=== PATIENT | female | born 1955 | race African-American/Black ===

== ENCOUNTER 2024-08-15 07:44 | Inpatient (IN) | payer OTHER, SELFPAY ==
[2024-08-15] VITALS (12 sets, daily range): BP systolic 125–209; BP diastolic 57–101; PULSE 80–118; RESP 14–21; TEMP 36–37.1; O2SAT 95–100
--- NOTE | ~2024-08-15 | CT_ITS ---
CT of the Abdomen and Pelvis: Indication: Dysphagia Technique: 2.5 mm axial scans were obtained through the abdomen and pelvis following intravenous adm inistration of 100 cc of Omnipaque 350. Dose reduction technique was used on this scan by utilizing a utomated exposure control and iterative reconstruction technique. The dose-length product (DLP) was 5 11.23 mGy-cm. Findings: Scans through the lung bases are unremarkable. Diffusely nodular liver is compatible cirrhosis. No definite hepatic mass or biliary dilatation evide nt. Multiple gallstones are present, with somewhat distended gallbladder. The spleen, gallbladder, ad renals and kidneys are within normal limits. There are atherosclerotic calcifications of the aorta. T here is a 4.7 x 2.8 x 2.4 cm lobulated soft tissue mass in the gastrohepatic region, which appears ne w focally contiguous with the lesser curvature of the stomach, possibly representing exophytic GIST t umor versus other neoplastic mass.. Suggestion of focal wall thickening GE junction region, which may be contiguous with the aforemention ed mass. No bowel obstruction evident. Images through the pelvis were performed. Multiple calcified uterine fibroids are present. No other a dnexal mass seen. Urinary bladder unremarkable. No ascites. Impression: 4.7 x 2.8 x 2.4 cm gastrohepatic region soft tissue mass, which appears focally contiguous with the l micheline curvature of the stomach. Suggestion of additional mild wall thickening at the GE junction jazlyn on, which may also be contiguous with the mass. Findings are consistent with neoplastic process, poss ibly GIST versus other neoplasm. Cirrhotic liver. Cholelithiasis. Calcified uterine fibroids. Reviewed, dictated and finalized at location M. Impression: 4.7 x 2.8 x 2.4 cm gastrohepatic region soft tissue mass, which appears focally contiguous with the lesser curvature of the stomach. Suggestion of additional mild wall thickening at the GE junction region, which may also be contiguous wi th the mass. Findings are consistent with neoplastic process, possibly GIST simin abimbola other neoplasm. Cirrhotic liver. Cholelithiasis. Calcified uterine fibroids.
--- NOTE | ~2024-08-15 | CT_ITS ---
EXAMINATION: CT diagnostic chest w con DATE: 08/17/2024 21:04 INDICATION: Esophageal cancer staging TECHNIQUE: Computed tomography (CT) of the chest was performed with 75 mL Omnipaque-350 intravenous c ontrast. Additional 3D reconstructions utilizing coronal maximum intensity projection (MIP) were perf ormed. Automated exposure control and iterative reconstruction technique were employed. The dose-esther th product was 472.57 mGy-cm. COMPARISON: None FINDINGS: Lungs are clear with no suspicious pulmonary nodules, pneumonia, pulmonary edema or pleural effusion. Heart size is normal. No pericardial effusion. Thoracic aorta is normal in caliber with no dissectio n. Subcutaneous mass with concentric wall thickening extending 5.6 mm craniocaudally and measuring 3. 6 x 2.4 similar in the proximal thoracic esophagus at the caudal margin which is located near the lev el of the anupam. This likely results in a secondary stricture of the esophagus lumen which is decomp ressed at level of the mass but which is distended with dependently layering fluid proximal to the ma ss. No pathologically enlarged thoracic lymphadenopathy. Shrunken nodular cirrhotic liver. Again seen is a 4.7 x 3.2 cm gastrohepatic mass consistent with metastatic disease. Mild thoracic spondylosis w ith bridging osteophytes at multiple levels consistent with diffuse idiopathic skeletal hyperostosis (DISH). Moderate left and severe right glenohumeral osteoarthritis. IMPRESSION: 1. Mid esophageal mass consistent with reported history of primary esophageal cancer with no evident intrathoracic metastatic disease. There is however a 4.7 x 3.2 cm gastrohepatic mass consistent with metastatic lymphadenopathy. 2. Cirrhosis. Reviewed, dictated and finalized at location A. IMPRESSION: 1. Mid esophageal mass consistent with reported history of primary esophageal c ancer with no evident intrathoracic metastatic disease. There is however a 4.7 x 3.2 cm gastrohepatic mass consistent with metastatic lymphadenopathy. 2. Cirrhosis.
--- NOTE | 2024-08-15 07:58 | ED_ITS ---
HPI - General Adult General Chief complaint: Unspecified Stated complaint: unable to swallow Time Seen by Provider: 08/15/24 07:49 History of Present Illness HPI narrative: 69-year-old female present to the emergency department for evaluation for difficulty swallowing over last few weeks. Patient has been checked at [place] and everything has been fine. Family states the patient is having difficulty swallowing her saliva and swallowing food. Patient appears to be in no distress upon arrival to the emergency department. Patient family do not report any acute worsening of her difficulty swallowing but states it has continued to escalate. Patient was unable to tolerate a p.o. challenge to the emergency department. Related Data Home Medications Medication Instructions Recorded Confirmed amlodipine 10 mg tablet 10 mg PO DAILY 08/15/24 08/15/24 clonidine HCl 0.3 mg tablet 0.3 mg PO DAILY 08/15/24 08/15/24 lisinopril 40 mg tablet 40 mg PO DAILY 08/15/24 08/15/24 Allergies Allergy/AdvReac Type Severity Reaction Status Date / Time No Known Allergies Allergy Verified 08/15/24 10:33 Review of Systems Review of Systems: All systems reviewed & are unremarkable except as noted in HPI and below PMFSH Past Medical History Medical History (Updated 08/15/24 @ 12:10 by Irving Chery MD) Abnormal CT scan, stomach Weight loss Social History Social History Smoking status: Never smoker Alcohol intake: never Substance use: never Substance use type: does not use Do You Feel Safe in your Home?: Yes Lack of Transportation: No Lack of Food: Never True Current Housing: I Have Housing Concerned About Future Housing: No Difficulty Paying Gas/Electric Bills: No Difficulty Paying for Meds: No Currently Unemployed: No Education: Don't Know Difficulty w/ Childcare or Family Care: No Spiritual care concerns: No Exam Narrative: APPEARANCE: Well appearing, no pain, no distress, well-nourished. HEAD: normocephalic, atraumatic. EYES: PERRLA/EOMI, conjunctivae clear. NOSE: Normal no drainage EARS:TMS clear with good light reflex. THROAT: Pharynx clear, no exudate. NECK: Supple. No adenopathy, no masses. RESPIRATORY: Airway patent, respirations nonlabored. Clear to auscultation bilaterally, no rales, rhonchi, wheezing. CARDIOVASCULAR: Regular rate and rhythm without murmurs rubs or gallops. ABDOMINAL: Soft, nontender, nondistended, normal bowel sounds MUSCULOSKELETAL: Moves all extremities. Strength/ROM intact, No edema, No calf tenderness. NEURO: Alert. Cranial nerves II through XII intact. Grossly intact SKIN: Warm, dry. Normal Color Course Course Emergency Course: GI was consulted and patient was admitted to the hospitalist. Vital Signs Vital signs: Vital Signs Temperature 98 F 08/15/24 07:48 Pulse Rate 88 08/15/24 07:48 Respiratory Rate 16 08/15/24 07:48 Blood Pressure 209/101 H 08/15/24 07:48 Pulse Oximetry 99 08/15/24 07:48 Oxygen Delivery Room Air 08/15/24 07:48 Temperature 96.8 F L 08/15/24 13:57 Pulse Rate 80 08/15/24 13:57 Respiratory Rate 16 08/15/24 13:57 Blood Pressure 150/57 H 08/15/24 13:57 Pulse Oximetry 100 08/15/24 13:57 Oxygen Delivery Room Air 08/15/24 07:48 Medical Decision Making MDM Narrative Medical decision making narrative: 69-year-old female presented emergency department for evaluation for worsening difficulty swallowing. Case was discussed with GI patient was admitted for suspected esophageal stricture. Patient reports she had a negative CT scan recently at [place]. CT scan was repeated here at the wishes of the hospitalist prior to admission. CT showed a 4 x 7 x 2.8 x 2.4 cm gastrohepatic region of soft tissue mass. This may be affecting the patient's difficulty with swallowing. CT was resulted after the patient was admitted Differential Diagnosis Differential Diagnosis: Esophageal stricture, esophagitis, gastritis, food bolus, mass Vital Signs Vital Signs: Vital Signs Temperature 98 F 08/15/24 07:48 Pulse Rate 88 08/15/24 07:48 Respiratory Rate 16 08/15/24 07:48 Blood Pressure 209/101 H 08/15/24 07:48 Pulse Oximetry 99 08/15/24 07:48 Oxygen Delivery Room Air 08/15/24 07:48 Temperature 96.8 F L 08/15/24 13:57 Pulse Rate 80 08/15/24 13:57 Respiratory Rate 16 08/15/24 13:57 Blood Pressure 150/57 H 08/15/24 13:57 Pulse Oximetry 100 08/15/24 13:57 Oxygen Delivery Room Air 08/15/24 07:48 Lab Data Lab results reviewed: Yes I reviewed the patient's lab results. 08/15/24 08:20 08/15/24 08:20 Labs: Lab Results 08/15/24 Range/Units 08:20 WBC 5.7 (4.5-10.0) K/mm3 RBC 4.71 (4.2-5.4) M/mm3 Hgb 13.6 (12.0-15.0) g/dL Hct 42.0 (37.0-47.0) % MCV 89.2 (80-100) fl MCH 28.9 (26-34) pg MCHC 32.4 (32-36) g/dl RDW 13.4 (11.5-14.5) % Plt Count 235 (150-375) k/mm3 MPV 11.0 H (7.4-10.4) fl Immature Gran % (Auto) 0.4 (0-0.5) % Neut % (Auto) 63.3 (45.5-73.1) % Lymph % (Auto) 18.7 (18.3-44.2) % [place] % (Auto) 13.4 H (2.6-8.5) % Eos % (Auto) 3.7 (0-4.4) % Baso % (Auto) 0.5 (0.2-1.2) % Lymph # (Auto) 1.06 (0.9-3.2) K/mm3 [place] # (Auto) 0.8 H (0.1-0.6) K/mm3 Eos # (Auto) 0.2 (0-0.3) K/mm3 Baso # (Auto) 0.0 (0.0-0.1) K/mm3 Abs Immat Gran (auto) 0.02 (0.00-0.031) K/mm3 Absolute Neuts (auto) 3.6 (1.3-6.7) K/mm3 Absolute Nucleated RBC 0.000 (0.0-0.012) K/mm3 Nucleated RBC % 0.0 (0.0-0.2) % Sodium 139 (137-145) mmol/L Potassium 2.5 L* (3.4-5.0) mmol/L Chloride 102 (98-107) mmol/L Carbon Dioxide 27 (22-30) mmol/L Anion Gap 10 (4-12) mmol/L BUN 5 L (7-17) mg/dL Creatinine 0.90 (0.7-1.0) mg/dL Estim Creat Clear Calc 56 ml/min Estimated GFR > 60 (59 - ) Glucose 128 H (65-110) mg/dL Calcium 9.1 (8.4-10.2) mg/dL Total Bilirubin 0.5 (0.2-1.3) mg/dL AST 22 (14-36) U/L ALT 11 (6-35) U/L Alkaline Phosphatase 100 (38-126) U/L Total Protein 8.0 (6.3-8.2) g/dL Albumin 4.0 (3.5-5.1) g/dL Discharge Plan Discharge Clinical Impression: Dysphagia, Acute hypokalemia Patient Disposition: Still a Patient Condition: Stable
[2024-08-15] MEDS: hydrALAZINE HCL 20 MG/ML VIAL 10 MG IV PUSH ×2 (08:12→20:59)
[2024-08-15 08:32] LABS: Basophils Percent Auto 0.5 % (0.2-1.2); Eosinophils Absolute Auto 0.2 K/mm3 (0-0.3); Eosinophils Percent Auto 3.7 % (0-4.4); Hemoglobin 13.6 g/dL (12.0-15.0); Immature Granulocyte Absolute 0.02 K/mm3 (0.00-0.031); Immature Granulocyte Percent A 0.4 % (0-0.5); Lymphocytes Absolute Auto 1.06 K/mm3 (0.9-3.2); Lymphocytes Percent Auto 18.7 % (18.3-44.2); Mean Corpuscular HGB Conc 32.4 g/dl (32-36); Mean Corpuscular Hemoglobin 28.9 pg (26-34); Mean Corpuscular Volume 89.2 fl (80-100); Monocytes Absolute Auto 0.8 K/mm3 (0.1-0.6); Monocytes Percent Auto 13.4 % (2.6-8.5); Neutrophils Absolute Auto 3.6 K/mm3 (1.3-6.7); Neutrophils Percent Auto 63.3 % (45.5-73.1); Platelet Count Result 235 k/mm3 (150-375); Red Blood Count 4.71 M/mm3 (4.2-5.4); Red Cell Distribution Width 13.4 % (11.5-14.5); White Blood Count 5.7 K/mm3 (4.5-10.0)
[2024-08-15 08:46] LABS: Alanine Aminotransferase 11 U/L (6-35); Alkaline Phosphatase 100 U/L (38-126); Anion Gap 10 mmol/L (4-12); Aspartate Amino Transferase 22 U/L (14-36); Bilirubin,Total 0.5 mg/dL (0.2-1.3); Blood Urea Nitrogen 5 mg/dL (7-17); Calcium 9.1 mg/dL (8.4-10.2); Carbon Dioxide 27 mmol/L (22-30); Chloride 102 mmol/L (98-107); Estimated CRCL calculation 56 ml/min; Estimated Glomerular Filt Rate > 60; Glucose 128 mg/dL (65-110); Potassium 2.5 mmol/L (3.4-5.0); Sodium 139 mmol/L (137-145)
--- NOTE | 2024-08-15 09:03 | PC.NURSE ---
pt refused straight cath. pt unable to void in bathroom x2. bedside commode in room and call light given.
[2024-08-15] MEDS: KCL 20 MEQ/SW 100 ML 100 ML 50 MEQ IVPB (09:13)
[2024-08-15] MEDS: SODIUM CHLORIDE 0.9% IV 500 ML 999 ML IV CONT (09:34)
--- NOTE | 2024-08-15 10:25 | ADMGEN ---
This patient, Nancy Best, was admitted to 3 [facility] Surg Room 315-01. Patient/family oriented to hospital policies and general routines including ID bracelet, bed and alarms, visiting hours, pain management, procedures, bathroom and other care routines, personal items, smoking policy, room service/diet, and visiting hours. Information on how to activate the Rapid Response Team has been discussed. Patient/Family are encouraged to report perceived risks to care and to ask questions if they do not understand what they are told or what they should do.
--- NOTE | 2024-08-15 10:30 | PM.IMHP ---
H&P: HPI History of Present Illness Date/Time: 08/15/24 10:30 Chief Complaint: Difficulty swallowing Narrative: 69 years old lady with history of hypertension, present ED with a chief complaint of difficulty swallowing. Patient has been having progressive difficulty swallowing in past few more weeks, and has worsening swelling in possible days. Patient cannot tolerate liquid diet. Patient feels the food stuck behind the chest. Patient has intermittent no vomiting after eating drinking. Patient denies abdomen pain, diarrhea, weight loss. Patient denies chest pain headache, shortness breath, fever, chills, dysuria, focal weakness. Patient came to ED for evaluation treatment. Upon arrival in the ED, patient found have uncontrolled hypertension, tachypnea, tachycardia, pulse ox 100% on room air, Labs showed hyponatremia potassium 2.5. CT abdomen pelvis showed 4.7 x 2.8 x 2.4 cm gastrohepatic region soft tissue mass, which appears focally contiguous with the lesser curvature of the stomach. Suggestion of additional mild wall thickening at the GE junction region, which may also be contiguous with the mass. 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 Patient received potassium chloride IV in the ED ER physician consulted GI, plans EGD Review of Systems Review of Systems: ROS negative except above PMFSH Past Medical History Medical History (Updated 08/15/24 @ 12:10 by Irving Chery MD) Abnormal CT scan, stomach Weight loss Social History Social History Smoking status: Never smoker Alcohol intake: never Substance use: never Substance use type: does not use Do You Feel Safe in your Home?: Yes Lack of Transportation: No Lack of Food: Never True Current Housing: I Have Housing Concerned About Future Housing: No Difficulty Paying Gas/Electric Bills: No Difficulty Paying for Meds: No Currently Unemployed: No Education: Don't Know Difficulty w/ Childcare or Family Care: No Spiritual care concerns: No Meds Home Medications and Allergies Home Medications Medication Instructions Recorded Confirmed Type amlodipine 10 mg tablet 10 mg PO DAILY 08/15/24 08/15/24 History clonidine HCl 0.3 mg tablet 0.3 mg PO DAILY 08/15/24 08/15/24 History lisinopril 40 mg tablet 40 mg PO DAILY 08/15/24 08/15/24 History Allergies Allergy/AdvReac Type Severity Reaction Status Date / Time No Known Allergies Allergy Verified 08/15/24 10:33 Vital Signs Vital Signs - 24 hr 08/15/24 07:48 08/15/24 08:23 08/15/24 08:48 Temperature 98 F Pulse Rate 88 84 118 H Respiratory Rate 16 16 Blood Pressure 209/101 H 161/95 H Pulse Oximetry 99 100 Oxygen Delivery Room Air 08/15/24 09:18 08/15/24 09:20 08/15/24 10:05 Temperature Pulse Rate 106 H 92 Respiratory Rate 17 21 H Blood Pressure 179/83 H 125/65 159/65 H Pulse Oximetry 100 95 Oxygen Delivery Exam Narrative: GENERAL: Pleasant, in no acute distress. Well-nourished. - EYES: EOMI. Anicteric. - HENT: Moist mucous membranes. - LUNGS: Clear to auscultation bilaterally, no wheezing, rhonchi, or rales. - CARDIOVASCULAR: Regular rate and rhythm. No murmur. No JVD. - ABDOMEN: Soft, non-tender and non-distended. No palpable masses. - EXTREMITIES: No edema. Peripheral pulses 2+. Non-tender. - NEUROLOGIC: No focal neurological deficits. CN II-XII grossly intact. - PSYCHIATRIC: Awake, Alert and oriented x 3. Appropriate mood and affect. - SKIN: No rashes or lesions. Warm. - LYMPH: No cervical lymphadenopathy. H&P: Results Labs Labs: Short CBC 08/15/24 Range/Units 08:20 WBC 5.7 (4.5-10.0) K/mm3 Hgb 13.6 (12.0-15.0) g/dL Hct 42.0 (37.0-47.0) % Plt Count 235 (150-375) k/mm3 [facility] 08/15/24 08:20 Sodium 139 Potassium 2.5 L* Chloride 102 Carbon Dioxide 27 BUN 5 L Creatinine 0.90 Glucose 128 H Calcium 9.1 Liver Function 08/15/24 Range/Units 08:20 Total Bilirubin 0.5 (0.2-1.3) mg/dL AST 22 (14-36) U/L ALT 11 (6-35) U/L Alkaline Phosphatase 100 (38-126) U/L Albumin 4.0 (3.5-5.1) g/dL Assessment and Plan Assessment and plan (1) Dysphagia: Code(s): R13.10 - Dysphagia, unspecified Status: Acute (2) Acute hypokalemia: Code(s): E87.6 - Hypokalemia Status: Acute (3) 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 Suggestion of additional mild wall thickening at the GE junction region, which may also be contiguous with the mass. 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 Appreciate GI consultation, plans EGD Start lactated Ringer IV 75ml/h Hypokalemia Circuit [employer] to poor intake, nausea vomiting Replete potassium chloride IV Follow-up BMP, magnesium, phosphate Uncontrolled hypertension Hold oral medication because of dysphagia Start hydralazine IV 10 mg Q 6 p.r.n. with parameters Hospitalist [facility] Advance Care Plan I have confirmed that the patient's Advanced Care Plan is present, code status is documented, or surrogate decision maker is listed in patient medical record.: Yes The patient's Advanced Care plan is not present because:: Patient doesn't want to name surrogate or provider advance care plan Medication Reconciliation I have utilized all available resources to obtain, update and review the patients current medications (includes all prescriptions, OTC, herbals, cannabis, and nutritional supplements).: Yes
--- NOTE | 2024-08-15 11:54 | WPDGICN ---
Assessment and Plan Assessment and plan (1) Dysphagia: Code(s): R13.10 - Dysphagia, unspecified Status: Acute Assessment and Plan: difficulty tolerating even liquids egd tomorrow, CT scan noted mass, ? malignancy more recommendations after egd npo for now, also we need to correct hypokalemia before can get anesthesia (2) Abnormal CT scan, stomach: Code(s): R93.3 - Abnormal findings on diagnostic imaging of other parts of digestive tract Status: Acute Assessment and Plan: ? malignancy egd in am (3) Acute hypokalemia: Code(s): E87.6 - Hypokalemia Status: Acute Assessment and Plan: repleting repeat K and Mg level (4) Weight loss: Code(s): R63.4 - Abnormal weight loss Status: Acute GI Consult Note Consult date/time: 08/15/24 11:54 Reason for consult: dysphagia, abnormal stomach by ct scan HPI: Nancy Best is a 69 year old female admitted for almost 1 week of difficulty swallowing. She says that was evaluated recently at [facility] and no major findings. She has been hard time even to keep fluids and has to bring it up after eating anything. Also noted hypokalemia on admission, she says that lost some weight. CT abdomen pelvis showed 4.7 x 2.8 x 2.4 cm gastrohepatic region soft tissue mass, which appears focally contiguous with the lesser curvature of the stomach. Suggestion of additional mild wall thickening at the GE junction region, which may also be contiguous with the mass. 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 She thinks that had a procedure more than a year ago when had tube down her esophagus but can not tell me details. Denies abdominal pain. Review of Systems Constitutional: Constitutional: Denies headache(s) and Reports weight loss Eyes: Eyes: Denies blurry vision ENT: Reports Normal hearing present, Denies headache(s) and Denies neck pain Cardiovascular: Cardiovascular: Denies chest pain and Denies dyspnea Respiratory: Respiratory: Denies dyspnea Gastrointestinal: Gastrointestinal: Reports no additional gastrointestinal complaints Genitourinary: Genitourinary: Denies urinary urgency Musculoskeletal: Musculoskeletal: Denies neck pain Integumentary/Breasts: Skin/Breast: Denies dry skin Neurologic: Reports Normal hearing present and Denies headache(s) Psychiatric: Psychiatric: Denies anxiety Endocrine: Endocrine: Denies change in body appearance Hematologic/Lymphatic: Hematologic/Lymphatic: Denies easy bleeding Allergic/Immunologic: Allergic/Immunologic: Denies urticaria PMFSH Past Medical History Medical History (Updated 08/15/24 @ 12:10 by Irving Chery MD) Abnormal CT scan, stomach Weight loss Social History Social History Smoking status: Never smoker Alcohol intake: never Substance use: never Substance use type: does not use Do You Feel Safe in your Home?: Yes Lack of Transportation: No Lack of Food: Never True Current Housing: I Have Housing Concerned About Future Housing: No Difficulty Paying Gas/Electric Bills: No Difficulty Paying for Meds: No Currently Unemployed: No Education: Don't Know Difficulty w/ Childcare or Family Care: No Spiritual care concerns: No Meds Home Medications and Allergies Home Medications Medication Instructions Recorded Confirmed Type amlodipine 10 mg tablet 10 mg PO DAILY 08/15/24 08/15/24 History clonidine HCl 0.3 mg tablet 0.3 mg PO DAILY 08/15/24 08/15/24 History lisinopril 40 mg tablet 40 mg PO DAILY 08/15/24 08/15/24 History Allergies Allergy/AdvReac Type Severity Reaction Status Date / Time No Known Allergies Allergy Verified 08/15/24 10:33 Vital Signs Vital Signs - 24 hr 08/15/24 07:48 08/15/24 08:23 08/15/24 08:48 Temperature 98 F Pulse Rate 88 84 118 H Respiratory Rate 16 16 Blood Pressure 209/101 H 161/95 H Pulse Oximetry 99 100 Oxygen Delivery Room Air 08/15/24 09:18 08/15/24 09:20 08/15/24 10:05 Temperature Pulse Rate 106 H 92 Respiratory Rate 17 21 H Blood Pressure 179/83 H 125/65 159/65 H Pulse Oximetry 100 95 Oxygen Delivery 08/15/24 10:54 Temperature 97.5 F L Pulse Rate 82 Respiratory Rate 14 Blood Pressure 186/90 H Pulse Oximetry 100 Oxygen Delivery Exam Const: General: comfortable and no acute distress HENMT: Face/Nose/Sinus: Normal nares present Eyes: General: appearance normal, both eyes and all related structures Neck: Neck: supple Resp: Auscultation: clear to auscultation bilaterally Cardio: Rate: regular rate Rhythm: regular rhythm GI: Inspection: non-distended GI Palp: Yes Soft to palpation and No Tenderness to palpation present (GI) Auscultation: normal bowel sounds Skin: General skin exam: normal color Neuro: General: gait normal Speech: normal speech Extrem: General: normal to inspection Psych: Mental Status: mental status grossly normal Results Labs 08/15/24 08:20 08/15/24 08:20 Labs: Short CBC 08/15/24 Range/Units 08:20 WBC 5.7 (4.5-10.0) K/mm3 Hgb 13.6 (12.0-15.0) g/dL Hct 42.0 (37.0-47.0) % Plt Count 235 (150-375) k/mm3 BMP 08/15/24 08:20 Sodium 139 Potassium 2.5 L* Chloride 102 Carbon Dioxide 27 BUN 5 L Creatinine 0.90 Glucose 128 H Calcium 9.1 Liver Function 08/15/24 Range/Units 08:20 Total Bilirubin 0.5 (0.2-1.3) mg/dL AST 22 (14-36) U/L ALT 11 (6-35) U/L Alkaline Phosphatase 100 (38-126) U/L Albumin 4.0 (3.5-5.1) g/dL
[2024-08-15] MEDS: LACTATED RINGERS 500 ML 75 ML IV CONT (13:49)
[2024-08-15] MEDS: hydrALAZINE HCL 20 MG/ML VIAL IV PUSH (13:49)
[2024-08-15 20:44] LABS: Magnesium 2.1 mg/dL (1.6-2.3); Potassium 3.1 mmol/L (3.4-5.0)
[2024-08-15] MEDS: FAMOTIDINE 20 MG/2 ML VIAL IV PUSH (20:59)
[2024-08-15] MEDS: LACTATED RINGERS 1,000 ML 75 ML IV CONT (21:26)
[2024-08-16] VITALS (15 sets, daily range): BP systolic 144–194; BP diastolic 45–127; PULSE 63–90; RESP 18–20; TEMP 36.4–36.9; O2SAT 99–100
[2024-08-16 02:40] LABS: Add Urine Microscopic? YES; Appearance Urine Clear (Clear); Bacteria Urine Rare /hpf; Bilirubin Urine Negative (Negative); Blood Urine Negative (Negative); Color Urine Yellow (Yellow); Glucose Urine UA Negative (Negative); Ketones Urine 1+ mg/dL (Negative); Leukocyte Esterase Ur Negative LEU/UL (Negative); Need Manual Microscopic Reviewed; Nitrate Urine Negative (Negative); Protein Urine 1+ mg/dL (Negative); RBC Urine 0-2 /hpf (0-2); Specific Grav Ur > 1.045 (1.001-1.035); Squamous Epithelial Cell Urine Few /hpf (Few); WBC Urine 0-5 /hpf (0-3); pH Urine 6.5 (5.0-9.0)
[2024-08-16] MEDS: PANTOPRAZOLE SODIUM IV 40 MG VIAL IV PUSH (08:30)
[2024-08-16] MEDS: LACTATED RINGERS 1,000 ML 75 ML IV CONT (08:30)
[2024-08-16] MEDS: LACTATED RINGERS 1,000 ML 30 ML IV CONT (12:49)
--- NOTE | 2024-08-16 12:50 | WPDANESEPPF ---
Anes - Initial Pre Proc Eval Procedure: Operation Date: 08/16/24 16:30 Proposed Procedures p Esophagogastroduodenoscopy - Irving Chery MD Date/Time: 08/16/24 12:50 Surgeon: Tino Mendoza MD Pre Op Diagnosis: Dysphagia,hypokalemia Patient Data Age: 69 Gender: F Height: 1.68 m Weight: 84 kg Last Vital Signs Temp 36.4 C 08/16/24 05:09 Pulse 68 08/16/24 12:47 Resp 18 08/16/24 12:47 BP 179/79 H 08/16/24 12:47 Pulse Ox 99 08/16/24 12:47 O2 Del Method Room Air 08/16/24 12:47 Allergies Allergy/AdvReac Type Severity Reaction Status Date / Time No Known Allergies Allergy Verified 08/16/24 12:46 Home Medications Medication Instructions Recorded Confirmed Type amlodipine 10 mg tablet 10 mg PO DAILY 08/15/24 08/15/24 History clonidine HCl 0.3 mg tablet 0.3 mg PO DAILY 08/15/24 08/15/24 History lisinopril 40 mg tablet 40 mg PO DAILY 08/15/24 08/15/24 History Laboratory Tests 08/15/24 08/16/24 08/16/24 20:00 02:18 12:16 Sodium Pending Potassium 3.1 L mmol/L Pending (3.4-5.0) Chloride Pending Carbon Dioxide Pending Anion Gap Pending BUN Pending Creatinine Pending Estim Creat Clear Calc Pending Estimated GFR Pending Glucose Pending Calcium Pending Magnesium 2.1 mg/dL (1.6-2.3) Urine Color Yellow (Yellow) Urine Appearance Clear (Clear) Urine pH 6.5 (5.0-9.0) Ur Specific [place] > 1.045 H (1.001-1.035) Urine Protein 1+ H mg/dL (Negative) Urine Glucose (UA) Negative mg/dL (Negative) Urine Ketones 1+ H mg/dL (Negative) Ur Blood (Man) Negative (Negative) Urine Nitrate Negative (Negative) Urine Bilirubin Negative (Negative) Urine Urobilinogen 1.0 mg/dL (<2.0) Add Ur Microanalysis Reviewed Leukocyte Esterase Rfl Negative ELLA/UL (Negative) Urine RBC 0-2 /hpf (0-2) Urine WBC 0-5 /hpf (0-3) Ur Squamous Epith Cells Few /hpf (Few) Urine Bacteria Rare /hpf Urine Casts 3-5 Patient hx anesthesia problems: none Family hx anesthesia problems: none Results Review: All pre-operative results and documents have been reviewed as part of the pre-operative evaluation. [facility] Past Medical History Medical History (Updated 08/16/24 @ 12:51 by Rajinder Alcantara MD) Abnormal CT scan, stomach Dysphagia HTN (hypertension) Weight loss Social History Social History Smoking status: Never smoker Alcohol intake: never Substance use: never Substance use type: does not use Do You Feel Safe in your Home?: Yes Lack of Transportation: No Lack of Food: Never True Current Housing: I Have Housing Concerned About Future Housing: No Difficulty Paying Gas/Electric Bills: No Difficulty Paying for Meds: No Currently Unemployed: No Education: Don't Know Difficulty w/ Childcare or Family Care: No Spiritual care concerns: No Anes - Eval Final PreProcedure Day of Procedure 08/16/24 12:50 Patient weight: overweight Heart: regular rate and rhythm Lungs: clear to auscultation Airway: Mallampati scale class II and special considerations poor dentition Neurological: alert and oriented Last oral intake: >/= 8 hours ASA classification: III Emergent: no Anesthetic plan: proceed Anesthesia type and monitoring: general GIVS and standard monitoring Results Review: All pre-operative results and documents have been reviewed as part of the pre-operative evaluation. Informed Consent: The patient's anesthetic plan and its attendant risks and benefits were discussed with the patient/family/POA. Questions were solicited and answers provided to the satisfaction of the patient/family/POA.
--- NOTE | 2024-08-16 15:17 | PM.IMPN ---
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 GI recommends transfer to the tertiary center probably will need esophageal stent with or without surgery. TPN started Patient has been having progressive difficulty with swallowing or past few weeks CT abdomen pelvis showed 4.7 x 2.8 x 2.4 cm gastrohepatic region soft tissue mass, which appears focally contiguous with the lesser curvature of the stomach. Suggestion of additional mild wall thickening at the GE junction region, which may also be contiguous with the mass. 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 Appreciate GI consultation, plans EGD Start lactated Ringer IV 75ml/h Hypokalemia [place] to poor intake, nausea vomiting Replete potassium chloride IV Follow-up BMP, magnesium, phosphate Uncontrolled hypertension Hold oral medication because of dysphagia Start hydralazine IV 10 mg Q 6 p.r.n. 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 The GI recommends transfer to the tertiary center probably will need esophageal stent with or without surgery. TPN has been started. Called [facility] transfer center and awaiting update. Review of Systems Review of Systems: ROS negative except above All systems reviewed & are unremarkable except as noted in HPI and below Constitutional: Constitutional: Denies headache(s) and Reports weight loss Eyes: Eyes: Denies blurry vision ENT: Reports Normal hearing present, Denies headache(s) and Denies neck pain Cardiovascular: Cardiovascular: Denies chest pain and Denies dyspnea Respiratory: Respiratory: Denies dyspnea Gastrointestinal: Gastrointestinal: Reports no additional gastrointestinal complaints Genitourinary: Genitourinary: Denies urinary urgency Musculoskeletal: Musculoskeletal: Denies neck pain Integumentary/Breasts: Skin/Breast: Denies dry skin Neurologic: Reports Normal hearing present and Denies headache(s) Psychiatric: Psychiatric: Denies anxiety Endocrine: Endocrine: Denies change in body appearance Hematologic/Lymphatic: Hematologic/Lymphatic: Denies easy bleeding Allergic/Immunologic: Allergic/Immunologic: Denies urticaria Exam Narrative: GENERAL: Pleasant, in no acute distress. Well-nourished. - EYES: EOMI. Anicteric. - HENT: Moist mucous membranes. - LUNGS: Clear to auscultation bilaterally, no wheezing, rhonchi, or rales. - CARDIOVASCULAR: Regular rate and rhythm. No murmur. No JVD. - ABDOMEN: Soft, non-tender and non-distended. No palpable masses. - EXTREMITIES: No edema. Peripheral pulses 2+. Non-tender. - NEUROLOGIC: No focal neurological deficits. CN II-XII grossly intact. - PSYCHIATRIC: Awake, Alert and oriented x 3. Appropriate mood and affect. - SKIN: No rashes or lesions. Warm. - LYMPH: No cervical lymphadenopathy. Const: General: comfortable and no acute distress HENMT: Face/Nose/Sinus: Normal nares present Eyes: General: appearance normal, both eyes and all related structures Neck: Neck: supple Resp: Auscultation: clear to auscultation bilaterally Cardio: Rate: regular rate Rhythm: regular rhythm GI: Inspection: non-distended Auscultation: normal bowel sounds Skin: General skin exam: normal color Neuro: General: gait normal Cranial nerves: Yes Normal hearing present Speech: normal speech Extrem: General: normal to inspection Psych: Mental Status: mental status grossly normal Objective Data Vital Signs Vital Signs: Vital Signs - 24 hr 08/15/24 16:00 08/15/24 20:31 08/15/24 20:00 Temperature 98.7 F Pulse Rate 84 96 82 Respiratory Rate 18 Blood Pressure 171/81 H Pulse Oximetry 99 Oxygen Delivery 08/16/24 00:00 08/16/24 04:00 08/16/24 05:09 Temperature 97.6 F Pulse Rate 71 68 81 Respiratory Rate 18 Blood Pressure 159/65 H Pulse Oximetry 100 Oxygen Delivery 08/16/24 08:14 08/16/24 08:30 08/16/24 08:00 Temperature Pulse Rate 77 Respiratory Rate Blood Pressure Pulse Oximetry 99 Oxygen Delivery Room Air Room Air 08/16/24 12:47 08/16/24 13:10 08/16/24 13:20 Temperature Pulse Rate 68 88 90 Respiratory Rate 18 20 18 Blood Pressure 179/79 H 144/50 H 145/127 H Pulse Oximetry 99 100 100 Oxygen Delivery Room Air Room Air Room Air 08/16/24 13:30 08/16/24 14:00 Temperature 98.4 F Pulse Rate 72 63 Respiratory Rate 19 18 Blood Pressure 146/66 H 168/51 H Pulse Oximetry 100 100 Oxygen Delivery Room Air Intake/Output Intake/Output: Intake & Output 08/13/24 08/14/24 08/15/24 08/16/24 23:59 23:59 23:59 23:59 Intake Total 1580 Output Total 425 200 Balance -425 1380 Meds/Results Medications: Active Medications Generic Name Dose Route Start Last Admin Trade Name Freq PRN Reason Stop Dose Admin Hydralazine HCl 10 mg 08/15/24 12:31 08/15/24 20:59 Hydralazine Hcl 20 Mg/Ml Vial IV PUSH 10 mg Q6H PRN Administration Blood Pressure - High Lactated Ringer's 1,000 mls @ 75 mls/hr 08/15/24 21:10 08/16/24 08:30 Lr - Lactated Ringers Iv IV CONT 75 mls/hr .[id number] RICHARD Administration Pantoprazole Sodium 40 mg 08/16/24 09:00 08/16/24 08:30 Pantoprazole Sodium Iv 40 Mg Vial IV PUSH 40 mg QAM RICHARD Administration Radiology Results: ITS Impressions Abdomen/Pelvis CT 08/15/24 10:06 Impression: 4.7 x 2.8 x 2.4 cm gastrohepatic region soft tissue mass, which appears focally contiguous with the lesser curvature of the stomach. Suggestion of additional mild wall thickening at the GE junction region, which may also be contiguous with the mass. 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 Cirrhotic liver. Cholelithiasis. Calcified uterine fibroids. Labs Labs: Laboratory Results - last 24 hr 08/15/24 08/16/24 20:00 02:18 Potassium 3.1 L Magnesium 2.1 Urine Color Yellow Urine Appearance Clear Urine pH 6.5 Ur Specific [place] > 1.045 H Urine Protein 1+ H Urine Glucose (UA) Negative Urine Ketones 1+ H Ur Blood (Man) Negative Urine Nitrate Negative Urine Bilirubin Negative Urine Urobilinogen 1.0 Add Ur Microanalysis Reviewed Leukocyte Esterase Rfl Negative Urine RBC 0-2 Urine WBC 0-5 Ur Squamous Epith Cells Few Urine Bacteria Rare Urine Casts 3-5 Hospitalist MIPS Advance Care Plan I have confirmed that the patient's Advanced Care Plan is present, code status is documented, or surrogate decision maker is listed in patient medical record.: Yes Medication Reconciliation I have utilized all available resources to obtain, update and review the patients current medications (includes all prescriptions, OTC, herbals, cannabis, and nutritional supplements).: Yes
[2024-08-16 15:18] LABS: Anion Gap 11 mmol/L (4-12); Blood Urea Nitrogen 6 mg/dL (7-17); Carbon Dioxide 25 mmol/L (22-30); Chloride 103 mmol/L (98-107); Estimated CRCL calculation 70 ml/min; Estimated Glomerular Filt Rate > 60; Glucose 89 mg/dL (65-110); Potassium 3.1 mmol/L (3.4-5.0); Sodium 139 mmol/L (137-145)
[2024-08-16] MEDS: LIDOCAINE HCL 1% PF INJ 5 ML VIAL INFILTRATE (15:45)
[2024-08-16] MEDS: AMINO ACIDS 5%/D15W/E-LYTES/CA 2,000 ML with MULTIVITAMINS-12 INJ VIAL 1 2.5 ML, MULTIV... 40 ML IV CONT (17:51)
[2024-08-16] MEDS: FAT EMULSIONS IV 20% 250 ML 20.83 ML IVPB (17:52)
[2024-08-16 18:21] LABS: Glucose Point of Care 88 mg/dl (65-105)
[2024-08-16 19:51] LABS: Basophils Percent Auto 0.5 % (0.2-1.2); Eosinophils Absolute Auto 0.2 K/mm3 (0-0.3); Eosinophils Percent Auto 3.4 % (0-4.4); Hematocrit 37.6 % (37.0-47.0); Immature Granulocyte Absolute 0.02 K/mm3 (0.00-0.031); Immature Granulocyte Percent A 0.3 % (0-0.5); Lymphocytes Absolute Auto 1.35 K/mm3 (0.9-3.2); Lymphocytes Percent Auto 21.9 % (18.3-44.2); Mean Corpuscular HGB Conc 31.9 g/dl (32-36); Mean Corpuscular Hemoglobin 28.8 pg (26-34); Mean Corpuscular Volume 90.2 fl (80-100); Mean Platelet Volume 10.9 fl (7.4-10.4); Monocytes Absolute Auto 0.7 K/mm3 (0.1-0.6); Neutrophils Absolute Auto 3.8 K/mm3 (1.3-6.7); Neutrophils Percent Auto 61.9 % (45.5-73.1); Platelet Count Result 192 k/mm3 (150-375); Red Blood Count 4.17 M/mm3 (4.2-5.4); Red Cell Distribution Width 14.1 % (11.5-14.5); White Blood Count 6.2 K/mm3 (4.5-10.0)
[2024-08-16 20:09] LABS: Alanine Aminotransferase 9 U/L (6-35); Albumin Level 3.4 g/dL (3.5-5.1); Alkaline Phosphatase 76 U/L (38-126); Anion Gap 7 mmol/L (4-12); Aspartate Amino Transferase 18 U/L (14-36); Bilirubin,Total 0.4 mg/dL (0.2-1.3); Blood Urea Nitrogen 5 mg/dL (7-17); Calcium 8.7 mg/dL (8.4-10.2); Carbon Dioxide 28 mmol/L (22-30); Chloride 104 mmol/L (98-107); Estimated CRCL calculation 70 ml/min; Estimated Glomerular Filt Rate > 60; Glucose 111 mg/dL (65-110); Magnesium 2.1 mg/dL (1.6-2.3); Partial Thromboplastin Time 30.4 Seconds (22.3-36.8); Potassium 3.3 mmol/L (3.4-5.0); Sodium 139 mmol/L (137-145)
[2024-08-16 20:16] LABS: Transferrin 155 mg/dL (206-381)
[2024-08-16] MEDS: hydrALAZINE HCL 20 MG/ML VIAL 10 MG IV PUSH (20:16)
[2024-08-17] VITALS (11 sets, daily range): BP systolic 153–207; BP diastolic 60–72; PULSE 60–90; RESP 18–20; TEMP 36.1–36.4; O2SAT 100; BMI 29.2
[2024-08-17] LABS: Glucose Point of Care 117 mg/dl (65-105)
[2024-08-17] MEDS: LACTATED RINGERS 1,000 ML 75 ML IV CONT ×2 (00:59→17:26)
--- NOTE | 2024-08-17 04:07 | PC.NURSE ---
read, reviewed and agree with tulio Ford rn charting and documentation
[2024-08-17] MEDS: hydrALAZINE HCL 20 MG/ML VIAL 10 MG IV PUSH ×2 (05:19→19:41)
[2024-08-17 05:21] LABS: Glucose Point of Care 157 mg/dl (65-105)
[2024-08-17 05:51] LABS: Anion Gap 6 mmol/L (4-12); Blood Urea Nitrogen 6 mg/dL (7-17); Calcium 8.4 mg/dL (8.4-10.2); Carbon Dioxide 29 mmol/L (22-30); Chloride 104 mmol/L (98-107); Estimated CRCL calculation 80 ml/min; Estimated Glomerular Filt Rate > 60; Glucose 144 mg/dL (65-110); Phosphorus 2.9 mg/dL (2.5-4.5); Potassium 2.5 mmol/L (3.4-5.0); Sodium 139 mmol/L (137-145)
[2024-08-17] MEDS: POTASSIUM CHLORIDE INJ 40 MEQ in SODIUM CHLORIDE 0.9% IV 500 ML 130 MEQ IVPB (06:23)
[2024-08-17] MEDS: PANTOPRAZOLE SODIUM IV 40 MG VIAL IV PUSH (09:21)
--- NOTE | 2024-08-17 10:52 | PM.IMPN ---
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 GI recommends transfer to the tertiary center probably will need esophageal stent with or without surgery. TPN started Patient has been having progressive difficulty with swallowing or past few weeks CT abdomen pelvis showed 4.7 x 2.8 x 2.4 cm gastrohepatic region soft tissue mass, which appears focally contiguous with the lesser curvature of the stomach. Suggestion of additional mild wall thickening at the GE junction region, which may also be contiguous with the mass. 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 Appreciate GI consultation, plans EGD Start lactated Ringer IV 75ml/h Hypokalemia [place] to poor intake, nausea vomiting Replete potassium chloride IV Follow-up BMP, magnesium, phosphate Uncontrolled hypertension Hold oral medication because of dysphagia Start hydralazine IV 10 mg Q 6 p.r.n. with parameters Subjective Date/time seen: 08/17/24 10:52 Interval history: Patient wants drink sips of water. Explained that this was his benefits including aspiration. Patient agrees and wants to drink sips of water. Yesterday discussed with patient daughter Ms Curry who agrees to transfer the patient.Yesterday spoke with (GI) at [place] and accepted the transfer. Awaiting bed. Review of Systems Review of Systems: ROS negative except above All systems reviewed & are unremarkable except as noted in HPI and below Constitutional: Constitutional: Denies headache(s) and Reports weight loss Eyes: Eyes: Denies blurry vision ENT: Reports Normal hearing present, Denies headache(s) and Denies neck pain Cardiovascular: Cardiovascular: Denies chest pain and Denies dyspnea Respiratory: Respiratory: Denies dyspnea Gastrointestinal: Gastrointestinal: Reports no additional gastrointestinal complaints Genitourinary: Genitourinary: Denies urinary urgency Musculoskeletal: Musculoskeletal: Denies neck pain Integumentary/Breasts: Skin/Breast: Denies dry skin Neurologic: Reports Normal hearing present and Denies headache(s) Psychiatric: Psychiatric: Denies anxiety Endocrine: Endocrine: Denies change in body appearance Hematologic/Lymphatic: Hematologic/Lymphatic: Denies easy bleeding Allergic/Immunologic: Allergic/Immunologic: Denies urticaria Exam Narrative: GENERAL: Pleasant, in no acute distress. Well-nourished. - EYES: EOMI. Anicteric. - HENT: Moist mucous membranes. - LUNGS: Clear to auscultation bilaterally, no wheezing, rhonchi, or rales. - CARDIOVASCULAR: Regular rate and rhythm. No murmur. No JVD. - ABDOMEN: Soft, non-tender and non-distended. No palpable masses. - EXTREMITIES: No edema. Peripheral pulses 2+. Non-tender. - NEUROLOGIC: No focal neurological deficits. CN II-XII grossly intact. - PSYCHIATRIC: Awake, Alert and oriented x 3. Appropriate mood and affect. - SKIN: No rashes or lesions. Warm. - LYMPH: No cervical lymphadenopathy. Const: General: comfortable and no acute distress HENMT: Face/Nose/Sinus: Normal nares present Eyes: General: appearance normal, both eyes and all related structures Neck: Neck: supple Resp: Auscultation: clear to auscultation bilaterally Cardio: Rate: regular rate Rhythm: regular rhythm GI: Inspection: non-distended Auscultation: normal bowel sounds Skin: General skin exam: normal color Neuro: General: gait normal Cranial nerves: Yes Normal hearing present Speech: normal speech Extrem: General: normal to inspection Psych: Mental Status: mental status grossly normal Objective Data Vital Signs Vital Signs: Vital Signs - 24 hr 08/16/24 12:47 08/16/24 13:10 08/16/24 13:20 Temperature Pulse Rate 68 88 90 Respiratory Rate 18 20 18 Blood Pressure 179/79 H 144/50 H 145/127 H Pulse Oximetry 99 100 100 Oxygen Delivery Room Air Room Air Room Air 08/16/24 13:30 08/16/24 14:00 08/16/24 12:00 Temperature 98.4 F Pulse Rate 72 63 63 Respiratory Rate 19 18 Blood Pressure 146/66 H 168/51 H Pulse Oximetry 100 100 Oxygen Delivery Room Air 08/16/24 16:00 08/16/24 20:24 08/16/24 21:05 Temperature 97.7 F Pulse Rate 67 67 Respiratory Rate 18 Blood Pressure 194/49 H 169/45 H Pulse Oximetry 100 Oxygen Delivery 08/16/24 20:00 08/17/24 00:00 08/17/24 04:00 Temperature Pulse Rate 64 60 64 Respiratory Rate Blood Pressure Pulse Oximetry Oxygen Delivery 08/17/24 05:19 08/17/24 06:47 08/17/24 09:21 Temperature 97.5 F L Pulse Rate 68 79 Respiratory Rate 18 Blood Pressure 190/72 H 175/60 H Pulse Oximetry 100 Oxygen Delivery Room Air 08/17/24 08:00 Temperature Pulse Rate 74 Respiratory Rate Blood Pressure Pulse Oximetry Oxygen Delivery Intake/Output Intake/Output: Intake & Output 08/14/24 08/15/24 08/16/24 08/17/24 23:59 23:59 23:59 23:59 Intake Total 2580 0 Output Total 425 200 200 Balance -425 2380 -200 Meds/Results Medications: Active Medications Generic Name Dose Route Start Last Admin Trade Name Freq PRN Reason Stop Dose Admin Hydralazine HCl 10 mg 08/15/24 12:31 08/17/24 05:19 Hydralazine Hcl 20 Mg/Ml Vial IV PUSH 10 mg Q6H PRN Administration Blood Pressure - High Lactated Ringer's 1,000 mls @ 75 mls/hr 08/15/24 21:10 08/17/24 00:59 Lr - Lactated Ringers Iv IV CONT 75 mls/hr .[id number] RICHARD Administration Dextrose 1,000 mls @ 50 mls/hr 08/16/24 15:28 Dextrose 10% IV CONT .Q20H PRN if PN is interrupted Multivitamins 2.5 ml/ 2,005 mls @ 40 mls/hr 08/16/24 16:30 08/16/24 17:51 Multivitamins 2.5 ml/ Amino IV CONT 40 mls/hr Acids/Electrolytes/Dextrose .Q24H RICHARD Administration Protocol Fat Emulsion Intravenous 250 mls @ 20.833 mls/hr 08/16/24 17:00 08/16/24 17:52 Lipids 20% IVPB 20.83 mls/hr Q24H RICHARD Administration Pantoprazole Sodium 40 mg 08/16/24 09:00 08/17/24 09:21 Pantoprazole Sodium Iv 40 Mg Vial IV PUSH 40 mg QAM RICHARD Administration Sodium Chloride 20 ml 08/16/24 16:48 Central Line Flush IV PUSH PRN PRN after blood draws Sodium Chloride 10 ml 08/16/24 16:48 Central Line Flush IV PUSH PRN PRN with TPN bag changes Sodium Chloride 10 ml 08/16/24 22:00 08/17/24 04:35 Central Line Flush IV PUSH Not Given Q8HR [facility] Radiology Results: ITS Impressions Abdomen/Pelvis CT 08/15/24 10:06 Impression: 4.7 x 2.8 x 2.4 cm gastrohepatic region soft tissue mass, which appears focally contiguous with the lesser curvature of the stomach. Suggestion of additional mild wall thickening at the GE junction region, which may also be contiguous with the mass. 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 Cirrhotic liver. Cholelithiasis. Calcified uterine fibroids. Labs Labs: Laboratory Results - last 24 hr 08/16/24 08/16/24 08/16/24 12:06 18:17 19:38 WBC 6.2 RBC 4.17 L Hgb 12.0 Hct 37.6 MCV 90.2 MCH 28.8 MCHC 31.9 L RDW 14.1 Plt Count 192 MPV 10.9 H Immature Gran % (Auto) 0.3 Neut % (Auto) 61.9 Lymph % (Auto) 21.9 [place] % (Auto) 12.0 H Eos % (Auto) 3.4 Baso % (Auto) 0.5 Lymph # (Auto) 1.35 [place] # (Auto) 0.7 H Eos # (Auto) 0.2 Baso # (Auto) 0.0 Abs Immat Gran (auto) 0.02 Absolute Neuts (auto) 3.8 Absolute Nucleated RBC 0.000 Nucleated RBC % 0.0 APTT 30.4 Sodium 139 139 Potassium 3.1 L 3.3 L Chloride 103 104 Carbon Dioxide 25 28 Anion Gap 11 7 BUN 6 L 5 L Creatinine 0.70 0.70 Estim Creat Clear Calc 70 70 Estimated GFR > 60 > 60 Glucose 89 111 H POC Capillary Glucose 88 Calcium 9.0 8.7 Phosphorus Magnesium 2.1 Transferrin 155 L Total Bilirubin 0.4 AST 18 ALT 9 Alkaline Phosphatase 76 Total Protein 7.0 Albumin 3.4 L 08/16/24 08/17/24 08/17/24 23:56 05:18 05:24 WBC RBC Hgb Hct MCV MCH MCHC RDW Plt Count MPV Immature Gran % (Auto) Neut % (Auto) Lymph % (Auto) [place] % (Auto) Eos % (Auto) Baso % (Auto) Lymph # (Auto) [place] # (Auto) Eos # (Auto) Baso # (Auto) Abs Immat Gran (auto) Absolute Neuts (auto) Absolute Nucleated RBC Nucleated RBC % APTT Sodium 139 Potassium 2.5 L* Chloride 104 Carbon Dioxide 29 Anion Gap 6 BUN 6 L Creatinine 0.60 L Estim Creat Clear Calc 80 Estimated GFR > 60 Glucose 144 H POC Capillary Glucose 117 H 157 H Calcium 8.4 Phosphorus 2.9 Magnesium Transferrin Total Bilirubin AST ALT Alkaline Phosphatase Total Protein Albumin Hospitalist MIPS Advance Care Plan I have confirmed that the patient's Advanced Care Plan is present, code status is documented, or surrogate decision maker is listed in patient medical record.: Yes Medication Reconciliation I have utilized all available resources to obtain, update and review the patients current medications (includes all prescriptions, OTC, herbals, cannabis, and nutritional supplements).: Yes
[2024-08-17 11:34] LABS: Glucose Point of Care 166 mg/dl (65-105)
--- NOTE | 2024-08-17 14:12 | P.PNAN_ITS ---
Anes - Prog Note Post-Op Date/Time: 08/17/24 14:12 Cardiovascular status: normal Respiratory status: normal Airway patency: baseline Mental status: baseline Post-Op hydration status: normal Vital Signs: Last Vital Signs Temp 36.1 C L 08/17/24 14:00 Pulse 82 08/17/24 14:00 Resp 20 08/17/24 14:00 BP 153/70 H 08/17/24 14:00 Pulse Ox 100 08/17/24 14:00 O2 Del Method Room Air 08/17/24 09:21 Pain Score (VAS): Patient asleep, no nonverbals of pain present at this time. I/O: Intake & Output 08/16/24 08/17/24 08/17/24 23:59 07:59 15:59 Intake Total 1000 0 Output Total 200 Balance 1000 -200 Laboratory Tests 08/16/24 19:38 08/17/24 05:24 08/16/24 08/16/24 08/16/24 12:06 18:17 19:38 WBC 6.2 RBC 4.17 L Hgb 12.0 Hct 37.6 MCV 90.2 MCH 28.8 MCHC 31.9 L RDW 14.1 Plt Count 192 MPV 10.9 H Immature Gran % (Auto) 0.3 Neut % (Auto) 61.9 Lymph % (Auto) 21.9 [place] % (Auto) 12.0 H Eos % (Auto) 3.4 Baso % (Auto) 0.5 Lymph # (Auto) 1.35 [place] # (Auto) 0.7 H Eos # (Auto) 0.2 Baso # (Auto) 0.0 Abs Immat Gran (auto) 0.02 Absolute Neuts (auto) 3.8 Absolute Nucleated RBC 0.000 Nucleated RBC % 0.0 APTT 30.4 Sodium 139 139 Potassium 3.1 L 3.3 L Chloride 103 104 Carbon Dioxide 25 28 Anion Gap 11 7 BUN 6 L 5 L Creatinine 0.70 0.70 Estim Creat Clear Calc 70 70 Estimated GFR > 60 > 60 Glucose 89 111 H POC Capillary Glucose 88 Calcium 9.0 8.7 Phosphorus Magnesium 2.1 Transferrin 155 L Total Bilirubin 0.4 AST 18 ALT 9 Alkaline Phosphatase 76 Total Protein 7.0 Albumin 3.4 L 08/16/24 08/17/24 08/17/24 23:56 05:18 05:24 WBC RBC Hgb Hct MCV MCH MCHC RDW Plt Count MPV Immature Gran % (Auto) Neut % (Auto) Lymph % (Auto) [place] % (Auto) Eos % (Auto) Baso % (Auto) Lymph # (Auto) [place] # (Auto) Eos # (Auto) Baso # (Auto) Abs Immat Gran (auto) Absolute Neuts (auto) Absolute Nucleated RBC Nucleated RBC % APTT Sodium 139 Potassium 2.5 L* Chloride 104 Carbon Dioxide 29 Anion Gap 6 BUN 6 L Creatinine 0.60 L Estim Creat Clear Calc 80 Estimated GFR > 60 Glucose 144 H POC Capillary Glucose 117 H 157 H Calcium 8.4 Phosphorus 2.9 Magnesium Transferrin Total Bilirubin AST ALT Alkaline Phosphatase Total Protein Albumin 08/17/24 11:32 WBC RBC Hgb Hct MCV MCH MCHC RDW Plt Count MPV Immature Gran % (Auto) Neut % (Auto) Lymph % (Auto) [place] % (Auto) Eos % (Auto) Baso % (Auto) Lymph # (Auto) [place] # (Auto) Eos # (Auto) Baso # (Auto) Abs Immat Gran (auto) Absolute Neuts (auto) Absolute Nucleated RBC Nucleated RBC % APTT Sodium Potassium Chloride Carbon Dioxide Anion Gap BUN Creatinine Estim Creat Clear Calc Estimated GFR Glucose POC Capillary Glucose 166 H Calcium Phosphorus Magnesium Transferrin Total Bilirubin AST ALT Alkaline Phosphatase Total Protein Albumin Post-procedural complaints: none Patient Feedback: Patient satisfied with anesthetic care.
--- NOTE | 2024-08-17 14:47 | P.PNGI_ITS ---
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 PEG placement by radiology, ? stent, surgery oncology to see patient continue with TPN for now will follow as needed (2) Weight loss: Code(s): R63.4 - Abnormal weight loss Status: Acute (3) Esophageal obstruction: Code(s): K22.2 - Esophageal obstruction Status: Acute Assessment and Plan: she is npo tpn for now unable to treat endoscopically here, will need transfer iv protonix (4) Abnormal CT scan, stomach: Code(s): R93.3 - Abnormal findings on diagnostic imaging of other parts of digestive tract Status: Acute Subjective Date/time seen: 08/17/24 14:47 Interval history: still spiting her own saliva egd yesterday with tight stricture upper esophagus at 25 cm from incisors, unable to traverse. Bx c/w cancer. Review of Systems Review of Systems: All systems reviewed & are unremarkable except as noted in HPI and below Exam Const: General: comfortable and no acute distress Other: spitting her saliva HENMT: Face/Nose/Sinus: Normal nares present Eyes: General: appearance normal, both eyes and all related structures Neck: Neck: supple Resp: Auscultation: clear to auscultation bilaterally Cardio: Rate: regular rate Rhythm: regular rhythm GI: Inspection: non-distended GI Palp: Yes Soft to palpation and No Tenderness to palpation present (GI) Auscultation: normal bowel sounds Skin: General skin exam: normal color Neuro: General: gait normal Speech: normal speech Extrem: General: normal to inspection Psych: Mental Status: mental status grossly normal Objective Data Vital Signs Vital Signs: Vital Signs - 24 hr 08/16/24 16:00 08/16/24 20:24 08/16/24 21:05 Temperature 97.7 F Pulse Rate 67 67 Respiratory Rate 18 Blood Pressure 194/49 H 169/45 H Pulse Oximetry 100 Oxygen Delivery 08/16/24 20:00 08/17/24 00:00 08/17/24 04:00 Temperature Pulse Rate 64 60 64 Respiratory Rate Blood Pressure Pulse Oximetry Oxygen Delivery 08/17/24 05:19 08/17/24 06:47 08/17/24 09:21 Temperature 97.5 F L Pulse Rate 68 79 Respiratory Rate 18 Blood Pressure 190/72 H 175/60 H Pulse Oximetry 100 Oxygen Delivery Room Air 08/17/24 08:00 08/17/24 14:00 Temperature 97.0 F L Pulse Rate 74 82 Respiratory Rate 20 Blood Pressure 153/70 H Pulse Oximetry 100 Oxygen Delivery Intake/Output Intake/Output: Intake & Output 08/14/24 08/15/24 08/16/24 08/17/24 23:59 23:59 23:59 23:59 Intake Total 2580 0 Output Total 425 200 200 Balance -425 2380 -200 Meds/Results Medications: Active Medications Generic Name Dose Route Start Last Admin Trade Name Freq PRN Reason Stop Dose Admin Hydralazine HCl 10 mg 08/15/24 12:31 08/17/24 05:19 Hydralazine Hcl 20 Mg/Ml Vial IV PUSH 10 mg Q6H PRN Administration Blood Pressure - High Lactated Ringer's 1,000 mls @ 75 mls/hr 08/15/24 21:10 08/17/24 00:59 Lr - Lactated Ringers Iv IV CONT 75 mls/hr .[id number] RICHARD Administration Dextrose 1,000 mls @ 50 mls/hr 08/16/24 15:28 Dextrose 10% IV CONT .Q20H PRN if PN is interrupted Multivitamins 2.5 ml/ 2,005 mls @ 40 mls/hr 08/16/24 16:30 08/16/24 17:51 Multivitamins 2.5 ml/ Amino IV CONT 40 mls/hr Acids/Electrolytes/Dextrose .Q24H RICHARD Administration Protocol Fat Emulsion Intravenous 250 mls @ 20.833 mls/hr 08/16/24 17:00 08/16/24 17:52 Lipids 20% IVPB 20.83 mls/hr Q24H RICHARD Administration Pantoprazole Sodium 40 mg 08/16/24 09:00 08/17/24 09:21 Pantoprazole Sodium Iv 40 Mg Vial IV PUSH 40 mg QAM RICHARD Administration Sodium Chloride 20 ml 08/16/24 16:48 Central Line Flush IV PUSH PRN PRN after blood draws Sodium Chloride 10 ml 10/22/24 16:48 Central Line Flush IV PUSH PRN PRN with TPN bag changes Sodium Chloride 10 ml 08/16/24 22:00 08/17/24 13:35 Central Line Flush IV PUSH Not Given Q8HR RICHARD Radiology Results: ITS Impressions Abdomen/Pelvis CT 08/15/24 10:06 Impression: 4.7 x 2.8 x 2.4 cm gastrohepatic region soft tissue mass, which appears focally contiguous with the lesser curvature of the stomach. Suggestion of additional mild wall thickening at the GE junction region, which may also be contiguous with the mass. 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 Cirrhotic liver. Cholelithiasis. Calcified uterine fibroids. Labs Labs: Laboratory Results - last 24 hr 08/16/24 08/16/24 08/16/24 12:06 18:17 19:38 WBC 6.2 RBC 4.17 L Hgb 12.0 Hct 37.6 MCV 90.2 MCH 28.8 MCHC 31.9 L RDW 14.1 Plt Count 192 MPV 10.9 H Immature Gran % (Auto) 0.3 Neut % (Auto) 61.9 Lymph % (Auto) 21.9 [place] % (Auto) 12.0 H Eos % (Auto) 3.4 Baso % (Auto) 0.5 Lymph # (Auto) 1.35 [place] # (Auto) 0.7 H Eos # (Auto) 0.2 Baso # (Auto) 0.0 Abs Immat Gran (auto) 0.02 Absolute Neuts (auto) 3.8 Absolute Nucleated RBC 0.000 Nucleated RBC % 0.0 APTT 30.4 Sodium 139 139 Potassium 3.1 L 3.3 L Chloride 103 104 Carbon Dioxide 25 28 Anion Gap 11 7 BUN 6 L 5 L Creatinine 0.70 0.70 Estim Creat Clear Calc 70 70 Estimated GFR > 60 > 60 Glucose 89 111 H POC Capillary Glucose 88 Calcium 9.0 8.7 Phosphorus Magnesium 2.1 Transferrin 155 L Total Bilirubin 0.4 AST 18 ALT 9 Alkaline Phosphatase 76 Total Protein 7.0 Albumin 3.4 L 08/16/24 08/17/24 08/17/24 23:56 05:18 05:24 WBC RBC Hgb Hct MCV MCH MCHC RDW Plt Count MPV Immature Gran % (Auto) Neut % (Auto) Lymph % (Auto) [place] % (Auto) Eos % (Auto) Baso % (Auto) Lymph # (Auto) [place] # (Auto) Eos # (Auto) Baso # (Auto) Abs Immat Gran (auto) Absolute Neuts (auto) Absolute Nucleated RBC Nucleated RBC % APTT Sodium 139 Potassium 2.5 L* Chloride 104 Carbon Dioxide 29 Anion Gap 6 BUN 6 L Creatinine 0.60 L Estim Creat Clear Calc 80 Estimated GFR > 60 Glucose 144 H POC Capillary Glucose 117 H 157 H Calcium 8.4 Phosphorus 2.9 Magnesium Transferrin Total Bilirubin AST ALT Alkaline Phosphatase Total Protein Albumin 08/17/24 11:32 WBC RBC Hgb Hct MCV MCH MCHC RDW Plt Count MPV Immature Gran % (Auto) Neut % (Auto) Lymph % (Auto) [place] % (Auto) Eos % (Auto) Baso % (Auto) Lymph # (Auto) [place] # (Auto) Eos # (Auto) Baso # (Auto) Abs Immat Gran (auto) Absolute Neuts (auto) Absolute Nucleated RBC Nucleated RBC % APTT Sodium Potassium Chloride Carbon Dioxide Anion Gap BUN Creatinine Estim Creat Clear Calc Estimated GFR Glucose POC Capillary Glucose 166 H Calcium Phosphorus Magnesium Transferrin Total Bilirubin AST ALT Alkaline Phosphatase Total Protein Albumin
--- NOTE | 2024-08-17 16:06 | P.CDI_ITS ---
Moderate CDI Query Clarification Request BMI 29.2 Nutritional Diagnostic Statement: Severe protein calorie malnutrition related to dysphagia as evidenced by 10% weight loss/1 month; intakes <75% needs > 1 month. Please refer to the comprehensive nutrition assessment for further information. If you agree with diagnosis of protein calorie malnturition, Please specify severity if known: * Mild * Moderate * Severe * Other/Unknown
[2024-08-17] MEDS: AMINO ACIDS 5%/D15W/E-LYTES/CA 2,000 ML with MULTIVITAMINS-12 INJ VIAL 1 2.5 ML, MULTIV... 40 ML IV CONT (17:26)
[2024-08-17] MEDS: FAT EMULSIONS IV 20% 250 ML 20.83 ML IVPB (17:27)
[2024-08-17 18:00] LABS: Glucose Point of Care 145 mg/dl (65-105)
--- NOTE | 2024-08-17 18:39 | PDONCCN ---
HPI - Date of Consult Date/Time: 08/17/24 18:39 Requesting Physician: Tino Mendoza MD Primary Care Provider: UNKNOWN,DOCTOR - Consult Narrative Reason for consult: Squamous cell carcinoma of esophagus Narrative: Nancy Best is a 69 year old female with history of hypertension came into the hospital with dysphagia for 1 week duration. He has been losing weight. She was having some discomfort upper chest and throat area. CT 4.7 x 2.8 x 2.4 cm gastrohepatic region soft tissue mass with knee of the GE junction. Patient was seen by Dr. Gao an EGD was performed and showed malignant appearing upper esophageal mass. Biopsy showed squamous cell carcinoma. Patient has no previous history of malignancy. She has been complaining of tiredness and fatigue. Review of Systems - Review of Systems All systems reviewed & are unremarkable except as noted in HPI and bel - Neurologic Reports hearing normal, Denies headache(s) [facility] Medical History: Medical History (Last Updated 08/17/24 @ 14:50 by Irving Chery MD) Abnormal CT scan, stomach Dysphagia Esophageal obstruction HTN (hypertension) Squamous cell esophageal cancer Weight loss - Social History Social History: Social History (Last Reviewed 08/16/24 @ 12:51 by Rajinder Alcantara MD) Alcohol Use: Alcohol intake: never Substance Use: Substance use: never Substance use type: does not use Others: Spiritual care concerns: No Smoking Status: Smoking status: Never smoker Social Determinants of Health: Do You Feel Safe in your Home?: Yes Has the Lack of Transportation Kept You From Medical Appointments or From Getting Medications?: No Within the Past 12 Months, Were You Worried Whether Your Food Would Run Out Before You Got Money to Buy More?: Never True What is Your Housing Situation Today?: I Have Housing Are You Worried That in the Next 2 Months, You May Not Have Your Own Housing to Live In?: No Do You Have Trouble Paying Your Heating Or Electricity Bill?: No Do You Have Trouble Paying For Medicines?: No Are You Currently Unemployed and Looking for Work?: No Highest Level of Education Completed: Don't Know Do You Have Trouble With Childcare or the Care of a Family Member?: No Exam - Vital Signs Vital Signs - 24 hr 08/16/24 20:24 08/16/24 21:05 08/16/24 20:00 Temperature 36.5 C Pulse Rate 67 64 Respiratory Rate 18 Blood Pressure 194/49 H 169/45 H Pulse Oximetry 100 Oxygen Delivery 08/17/24 00:00 08/17/24 04:00 08/17/24 05:19 Temperature 36.4 C L Pulse Rate 60 64 68 Respiratory Rate 18 Blood Pressure 190/72 H Pulse Oximetry 100 Oxygen Delivery 08/17/24 06:47 08/17/24 09:21 08/17/24 08:00 Temperature Pulse Rate 79 74 Respiratory Rate Blood Pressure 175/60 H Pulse Oximetry Oxygen Delivery Room Air 08/17/24 14:00 08/17/24 12:00 08/17/24 16:00 Temperature 36.1 C L Pulse Rate 82 85 90 Respiratory Rate 20 Blood Pressure 153/70 H Pulse Oximetry 100 Oxygen Delivery - Exam HEENT: EOMI, PERRLA, mucous membranes moist and pink Neck: supple Lungs: clear to auscultation, normal air movement Heart: no murmurs, gallops, or rubs, regular rhythm, regular rate Abdomen: abdomen soft, non-distended, normal bowel sounds Extremities: normal pulses Integumentary: no abnormalities Neurological: normal speech Psychological: mental status NL, mood NL - Lab Results Laboratory Last Values WBC 6.2 K/mm3 (4.5-10.0) 08/16/24 19:38 RBC 4.17 M/mm3 (4.2-5.4) L 08/16/24 19:38 Hgb 12.0 g/dL (12.0-15.0) 08/16/24 19:38 Hct 37.6 % (37.0-47.0) 08/16/24 19:38 MCV 90.2 fl (80-100) 08/16/24 19:38 MCH 28.8 pg (26-34) 08/16/24 19:38 MCHC 31.9 g/dl (32-36) L 08/16/24 19:38 RDW 14.1 % (11.5-14.5) 08/16/24 19:38 Plt Count 192 k/mm3 (150-375) 08/16/24 19:38 MPV 10.9 fl (7.4-10.4) H 08/16/24 19:38 Immature Gran % (Auto) 0.3 % (0-0.5) 08/16/24 19:38 Neut % (Auto) 61.9 % (45.5-73.1) 08/16/24 19:38 Lymph % (Auto) 21.9 % (18.3-44.2) 08/16/24 19:38 [place] % (Auto) 12.0 % (2.6-8.5) H 08/16/24 19:38 Eos % (Auto) 3.4 % (0-4.4) 08/16/24 19:38 Baso % (Auto) 0.5 % (0.2-1.2) 08/16/24 19:38 Lymph # (Auto) 1.35 K/mm3 (0.9-3.2) 08/16/24 19:38 [place] # (Auto) 0.7 K/mm3 (0.1-0.6) H 08/16/24 19:38 Eos # (Auto) 0.2 K/mm3 (0-0.3) 08/16/24 19:38 Baso # (Auto) 0.0 K/mm3 (0.0-0.1) 08/16/24 19:38 Abs Immat Gran (auto) 0.02 K/mm3 (0.00-0.031) 08/16/24 19:38 Absolute Neuts (auto) 3.8 K/mm3 (1.3-6.7) 08/16/24 19:38 Absolute Nucleated RBC 0.000 K/mm3 (0.0-0.012) 08/16/24 19:38 Nucleated RBC % 0.0 % (0.0-0.2) 08/16/24 19:38 APTT 30.4 Seconds (22.3-36.8) 08/16/24 19:38 Sodium 139 mmol/L (137-145) 08/17/24 05:24 Potassium 2.5 mmol/L (3.4-5.0) L* 08/17/24 05:24 Chloride 104 mmol/L (98-107) 08/17/24 05:24 Carbon Dioxide 29 mmol/L (22-30) 08/17/24 05:24 Anion Gap 6 mmol/L (4-12) 08/17/24 05:24 BUN 6 mg/dL (7-17) L 08/17/24 05:24 Creatinine 0.60 mg/dL (0.7-1.0) L 08/17/24 05:24 Estim Creat Clear Calc 80 ml/min 08/17/24 05:24 Estimated GFR > 60 (59-) 08/17/24 05:24 Glucose 144 mg/dL (65-110) H 08/17/24 05:24 POC Capillary Glucose 145 mg/dl (65-105) H 08/17/24 17:57 Calcium 8.4 mg/dL (8.4-10.2) 08/17/24 05:24 Phosphorus 2.9 mg/dL (2.5-4.5) 08/17/24 05:24 Magnesium 2.1 mg/dL (1.6-2.3) 08/16/24 19:38 Transferrin 155 mg/dL (206-381) L 08/16/24 19:38 Total Bilirubin 0.4 mg/dL (0.2-1.3) 08/16/24 19:38 AST 18 U/L (14-36) 08/16/24 19:38 ALT 9 U/L (6-35) 08/16/24 19:38 Alkaline Phosphatase 76 U/L (38-126) 08/16/24 19:38 Total Protein 7.0 g/dL (6.3-8.2) 08/16/24 19:38 Albumin 3.4 g/dL (3.5-5.1) L 08/16/24 19:38 Urine Color Yellow (Yellow) 08/16/24 02:18 Urine Appearance Clear (Clear) 08/16/24 02:18 Urine pH 6.5 (5.0-9.0) 08/16/24 02:18 Ur Specific [place] > 1.045 (1.001-1.035) H 08/16/24 02:18 Urine Protein 1+ mg/dL (Negative) H 08/16/24 02:18 Urine Glucose (UA) Negative mg/dL (Negative) 08/16/24 02:18 Urine Ketones 1+ mg/dL (Negative) H 08/16/24 02:18 Ur Blood (Man) Negative (Negative) 08/16/24 02:18 Urine Nitrate Negative (Negative) 08/16/24 02:18 Urine Bilirubin Negative (Negative) 08/16/24 02:18 Urine Urobilinogen 1.0 mg/dL (<2.0) 08/16/24 02:18 Add Ur Microanalysis Reviewed 08/16/24 02:18 Leukocyte Esterase Rfl Negative ELLA/UL (Negative) 08/16/24 02:18 Urine RBC 0-2 /hpf (0-2) 08/16/24 02:18 Urine WBC 0-5 /hpf (0-3) 08/16/24 02:18 Ur Squamous Epith Cells Few /hpf (Few) 08/16/24 02:18 Urine Bacteria Rare /hpf 08/16/24 02:18 Urine Casts 3-5 08/16/24 02:18 Meds Home Medications Medication Instructions Recorded Confirmed Type amlodipine 10 mg tablet 10 mg PO DAILY 08/15/24 08/15/24 History clonidine HCl 0.3 mg tablet 0.3 mg PO DAILY 08/15/24 08/15/24 History lisinopril 40 mg tablet 40 mg PO DAILY 08/15/24 08/15/24 History Allergies Allergy/AdvReac Type Severity Reaction Status Date / Time No Known Allergies Allergy Verified 08/16/24 12:46 Results - Labs CBC & Chem 7: 08/16/24 19:38 08/17/24 05:24 Labs: Short CBC 08/16/24 Range/Units 19:38 WBC 6.2 (4.5-10.0) K/mm3 Hgb 12.0 (12.0-15.0) g/dL Hct 37.6 (37.0-47.0) % Plt Count 192 (150-375) k/mm3 BMP 08/16/24 08/17/24 19:38 05:24 Sodium 139 139 Potassium 3.3 L 2.5 L* Chloride 104 104 Carbon Dioxide 28 29 BUN 5 L 6 L Creatinine 0.70 0.60 L Glucose 111 H 144 H Calcium 8.7 8.4 Liver Function 08/16/24 Range/Units 19:38 Total Bilirubin 0.4 (0.2-1.3) mg/dL AST 18 (14-36) U/L ALT 9 (6-35) U/L Alkaline Phosphatase 76 (38-126) U/L Albumin 3.4 L (3.5-5.1) g/dL Assessment and Plan - Additional Plan Squamous cell carcinoma of esophagus status post EGD and biopsy EGD showed malignant appearing upper esophageal mass. CT scan of abdomen and pelvis from February 23 showed 4.7 x 2.8 x 2.4 cm soft tissue mass in the gastrohepatic region continue just with lesser curvature of the stomach thickening of the GE junction. There was also evidence of cirrhotic liver. I will order CT chest for staging purpose. I would recommend transferring patient [facility] for endoscopic ultrasound and biopsy of surrounding lymph node for staging as well as PEG tube placement for nutrition. I have provided her my office information. She would also need PET scan as an outpatient. Based on complete staging will decide about neoadjuvant chemotherapy versus definitive chemoradiation therapy. I have provided her my office information for follow-up.
[2024-08-17] MEDS: CENTRAL LINE FLUSH 10 ML IV PUSH (20:20)
[2024-08-17 22:24] LABS: Triglycerides 116 mg/dL (<150)
[2024-08-17 23:48] LABS: Glucose Point of Care 147 mg/dl (65-105)
[2024-08-18] VITALS: PULSE 63
[2024-08-18 04:00] VITALS: PULSE 64
[2024-08-18 05:12] VITALS: BP 161/72; PULSE 95; RESP 18; TEMP 36.5; O2SAT 100
[2024-08-18 05:26] LABS: Glucose Point of Care 130 mg/dl (65-105)
[2024-08-18] MEDS: CENTRAL LINE FLUSH 10 ML IV PUSH (05:56)
[2024-08-18 06:03] LABS: Basophils Percent Auto 0.2 % (0.2-1.2); Eosinophils Absolute Auto 0.2 K/mm3 (0-0.3); Eosinophils Percent Auto 3.7 % (0-4.4); Hematocrit 35.6 % (37.0-47.0); Hemoglobin 11.7 g/dL (12.0-15.0); Immature Granulocyte Absolute 0.01 K/mm3 (0.00-0.031); Immature Granulocyte Percent A 0.2 % (0-0.5); Lymphocytes Absolute Auto 0.93 K/mm3 (0.9-3.2); Lymphocytes Percent Auto 18.1 % (18.3-44.2); Mean Corpuscular HGB Conc 32.9 g/dl (32-36); Mean Corpuscular Hemoglobin 29.7 pg (26-34); Mean Corpuscular Volume 90.4 fl (80-100); Monocytes Absolute Auto 0.6 K/mm3 (0.1-0.6); Monocytes Percent Auto 11.7 % (2.6-8.5); Neutrophils Absolute Auto 3.4 K/mm3 (1.3-6.7); Neutrophils Percent Auto 66.1 % (45.5-73.1); Platelet Count Result 169 k/mm3 (150-375); Red Blood Count 3.94 M/mm3 (4.2-5.4); Red Cell Distribution Width 14.4 % (11.5-14.5); White Blood Count 5.2 K/mm3 (4.5-10.0)
[2024-08-18] MEDS: LACTATED RINGERS 1,000 ML 75 ML IV CONT (06:04)
[2024-08-18 06:21] LABS: Alanine Aminotransferase 11 U/L (6-35); Alkaline Phosphatase 71 U/L (38-126); Anion Gap 6 mmol/L (4-12); Aspartate Amino Transferase 22 U/L (14-36); Bilirubin,Total 0.3 mg/dL (0.2-1.3); Blood Urea Nitrogen 7 mg/dL (7-17); Calcium 8.4 mg/dL (8.4-10.2); Carbon Dioxide 28 mmol/L (22-30); Chloride 107 mmol/L (98-107); Estimated CRCL calculation 94 ml/min; Estimated Glomerular Filt Rate > 60; Glucose 124 mg/dL (65-110); Magnesium 1.8 mg/dL (1.6-2.3); Phosphorus 3.4 mg/dL (2.5-4.5); Potassium 2.8 mmol/L (3.4-5.0); Sodium 141 mmol/L (137-145)
[2024-08-18] MEDS: KCL 40 MEQ/WATER 100 ML 100 ML 25 ML IVPB (06:56)
[2024-08-18 08:00] VITALS: PULSE 76
[2024-08-18] MEDS: PANTOPRAZOLE SODIUM IV 40 MG VIAL IV PUSH (08:52)
--- NOTE | 2024-08-18 11:34 | PM.IMPN ---
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 GI recommends transfer to the tertiary center probably will need esophageal stent with or without surgery. TPN started Patient has been having progressive difficulty with swallowing or past few weeks CT abdomen pelvis showed 4.7 x 2.8 x 2.4 cm gastrohepatic region soft tissue mass, which appears focally contiguous with the lesser curvature of the stomach. Suggestion of additional mild wall thickening at the GE junction region, which may also be contiguous with the mass. 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 Appreciate GI consultation, plans EGD Start lactated Ringer IV 75ml/h Hypokalemia [place] to poor intake, nausea vomiting Replete potassium chloride IV Follow-up BMP, magnesium, phosphate Uncontrolled hypertension Hold oral medication because of dysphagia Start hydralazine IV 10 mg Q 6 p.r.n. with parameters Subjective Date/time seen: 08/18/24 11:34 Interval history: Spoke with [facility] and and patient is accepted by . Review of Systems Review of Systems: ROS negative except above All systems reviewed & are unremarkable except as noted in HPI and below Constitutional: Constitutional: Denies headache(s) and Reports weight loss Eyes: Eyes: Denies blurry vision ENT: Reports Normal hearing present, Denies headache(s) and Denies neck pain Cardiovascular: Cardiovascular: Denies chest pain and Denies dyspnea Respiratory: Respiratory: Denies dyspnea Gastrointestinal: Gastrointestinal: Reports no additional gastrointestinal complaints Genitourinary: Genitourinary: Denies urinary urgency Musculoskeletal: Musculoskeletal: Denies neck pain Integumentary/Breasts: Skin/Breast: Denies dry skin Neurologic: Reports Normal hearing present and Denies headache(s) Psychiatric: Psychiatric: Denies anxiety Endocrine: Endocrine: Denies change in body appearance Hematologic/Lymphatic: Hematologic/Lymphatic: Denies easy bleeding Allergic/Immunologic: Allergic/Immunologic: Denies urticaria Exam Narrative: GENERAL: Pleasant, in no acute distress. Well-nourished. - EYES: EOMI. Anicteric. - HENT: Moist mucous membranes. - LUNGS: Clear to auscultation bilaterally, no wheezing, rhonchi, or rales. - CARDIOVASCULAR: Regular rate and rhythm. No murmur. No JVD. - ABDOMEN: Soft, non-tender and non-distended. No palpable masses. - EXTREMITIES: No edema. Peripheral pulses 2+. Non-tender. - NEUROLOGIC: No focal neurological deficits. CN II-XII grossly intact. - PSYCHIATRIC: Awake, Alert and oriented x 3. Appropriate mood and affect. - SKIN: No rashes or lesions. Warm. - LYMPH: No cervical lymphadenopathy. Const: General: comfortable and no acute distress HENMT: Face/Nose/Sinus: Normal nares present Eyes: General: appearance normal, both eyes and all related structures Neck: Neck: supple Resp: Auscultation: clear to auscultation bilaterally Cardio: Rate: regular rate Rhythm: regular rhythm GI: Inspection: non-distended Auscultation: normal bowel sounds Skin: General skin exam: normal color Neuro: General: gait normal Cranial nerves: Yes Normal hearing present Speech: normal speech Extrem: General: normal to inspection Psych: Mental Status: mental status grossly normal Objective Data Vital Signs Vital Signs: Vital Signs - 24 hr 08/17/24 14:00 08/17/24 12:00 08/17/24 16:00 Temperature 97.0 F L Pulse Rate 82 85 90 Respiratory Rate 20 Blood Pressure 153/70 H Pulse Oximetry 100 Oxygen Delivery 08/17/24 19:30 08/17/24 20:48 08/17/24 20:00 Temperature 97.5 F L Pulse Rate 81 89 Respiratory Rate 20 Blood Pressure 207/70 H 188/64 H Pulse Oximetry Oxygen Delivery 08/18/24 00:00 08/18/24 04:00 08/18/24 05:12 Temperature 97.7 F Pulse Rate 63 64 95 Respiratory Rate 18 Blood Pressure 161/72 H Pulse Oximetry 100 Oxygen Delivery 08/18/24 08:50 08/18/24 08:00 Temperature Pulse Rate 76 Respiratory Rate Blood Pressure Pulse Oximetry Oxygen Delivery Room Air Intake/Output Intake/Output: Intake & Output 08/15/24 08/16/24 08/17/24 08/18/24 23:59 23:59 23:59 23:59 Intake Total 2580 2713.3 1297.5 Output Total 425 200 200 Balance -425 2380 2513.3 1297.5 Meds/Results Medications: Active Medications Generic Name Dose Route Start Last Admin Trade Name Freq PRN Reason Stop Dose Admin Alteplase, Recombinant 2 mg 08/18/24 02:56 Alteplase 2 Mg Vial (Cathflo) IV PUSH ONCE PRN Line Occlusion Hydralazine HCl 10 mg 08/15/24 12:31 08/17/24 19:41 Hydralazine Hcl 20 Mg/Ml Vial IV PUSH 10 mg Q6H PRN Administration Blood Pressure - High Lactated Ringer's 1,000 mls @ 75 mls/hr 08/15/24 21:10 08/18/24 06:04 Lr - Lactated Ringers Iv IV CONT 75 mls/hr .[id number] RICHARD Administration Dextrose 1,000 mls @ 50 mls/hr 08/16/24 15:28 Dextrose 10% IV CONT .Q20H PRN if PN is interrupted Multivitamins 2.5 ml/ 2,005 mls @ 40 mls/hr 08/16/24 16:30 08/17/24 17:26 Multivitamins 2.5 ml/ Amino IV CONT 40 mls/hr Acids/Electrolytes/Dextrose .Q24H RICHARD Administration Protocol Fat Emulsion Intravenous 250 mls @ 20.833 mls/hr 08/16/24 17:00 08/18/24 07:32 Lipids 20% IVPB Infused Q24H RICHARD Infusion Potassium Chloride 60 meq/ 1,030 mls @ 100 mls/hr 08/18/24 11:35 Dextrose/Sodium Chloride IV CONT .[id number] RICHARD Pantoprazole Sodium 40 mg 08/16/24 09:00 08/18/24 08:52 Pantoprazole Sodium Iv 40 Mg Vial IV PUSH 40 mg QAM RICHARD Administration Sodium Chloride 20 ml 08/16/24 16:48 Central Line Flush IV PUSH PRN PRN after blood draws Sodium Chloride 10 ml 08/16/24 16:48 Central Line Flush IV PUSH PRN PRN with TPN bag changes Sodium Chloride 10 ml 08/16/24 22:00 08/18/24 05:56 Central Line Flush IV PUSH 10 ml Q8HR RICHARD Administration Radiology Results: ITS Impressions Abdomen/Pelvis CT 08/15/24 10:06 Impression: 4.7 x 2.8 x 2.4 cm gastrohepatic region soft tissue mass, which appears focally contiguous with the lesser curvature of the stomach. Suggestion of additional mild wall thickening at the GE junction region, which may also be contiguous with the mass. 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 Cirrhotic liver. Cholelithiasis. Calcified uterine fibroids. Chest CT 08/17/24 21:10 IMPRESSION: 1. Mid esophageal mass consistent with reported history of primary esophageal cancer with no evident intrathoracic metastatic disease. There is however a 4.7 x 3.2 cm gastrohepatic mass consistent with metastatic lymphadenopathy. 2. Cirrhosis. Labs Labs: Laboratory Results - last 24 hr 08/17/24 08/17/24 08/17/24 05:22 11:32 17:57 WBC RBC Hgb Hct MCV MCH MCHC RDW Plt Count MPV Immature Gran % (Auto) Neut % (Auto) Lymph % (Auto) [place] % (Auto) Eos % (Auto) Baso % (Auto) Lymph # (Auto) [place] # (Auto) Eos # (Auto) Baso # (Auto) Abs Immat Gran (auto) Absolute Neuts (auto) Absolute Nucleated RBC Nucleated RBC % Sodium Potassium Chloride Carbon Dioxide Anion Gap BUN Creatinine Estim Creat Clear Calc Estimated GFR Glucose POC Capillary Glucose 166 H 145 H Calcium Phosphorus Magnesium Total Bilirubin AST ALT Alkaline Phosphatase Total Protein Albumin Triglycerides 116 08/17/24 08/18/24 08/18/24 23:45 05:23 05:49 WBC 5.2 RBC 3.94 L Hgb 11.7 L Hct 35.6 L MCV 90.4 MCH 29.7 MCHC 32.9 RDW 14.4 Plt Count 169 MPV 11.0 H Immature Gran % (Auto) 0.2 Neut % (Auto) 66.1 Lymph % (Auto) 18.1 L [place] % (Auto) 11.7 H Eos % (Auto) 3.7 Baso % (Auto) 0.2 Lymph # (Auto) 0.93 [place] # (Auto) 0.6 Eos # (Auto) 0.2 Baso # (Auto) 0.0 Abs Immat Gran (auto) 0.01 Absolute Neuts (auto) 3.4 Absolute Nucleated RBC 0.000 Nucleated RBC % 0.0 Sodium 141 Potassium 2.8 L* Chloride 107 Carbon Dioxide 28 Anion Gap 6 BUN 7 Creatinine 0.50 L Estim Creat Clear Calc 94 Estimated GFR > 60 Glucose 124 H POC Capillary Glucose 147 H 130 H Calcium 8.4 Phosphorus 3.4 Magnesium 1.8 Total Bilirubin 0.3 AST 22 ALT 11 Alkaline Phosphatase 71 Total Protein 7.0 Albumin 3.0 L Triglycerides Hospitalist MIPS Advance Care Plan I have confirmed that the patient's Advanced Care Plan is present, code status is documented, or surrogate decision maker is listed in patient medical record.: Yes Medication Reconciliation I have utilized all available resources to obtain, update and review the patients current medications (includes all prescriptions, OTC, herbals, cannabis, and nutritional supplements).: Yes
[2024-08-18 12:00] VITALS: PULSE 69
[2024-08-18] MEDS: DEXTROSE IV CONT (12:04)
[2024-08-18] MEDS: POTASSIUM CHLORIDE IV CONT (12:04)
[2024-08-18] MEDS: SOD CHL IV CONT (12:04)
[2024-08-18 13:08] LABS: Glucose Point of Care 168 mg/dl (65-105)
--- NOTE | 2024-08-18 13:27 | PM.TDS ---
Transfer Discharge Sum: Prov Provider Date of admission: 08/16/24 16:15 Primary care physician: UNKNOWN,DOCTOR Admitting clinician: Tino Mendoza MD Consults: 08/15/24 09:38 Consult to Physician Routine Comment: Consulting Provider: Irving Chery Reason for consultation: Dysphagia Has provider been notified: Yes 08/16/24 13:36 Consult to Physician Routine Comment: LM at office 08.16.24 @ 1415--/ Consulting Provider: Jono Terry outbound call center representative/MD group to consult: oncology Reason for consultation: esophageal mass Has provider been notified: Yes 08/16/24 15:28 Consult to Dietitian Routine Reason for Consult:: TPN DS: Admitting Diagnosis Discharge Date 08/18/2024 Admitting Diagnosis Dysphagia DS: Discharge Diagnosis Discharge Diagnosis (1) Dysphagia: Code(s): R13.10 - Dysphagia, unspecified Status: Inactive (2) Acute hypokalemia: Code(s): E87.6 - Hypokalemia Status: Acute (3) 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 GI recommends transfer to the tertiary center probably will need esophageal stent with or without surgery. TPN started Patient has been having progressive difficulty with swallowing or past few weeks CT abdomen pelvis showed 4.7 x 2.8 x 2.4 cm gastrohepatic region soft tissue mass, which appears focally contiguous with the lesser curvature of the stomach. Suggestion of additional mild wall thickening at the GE junction region, which may also be contiguous with the mass. 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 with parameters Transfer Discharge Sum: Med Medications Active and Home Medications: Home Medications amlodipine 10 mg tablet 10 mg PO DAILY 08/15/24 [History Confirmed 08/15/24] clonidine HCl 0.3 mg tablet 0.3 mg PO DAILY 08/15/24 [History Confirmed 08/15/24] lisinopril 40 mg tablet 40 mg PO DAILY 08/15/24 [History Confirmed 08/15/24] Active Medications Alteplase, Recombinant (Alteplase 2 Mg Vial (Cathflo)) 2 mg IV PUSH ONCE PRN PRN Reason: Line Occlusion Hydralazine HCl (Hydralazine Hcl 20 Mg/Ml Vial) 10 mg IV PUSH Q6H PRN PRN Reason: Blood Pressure - High Last Admin: 08/17/24 19:41 Dose: 10 mg Lactated Ringer's (Lr - Lactated Ringers Iv) 1,000 mls @ 75 mls/hr IV CONT .[id number] [facility] Last Admin: 08/18/24 06:04 Dose: 75 mls/hr Dextrose (Dextrose 10%) 1,000 mls @ 50 mls/hr IV CONT .Q20H PRN PRN Reason: if PN is interrupted Multivitamins 2.5 ml/Multivitamins 2.5 ml/ Amino Acids/Electrolytes/Dextrose 2,005 mls @ 40 mls/hr IV CONT .Q24H [facility]; Protocol Last Admin: 08/17/24 17:26 Dose: 40 mls/hr Fat Emulsion Intravenous (Lipids 20%) 250 mls @ 20.833 mls/hr IVPB Q24H [facility] Last Infusion: 08/18/24 07:32 Dose: Infused Potassium Chloride 60 meq/ (Dextrose/Sodium Chloride) 1,030 mls @ 100 mls/hr IV CONT .[id number] [facility] Last Admin: 08/18/24 12:04 Dose: 100 mls/hr Pantoprazole Sodium (Pantoprazole Sodium Iv 40 Mg Vial) 40 mg IV PUSH QAM [facility] Last Admin: 08/18/24 08:52 Dose: 40 mg Sodium Chloride (Central Line Flush) 20 ml IV PUSH PRN PRN PRN Reason: after blood draws Sodium Chloride (Central Line Flush) 10 ml IV PUSH PRN PRN PRN Reason: with TPN bag changes Sodium Chloride (Central Line Flush) 10 ml IV PUSH Q8HR [facility] Last Admin: 08/18/24 12:10 Dose: Not Given Transfer Discharge Sum: Hosp Hospital Course Hospital course: Nancy Best is a 69 year old female with history of hypertension, present ED with a chief complaint of difficulty swallowing. Patient has been having progressive difficulty swallowing in past few more weeks, and has worsening swelling in possible days. Patient cannot tolerate liquid diet. Patient feels the food stuck behind the chest. Patient has intermittent no vomiting after eating drinking. Patient denies abdomen pain, diarrhea, weight loss. Patient denies chest pain headache, shortness breath, fever, chills, dysuria, focal weakness. Patient came to ED for evaluation treatment. Upon arrival in the ED, patient found have uncontrolled hypertension, tachypnea, tachycardia, pulse ox 100% on room air, Labs showed hyponatremia potassium 2.5. CT abdomen pelvis showed 4.7 x 2.8 x 2.4 cm gastrohepatic region soft tissue mass, which appears focally contiguous with the lesser curvature of the stomach. Suggestion of additional mild wall thickening at the GE junction region, which may also be contiguous with the mass. 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 Patient underwent EGD and as per the EGD report they were unable to pass have a stricture in the esophagus, malignant-appearing upper esophageal mass. The GI recommends transfer to the tertiary center probably will need esophageal stent with or without surgery.Spoke with [facility] and and patient is accepted by . Called her daughter Antoinette and given update. She agrees with the plan. Time Spent with Patient Time attestation: Total time spent providing and/or coordinating transfer services: Exam Narrative: GENERAL: Pleasant, in no acute distress. Well-nourished. - EYES: EOMI. Anicteric. - HENT: Moist mucous membranes. - LUNGS: Clear to auscultation bilaterally, no wheezing, rhonchi, or rales. - CARDIOVASCULAR: Regular rate and rhythm. No murmur. No JVD. - ABDOMEN: Soft, non-tender and non-distended. No palpable masses. - EXTREMITIES: No edema. Peripheral pulses 2+. Non-tender. - NEUROLOGIC: No focal neurological deficits. CN II-XII grossly intact. - PSYCHIATRIC: Awake, Alert and oriented x 3. Appropriate mood and affect. - SKIN: No rashes or lesions. Warm. - LYMPH: No cervical lymphadenopathy. Const: General: comfortable and no acute distress HENMT: Face/Nose/Sinus: Normal nares present Eyes: General: appearance normal, both eyes and all related structures Neck: Neck: supple Resp: Auscultation: clear to auscultation bilaterally Cardio: Rate: regular rate Rhythm: regular rhythm GI: Inspection: non-distended Auscultation: normal bowel sounds Skin: General skin exam: normal color Neuro: General: gait normal Cranial nerves: Yes Normal hearing present Speech: normal speech Extrem: General: normal to inspection Psych: Mental Status: mental status grossly normal DS: Data Data Completed and Pending Completed studies during hospitalization: Pending at discharge 08/16/24 13:07 Surgical [PTH] Routine Labs on day of discharge: Labs from last 24 hours 08/18/24 08/18/24 08/18/24 13:05 11:37 05:49 WBC 5.2 RBC 3.94 L Hgb 11.7 L Hct 35.6 L MCV 90.4 MCH 29.7 MCHC 32.9 RDW 14.4 Plt Count 169 MPV 11.0 H Immature Gran % (Auto) 0.2 Neut % (Auto) 66.1 Lymph % (Auto) 18.1 L [place] % (Auto) 11.7 H Eos % (Auto) 3.7 Baso % (Auto) 0.2 Lymph # (Auto) 0.93 [place] # (Auto) 0.6 Eos # (Auto) 0.2 Baso # (Auto) 0.0 Abs Immat Gran (auto) 0.01 Absolute Neuts (auto) 3.4 Absolute Nucleated RBC 0.000 Nucleated RBC % 0.0 Sodium 141 Potassium 3.0 L 2.8 L* Chloride 107 Carbon Dioxide 28 Anion Gap 6 BUN 7 Creatinine 0.50 L Estim Creat Clear Calc 94 Estimated GFR > 60 Glucose 124 H POC Capillary Glucose 168 H Calcium 8.4 Phosphorus 3.4 Magnesium 1.8 Total Bilirubin 0.3 AST 22 ALT 11 Alkaline Phosphatase 71 Total Protein 7.0 Albumin 3.0 L Triglycerides 08/18/24 08/17/24 08/17/24 05:23 23:45 17:57 WBC RBC Hgb Hct MCV MCH MCHC RDW Plt Count MPV Immature Gran % (Auto) Neut % (Auto) Lymph % (Auto) [place] % (Auto) Eos % (Auto) Baso % (Auto) Lymph # (Auto) [place] # (Auto) Eos # (Auto) Baso # (Auto) Abs Immat Gran (auto) Absolute Neuts (auto) Absolute Nucleated RBC Nucleated RBC % Sodium Potassium Chloride Carbon Dioxide Anion Gap BUN Creatinine Estim Creat Clear Calc Estimated GFR Glucose POC Capillary Glucose 130 H 147 H 145 H Calcium Phosphorus Magnesium Total Bilirubin AST ALT Alkaline Phosphatase Total Protein Albumin Triglycerides 08/17/24 05:22 WBC RBC Hgb Hct MCV MCH MCHC RDW Plt Count MPV Immature Gran % (Auto) Neut % (Auto) Lymph % (Auto) [place] % (Auto) Eos % (Auto) Baso % (Auto) Lymph # (Auto) [place] # (Auto) Eos # (Auto) Baso # (Auto) Abs Immat Gran (auto) Absolute Neuts (auto) Absolute Nucleated RBC Nucleated RBC % Sodium Potassium Chloride Carbon Dioxide Anion Gap BUN Creatinine Estim Creat Clear Calc Estimated GFR Glucose POC Capillary Glucose Calcium Phosphorus Magnesium Total Bilirubin AST ALT Alkaline Phosphatase Total Protein Albumin Triglycerides 116 Imaging Radiologist's impression: ITS Impressions Abdomen/Pelvis CT 08/15/24 10:06 Impression: 4.7 x 2.8 x 2.4 cm gastrohepatic region soft tissue mass, which appears focally contiguous with the lesser curvature of the stomach. Suggestion of additional mild wall thickening at the GE junction region, which may also be contiguous with the mass. 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 Cirrhotic liver. Cholelithiasis. Calcified uterine fibroids. Chest CT 08/17/24 21:10 IMPRESSION: 1. Mid esophageal mass consistent with reported history of primary esophageal cancer with no evident intrathoracic metastatic disease. There is however a 4.7 x 3.2 cm gastrohepatic mass consistent with metastatic lymphadenopathy. 2. Cirrhosis.
== END 2024-08-18 15:10 | disposition short-term general hospital (02) | DRG 240 ==
LOC: ANHED 09:40 → ANH3MEDSUR 10:21
PROVIDERS: Internal Medicine Gastroenterology; Admitting Provider Hospitalist; Emergency Provider Emergency Medicine; Visit Provider General Practice
PROC: 0DJ08ZZ Inspection of Upper Intestinal Tract, Via Natural or Artificial Opening Endoscopic (ICD-10-PCS; CPT 43235; principal; 2024-08-16 16:30)
DX: C15.3 Malignant neoplasm of upper third of esophagus (principal); K22.2 Esophageal obstruction; I10 Essential (primary) hypertension; E44.0 Moderate protein-calorie malnutrition; E87.6 Hypokalemia; R13.10 Dysphagia, unspecified; Z68.29 Body mass index [BMI] 29.0-29.9, adult
CPT/HCPCS: 36415; 36569; 71260; 74177; 80048; 80053; 81001; 82948; 83735; 84100; 84132; 84466; 84478; 85025; 85730; 88305; 96374; 96375; 96376; 99285; G0378; G0379; J0360; J2003; J2470; J2704; J3480; J7040; J7120; Q9967

== ENCOUNTER 2024-08-27 11:01 | Emergency (ER) | payer OTHER, SELFPAY ==
[2024-08-27 11:06] VITALS: BP 180/63; PULSE 73; RESP 17; TEMP 36.6; O2SAT 100
--- NOTE | 2024-08-27 11:12 | ED.GENADULT ---
HPI - General Adult General Chief complaint: Unspecified Stated complaint: feeding tube problems Time Seen by Provider: 08/27/24 11:12 Source: patient and family Mode of arrival: ambulatory Limitations: no limitations History of Present Illness HPI narrative: 69 years old female came to the ED with her family who is telling me that feeding tube is leaking. History of throat tumor, status post feeding tube placement and [facility] 1 week ago, got discharged home 5 days ago. Patient denies any fever, chills, nausea, vomiting. Related Data Home Medications Medication Instructions Recorded Confirmed amlodipine 10 mg tablet 10 mg PO DAILY 08/15/24 08/15/24 clonidine HCl 0.3 mg tablet 0.3 mg PO DAILY 08/15/24 08/15/24 lisinopril 40 mg tablet 40 mg PO DAILY 08/15/24 08/15/24 Allergies Allergy/AdvReac Type Severity Reaction Status Date / Time No Known Allergies Allergy Verified 08/27/24 11:08 Review of Systems Review of Systems: All systems reviewed & are unremarkable except as noted in HPI and below PMFSH Past Medical History Medical History Abnormal CT scan, stomach Dysphagia Esophageal obstruction HTN (hypertension) Squamous cell esophageal cancer Weight loss Social History Social History Smoking status: Never smoker Alcohol intake: never Substance use: never Substance use type: does not use Do You Feel Safe in your Home?: Yes Lack of Transportation: No Lack of Food: Never True Current Housing: I Have Housing Concerned About Future Housing: No Difficulty Paying Gas/Electric Bills: No Difficulty Paying for Meds: No Currently Unemployed: No Education: Don't Know Difficulty w/ Childcare or Family Care: No Spiritual care concerns: No Exam Narrative: General appearance: Well-developed, well-nourished Skin: Normal color Head: Normocephalic, nontraumatic Eyes: Clear conjunctiva ENT: Oropharynx normal, ears normal, nose normal Neck: Supple, nontender Chest and respiratory: Airway patent, no respiratory distress, no accessory muscle use Heart: Regular rate/rhythm Abdomen: Soft, nontender, no organomegaly, quiet bowel sounds, feeding tube in place Vascular: Normal peripheral pulses, normal capillary refill. Musculoskeletal: Normal range of motion, nontender back Neurologic: Alert and oriented ?3, Course Vital Signs Vital signs: Vital Signs Temperature 36.6 C 08/27/24 11:06 Pulse Rate 73 08/27/24 11:06 Respiratory Rate 17 08/27/24 11:06 Blood Pressure 180/63 H 08/27/24 11:06 Pulse Oximetry 100 08/27/24 11:06 Oxygen Delivery Room Air 08/27/24 11:06 Temperature 36.6 C 08/27/24 11:06 Pulse Rate 73 08/27/24 11:06 Respiratory Rate 19 08/27/24 11:46 Blood Pressure 180/63 H 08/27/24 11:06 Pulse Oximetry 100 08/27/24 11:06 Oxygen Delivery Room Air 08/27/24 11:06 Medical Decision Making MDM Narrative Medical decision making narrative: patient came to the ED with leaking if feeding tube which was placed 7 days ago. After examination there was a connection problem, was fixed and infusion went through okay. Patient was discharged with instruction of feeding tube care. Differential Diagnosis Differential Diagnosis: As above Vital Signs Vital Signs: Vital Signs Temperature 36.6 C 08/27/24 11:06 Pulse Rate 73 08/27/24 11:06 Respiratory Rate 17 08/27/24 11:06 Blood Pressure 180/63 H 08/27/24 11:06 Pulse Oximetry 100 08/27/24 11:06 Oxygen Delivery Room Air 08/27/24 11:06 Temperature 36.6 C 08/27/24 11:06 Pulse Rate 73 08/27/24 11:06 Respiratory Rate 19 08/27/24 11:46 Blood Pressure 180/63 H 08/27/24 11:06 Pulse Oximetry 100 08/27/24 11:06 Oxygen Delivery Room Air 08/27/24 11:06 Critical Care Time Critical Care Time Critical Care Time: No Discharge Plan Discharge Clinical Impression: Complication of feeding tube Patient Disposition: Home, Self-Care Condition: Improved Instructions: How to Use and Care for Your PEG Tube (DC) Additional Instructions: Return if symptoms are worsening , call your family physician for appointment, take Tylenol as as needed for aches and pain, continue home medications. Prescriptions: No Action clonidine HCl 0.3 mg tablet 0.3 mg PO DAILY amlodipine 10 mg tablet 10 mg PO DAILY lisinopril 40 mg tablet 40 mg PO DAILY Follow-up/Referrals: UNKNOWN,DOCTOR [Non-Staff] -
[2024-08-27 11:46] VITALS: RESP 19
== END 2024-08-27 13:12 | disposition home or self-care (01) ==
PROVIDERS: Emergency Provider Emergency Medicine
DX: K94.23 Gastrostomy malfunction (principal); I10 Essential (primary) hypertension; C15.9 Malignant neoplasm of esophagus, unspecified; Y83.3 Surgical operation with formation of external stoma as the cause of abnormal reaction of the patient, or of later complication, without mention of misadventure at the time of the procedure
CPT/HCPCS: 99282

== ENCOUNTER 2024-10-13 15:53 | Emergency (ER) | payer OTHER, SELFPAY ==
[2024-10-13 15:50] VITALS: BP 139/65; PULSE 91; RESP 18; TEMP 37; O2SAT 100
--- NOTE | 2024-10-13 18:05 | ED.GENADULT ---
HPI - General Adult General Chief complaint: Unspecified Stated complaint: g-tube displaced Time Seen by Provider: 10/13/24 17:16 Source: patient Mode of arrival: ambulatory Limitations: no limitations History of Present Illness HPI narrative: This is a 69 year old female that presents to the ER for g tube displacement. It is out a couple inches. Presents for further evaluation. No other complaints. Related Data Home Medications ?Medication ?Instructions ?Recorded ?Confirmed ?Last Taken ?Type amlodipine 10 mg tablet 10 mg PO DAILY 08/15/24 08/15/24 Unknown History clonidine HCl 0.3 mg tablet 0.3 mg PO DAILY 08/15/24 08/15/24 Unknown History lisinopril 40 mg tablet 40 mg PO DAILY 08/15/24 08/15/24 Unknown History Allergies Allergy/AdvReac Type Severity Reaction Status Date / Time No Known Allergies Allergy Verified 08/27/24 11:08 Review of Systems Review of Systems: CONSTITUTIONAL: Denies fever GASTROINTESTINAL: Denies abdominal pain, nausea, vomiting All systems reviewed & are unremarkable except as noted in HPI and below PMFSH Past Medical History Medical History Abnormal CT scan, stomach Dysphagia Esophageal obstruction HTN (hypertension) Squamous cell esophageal cancer Weight loss Social History Social History Smoking status: Never smoker Alcohol intake: never Substance use: never Substance use type: does not use Do You Feel Safe in your Home?: Yes Lack of Transportation: No Lack of Food: Never True Current Housing: I Have Housing Concerned About Future Housing: No Difficulty Paying Gas/Electric Bills: No Difficulty Paying for Meds: No Currently Unemployed: No Education: Don't Know Difficulty w/ Childcare or Family Care: No Spiritual care concerns: No Exam Narrative: GENERAL: Well-appearing, well-nourished, and in no acute distress. HEAD: Normocephalic, atraumatic. EYES: EOMI. ENT: Nares clear, no rhinorrhea or epistaxis. Mucous membranes moist. CHEST: No respiratory distress. HEART: Regular rate ABDOMEN: Soft, nontender, nondistended. G tube present, out about 2 inches, easily pushed back in EXTREMITIES: Normal range of motion. No edema. SKIN: Warm, dry, no rash. NEURO: No focal deficits. Alert and oriented x3. PSYCH: Normal mood and affect Course Vital Signs Vital signs: Vital Signs Temperature 98.6 F 10/13/24 15:50 Pulse Rate 91 10/13/24 15:50 Respiratory Rate 18 10/13/24 15:50 Blood Pressure 139/65 10/13/24 15:50 Pulse Oximetry 100 10/13/24 15:50 Oxygen Delivery Room Air 10/13/24 15:50 Temperature 98.6 F 10/13/24 15:50 Pulse Rate 91 10/13/24 15:50 Respiratory Rate 18 10/13/24 15:50 Blood Pressure 139/65 10/13/24 15:50 Pulse Oximetry 100 10/13/24 15:50 Oxygen Delivery Room Air 10/13/24 15:50 Medical Decision Making MDM Narrative Medical decision making narrative: G tube was only out about 2 inches. This was easily pushed back in. The site was cleansed and new bandage placed. G tube flushed without problems Vital Signs Vital Signs: Vital Signs Temperature 98.6 F 10/13/24 15:50 Pulse Rate 91 10/13/24 15:50 Respiratory Rate 18 10/13/24 15:50 Blood Pressure 139/65 10/13/24 15:50 Pulse Oximetry 100 10/13/24 15:50 Oxygen Delivery Room Air 10/13/24 15:50 Temperature 98.6 F 10/13/24 15:50 Pulse Rate 91 10/13/24 15:50 Respiratory Rate 18 10/13/24 15:50 Blood Pressure 139/65 10/13/24 15:50 Pulse Oximetry 100 10/13/24 15:50 Oxygen Delivery Room Air 10/13/24 15:50 Critical Care Time Critical Care Time Critical Care Time: No Discharge Plan Discharge Clinical Impression: Gastrostomy tube in place Patient Disposition: Home, Self-Care Condition: Stable Instructions: How to Use and Care for Your PEG Tube (DC) Additional Instructions: Return to the ER if you experience fever, abdominal pain, further issues with your feeding tube, or any other symptoms that are concerning to you Follow up with your engineering technology instructor Patient Language: Tu[place] Prescriptions: No Action clonidine HCl 0.3 mg tablet 0.3 mg PO DAILY amlodipine 10 mg tablet 10 mg PO DAILY lisinopril 40 mg tablet 40 mg PO DAILY Follow-up/Referrals: PHYSICIAN,S[employer] CLEANER [Primary Care Provider] -
== END 2024-10-13 18:20 | disposition home or self-care (01) ==
PROVIDERS: Emergency Provider Physician Assistant
DX: T85.528A Displacement of other gastrointestinal prosthetic devices, implants and grafts, initial encounter (principal); I10 Essential (primary) hypertension; Z85.828 Personal history of other malignant neoplasm of skin
CPT/HCPCS: 99281

== ENCOUNTER 2025-09-01 19:09 | Inpatient (IN) | payer OTHER, SELFPAY ==
[2025-09-01] VITALS (18 sets, daily range): BP systolic 114–148; BP diastolic 64–79; PULSE 120–132; RESP 18–29; TEMP 36.5; O2SAT 97–100
--- NOTE | ~2025-09-01 | CT_ITS ---
EXAMINATION: CTA chest PE abdomen pel DATE: 09/01/2025 21:47 EGG PROCESSING SUPERVISOR INDICATION: Metastatic throat cancer. Abdominal distention. Shortness of breath. TECHNIQUE: Computed tomographic angiography (CTA) of the chest, abdomen, and pelvis was performed with 100 mL Omnipaque-350 intravenous contrast. The dose- length product was 599.31 mGy-cm. Maximum intensity projection 3D- reconstructions of the aorta and other arteries were constructed by the technologist on a separate workstation. COMPARISON: CT dated 11/17/2023. FINDINGS: CHEST CTA: Moderate right and small left pleural effusions. There is mediastinal and right hilar lymphadenopathy. There is subcarinal lymphadenopathy. There are enlarged lymph nodes in the prevascular space. No axillary lymphadenopathy. Dependent atelectasis right lower lobe. Study is technically adequate without evidence for pulmonary embolism. There is patchy airspace disease of the right lung, suspicious for pneumonia. ABDOMEN AND PELVIS CTA: Cirrhosis of the liver. Moderate ascites. There is abnormal soft tissue in the proximal esophagus, suspicious for malignancy. The spleen, pancreas, adrenal glands and kidneys are unremarkable. Gallbladder is irregular and contains gallstones with possible mild gallbladder wall thickening. There is a gastric tube present. There are multiple enlarged lymph nodes in the lesser curvature of the stomach, brittany hepatis, periaortic, para-SMA. There is atherosclerosis of the aorta without evidence for aneurysm. There are multiple coarse calcifications of the uterus consistent with uterine fibroids. No evidence for aortic aneurysm or dissection. Nonobstructive bowel gas pattern. The celiac axis and SMA are widely patent. There is stenosis at the origin of the renal arteries bilaterally. The BETTINA is patent. There is sclerosis of the T2 vertebra, consistent with metastatic disease. Mild superior endplate compression fracture of T2, possibly pathologic. These findings are new compared with 08/17/2024. IMPRESSION: 1. Abnormal soft tissue proximal esophagus, suspicious for esophageal carcinoma. 2: Mediastinal, right hilar, subcarinal and upper abdominal lymphadenopathy, compatible with metastatic disease. 3: Sclerosis of T2 with superior endplate compression fracture, consistent with metastatic disease. 4: Cirrhosis of the liver. 5: Moderate ascites. Reviewed, dictated and finalized at location O. PROCESSING SUPERVISOR IMPRESSION: 1. Abnormal soft tissue proximal esophagus, suspicious for esophageal carcinoma . 2: Mediastinal, right hilar, subcarinal and upper abdominal lymphadenopathy, co mpatible with metastatic disease. 3: Sclerosis of T2 with superior endplate compression fracture, consistent with metastatic disease. 4: Cirrhosis of the liver. 5: Moderate ascites.
--- OUTSIDE RECORDS SUMMARY | 2025-09-01 19:12 | XMS_ITS | Encounter Summary ---
Author Organization [facility] Address [address] [place] [address] Phone Care Team Providers Care Practice Office Associate Name Role Phone Leisa Hicks MD Primary Care Provider Leisa Hicks MD Primary Care Provider Tino Mendoza MD Unavailable [phone] Irving Barnes MD Unavailable + Katharine Almonte MD PhD Unavailable [phone] Encounter Details Date Type Department Care Team (Latest Contact Info) Description 08/16/2024 Orders Only [facility] Scanning, Provider Social History Tobacco Use Types Packs/Day Years Used Date Smoking Tobacco: Never Assessed [facility] Utilities Answer Date Recorded In the past 12 months has [employer] electric, gas, oil, or water company threatened to shut off services in your home? No 08/19/2024 Social Connection and Isolation Panel Answer Date Recorded In a typical week, how many times do you talk on the phone with family, friends, or neighbors? More than three times a week 08/19/2024 How often do you get togethe r with friends or relatives? More than three times a week 08/19/2024 How often do you attend chur ch or restoration services? Never 08/19/2024 Do you belong to any clubs o r organizations such as spiritism groups, unions, fraternal or athletic groups, or school groups? No 08/19/2024 How often do you attend meet ings of the clubs or organizations you belong to? Never 08/19/2024 Marital Status Not on file 08/19/2024 AUDIT-C Answer Date Recorded Q1: How often do you have a drink containing alcohol? Never 08/18/2024 Q2: How many drinks containi ng alcohol do you have on a typical day when you are drinking? Patient does not drink Q3: How often do you have si x or more drinks on one occasion? Never 08/18/2024 Overall Financial Resource Strain (CARDIA) Answe r Date Recorded How hard is it for you to pa y for the very basics like food, housing, medical care, and heating? Not hard at all 08/19/2024 Hunger Vital Sign Answer Date Recorded Within the past 12 months, y ou worried that your food would run out before you got the money to buy more. Never true 08/19/20 Within the past 12 months, t he food you bought just didn't last and you didn't have money to get more. Never true 08/19/2024 PRAPARE - Transportation Answer Date Re corded In the past 12 months, has l ack of transportation kept you from medical appointments or from getting medications? No 07/27 In the past 12 months, has l ack of transportation kept you from meetings, work, or from getting things needed for daily living? No 08/19/2024 Housing Stability Vital Sign Answer Dante e Recorded In the last 12 months, was t here a time when you were not able to pay the mortgage or rent on time? No 08/19/2024 Number of Times Moved in the Last Year Not on fi le 08/19/2024 At any time in the past 12 m [facility], were you homeless or living in a residential (including now)? No 08/19/2024 Personal Safety Answer Date Recorded Have you ever been in or are you currently in a harmful physical or emotional relationship or is someone making you feel afraid or unsafe? Denies 08/18/2024 Comments Unknown Sex and Gender Information Value Date Recorded Sex Assigned at Not on file Legal Sex Female 6:07 PM CDT Gender Identity Not on file Sexual Orientation Not on file documented as of this encounter Functional Status * Question Answer Date of Assessment Author MAP (mmHg) 67 08/19/2024 11:10 AM CDT Clementine Valverde RN * Difference in Last Two Joe Scores Answer Date of Assessment Author 0 08/19/2024 8:10 PM CDT Annabelle Hodge RN * Simeon Fall Risk Question Answer Date of Assessment Author History of Falling 0 08/19/2024 8:10 PM CDT Annabelle Hodge RN Secondary Diagnosis 15 08/19/2024 8:10 PM CD Annabelle Recinos RN Ambulatory Aids 15 08/19/2024 8:10 PM CDT Annabelle Li RN Intravenous Therapy/Heparin/Saline Lock 20 08/19/2024 8:10 PM CDT Annabelle Hodge RN Gait/Transferring 0 08/19/2024 8:10 PM CDT Annabelle Hodge RN Mental Status 0 08/19/2024 8:10 PM CDT Annabelle Barkley RN Simeon Fall Risk Score (Score >= 45 places fall precaution order) 50 08/19/2024 8:10 PM CDT Annabelle Hodge RN Prior Fall Event (Autopopulated from EMR) None found 08/19/2024 8:10 PM CDT Conner Hodge RN * Joe Scale Question Answer Date of Assessment Author Sensory Perceptions 4 08/19/2024 8:10 PM CD Annabelle Recinos RN Moisture 4 08/19/2024 8:[address], RN Activity 3 08/19/2024 8:[address], RN Mobility 4 08/19/2024 8:[address]le [address], RN Nutrition 2 08/19/2024 8:[address]le Beth rd, RN Friction and Shear 3 08/19/2024 8:10 PM CDT Annabelle Hodge RN Joe Scale Score 20 08/19/2024 8:10 PM CDT Annabelle Hodge RN * Question Answer Date of Assessment Author BP Location Right arm 08/19/2024 7:00 AM CDT Roberta Zacarias BP Method Automatic 08/19/2024 7:00 AM CDT Roberta Zacarias * Fall Risk Interventions Question Answer Date of Assessment Author All Low Fall Interventions Applied Yes 08/19/2024 8:10 PM CDT Annabelle Hodge RN All Moderate Fall Interventions Applied No 08/19/2024 8:10 PM CDT Annabelle Hodge RN All Moderate Fall Risk Interventions EXCEPT: OT eval requested or obtained;PT eval requested or obtained 08/19/2024 8:10 PM CDT Annabelle Hodge RN All High Fall Risk Interventions Applied No 08/19/2024 8:10 PM CDT Annabelle Hodge RN All High Risk Interventions EXCEPT: Bed alarm 08/19/2024 8:10 PM Annabelle Kuhn RN Additional Interventions Applied Bed/chair alarm;Over-bed table on non-exit side;Exit bed on strong/preferred side 08/18/2024 5:00 PM Eli Aggarwal, MORALES Reason For Exception(s) Not ordered 08/19/20 8:10 PM Annabelle Kuhn RN Reason For Exception(s) Pt uses call lig ht appropriately 08/19/2024 8:10 PM KENYAT Annabelle Hodge RN * B.M.A.T. - Bedside Mobility Assessment Tool for Nurses Question Answer Date of Assessment Author Is patient able to participate in the BMAT? Yes 08/19/2024 8:10 PM CDConner Recinos RN BMAT Level Level 3 - Yellow 08/19/2024 8:10 PM CDT Annabelle Noble RN Level 3 Equipment Use assistive device such as cane/walker 08/19/2024 8:10 PM KENYAT Annabelle Hodge RN * Question Answer Date of Assessment Author 1. Has the patient self-reported, presented with clinical signs of, or have a documented history of any of the following within the past 30 days? No 08/18/2024 4:53 PM KENYAT Eli García, MORALES * Question Answer Date of Assessment Author Is the patient being treated today because it is known or suspected that they prepared, started, or tried to end their life? No 08/18/2024 4:53 PM Eli Aggarwal RN * Question Answer Date of Assessment Author 1. In the past month, have y ou wished you were or that you could go to sleep and not wake up? No 08/18/2024 4:53 PM Eli Aggarwal RN 2. In the past month, have y ou actually had any thoughts of killing yourself? No 08/18/2024 4:53 PM CDT Eli García RN 6. Have you ever done anything, started to do anything, or prepared to do anything to end your life? No 08/18/2024 4:53 PM Celia Aggarwal RN * Suicide Risk Level Answer Date of Assessment Author No risk level 08/18/2024 4:53 PM Oliverio Aggarwal RN * Self-Injurious Risk Level Answer Date of Assessment Author No risk level 08/18/2024 4:53 PM Oliverio Aggarwal RN * Pressure Injury Prevention Question Answer Date of Assessment Author Pressure Ulcer Prevention Interventions Keep skin clean and dry (Sensory Perception/Moisture) 08/19/2024 8:10 PM Annabelle Kuhn RN 2 Nurse Skin Assessment Eliane NIELSEN 08/18/20 5:00 PM Eli Aggarwal RN Special Mattress Bariatric alternatin g pressure relief 08/18/2024 5:00 PM Eli Aggarwal RN * Transdermal Patch Admission Assessment Question Answer Date of Assessment Author Transdermal Patch Assessment on Admission Not Present 08/18/2024 5:00 PM Eli Aggarwal RN * AUDIT-C Score Answer Date of Assessment Author 0 08/18/2024 6:30 PM Jose Cole MD * Alcohol Use Question Answer Date of Assessment Author Q1: How often do you have a drink containing alcohol? Never 08/18/2024 6:30 PM Jose Cole MD Q2: How many drinks containing alcohol do you have on a typical day when you are drinking? Patient does not drink 08/18/2024 6:30 PM Jose Cole MD Q3: How often do you have six or more drinks on one occasion? Never 08/18/2024 6:30 PM CDT Jose Cobb MD * Integumentary Question Answer Date of Assessment Author Skin Color Appropriate for ethnicity 08/19/2024 8:10 PM KENYAT Annabelle Hodge RN Skin Condition/Temp Warm;Dry 08/19/2024 8:10 PM CD Annabelle Recinos RN Skin Integrity Surgical incision 08/19/2024 8:10 PM CD Annabelle Recinos RN Integumentary (WDL) X 08/19/2024 8:10 PM Annabelle Vallecillo RN Skin Location Abdomen 08/19/2024 8:10 PM CDT Annabelle Barkley RN * Question Answer Date of Assessment Author BP Location Right arm 08/19/2024 7:00 AM CDT Roberta Zacarias BP Method Automatic 08/19/2024 7:00 AM CDT Roberta Zacarias * Fall Risk Interventions Question Answer Date of Assessment Author All Low Fall Interventions Applied Yes 08/19/2024 8:10 PM Annabelle Kuhn RN All Moderate Fall Interventions Applied No 08/19/2024 8:10 PM KENYAT Annabelle Hodge RN All Moderate Fall Risk Interventions EXCEPT: OT eval requested or obtained;PT eval requested or obtained 08/19/2024 8:10 PM KENYAT Annabelle Hodge RN All High Fall Risk Interventions Applied No 08/19/2024 8:10 PM KENYAT Annabelle Hodge RN All High Risk Interventions EXCEPT: Bed alarm 08/19/2024 8:10 PM KENYAT Annabelle Hodge RN Additional Interventions Applied Bed/chair alarm;Over-bed table on non-exit side;Exit bed on strong/preferred side 08/18/2024 5:00 PM CDT Eli García RN Reason For Exception(s) Not ordered 08/19/20 8:10 PM CDT Annabelle Hodge RN Reason For Exception(s) Pt uses call lig ht appropriately 08/19/2024 8:10 PM CDT Annabelle Hodge RN * ADL Screening Question Answer Date of Assessment Author Patient's Vision Adequate to Safely Complete Daily Activities Yes 08/18/2024 4:53 PM Eli Aggarwal RN Patient's Judgement Adequate to Safely Complete Daily Activities Yes 08/18/2024 4:53 PM Eli Aggarwal RN Patient's Memory Adequate to Safely Complete Daily Activities Yes 08/18/2024 4:53 PM Eli Aggarwal RN Patient Able to Express Needs/Desires Yes 08/18/2024 4:53 PM Eli Aggarwal RN Dressing Independent 08/18/2024 4:53 PM Eli Aggarwal RN Grooming Independent 08/18/2024 4:53 PM Eli Aggarwal RN Feeding Needs assistance 08/18/2024 4:53 PM Eli Vázquez RN Bathing Independent 08/18/2024 4:53 PM Eli Aggarwal RN Toileting Independent 08/18/2024 4:53 PM Eli Aggarwal RN In/Out Bed Independent 08/18/2024 4:53 PM Eli Aggarwal RN Walks in Home Independent 08/18/2024 4:53 PM Eli Johnson RN Weakness of Legs None 08/18/2024 4:53 PM Eli Vázquez RN Weakness of Arms/Hands None 08/18/2024 4:53 PM Eli Aggarwal RN Hearing - Right Ear Functional 08/18/2024 4:53 PM KENYA T Eli García RN Hearing - Left Ear Functional 08/18/2024 4:53 PM Eli Aggarwal RN Dominant hand? Right 08/18/2024 4:53 PM Eli Johnson RN Decline in ADLs in last 2 weeks? No 08/18/2024 4:53 PM Eli Aggarwal RN * Therapy Consults Question Answer Date of Assessment Author PT Evaluation Needed 1 08/18/2024 4:53 PM Eli Metzger, MORALES OT Evaluation Needed 1 08/18/2024 4:53 PM Eli Metzger RN ONLINE SERVICES MANAGER Evaluation Needed 2 08/18/2024 4:53 PM Eli Aggarwal RN * Assistive Devices Question Answer Date of Assessment Author Assistive Devices/DME Eyeglasses;Walker 08/18/2024 4:5 3 PM Eli Aggarwal RN * Speech/Swallow Screening Question Answer Date of Assessment Author Currently, does patient have difficulty swallowing; coughing/choking while swallowing, or feels like food is sticking No 08/18/2024 4:53 PM Eli Aggarwal RN In the past two weeks has the patient had changes in speaking or ability to comprehend conversation No 08/18/2024 4:53 PM Eli Aggarwal RN Currently, does patient require thickened liquids or dysphagia diet No 08/18/2024 4:53 PM Eli Aggarwal RN Patient is in need of ONLINE SERVICES MANAGER Order: No ONLINE SERVICES MANAGER order needed from this assessment 08/18/2024 4:53 PM Eli Aggarwal RN * Hygiene Question Answer Date of Assessment Author Hygiene Level of Assistance Minimal assist 08/19/2024 8:10 PM Annabelle Kuhn RN Toileting: Level of assistance Stand by 08/19/2024 8:10 PM Annabelle Kuhn RN Reason not bathed/showered Bath not due on this shift 08/19/2024 8:10 PM Annabelle Kuhn RN Bath Not bathed/showered 08/19/2024 8:10 PM Annabelle Vallecillo RN documented as of this encounter Mental Status * Question Answer Entry Date Author Neuro (WDL) X 08/18/2024 5:00 PM Eli Aggarwal RN * Question Answer Entry Date Author Level of Consciousness Alert;Awake 8:19 PM KENYAT Henry Greene RN Orientation Oriented X4 (person, place, time, situation) 08/19/2024 8:40 AM Ilya Wasserman, MORALES Neuro (WDL) WDL 08/19/2024 8:10 PM Annabelle Kuhn RN Other Neuro Symptoms Forgetful 08/19/2024 8:40 AM CDT Mersinger, Ilya Christopher, RN documented in this encounter Plan of Treatment Not on file documented as of this encounter Procedures Procedure Name Priority Date/Time Associated Diagnosis Comments SCAN - PATHOLOGY 08/16/2024 documented in this encounter Results * SCAN - PATHOLOGY (08/16/2024) Provider Scanning Final Result documented in this encounter Visit Diagnoses Not on filedocumented in this encounter Additional Health Concerns Infection Onset Date Last Indicated Resolved Time COVID: Suspected 07/08/2025 07/08/2025 07/08/2025 5:41 PM CDT documented as of this encounter Care Teams Practice Office Associate Relationship Specialty [place] [address] [place] [address] PCP - General Internal Medicine 08/19/24 08/21/24 [place] [address] [place] [address] PCP - General Internal Medicine 08/22/24 Tino Mendoza MD [address] [place] [address] Internal Medicine 08/24/24 Irving Barnes MD [address] [place] [address] Referring Physician Gastroenterology 08/24/24 Katharine Almonte MD PhD [address] [place] [address] Medical Oncologist Medical Oncology 12/07/24 documented as of this encounter
--- OUTSIDE RECORDS SUMMARY | 2025-09-01 19:12 | XMS_ITS | Encounter Summary ---
Author Organization [facility] Address [address] [place] [address] Phone Care Team Providers Care Special Education Aide Name Role Phone Leisa Hicks MD Primary Care Provider Tino Mendoza MD Unavailable [phone] Irving Barnes MD Unavailable + Katharine Almonte MD PhD Unavailable [phone] Encounter Details Date Type Department Care Team (Late st Contact Info) Description 09/01/2025 Telephone [facility] Medicine Oncology [address] [facility] [address] [place] [address] Radha Baca, RN Social History Tobacco Use Types Packs/Day Years Used Date Smoking Tobacco: Never Smokeless Tobacco: Current Chew Last attempted to quit: 07/2024 Comments:Pt reports chewing tobacco 2 hours before procedure Alcohol Use Standard Drinks/Week Comments Not Currently 0 (1 standard drink = 0.6 oz pur e alcohol) OASIS D0700: Social Isolation Answer Da te Recorded Frequency of experiencing loneliness or isolatio n Always 07/26/2025 OASIS A1250: Transportation Answer Date Recorded Lack of Transportation (Medical) No 07/26/2025 Lack of Transportation (Non-Medical) No 07/26/2025 Patient Unable or Declines to Respond No 07/26/2025 OASIS B1300: Health Literacy Answer Dante e Recorded Frequency of needing help to read materials from doctor or pharmacy Always 07/26/2025 AUDIT-C Answer Date Recorded Q1: How often do you have a drink containing alcohol? Never 05/04/2025 Q2: How many drinks containi ng alcohol do you have on a typical day when you are drinking? Patient does not drink Q3: How often do you have si x or more drinks on one occasion? Never 05/04/2025 Overall Financial Resource Strain (CARDIA) Answe r Date Recorded How hard is it for you to pa y for the very basics like food, housing, medical care, and heating? Not very hard 05/22/2025 PHQ-2 Answer Date Recorded PHQ-2 Total Score 0 07/10/2025 PRAPARE - Transportation Answer Date Re corded In the past 12 months, has l ack of transportation kept you from medical appointments or from getting medications? No 04/26 In the past 12 months, has l ack of transportation kept you from meetings, work, or from getting things needed for daily living? No 05/22/2025 PHQ-9 Answer Date Recorded PHQ-9 Total Score 5 05/22/2025 Housing Stability Vital Sign Answer Dante e Recorded In the last 12 months, was t here a time when you were not able to pay the mortgage or rent on time? No 05/22/2025 In the past 12 months, how m any times have you moved where you were living? 1 05/22/2025 At any time in the past 12 m [facility], were you homeless or living in a assisted (including now)? No 05/22/2025 Social Connection and Isolation Panel Answer Date Recorded In a typical week, how many times do you talk on the phone with family, friends, or neighbors? More than three times a week 07/10/2025 How often do you get togethe r with friends or relatives? More than three times a week 07/10/2025 How often do you attend chur ch or confucianist services? Never 07/10/2025 Do you belong to any clubs o r organizations such as taoism groups, unions, fraternal or athletic groups, or school groups? No 07/10/2025 How often do you attend meet ings of the clubs or organizations you belong to? Never 07/10/2025 Are you , , di vorced, , never , or living with a partner? 07/10/2025 Overall Financial Resource Strain (CARDIA) Answe r Date Recorded How hard is it for you to pa y for the very basics like food, housing, medical care, and heating? Not very hard 07/10/2025 Hunger Vital Sign Answer Date Recorded Within the past 12 months, y ou worried that your food would run out before you got the money to buy more. Never true 07/10/20 25 Within the past 12 months, t he food you bought just didn't last and you didn't have money to get more. Never true 07/10/2025 PRAPARE - Transportation Answer Date Re corded In the past 12 months, has l ack of transportation kept you from medical appointments or from getting medications? No 06/26 In the past 12 months, has l ack of transportation kept you from meetings, work, or from getting things needed for daily living? No 07/10/2025 Housing Stability Vital Sign Answer Dante e Recorded In the last 12 months, was t here a time when you were not able to pay the mortgage or rent on time? No 07/10/2025 In the past 12 months, how m any times have you moved where you were living? 1 07/10/2025 At any time in the past 12 m [facility], were you homeless or living in a assisted (including now)? No 07/10/2025 [facility] Utilities Answer Date Recorded In the past 12 months has th e electric, gas, oil, or water company threatened to shut off services in your home? No 07/10/2025 Personal Safety Answer Date Recorded Have you ever been in or are you currently in a harmful physical or emotional relationship or is someone making you feel afraid or unsafe? Denies 07/08/2025 Comments No Sex and Gender Information Value Date Recorded Sex Assigned at Not on file Legal Sex Female 6:07 PM CDT Gender Identity Not on file Sexual Orientation Not on file documented as of this encounter Miscellaneous Notes * Telephone Encounter - Radha Baca RN - 09/01/2025 2:25 PM CST I contacted [facility] in follow up to notification that they are unable to staff Home Care services with inquiry into alternate facilities. I expect a return call. Update: [facility] returned the call and stated that the staffing fluctuates rapidly, and it is recommended to resend the [facility] referral. I have completed that. We also discussed alternative facilities to include: [facility] (FAX: [phone]); [facility] (FAX: [phone]); and [facility] (FAX: [phone]). Our office will continue to follow. documented in this encounter Plan of Treatment Not on file documented as of this encounter Visit Diagnoses Not on filedocumented in this encounter Care Teams Special Education Aide Relationship Specialty Start Date End Date Leisa Hicks MD [address] [facility] [address] [place] [address] PCP - General Internal Medicine 08/22/24 Tino Mendoza MD [address] [place] [address] Internal Medicine 08/24/24 Irving Barnes MD [address] [facility] [address] [place] [address] Referring Physician Gastroenterology 08/24/24 Katharine Almonte MD PhD [address] [place] [address] Medical Oncologist Medical Oncology 12/07/24 documented as of this encounter
--- OUTSIDE RECORDS SUMMARY | 2025-09-01 19:12 | XMS_ITS | Encounter Summary ---
Author Organization [facility] Address [address] [place] [address] Phone Care Team Providers Care Senior Account Manager Name Role Phone Leisa Hicks MD Primary Care Provider Tino Mendoza MD Unavailable [phone] Irving Barnes MD Unavailable + Katharine Almonte MD PhD Unavailable [phone] Reason for Referral * Home Health (Routine) - Pending Review Specialty Diagnoses / Procedures [facility] To Contact [facility] Services / Home Health and Hospice Diagnoses Metastasis to bone On tube feeding diet Malaise and fatigue Gastroesophageal cancer Katharine Almonte MD PhD [address] [facility] [address] [place] [address] Phone: tel: fax: [facility] [address] [place] [address] [address] [place] [address] Phone: tel: fax: Referral ID Status Reason Start Date Expiration Date Visits Requested Visits Authorized [id number] Pending Review Specialty Services Required 09/01/2025 10/01/2026 1 1 Question Answer [facility] Home Health Primary disciplines requested: Long-Term, Physical Therapy Home Health Services Disease and Medication Management, Other Comment: G tube Requested Start of Care Date: 24-48 hours Physician to follow patient's care (the person listed here will be responsible for signing ongoing orders): Referring Provider I attest that I or another qualified licensed provider saw the patient 90 days prior to or 30 days post admission and this face to face encounter meets the necessary Home Health requirements. The face to face encounter occurred on (date): 08/30/2025 The encounter with the patient was in whole, or in part, for the following medical condition, which is the primary reason for home health care. (List medical condition): esophageal cancer diagnosis with g tube I certify that, based on my findings, the following services are medically necessary skilled home health services: Therapy to Eval/Tx, Other Comment G tube Clinical findings that support the need for home care: Medical condition requiring skilled assessment/education, Lack of knowledge regarding medications, requires education and assessment I certify that my clinical findings support patient's homebound status. Homebound criteria met because: Poor endurance, Shortness of breath with minimal exertion, Requires assistance of another to leave home safely, Pain with minimal activity or rest, Abnormal gait/unsteady balance resulting in fall risk, Bedbound/chairbound/requires wheelchair/requires assistive device, Requires maximum assistance to stand/ambulate, Requires a taxing effort to leave the home safely [employer] Encounter Details Date Type Department Care Team (Late st Contact Info) Description 09/01/2025 Orders Only [facility] Medicine Oncology [address] [facility] [address] [place] [id number] Katharine Almonte MD PhD [address] [place] [address] Metastasis to bone (Primary Dx); On tube feeding diet; Malaise and fatigue; Gastroesophageal cancer Social History Tobacco Use Types Packs/Day Years [...] any time in the past 12 m [facility], were you homeless or living in a mcc (including now)? No 05/22/2025 Social Connection and Isolation Panel Answer Date Recorded In a typical week, how many times do you talk on the phone with family, friends, or neighbors? More than three times a week 07/10/2025 How often do you get togethe r with friends or relatives? More than three times a week 07/10/2025 How often do you attend chur ch or pentecostalism services? Never 07/10/2025 Do you belong to any clubs o r organizations such as amish groups, unions, fraternal or athletic groups, or [...] any time in the past 12 m [facility], were you homeless or living in a m[facility] (including now)? No 07/10/2025 [facility] Utilities Answer Date Recorded In the [...] on file documented as of this encounter Plan of Treatment Scheduled Referrals Name Type Priority Associated Diagnoses Order Schedule Ambulatory referral to Home Health Outpatient Referral Routine Metastasis to bone On tube feeding diet Malaise and fatigue Gastroesophageal cancer Expected: 09/01/2025, Expires: 03/01/2026 documented as of this encounter Visit Diagnoses Diagnosis Metastasis to bone- Primary Secondary malignant neoplasm of bone and bone marrow On tube feeding diet Malaise and fatigue Gastroesophageal cancer Malignant neoplasm of cardia documented in this encounter Care Teams Senior Account Manager Relationship Specialty Start Date End Date Leisa Hicks MD [address] [facility] [address] [place] [address] PCP - General Internal Medicine 08/22/24 Tino Mendoza MD [address] [place] [address] Internal Medicine 08/24/24 Irving Barnes MD [address] [facility] [address] [place] [address] Referring Physician Gastroenterology 08/24/24 Katharine Almonte MD PhD [address] [place] [address] Medical Oncologist Medical Oncology 12/07/24 documented as of this encounter
--- OUTSIDE RECORDS SUMMARY | 2025-09-01 19:12 | XMS_ITS | Clinical Summary ---
Author Organization [facility] Address [address] [place] [address] Care Team Providers Care Smart Grid Engineer Name Role Phone Leisa Hicks MD Primary Care Provider Tino Mendoza MD Unavailable [phone] Irving Barnes MD Unavailable + Katharine Almonte MD PhD Unavailable [phone] Allergies No known active allergies Medications lancets (OneTouch Delica Plus Lancet) 33 gauge [facility] [place] blood sugar diagnostic (ONETOUCH ULTRA BLUE TEST STRIP [facility] [place] Active OneTouch Ultra Test strip USE TO TEST ONCE QD Active blood-glucose meter (OneTouch Ultra2 Meter) [facility] [place] Active docusate sodium (COLACE) 100 mg capsuleIndicati ons: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 Flush the g tube with 20ml purified water after administration. 30 tablet 11 025 2025 Active amLODIPine (NORVASC) 10 mg tabletIndicatio ns:hypertension Take 1 tablet (10 mg total) by mouth daily 30 tablet Active hydrALAZINE (APRESOLINE) 25 mg tabletIndicatio ns:hypertension Take 1 tablet (25 mg total) by mouth 3 (three) times a day 90 tablet 2 025 2024 Active nadoloL (CORGARD) 20 mg tabletIndicatio ns:Prevention of Bleeding Esophageal Varices Take 2 tablets (40 mg total) by mouth daily 60 tablet 1 Active lidocaine-prilo brianne (EMLA) creamIndication s:Squamous cell esophageal cancer Apply topically as needed for pain Apply to port site one hour prior to use 30 g 11 Active ondansetron (ZOFRAN) 8 mg tabletIndicatio ns:Squamous cell esophageal cancer Take 1 tablet (8 mg total) by mouth every 8 (eight) hours as needed for nausea or vomiting Use if prochlorperazine does not stop nausea 24 tablet 3 025 2024 Discontinued prochlorperazin e (Compazine) 10 mg tabletIndicatio ns:Cancer Chemotherapy-In duced Nausea and Vomiting Administer per tube 1 tablet (10 mg total) every 6 (six) hours as needed for nausea or vomiting Use first for nausea 60 tablet 3 025 2024 Discontinued Active Problems Problem Noted Date Diagnosed Date Skin infection at gastrostomy tube site 07/09/20 Assessment & Plan (07/10/2025 12:56 PM CDT): Has G tube due to esophageal Ca, exchanged 11/21/24. Monitor if unable to control symptoms (e.g. itch around site). - home tube feeding - As per ID no need for antibiotic at this time Assessment & Plan (07/10/2025 5:33 PM CDT): Imaging: CXR 07/[address], no consolidation or effusion. Micro: Superficial swab of G-tube site 07/09 growing moderate Gram-positive bacilli and few yeast. Blood cultures 07/08 NGTD. Antibiotics: None. Recommendations: -G-tube site does not appear infected, there is no purulence or surrounding cellulitis -Growth on superficial swab is not of any value -Would avoid starting antibiotics at this time -ID will sign off. Please call us back with any questions. Assessment & Plan (07/09/2025 8:40 AM CDT): Has G tube due to esophageal Ca, exchanged 11/21/24. Monitor if unable to control symptoms (e.g. itch around site). - home tube feeding - follow up wound cx - will hold off abx On tube feeding diet 07/08/2025 Assessment & Plan (07/10/2025 12:56 PM CDT): Has G tube due to esophageal Ca, exchanged 11/21/24. Monitor if unable to control symptoms (e.g. itch around site). - home tube feeding - As per ID no need for antibiotic at this time Assessment & Plan (07/10/2025 5:33 PM CDT): Imaging: CXR 07/[address], no consolidation or effusion. Micro: Superficial swab of G-tube site 07/09 growing moderate Gram-positive bacilli and few yeast. Blood cultures 07/08 NGTD. Antibiotics: None. Recommendations: -G-tube site does not appear infected, there is no purulence or surrounding cellulitis -Growth on superficial swab is not of any value -Would avoid starting antibiotics at this time -ID will sign off. Please call us back with any questions. Assessment & Plan (07/09/2025 8:40 AM CDT): Has G tube due to esophageal Ca, exchanged 11/21/24. Monitor if unable to control symptoms (e.g. itch around site). - home tube feeding - follow up wound cx - will hold off abx Assessment & Plan (07/08/2025 9:45 PM CDT): Has G tube due to esophageal Ca, exchanged 11/21/24. Monitor if unable to control symptoms (e.g. itch around site). - home tube feeding (ordered [employer] Peptide 1.5 kcal 365ml qid with water 250ml qid flushes) Confusion 05/24/2025 Assessment & Plan (05/25/2025 10:14 AM CDT): Woke up confused this morning. Alert and oriented to self only. Hemodynamically stable. Denied any signs symptoms of infection. Labs from overnight stable. Exam unremarkable. Per patient's granddaughter [facility] patient often wakes up in the AM confused and has periods of short term memory loss throughout the day and she thinks patient has dementia. - Referred to outpatient neurology for dementia eval Assessment & Plan (05/24/2025 3:35 PM CDT): Woke up confused this morning. Alert and oriented to self only. Hemodynamically stable. Denied any signs symptoms of infection. Labs from overnight stable. Exam unremarkable. Per patient's granddaughter [facility] patient often wakes up in the AM confused and has periods of short term memory loss throughout the day and she thinks patient has dementia. - Monitor - Referred to outpatient neurology for dementia eval Failure to thrive in adult 05/21/2025 Assessment & Plan (05/25/2025 10:14 AM CDT): Likely due to recent viral illness c/b known metastatic gastroesophageal SCC. She reports doing ok with tube feeds. She takes water and jello by mouth at home but there is concern for aspiration based on patient's descriptions. CT chest abdomen and pelvis done which shows interval decrease in gastroc buttock lymphadenopathy, stable appearance of esophageal mass with upstream esophageal dilation and fluid, unchanged right iliac osseous mets and resolving organizing pna. TSH 1.81, elevated ferritin 196, low iron and TIBC - RD consulted for tube feeds - PT/OT-recs home - Maintain NPO all the times due to esophageal mass causing obstruction Assessment & Plan (05/24/2025 3:35 PM CDT): Likely due to recent viral illness c/b known metastatic gastroesophageal SCC. She reports doing ok with tube feeds. She takes water and jello by mouth at home but there is concern for aspiration based on patient's descriptions. CT chest abdomen and pelvis done which shows interval decrease in gastroc buttock lymphadenopathy, stable appearance of esophageal mass with upstream esophageal dilation and fluid, unchanged right iliac osseous mets and resolving organizing pna. TSH 1.81, elevated ferritin 196, low iron and TIBC - RD consulted for tube feeds - PT/OT-recs home - Maintain NPO all the times due to esophageal mass causing obstruction Assessment & Plan (05/23/2025 2:39 PM CDT): Likely due to recent viral illness c/b known metastatic gastroesophageal SCC. She reports doing ok with tube feeds. She takes water and jello by mouth at home but there is concern for aspiration based on patient's descriptions. CT chest abdomen and pelvis done which shows interval decrease in gastroc buttock lymphadenopathy, stable appearance of esophageal mass with upstream esophageal dilation and fluid, unchanged right iliac osseous mets and resolving organizing pna. TSH 1.81, elevated ferritin 196, low iron and TIBC - RD consulted for tube feeds - PT/OT-recs home - Maintain NPO all the times due to esophageal mass causing obstruction Assessment & Plan (05/22/2025 12:03 PM CDT): Likely due to recent viral illness c/b known metastatic gastroesophageal SCC. She reports doing ok with tube feeds. She takes water and jello by mouth at home but there is concern for aspiration based on patient's descriptions. Ordered repeat CT CAP per oncology recs to assess for treatment response, read pending. Will check TSH, iron labs to assess for other possible deficiencies. - Oncology consulted - RD consulted for tube feeds - CT CAP completed 05/22, read pending - TSH, Ferritin, Iron profile - PT/OT - Maintain NPO for now Assessment & Plan (05/21/2025 6:35 PM CDT): Likely due to known metastatic gastroesophageal SCC. She reports doing ok w/ the tube feeds. She still takes water & jello by mouth. -For now, I will restart her TF. RD c/s for adjustments -Overall, lower c/f refeeding since as per history she has been taking her meds. Would pay close attention to electrolytes though -Medonc c/s -Will keep her NPO (just feeding w/ TF) for now until re-evaluated Hypertension, essential 05/21/2025 Assessment & Plan (07/10/2025 12:56 PM CDT): Unclear current home meds, only has recent dispense for hydralazine 25 tid (which may contribute to fluctuation of systolics, though patient does not seem to want to switch currently). - hydral 25 tid -amlodipine 10, nadolol 40 Assessment & Plan (07/09/2025 8:40 AM CDT): Unclear current home meds, only has recent dispense for hydralazine 25 tid (which may contribute to fluctuation of systolics, though patient does not seem to want to switch currently). - hydral 25 tid -amlodipine 10, nadolol 40 Assessment & Plan (07/08/2025 9:43 PM CDT): Unclear current home meds, only has recent dispense for hydralazine 25 tid (which may contribute to fluctuation of systolics, though patient does not seem to want to switch currently). - hydral 25 tid - hold amlodipine 10, nadolol 40 (listed as prior meds) Assessment & Plan (05/25/2025 10:14 AM CDT): She is unsure what meds she takes, and because of the weight loss, she may not need as much HTN meds as before. Per chart, patient on amlodipine 10 mg daily, lisinopril 40 mg daily, not oral 40 mg daily and clonidine 0.3 mg BID, but no recent refills per dispense report. In the hospital patient was not given any antihypertensives initially and yesterday had elevated blood pressure reading in 180s to 190s so started on amlodipine and hydralazine. BP improved to 150s most of time but still few readings in 160s-170s so will resume home nadolol. - Continue amlodipine 10 mg daily - Continue home nadolol 40 mg daily - Started hydralazine 25 mg t.i.d. Assessment & Plan (05/24/2025 3:35 PM CDT): She is unsure what meds she takes, and because of the weight loss, she may not need as much HTN meds as before. Per chart, patient on amlodipine 10 mg daily, lisinopril 40 mg daily, clonidine 0.3 mg BID, but no recent refills per dispense report. In the hospital patient was not given any antihypertensives initially and yesterday had elevated blood pressure reading in 180s to 190s so started on amlodipine and hydralazine - Continue amlodipine 10 mg daily - Continue hydralazine 25 mg t.i.d. Assessment & Plan (05/23/2025 7:25 AM CDT): She is unsure what meds she takes, and because of the weight loss, she may not need as much HTN meds as before. Per chart, patient on amlodipine 10 mg daily, lisinopril 40 mg daily, clonidine 0.3 mg BID, but no recent refills per dispense report. BP stable currently. Will d/c anti-hypertensives - CTM Assessment & Plan (05/22/2025 12:02 PM CDT): She is unsure what meds she takes, and because of the weight loss, she may not need as much HTN meds as before. Per chart, patient on amlodipine 10 mg daily, lisinopril 40 mg daily, clonidine 0.3 mg BID, but no recent refills per dispense report. BP stable currently. Will d/c anti-hypertensives - CTM Assessment & Plan (05/21/2025 6:35 PM CDT): She is unsure what meds she takes, and because of the weight loss, she may not need as much HTN meds as before. -Based on borderline low BP on admission, I will hold her charted home meds in favor of observation Gastroesophageal cancer 05/21/2025 Assessment & Plan (05/25/2025 10:14 AM CDT): Likely due to recent viral illness c/b known metastatic gastroesophageal SCC. She reports doing ok with tube feeds. She takes water and jello by mouth at home but there is concern for aspiration based on patient's descriptions. CT chest abdomen and pelvis done which shows interval decrease in gastroc buttock lymphadenopathy, stable appearance of esophageal mass with upstream esophageal dilation and fluid, unchanged right iliac osseous mets and resolving organizing pna. TSH 1.81, elevated ferritin 196, low iron and TIBC - RD consulted for tube feeds - PT/OT-recs home - Maintain NPO all the times due to esophageal mass causing obstruction Assessment & Plan (05/24/2025 3:35 PM CDT): Likely due to recent viral illness c/b known metastatic gastroesophageal SCC. She reports doing ok with tube feeds. She takes water and jello by mouth at home but there is concern for aspiration based on patient's descriptions. CT chest abdomen and pelvis done which shows interval decrease in gastroc buttock lymphadenopathy, stable appearance of esophageal mass with upstream esophageal dilation and fluid, unchanged right iliac osseous mets and resolving organizing pna. TSH 1.81, elevated ferritin 196, low iron and TIBC - RD consulted for tube feeds - PT/OT-recs home - Maintain NPO all the times due to esophageal mass causing obstruction Assessment & Plan (05/23/2025 2:39 PM CDT): Likely due to recent viral illness c/b known metastatic gastroesophageal SCC. She reports doing ok with tube feeds. She takes water and jello by mouth at home but there is concern for aspiration based on patient's descriptions. CT chest abdomen and pelvis done which shows interval decrease in gastroc buttock lymphadenopathy, stable appearance of esophageal mass with upstream esophageal dilation and fluid, unchanged right iliac osseous mets and resolving organizing pna. TSH 1.81, elevated ferritin 196, low iron and TIBC - RD consulted for tube feeds - PT/OT-recs home - Maintain NPO all the times due to esophageal mass causing obstruction Assessment & Plan (05/22/2025 12:03 PM CDT): Likely due to recent viral illness c/b known metastatic gastroesophageal SCC. She reports doing ok with tube feeds. She takes water and jello by mouth at home but there is concern for aspiration based on patient's descriptions. Ordered repeat CT CAP per oncology recs to assess for treatment response, read pending. Will check TSH, iron labs to assess for other possible deficiencies. - Oncology consulted - RD consulted for tube feeds - CT CAP completed 05/22, read pending - TSH, Ferritin, Iron profile - PT/OT - Maintain NPO for now Assessment & Plan (05/21/2025 6:35 PM CDT): Likely due to known metastatic gastroesophageal SCC. She reports doing ok w/ the tube feeds. She still takes water & jello by mouth. -For now, I will restart her TF. RD c/s for adjustments -Overall, lower c/f refeeding since as per history she has been taking her meds. Would pay close attention to electrolytes though -Medonc c/s -Will keep her NPO (just feeding w/ TF) for now until re-evaluated History of esophageal cancer 04/26/2025 Metastasis to bone 12/21/2024 Hypernatremia 11/24/2024 Assessment & Plan (11/26/2024 2:09 PM TAR HEATER OPERATOR): Secondary to dehydration and in setting of DONNELL. - FWD 2.5-3.5 L - 11/25 Increased D5 to 75 cc/hr and Continue with FWF to 300ml Q 4 hours - Hypernatremia, resolved today. - D5 was held and repeat BMp in afternoon with stable Na. - Patient was instructed to adequately hydrate at home. DONNELL (acute kidney injury) 11/21/2024 Assessment & Plan (11/22/2024 5:47 PM TAR HEATER OPERATOR): Cr 4.65 on admission, baseline 0.6 - likely pre-renal - s/p 2L bolus - continue maintenance IVF - avoid nephrotoxic medications - strict I+Os - bladder scan/straight cath PRN - monitor UO - Improving Elevated troponin 11/21/2024 Assessment & Plan (11/23/2024 2:45 PM TAR HEATER OPERATOR): Resolved. Trop 24 >17. Denies chest pain. EKG without ischemic changes. - monitor Hypotension 11/21/2024 Assessment & Plan (11/24/2024 10:52 AM TAR HEATER OPERATOR): RESOLVED Noted to be hypotensive during the g-tube exchange in IR today (60/40s). ACT called in recovery room and she rec'd 1L bolus with improvement to 80-90s/30-40s. She was sent to ER for further management. Received 2 more liter boluses. Unclear if pt took her blood pressure medications this morning. - monitor b/p Chronic anemia 11/16/2024 Assessment & Plan (11/21/2024 3:55 PM TAR HEATER OPERATOR): Hgb 10.1 on admission, baseline ~11 - monitor CBC - transfuse to maintain Hgb >7 Esophageal varices 11/16/2024 Hepatic encephalopathy 11/16/2024 Memory impairment 11/16/2024 Primary squamous cell carcin luis eduardo of middle third of esophagus 08/18/2024 Cancer Staging:Clinical:Stage IVB(cTX, cN2, cM1) - Unsigned Assessment & Plan (07/10/2025 12:56 PM CDT): Follows with Dr. Almonte. Hx esophageal SCC (MSI-S, pMMR, high TMB, PDL1+), with mets to T2, R iliac bone, and LN (including gastrohepatic, mediastinal, para-aortic) on mFOLFOX + nivo (C12D1 07/05/25). Also s/p palliative RT to R iliac met and G-tube dependent. Appears to be tolerating most recent treatment. - EGD (05/04): large fungating mass in upper third of esophagus - CT-CAP (04/2025): interval decrease in gastrohepatic LN and L periaortic LN, stable esophageal mass, L supraclavicular LN, R upper paratracheal LN, R iliac osseous met. Indeterminate enlargement of L periaortic LN, resolving pulm nodules, unchanged soft tissue thickening along G-tube track Assessment & Plan (07/09/2025 8:40 AM CDT): Follows with Dr. Almonte. Hx esophageal SCC (MSI-S, pMMR, high TMB, PDL1+), with mets to T2, R iliac bone, and LN (including gastrohepatic, mediastinal, para-aortic) on mFOLFOX + nivo (C12D1 07/05/25). Also s/p palliative RT to R iliac met and G-tube dependent. Appears to be tolerating most recent treatment. - EGD (05/04): large fungating mass in upper third of esophagus - CT-CAP (04/2025): interval decrease in gastrohepatic LN and L periaortic LN, stable esophageal mass, L supraclavicular LN, R upper paratracheal LN, R iliac osseous met. Indeterminate enlargement of L periaortic LN, resolving pulm nodules, unchanged soft tissue thickening along G-tube track Assessment & Plan (07/08/2025 9:43 PM CDT): Follows with Dr. Almonte. Hx esophageal SCC (MSI-S, pMMR, high TMB, PDL1+), with mets to T2, R iliac bone, and LN (including gastrohepatic, mediastinal, para-aortic) on mFOLFOX + nivo (C12D1 07/05/25). Also s/p palliative RT to R iliac met and G-tube dependent. Appears to be tolerating most recent treatment. - EGD (05/04): large fungating mass in upper third of esophagus - CT-CAP (04/2025): interval decrease in gastrohepatic LN and L periaortic LN, stable esophageal mass, L supraclavicular LN, R upper paratracheal LN, R iliac osseous met. Indeterminate enlargement of L periaortic LN, resolving pulm nodules, unchanged soft tissue thickening along G-tube track Assessment & Plan (07/08/2025 9:36 PM CDT): Follows with Dr. Almonte. Hx esophageal SCC PDL1+, with mets to T2, R iliac bone, and LN (including gastrohepatic, mediastinal, para-aortic) on mFOLFOX + nivo (C12D1 07/05/25). Also s/p palliative RT to R iliac met and G-tube dependent. Appears to be tolerating most recent treatment. Assessment & Plan (08/23/2024 9:58 AM CDT): CT chest at OSH noted esophageal mass, dimensions were not given. CT a/p noted additional 4x3x3 mass of stomach c/f metastasis. EGD biopsy showed SCC. -OSH images uploaded for consult -ambulatory referral to medical and radiation oncology placed on discharge to establish care, staging imaging to be done outpatient Dysphagia 08/18/2024 Assessment & Plan (11/24/2024 10:46 AM TAR HEATER OPERATOR): Swallow function study (MBS) on 10/18/24 with recommendations for NPO and limited thin liquids for pleasure as tolerated. Nutrition per g-tube. - Nutrition consult for tube feeding recommendations - NPO except small amounts of thin liquids for pleasure for now - may need to evaluate what the patient has been doing over the past couple of weeks - Aspiration precautions - Monitor for refeeding syndrome given that she may not have been receiving very much nutrition over the last couple of weeks - RD consulted, started on TFs. - Replete electrolytes as needed Assessment & Plan (08/23/2024 8:14 AM CDT): Due to esophageal mass which was nearly completely obstructing according to OSH EGD. Transferred here for possible esophageal stenting. -Consulted GI here. They report that, due to dx of esophageal SCC, not a candidate for esophageal stent (due to likely need for radiation therapy) -IR consulted and able to place g-tube on 08/19, TF as below -Able to tolerate very thin liquids (I.e. water), discussed with patient importance to stay NPO expect for small sips of water Severe protein-calorie malnutrition 08/18/2024 Assessment & Plan (05/25/2025 10:14 AM CDT): As per RD Assessment & Plan (05/24/2025 3:35 PM CDT): As per RD Assessment & Plan (11/21/2024 4:47 PM TAR HEATER OPERATOR): - Exercise Science Internship consult, appreciate recommendations Assessment & Plan (08/23/2024 9:59 AM CDT): Due to esophageal mass and dysphagia, significant weight loss, patient estimates ~40 pounds -coating machine helper consult for tube feeding recommendations, started on TF and now at goal without worsening sx. -at risk for re-feeding syndrome, monitor BMP, Mg, Phos daily. Lab work currently stable. -pt and daughter to receive TF education by [facility] then to discharge home Suspected condition 04/03/2021 Overview (11/16/2024): CAREL - Cardiovascular - extra low Added by RAMP Suspected Conditions Diagnosis unknown 02/21/2021 Hypertensive disorder 10/17/2019 Overview (11/16/2024): Last Assessment & Plan: Condition: stable Discussed target blood pressure. Continue medication as prescribed from PCP/specialist. Take medications at the same time every day. Lifestyle modification advised: DASH diet, reduce stress/anxiety, discussed health weight management, activity as tolerated or advised from PCP, try to avoid alcohol and nicotine. Follow up in: three months with PCP Assessment & Plan (11/26/2024 2:10 PM TAR HEATER OPERATOR): RESOLVED. Antihypertensives held on admission in setting of hypotension. Elevated BP after IVF repletion. - Resumed home amlodipine (11/23 ), lisinopril 40 mg daily (11/24), - Decrease home nadolol to 20 mg daily (11/24) due to bradycardia on presentation. - Continue to hold clonidine , resume as needed. Assessment & Plan (08/22/2024 11:08 AM CDT): Pt does not know her home meds well and wasn't taking them anyway. Per review of dispense record, she was on: amlodipine 10mg daily, clonidine 0.3mg daily, and lisinopril 40mg daily. -Due to inability to tolerate PO, started on clonidine patch 0.2mg/day -PRN hydralazine IV for SBP>180 -BP elevated this morning which improved with hydralazine. Increase clonidine to 0.3 mg/day -hesitant to use BP med per tube given pt's low health literacy and c/f non-compliance -discharge with clonidine patch with further monitoring and management with PCP Cirrhosis 10/17/2019 Overview (11/16/2024): Last Assessment & Plan: Condition: stable Follow up in: three months with PCP Assessment & Plan (07/10/2025 12:56 PM CDT): Presumed EtOH, with chart review listing esophageal varices + HE, and prior CT showing cirrhotic morphology of liver without definitive mass, mildly prominent spleen. Not on any current home meds. Cw with nadolol for EV PPX. Assessment & Plan (07/09/2025 8:40 AM CDT): Presumed EtOH, with chart review listing esophageal varices + HE, and prior CT showing cirrhotic morphology of liver without definitive mass, mildly prominent spleen. Not on any current home meds. Cw with nadolol for EV PPX. Assessment & Plan (07/08/2025 9:43 PM CDT): Presumed EtOH, with chart review listing esophageal varices + HE, and prior CT showing cirrhotic morphology of liver without definitive mass, mildly prominent spleen. Not on any current home meds Obesity 10/17/2019 Overview (11/16/2024): Last Assessment & Plan: Condition: improving Discussed with Nancy the need to lose weight to reduce their risk of a stroke, myocardial infarction or . Explained to her their risks for those life changing events increases with their existing comorbidity of hypertension/hyperlipidemia/ diabetes mellitus. Nancy urged to begin behavior modification which includes changing eating habits, increasing current levels of exercise and if needed seek the expertise of a air twister winder. Educated her on normal BMI range of 18.5 kg/m2 - 24.9 kg/m2po Follow up in: three months with PCP Comorbidity : Hypertension Nicotine dependence 10/17/2019 Overview (11/16/2024): Removal Reason: Stopped drinking Last Assessment & Plan: Condition: stable Discussed smoking cessation, immunizations and increasing exercise activity; risk of Lung Cancer, COPD, PAD, Stroke, Heart Attack and . Discussed pharmaceutical and non-pharmaceutical options to quit. Member advised to keep all scheduled appointments. Follow up in: three months with PCP Vitamin D deficiency 10/17/2019 Overview (11/16/2024): Last Assessment & Plan: Condition: stable Follow up in: three months with PCP Portal hypertension 10/17/2019 Overview (11/16/2024): Last Assessment & Plan: Condition: stable Follow up in: three months with PCP Dorsocervical fat pad 10/06/2019 Osteoarthritis of knee 10/06/2019 Impaired fasting glucose 02/02/2019 Malaise and fatigue 02/25/2018 Noncompliance with treatment 02/25/2018 Resolved Problems Problem Noted Date Diagnosed Date Resolved Date Abnormal vital signs 07/08/2025 025 Assessment & Plan (07/08/2025 9:43 PM CDT): Patient with recent chemotherapy, reportedly had abnormal vitals at home health visit (hypertension and fever). In ER, afebrile, systolic 150-170. Suspect variability could be related to healthcare-associated hypertension and hydralazine use. Suspect stable enough for outpatient discussion Hypokalemia 08/18/2024 11/22/2024 Assessment & Plan (11/22/2024 5:50 PM TAR HEATER OPERATOR): K 3.7 at admission, now 2.6. Receiving potassium 40mEq IV. - replete to maintain K>4 - monitor BMP Assessment & Plan (08/21/2024 9:12 AM CDT): Hypokalemia noted at OSH s/p replacement. Required additional aggressive IV repletion here, now normalized Encounters Date Type Department Care Team Description 09/01/[address] [facility] Medicine Oncology [address] [place] [address] 5 [place] [address] Katharine Almonte MD PhD Metastasis to bone (Primary Dx); On tube feeding diet; Malaise and fatigue; Gastroesophageal cancer 09/01/[address] [facility] Medicine Oncology [address] [place] [address] 5 [place] [address] Radha Baca RN 08/30/2025 9:30 AM TAR HEATER OPERATOR Office Visit 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); Metastasis to bone 08/30/2025 Orders Only [facility] Oncology [facility] Floor 5 [place] [phone] Katharine Almonte MD PhD Metastasis to bone (Primary Dx); 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) 08/30/2025 Documentation [facility] Oncology [address] [place] [address] [address] [place] [phone] Slime Rendon LCSW 08/30/2025 Telephone [facility] Oncology [address] [place] [address] [address] [place] [phone] Jenniffer Walker CMA Spoke With Home Health Provider 08/30/2025 Telephone [facility] Home Care Services [address] [facility] [address] [place] [address] Alexa Maurer 08/25/2025 Telephone [facility] Oncology [facility] Floor 5 [place] [address] Radha Baca, RN 08/22/2025 Telephone [facility] Oncology [address] [facility] Floor 5 [place] [address] Radha Baca, RN 08/21/2025 4:53 PM CDT - 08/21/2025 11:59 PM CDT Hospital Encounter [facility] [address] [place] [address] 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 Medicine Oncology [address] [place] [address] [address] [place] [phone] Sergio Jimenez 08/18/[address] [facility] Medicine Oncology [facility] Floor 1, [address] [place] [phone] Lala Ramires, EXHIBIT CARPENTER 08/17/[address] [facility] Medicine Oncology [address] [place] [address] [address] [place] [phone] Slime Rendon, EXHIBIT CARPENTER 08/17/[address] 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); Hypernatremia 08/04/2025 Documentation [facility] [address] [place] [phone] Radha Baca, RN 08/04/2025 Orders Only [facility] [address] [place] [address] 5 [place] [address] Katharine Almonte MD PhD 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); Hypernatremia; Dehydration 08/03/2025 Telephone [facility] On[facility] [address] [place] [address] 5 [place] [address] Radha Baca, RN 08/03/2025 Orders Only [facility] [address] [place] [address] 5 [place] [address] Katharine Almonte MD PhD 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 Medicine Oncology [address] [place] [address] 5 [place] [address] Danisha Mejias NP 08/02/[address] [facility] Medicine Oncology [address] [place] [address] 5 [place] [address] Katharine Almonte MD PhD 08/02/2025 Documentation [facility] [place] at [address] [place] [address] Molly Garcias, MICHELLE 07/26/2025 1:30 PM CDT Home Care Visit [address] [place] [address] Vika Hernandez, RN SN OASIS DISCHARGE 07/21/2025 2:00 PM CDT Home Care Visit [address] [place] [address] Vika Hernandez, RN SN HOME VISIT 07/21/2025 1:00 PM CDT Clinical Support [facility] at [address] [place] [address] 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) 07/12/2025 2:00 PM CDT Home Care Visit [place] [address] [address] [place] [address] Vika Hernandez, RN SN OASIS RESUMPTION OF CARE 07/12/2025 Plan of Care Documentation [address] [place] [address] 07/09/2025 Home Care Visit [address] [place] [address] Vika Hernandez, RN SN OASIS TRANSFER W/OUT DC 07/08/2025 3:09 PM CDT - 07/10/2025 3:00 PM CDT Hospital Encounter [address] [address] John Jorge MD Aranha, Olivia, MD PhD Allen Soto MD At risk for inadequate pain control (Primary Dx); Hypertensive urgency; Chest pain, unspecified type; Fever of unknown origin; Squamous cell esophageal cancer; Abnormal vital signs; Noncompliance with treatment Discharge Disposition: Discharge to home, home health skilled care 07/08/2025 12:00 PM CDT Home Care Visit [address] [place] [address] Vika Hernandez, MORALES SN HOME VISIT 07/07/2025 12:00 PM CDT Clinical Support [address] [place] [address] 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); Metastasis to bone 06/23/2025 Telephone [facility] Oncology [address] [place] [address] 100 [place], [place] [address] Katharine Almonte MD PhD 06/23/2025 Orders Only [facility] Oncology [address] [place] [address] 100 [place], [place] [address] Katharine Almonte MD PhD 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); Metastasis to bone 06/21/2025 12:30 PM CDT Infusion [facility] at [address] [place], [place] [address] Metastasis to bone; 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) 06/21/2025 11:00 AM CDT Infusion [facility] [place] at [address] [place], [place] [address] Metastasis to bone (Primary Dx); 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) 06/21/2025 10:30 AM CDT Office Visit [facility] Oncology [address] [place] [address] [address] [place], [place] [address] Katharine Almonte MD PhD Gastroesophageal cancer (Primary Dx); Metastasis to bone; 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) 06/21/2025 9:30 AM CDT Clinical Support [facility] at [address] [place], [place] [address] 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); Metastasis to bone 06/21/2025 Documentation [facility] [place] at [address] [place], [place] [address] Molly Garcias, MICHELLE 06/16/2025 11:00 AM CDT Home Care Visit [address] [place] [address] Vika Hernandez, MORALES SN HOME VISIT 06/16/2025 Telephone [facility] [address] [place] [address] Floor 5 [place] [phone] Radha Baca, MORALES 06/13/2025 Telephone [facility] [address] [place] [address] 5 [place] [phone] Radha Baca, MORALES 06/13/2025 Orders Only [facility] [address] [place] [address] Floor 5 [place] [phone] Katharine Almonte MD PhD Metastasis to bone (Primary Dx); 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) 06/09/2025 1:00 PM CDT Clinical Support [facility] at [address] [place] [address] 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); Metastasis to bone 06/08/2025 12:30 PM CDT Home Care Visit [address] [place] [address] Vika Hernandez, MORALES SN HOME VISIT 06/08/2025 Documentation [facility] [address] [place] [address] 100 [place] [address] Slime Rendon, EXHIBIT CARPENTER 06/08/2025 Documentation [facility] [address] [place] [address] 100 [place] [phone] Slime Rendon, EXHIBIT CARPENTER 06/08/2025 Telephone [facility] [address] [place] [address] 5 [place] [phone] Radha Baca, MORALES 06/07/2025 11:00 AM CDT Infusion [address] [place] [phone] Metastasis to bone (Primary Dx); 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); Metastasis to bone 06/06/2025 Orders Only [facility] Oncology [address] [place] [phone] Katharine Almonte MD PhD Metastasis to bone (Primary Dx); 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) 06/06/2025 Telephone [facility] Oncology [address] [place] [address] 5 [place] [address] Radha Baca RN from Last 3 Months Immunizations Immunization Administration Dates Next Due Influenza, Quadrivalent, Spl it, Intramuscular 10/07/2019,11/11/2016 Influenza, Quadrivalent, Spl it, Preservative Free, Intramuscular 02/03/2019 Influenza, Trivalent, High D ose, Split, Preservative Free, Intramuscular 11/26/2024(Deferred: Patient Refused),11/24/2024(Deferred: Patient Refused - pt stating she already recieved immunization at her PCP),08/23/2024(Deferred: Other - Pt already had flu shot prior to administration) Influenza, Trivalent, IM (MDV) 09/24/2015 Pneumococcal Conjugate PCV 13 02/03/2019 Pneumococcal Polysaccharide PPV23 10/26/2011 Tdap 07/11/2012 Surgical History Surgery Date Site/Laterality Comments IR G TUBE PLACEMENT PERCUTANEOUS 08/19/2024 N/A CHANGE G TUBE 11/21/2024 N/A PORT PLACEMENT CHEST >5 YEARS 12/27/2024 N/A Medical History Medical History Date Comments Hypertension Esophageal cancer (HCC) Hypokalemia 08/18/2024 Obesity Family History Medical History Relation Name Comments No Known Problems Brother No Known Problems Daughter No Known Problems Father Cancer Mother No Known Problems Sister Relation Name Status Comments Brother Daughter Father Mother Sister Social History Tobacco Use Types Packs/Day Years Used Date Smoking Tobacco: Never Smokeless Tobacco: Current Chew Last attempted to quit: 07/2024 Tobacco Cessation:Ready to Q uit: Not Asked; Counseling Given: Not Answered Comments:Pt reports chewing tobacco 2 hours before [...] any time in the past 12 m [facility], were you homeless or living in a fpc (including now)? No 05/22/2025 Social Connection and Isolation Panel Answer Date Recorded In a typical week, how many times do you talk on the phone with family, friends, or neighbors? More than three times a week 07/10/2025 How often do you get togethe r with friends or relatives? More than three times a week 07/10/2025 How often do you attend chur ch or amish services? Never 07/10/2025 Do you belong to any clubs o r organizations such as uatsdin groups, unions, fraternal or athletic groups, or [...] any time in the past 12 m [facility], were you homeless or living in a fpc (including now)? No 07/10/2025 [facility] Utilities Answer Date Recorded In the past 12 months has th e [employer], gas, oil, or water company threatened to [...] on file Sexual Orientation Not on file Last Filed Vital Signs Vital Sign Reading Time Taken Comments Blood Pressure 133/102 08/30/2025 11:04 AM TAR HEATER OPERATOR Pulse 62 08/30/2025 11:04 AM TAR HEATER OPERATOR Temperature 36.1 C (97 F) 08/30/2025 11:04 AM TAR HEATER OPERATOR Respiratory Rate 16 08/30/2025 11:04 AM TAR HEATER OPERATOR Oxygen Saturation 100% 08/30/2025 11:04 AM TAR HEATER OPERATOR Inhaled Oxygen Concentration - - Weight 62.4 kg (137 lb 9.1 oz) 08/30/2025 11:04 AM TAR HEATER OPERATOR Height 165.1 cm (5' 5) 07/08/2025 10:45 PM CDT Body Mass Index 22.89 07/08/2025 10:45 PM CDT Plan of Treatment Health Maintenance Due Date Last Done Comments Breast Cancer Screening-Mammogram 1954 Colon Cancer Screening-Colonoscopy 1955 Hepatitis C Screening 1955 Osteoporosis Screening-Bone Density Scan 1954 Hepatitis B Screening 01/15/1972 Zoster Vaccine (1 of 2) 1973 Well Visit 65+ 2019 Pneumococcal vaccine 65+ (3 of 3 - PCV20 or PCV21) 03/31/2019 02/03/2019, 10/26/2011 DTaP/Tdap/Td Vaccine (2 - Td or Tdap) 07/11/2022 07/11/2012 Influenza Vaccine (#1) 2025 9, 02/03/2019, 11/11/2016, Additional history exists Depression Screening 07/08/2026 07/08/2025, 05/19/2025, 05/19/2025 Fall Risk Assessment 07/10/2026 07/10/2025, 04/05/20 Medical Devices Implanted Type Area Hydrology Teacher Device Identifier Shelf Expiration Date Model / Serial / Lot [employer] Excela Low Porfile Power Port 8fr 1.6mm 1 Lumen [id number] - [id number] Implanted:Qty: 1 on 12/27/2024 at [facility] [employer] 08/07/2029 [id number] / / [id number] Procedures Procedure Name Priority Date/Time Associated Diagnosis Comments EGFR Routine 08/30/2025 9:01 AM TAR HEATER OPERATOR 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) Metastasis to bone DIFFERENTIAL AUTO Routine 08/30/2025 9:0 1 AM TAR HEATER OPERATOR 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) Metastasis to bone CBC WITH AUTO DIFFERENTIAL Routine 08/30/2025 9:01 AM TAR HEATER OPERATOR 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) Metastasis to bone COMPREHENSIVE METABOLIC PANEL Routine 08/30/2025 9:01 AM TAR HEATER OPERATOR 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) Metastasis to bone MRI ABDOMEN LIVER W WO CONTRAST Schedule Routine, Read Routine (OP Routine) 08/21/2025 6:55 PM CDT 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) Metastasis to bone EGFR STAT 08/16/2025 1:01 PM CDT 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) Metastasis to bone DIFFERENTIAL AUTO Routine 08/16/2025 1:0 1 PM CDT 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) Metastasis to bone CBC WITH AUTO DIFFERENTIAL Routine 08/16/2025 1:01 PM CDT 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) Metastasis to bone COMPREHENSIVE METABOLIC PANEL STAT 08/16/2025 1:01 PM CDT 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) Metastasis to bone CT CHEST ABDOMEN PELVIS W CONTRAST Schedule AMY, Read AMY (Appt Today, Awaiting Results) 08/14/2025 3:07 PM CDT Gastroesophageal cancer Metastasis to bone EGFR STAT 08/04/2025 3:40 PM CDT 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) Hypernatremia BASIC METABOLIC PANEL STAT 08/04/2025 3:40 PM CDT 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) Hypernatremia EGFR Routine 08/02/2025 3:46 PM CDT 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) Metastasis to bone BASIC METABOLIC PANEL Routine 08/02/2025 3:46 PM CDT 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) Metastasis to bone EGFR STAT 08/02/2025 10:21 AM CDT 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) Metastasis to bone DIFFERENTIAL AUTO Routine 08/02/2025 10: 21 AM CDT 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) Metastasis to bone CBC WITH AUTO DIFFERENTIAL Routine 08/02/2025 10:21 AM CDT 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) Metastasis to bone COMPREHENSIVE METABOLIC PANEL STAT 08/02/2025 10:21 AM CDT 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) Metastasis to bone EGFR STAT 07/19/2025 9:15 AM CDT 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) Metastasis to bone DIFFERENTIAL AUTO Routine 07/19/2025 9:1 5 AM CDT 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) Metastasis to bone CBC WITH AUTO DIFFERENTIAL Routine 07/19/2025 9:15 AM CDT 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) Metastasis to bone COMPREHENSIVE METABOLIC PANEL STAT 07/19/2025 9:15 AM CDT 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) Metastasis to bone EGFR Routine 07/10/2025 12:22 AM CDT DIFFERENTIAL AUTO Routine 07/10/2025 12: 22 AM CDT COMPREHENSIVE METABOLIC PANEL Routine 07/10/2025 12:22 AM CDT CBC WITH AUTO DIFFERENTIAL Routine 07/10/2025 12:22 AM CDT AEROBIC AND ANAEROBIC CULTURE AND GRAM STAIN Routine 07/09/2025 10:37 AM CDT DIFFERENTIAL AUTO STAT 07/08/2025 4:5 8 PM CDT CBC WITH AUTO DIFFERENTIAL STAT 07/08/2025 4:58 PM CDT XR CHEST PA LATERAL 2 VIEWS ED 07/08/2025 4:49 PM CDT RESPIRATORY PATHOGEN PANEL STAT 07/08/2025 4:36 PM CDT EGFR STAT 07/08/2025 4:01 PM CDT TROPONIN I HIGH-SENSITIVITY SERIES (BASELINE, 2HR, 4HR, 6HR) STAT 07/08/2025 4:01 PM CDT SEPSIS LACTATE WITH REFLEX STAT 07/08/2025 4:01 PM CDT COMPREHENSIVE METABOLIC PANEL STAT 07/08/2025 4:01 PM CDT BLOOD CULTURE STAT 07/08/2025 4:01 PM CDT BLOOD CULTURE STAT 07/08/2025 4:01 PM CDT ED CRITICAL CARE Routine 07/08/2025 3:00 PM CDT ECG 12-LEAD Routine 07/08/2025 2:41 PM CDT EGFR STAT 07/05/2025 10:00 AM CDT 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) Metastasis to bone DIFFERENTIAL AUTO Routine 07/05/2025 10: 00 AM CDT 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) Metastasis to bone CBC WITH AUTO DIFFERENTIAL Routine 07/05/2025 10:00 AM CDT 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) Metastasis to bone COMPREHENSIVE METABOLIC PANEL STAT 07/05/2025 10:00 AM CDT 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) Metastasis to bone EGFR STAT 06/21/2025 9:41 AM CDT Metastasis to bone 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) DIFFERENTIAL AUTO Routine 06/21/2025 9:4 1 AM CDT Metastasis to bone 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) CBC WITH AUTO DIFFERENTIAL Routine 06/21/2025 9:41 AM CDT Metastasis to bone 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) COMPREHENSIVE METABOLIC PANEL STAT 06/21/2025 9:41 AM CDT Metastasis to bone 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) EGFR STAT 06/07/2025 11:12 AM CDT Metastasis to bone 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 73 m2 Comment: Interpretive Data Reference Interval Normal >/= 90 mL/min/1.73m2 Mildly decreased* 60 - 89 mL/min/1.73m2 Mildly to moderately decreased 45 - 59 mL/min/1.73m2 Moderately to severely decreased 30 - 44 mL/min/1.73m2 Severely decreased 15 - 29 mL/min/1.73m2 Kidney Failure < 15 mL/min/1.73m2 *Relative to young adult level Estimated glomerular filtration rate is determined by the 2020 CKD-EPI equation recommended by the National Kidney [employer] (A Unifying Approach to GFR Estimation: Recommendations of the NKF-ASK Task Force on Reassessing the Inclusion of Race in Diagnosing Kidney Disease, JASN 2020). The CKD-EPI equation should not be used for patients with unstable renal function and has not been validated in children and those over 70. Current interpretive data was last reviewed 2021. Testing performed by: [facility], [address], [place] [address] Blood 08/30/2025 9:01 AM TAR HEATER OPERATOR 08/30/2025 9:17 AM TAR HEATER OPERATOR us Danisha Mejias NP LAB BLOOD ORDERABLES Deana guallpa Result DIAMANTE [facility] [id number] Department [place] [address] * (ABNORMAL) Differential, auto (08/30/2025 9:01 AM TAR HEATER OPERATOR) Neutrophil abs 9.74(H) 1.50 - 6.50 K/cumm Comment:Testing performed by : [facility], [facility], [address] [place] [address] Imm gran abs 0.08 0.00 - 0.10 K/cumm CERNER BJWCH Comment:Testing performed by : [facility], [facility], [address] [place] [address] Lymphocyte abs 1.17 0.80 - 3.30 K/cumm CERNER BJWCH Comment:Testing performed by : [facility], [address] [place] [address] Monocyte abs 1.46(H) 0.20 - 0.80 K/cumm CERNER BJWCH Comment:Testing performed by : [facility], [address] [place] [address] Eosinophil abs 0.05 0.00 - 0.50 K/cumm CERNER BJWCH Comment:Testing performed by : [facility], [facility], [address] [place] [address] Basophil abs 0.03 0.00 - 0.10 K/cumm CERNER BJWCH Comment:Testing performed by : [facility], [address] [place] [address] Neutrophil pct 77.8 % CERNER BJWCH Comment: Interpretive Data Percent cell count reference ranges are not reported, since discordance with absolute values may lead to misinterpretation of CBC data. Current Interpretive Data was last revised on 2018. Testing performed by: [facility], [address] [place] [address] Imm gran pct 0.6 % CERNER BJWCH Comment: Interpretive Data Percent cell count reference ranges are not reported, since discordance with absolute values may lead to misinterpretation of CBC data. Current Interpretive Data was last revised on 2018. Testing performed by: [facility], [address] [place] [address] Lymphocyte pct 9.3 % DIAMANTE SILVESTRE Comment: Interpretive Data Percent cell count reference ranges are not reported, since discordance with absolute values may lead to misinterpretation of CBC data. Current Interpretive Data was last revised on 2018. Testing performed by: [facility], [facility], [address] [place] [address] Monocyte pct 11.7 % CEREDITH SILVESTRE Comment: Interpretive Data Percent cell count reference ranges are not reported, since discordance with absolute values may lead to misinterpretation of CBC data. Current Interpretive Data was last revised on 2018. Testing performed by: [facility], [facility], [address] [place] [address] Eosinophil pct 0.4 % DIAMANTE SILVESTRE Comment: Interpretive Data Percent cell count reference ranges are not reported, since discordance with absolute values may lead to misinterpretation of CBC data. Current Interpretive Data was last revised on 2018. Testing performed by: [facility], [facility], [address] [place] [address] Basophil pct 0.2 % DIAMANTE KHOURYJOSESITO Comment: Interpretive Data Percent cell count reference ranges are not reported, since discordance with absolute values may lead to misinterpretation of CBC data. Current Interpretive Data was last revised on 2018. Testing performed by: [facility], [facility], [address] [place] [address] Blood 08/30/2025 9:01 AM TAR HEATER OPERATOR 08/30/2025 9:02 AM TAR HEATER OPERATOR us Danisha Mejias TOWN PLANNER LAB BLOOD ORDERABLES Deana l Result [facility]TE [facility] [id number] [facility]. Department [place] [address] * (ABNORMAL) CBC with auto differential (08/30/2025 9:01 AM TAR HEATER OPERATOR) WBC 12.53(H) 3.80 - 9.90 K/cumm Comment:Testing performed by : [facility], [facility], [address] [place] [address] Hgb 10.4(L) 11.9 - 15.5 g/dL CERNER BJWCH Comment:Testing performed by : [facility], [address] [place] [address] Hct 32.6(L) 35.6 - 45.5 % CERNER BJWCH Comment:Testing performed by : [place] [address], [address], [place] [address] Plt 357 150 - 400 K/cumm CERNER BJWCH Comment:Testing performed by : [place] [address], [address], [place] [address] MPV 9.8 9.1 - 12.3 fL CERNER BJWCH Comment:Testing performed by : [place] [address], [address], [place] [address] RBC 3.45(L) 3.90 - 5.20 M/cumm CERNER BJWCH Comment:Testing performed by : [place] [address], [address], [place] [address] MCV 94.5 81.3 - 96.4 fL CERNER BJWCH Comment:Testing performed by : [place] [address], [address], [place] [address] MCH 30.1 27.1 - 33.3 pg CERNER BJWCH Comment:Testing performed by : [place] [address], [address] [place] [address] MCHC 31.9(L) 32.3 - 35.7 g/dL CERNER BJWCH Comment:Testing performed by : [facility], [address], [place] [address] RDW CV 13.9 11.1 - 14.9 % CERNER BJWCH Comment:Testing performed by : [place] [address], [address] [place] [address] RDW SD 47.8 35.7 - 48.1 fL DIAMANTE SILVESTRE Comment:Testing performed by : [facility], [facility], [address] [place] [address] ANC Prelim 9.74(H) 1.50 - 6.50 K/cumm DIAMANTE SILVESTRE Comment: Interpretive Data The rapid ANC is a preliminary automated count and may vary from the final ANC (Neut Abs) reported in the WBC differential that follows. Current interpretive data was last revised 2025. Testing performed by: [facility], [facility], [address] [place] [address] Blood 08/30/2025 9:01 AM TAR HEATER OPERATOR 08/30/2025 9:02 AM TAR HEATER OPERATOR us Danisha Mejias TOWN PLANNER LAB BLOOD ORDERABLES Deana guallpa Result DIAMANTE [facility] [id number]. Department [place] [address] * (ABNORMAL) Comprehensive metabolic panel (08/30/2025 9:01 AM TAR HEATER OPERATOR) Sodium 139 135 - 145 mmol/L Comment:Testing performed by : [facility], [address], [place] [address] Potassium, pl 4.6 3.3 - 4.9 mmol/L DIAMANTE SILVESTRE Comment:Testing performed by : [facility], [address], [place] [address] Chloride 107 97 - 110 mmol/L DIAMANTE SILVESTRE Comment:Testing performed by : [facility], [address], [place] [address] CO2 22 22 - 32 mmol/L DIAMANTE SILVESTRE Comment:Testing performed by : [facility], [address], [place] [address] Anion gap 10 2 - 15 mmol/L DIAMANTE SILVESTRE Comment:Testing performed by : [facility], [address], [place] [address] BUN 41(H) 6 - 25 mg/dL CERNER BJWCH Comment:Testing performed by : [facility], [address], [place] [address] Creatinine 0.93 0.60 - 1.10 mg/dL CERNER BJWCH Comment:Testing performed by : [facility], [address], [place] [address] Glucose 128 70 - 199 mg/dL CERNER BJWCH Comment: Interpretive Data Fasting glucose >/= 126 mg/dl is diagnostic for diabetes. Fasting is defined as no caloric intake for at least 8 hours. Fasting glucose between 100 mg/dl to 125 mg/dl is diagnostic of prediabetes. In a patient with classic symptoms of hyperglycemia or hyperglycemic crisis, a random glucose >/= 200 mg/dl is diagnostic for diabetes. In the absence of unequivocal hyperglycemia, results should be confirmed by repeat testing. The classification and Diagnosis of Diabetes Diabetes Care 202; 46: S19-S40. Testing performed by: [facility], [address], [place] [address] Calcium 8.2(L) 8.5 - 10.3 mg/dL CERNER BJWCH Comment:Testing performed by : [facility], [address], [place] [address] Bilirubin, total 0.3 0.1 - 1.2 mg/dL CERNER BJWCH Comment:Testing performed by : [facility], [address], [place] [address] Protein, pl 6.7 6.5 - 8.5 g/dL CERNER BJWCH Comment:Testing performed by : [facility], [address], [place] [address] Albumin 2.7(L) 3.5 - 5.0 g/dL CERNER BJWCH Comment:Testing performed by : [facility], [address], [place] [address] Alk phos 129 40 - 130 Units/L CERNER BJWCH Comment:Testing performed by : [facility], [address], [place] [address] ALT 40 7 - 45 Units/L DIAMANTE SILVESTRE Comment:Testing performed by : [facility], [address] [place] [address] AST 77(H) 10 - 45 Units/L DIAMANTE SILVESTRE Comment:Testing performed by : [facility], [address] [place] [address] Blood 08/30/2025 9:01 AM TAR HEATER OPERATOR 08/30/2025 9:17 AM TAR HEATER OPERATOR us Danisha Mejias TOWN PLANNER LAB BLOOD ORDERABLES Deana l Result DIAMANTE [facility] [id number]. Department [place] [address] * MRI Abdomen Liver W WO Contrast (08/21/2025 6:55 PM CDT) Anatomical Region Laterality Modality Body N/A Magnetic Resonan ce 08/22/2025 10:3 6 AM CDT Impressions 08/23/2025 5:13 AM CDT 1. Multiple (at least 10) hepatic lesions spanning both hemilivers. Given that these are new since 05/22/2025, these are consistent with multifocal hepatic metastases. 2. Extensive gastrohepatic, periportal, retrocrural, and retroperitoneal lymphadenopathy, stable from 08/14/2025. 3. Unchanged osseous metastases in the pelvis and thoracolumbar spine. 4. Volume overload with moderate right and small left pleural effusion and small volume ascites. Dictated by: Esther Solis MD, PhD The radiology attending physician has personally reviewed this study, and had reviewed and/or edited this written report and agrees with it. Electronically signed by: Lily Donnelly M.D. Narrative 08/23/2025 5:13 AM CDT EXAMINATION: MAGNETIC RESONANCE IMAGING OF THE ABDOMEN WITH AND WITHOUT CONTRAST HISTORY: 70-year-old with esophageal squamous cell carcinoma, with new hepatic lesion seen on CT dated 08/14/2025 TECHNIQUE: Magnetic resonance imaging of the abdomen was performed prior to and following the administration of intravenous Gadolinium contrast. Protocol: Liver Dual Contrast Contrast: Elucirem 6 mL; Eovist 6 mL COMPARISON: CT dated 08/14/2025 FINDINGS: Examination is mildly limited by respiratory motion artifact. Liver: Cirrhotic morphology without significant iron deposition. Small volume perihepatic ascites. - Bile ducts: No extrahepatic or intrahepatic biliary ductal dilatation. - Focal liver lesions: Multiple (at least 10) T2 intermediate intrahepatic lesions demonstrating peripherally enhancement and diffusion restriction within both the left and right hemiliver. For reference, a hepatic segment 2 lesion measures 1.0 cm (33, image 24), segment 3 lesion measures 1.1 cm (series 33, image 39), hepatic segment 4/8 and measures 1.6 cm (series 33, image 51), hepatic segment 7/8 lesion measures 1.9 cm (series 33, image 45). - Vasculature: Portal and hepatic veins are patent. Gallbladder: Cholelithiasis without cholecystitis. Pancreas: Normal. Spleen: Normal. Adrenals: Normal. Kidneys: Normal without hydronephrosis. Other Findings: Moderate right and small left pleural effusion. Percutaneous gastrostomy tube in place. Visualized bowel is normal in caliber. Unchanged extensive gastrohepatic, periportal, retrocrural, retroperitoneal lymphadenopathy. Redemonstrated mass effect of the retroperitoneal lymphadenopathy on bilateral renal veins which are severely narrowed. Scattered diffusion restricting osseous lesions within the pelvis and spine, compatible with osseous metastases. Procedure Note Lily Donnelly MD - 08/23/2025 EXAMINATION: MAGNETIC RESONANCE IMAGING OF THE ABDOMEN WITH AND WITHOUT CONTRAST HISTORY: 70-year-old with esophageal squamous cell carcinoma, with new hepatic lesion seen on CT dated 08/14/2025 TECHNIQUE: Magnetic resonance imaging of the abdomen was performed prior to and following the administration of intravenous Gadolinium contrast. Protocol: Liver Dual Contrast Contrast: Elucirem 6 mL; Eovist 6 mL COMPARISON: CT dated 08/14/2025 FINDINGS: Examination is mildly limited by respiratory motion artifact. Liver: Cirrhotic morphology without significant iron deposition. Small volume perihepatic ascites. - Bile ducts: No extrahepatic or intrahepatic biliary ductal dilatation. - Focal liver lesions: Multiple (at least 10) T2 intermediate intrahepatic lesions demonstrating peripherally enhancement and diffusion restriction within both the left and right hemiliver. For reference, a hepatic segment 2 lesion measures 1.0 cm (33, image 24), segment 3 lesion measures 1.1 cm (series 33, image 39), hepatic segment 4/8 and measures 1.6 cm (series 33, image 51), hepatic segment 7/8 lesion measures 1.9 cm (series 33, image 45). - Vasculature: Portal and hepatic veins are patent. Gallbladder: Cholelithiasis without cholecystitis. Pancreas: Normal. Spleen: Normal. Adrenals: Normal. Kidneys: Normal without hydronephrosis. Other Findings: Moderate right and small left pleural effusion. Percutaneous gastrostomy tube in place. Visualized bowel is normal in caliber. Unchanged extensive gastrohepatic, periportal, retrocrural, retroperitoneal lymphadenopathy. Redemonstrated mass effect of the retroperitoneal lymphadenopathy on bilateral renal veins which are severely narrowed. Scattered diffusion restricting osseous lesions within the pelvis and spine, compatible with osseous metastases. IMPRESSION: 1. Multiple (at least 10) hepatic lesions spanning both hemilivers. Given that these are new since 05/22/2025, these are consistent with multifocal hepatic metastases. 2. Extensive gastrohepatic, periportal, retrocrural, and retroperitoneal lymphadenopathy, stable from 08/14/2025. 3. Unchanged osseous metastases in the pelvis and thoracolumbar spine. 4. Volume overload with moderate right and small left pleural effusion and small volume ascites. Dictated by: Esther Solis MD, PhD The radiology attending physician has personally reviewed this study, and had reviewed and/or edited this written report and agrees with it. Electronically signed by: Lily Donnelly M.D. Danisha Mejias NP [facility] [place] MRI PROCEDURES Final Result * eGFR (08/16/2025 1:01 PM CDT) eGFR >90 >=60 mL/min/1. 73 m2 Comment: Interpretive Data Reference Interval Normal >/= 90 mL/min/1.73m2 Mildly decreased* 60 - 89 mL/min/1.73m2 Mildly to moderately decreased 45 - 59 mL/min/1.73m2 Moderately to severely decreased 30 - 44 mL/min/1.73m2 Severely decreased 15 - 29 mL/min/1.73m2 Kidney Failure < 15 mL/min/1.73m2 *Relative to young adult level Estimated glomerular filtration rate is determined by the 2020 CKD-EPI equation recommended by the National Kidney Foundation (A Unifying Approach to GFR Estimation: Recommendations of the NKF-ASK Task Force on Reassessing the Inclusion of Race in Diagnosing Kidney Disease, JASN 2020). The CKD-EPI equation should not be used for patients with unstable renal function and has not been validated in children and those over 70. Current interpretive data was last reviewed 2021. Testing performed by: [facility], [address] [place] [address] Blood 08/16/2025 1:0 1 PM CDT 08/16/2025 1:30 PM CDT us Katharine Almonte MD PhD LAB BLOOD ORDERABLES Final Result [facility] [address]. Department [place] [address] * (ABNORMAL) Differential, auto (08/16/2025 1:01 PM CDT) Neutrophil abs 4.70 1.50 - 6.50 K/cumm Comment:Testing performed by : [facility], [facility], [address] [place] [address] Imm gran abs 0.02 0.00 - 0.10 K/cumm DIAMANTE SILVESTRE Comment:Testing performed by : [facility], [address] [place] [address] Lymphocyte abs 0.98 0.80 - 3.30 K/cumm DIAMANTE SILVESTRE Comment:Testing performed by : [facility], [address] [place] [address] Monocyte abs 0.88(H) 0.20 - 0.80 K/cumm DIAMANTE SILVESTRE Comment:Testing performed by : [facility] 2, [address] [place] [address] Eosinophil abs 0.21 0.00 - 0.50 K/cumm DIAMANTE SILVETSRE Comment:Testing performed by : [facility], [address] [place] [address] Basophil abs 0.03 0.00 - 0.10 K/cumm CERNER BJWCH Comment:Testing performed by : [facility], [facility], [address], [place] [address] Neutrophil pct 68.9 % CERNER BJWCH Comment: Interpretive Data Percent cell count reference ranges are not reported, since discordance with absolute values may lead to misinterpretation of CBC data. Current Interpretive Data was last revised on 2018. Testing performed by: [facility], [facility], [address] [place] [address] Imm gran pct 0.3 % CERNER BJWCH Comment: Interpretive Data Percent cell count reference ranges are not reported, since discordance with absolute values may lead to misinterpretation of CBC data. Current Interpretive Data was last revised on 2018. Testing performed by: [facility], [facility], [address] [place] [address] Lymphocyte pct 14.4 % CERNER BJWCH Comment: Interpretive Data Percent cell count reference ranges are not reported, since discordance with absolute values may lead to misinterpretation of CBC data. Current Interpretive Data was last revised on 2018. Testing performed by: [facility], [facility], [address] [place] [address] Monocyte pct 12.9 % CERNER BJWCH Comment: Interpretive Data Percent cell count reference ranges are not reported, since discordance with absolute values may lead to misinterpretation of CBC data. Current Interpretive Data was last revised on 2018. Testing performed by: [facility], [facility], [address] [place] [address] Eosinophil pct 3.1 % CERNER BJWCH Comment: Interpretive Data Percent cell count reference ranges are not reported, since discordance with absolute values may lead to misinterpretation of CBC data. Current Interpretive Data was last revised on 2018. Testing performed by: [facility], [facility], [address] [place] [address] Basophil pct 0.4 % DIAMANTE SILVESTRE Comment: Interpretive Data Percent cell count reference ranges are not reported, since discordance with absolute values may lead to misinterpretation of CBC data. Current Interpretive Data was last revised on 2018. Testing performed by: [facility], [address] [place] [address] Blood 08/16/2025 1:01 PM CDT 08/16/2025 1:07 PM CDT us Katharine Almonte MD PhD LAB BLOOD ORDERABLES Final Result [facility] [address] [facility]. Department [place] [address] * (ABNORMAL) CBC with auto differential (08/16/2025 1:01 PM CDT) WBC 6.82 3.80 - 9.90 K/cumm Comment:Testing performed by : [facility], [address] [place] [address] Hgb 9.6(L) 11.9 - 15.5 g/dL DIAMANTE SILVESTRE Comment:Testing performed by : [facility], [address] [place] [address] Hct 30.6(L) 35.6 - 45.5 % DIAMANTE SILVESTRE Comment:Testing performed by : [facility], [address] [place] [address] Plt 258 150 - 400 K/cumm DIAMANTE SILVESTRE Comment:Testing performed by : [place] [address], [address] [place] [address] MPV 9.7 9.1 - 12.3 fL DIAMANTE SILVESTRE Comment:Testing performed by : [facility], [address] [place] [address] RBC 3.11(L) 3.90 - 5.20 M/cumm DIAMANTE SILVESTRE Comment:Testing performed by : [facility], [facility], [address] [place] [address] MCV 98.4(H) 81.3 - 96.4 fL DIAMANTE SILVESTRE Comment:Testing performed by : [facility], [address] [place] [address] MCH 30.9 27.1 - 33.3 pg DIAMANTE SILVESTRE Comment:Testing performed by : [place] [address], [address] [place] [address] MCHC 31.4(L) 32.3 - 35.7 g/dL DIAMANTE SILVESTRE Comment:Testing performed by : [facility], [address] [place] [address] RDW CV 14.3 11.1 - 14.9 % DIAMANTE SILVESTRE Comment:Testing performed by : [place] [address], [address] [place] [address] RDW SD 51.5(H) 35.7 - 48.1 fL DIAMANTE SILVESTRE Comment:Testing performed by : [place] [id number], [address] [place] [address] ANC Prelim 4.70 1.50 - 6.50 K/cumm DIAMANTE SILVESTRE Comment: Interpretive Data The rapid ANC is a preliminary automated count and may vary from the final ANC (Neut Abs) reported in the WBC differential that follows. Current interpretive data was last revised 2025. Testing performed by: [facility], [address] [place] [address] Blood 08/16/2025 1:01 PM CDT 08/16/2025 1:07 PM CDT us Katharine Almonte MD PhD LAB BLOOD ORDERABLES Final Result DIAMANTE KHOURYCH [address] [facility]. Department [place] [address] * (ABNORMAL) Comprehensive metabolic panel (08/16/2025 1:01 PM CDT) Sodium 144 135 - 145 mmol/L Comment:Testing performed by : [facility], [address], [place] [address] Potassium, pl 4.1 3.3 - 4.9 mmol/L CERNER BJWCH Comment:Testing performed by : [facility], [address], [place] [address] Chloride 111(H) 97 - 110 mmol/L CERNER BJWCH Comment:Testing performed by : [facility], [address], [place] [address] CO2 24 22 - 32 mmol/L CERNER BJWCH Comment:Testing performed by : [facility], [address], [place] [address] Anion gap 9 2 - 15 mmol/L CERNER BJWCH Comment:Testing performed by : [facility], [address], [place] [address] BUN 14 6 - 25 mg/dL CERNER BJWCH Comment:Testing performed by : [facility], [address], [place] [address] Creatinine 0.54(L) 0.60 - 1.10 mg/dL CERNER BJWCH Comment:Testing performed by : [facility], [address], [place] [address] Glucose 83 70 - 199 mg/dL CERNER BJWCH Comment: Interpretive Data Fasting glucose >/= 126 mg/dl is diagnostic for diabetes. Fasting is defined as no caloric intake for at least 8 hours. Fasting glucose between 100 mg/dl to 125 mg/dl is diagnostic of prediabetes. In a patient with classic symptoms of hyperglycemia or hyperglycemic crisis, a random glucose >/= 200 mg/dl is diagnostic for diabetes. In the absence of unequivocal hyperglycemia, results should be confirmed by repeat testing. The classification and Diagnosis of Diabetes Diabetes Care 2021; 46: S19-S40. Current interpretive data was last revised 2022. Testing performed by: [facility], [address], [place] [address] Calcium 8.5 8.5 - 10.3 mg/dL CERNER BJWCH Comment:Testing performed by : [facility], [address], [place] [address] Bilirubin, total 0.3 0.1 - 1.2 mg/dL CERNER BJWCH Comment:Testing performed by : [facility], [address], [place] [address] Protein, pl 6.9 6.5 - 8.5 g/dL CERNER BJWCH Comment:Testing performed by : [facility], [address], [place] [address] Albumin 2.9(L) 3.5 - 5.0 g/dL CERNER BJWCH Comment:Testing performed by : [facility], [address], [place] [address] Alk phos 91 40 - 130 Units/L CERNER BJWCH Comment:Testing performed by : [facility], [address], [place] [address] ALT 18 7 - 45 Units/L CERNER BJWCH Comment:Testing performed by : [facility], [address], [place] [address] AST 32 10 - 45 Units/L CERNER BJWCH Comment:Testing performed by : [facility], [address], [place] [address] Blood 08/16/2025 1:01 PM CDT 08/16/2025 1:30 PM CDT us Katharine Almonte MD PhD LAB BLOOD ORDERABLES Final Result DIAMANTE [facility] [address] Department [place] [address] * CT Chest Abdomen Pelvis W Contrast (08/14/2025 3:07 PM CDT) Anatomical Region Laterality Modality Body N/A Computed Tomogra phy 08/14/2025 4:26 PM CDT Impressions 08/14/2025 7:15 PM CDT 1. Progression of disease with development of extensive lymphadenopathy above and below the diaphragm. 2. Obstructing esophageal mass is somewhat difficult to measure on today's examination, however, it appears mostly unchanged. Slight decrease in size in a gastrohepatic patricio deposit. 3. Interval development of multiple hypoattenuating lesions throughout the liver, indeterminate. Recommend liver MRI for further evaluation. 4. Interval development of small to moderate volume ascites and small bilateral pleural effusions, right greater than left. 5. The NonCritical results were discussed with JEFF Mejias by Dr. Colleen Dyer M.D. on 08/14/2025 4:25 PM. Dictated by: Colleen Dyer M.D. The radiology attending physician has personally reviewed this study, and had reviewed and/or edited this written report and agrees with it. Electronically signed by: Raffi Castillo M.D. Narrative 08/14/2025 7:15 PM CDT EXAMINATION: Computed tomography of the chest, abdomen and pelvis with intravenous contrast HISTORY: Esophageal squamous cell carcinoma TECHNIQUE: Transaxial computed tomographic images of the chest, abdomen and pelvis were obtained with intravenous contrast according to the standard protocol after the uneventful administration of 100 mL Opti-Ray 350 intravenous contrast. COMPARISON: Multiple prior CTs, most recently 05/14/2025 FINDINGS: Chest: Imaged thyroid is unremarkable. Partially imaged cervical lymphadenopathy. Interval increase in size in left supraclavicular lymphadenopathy. For example, a left supraclavicular lymph node best seen on series 2 image 30 measures 1.4 cm in short axis. This node was previously subcentimeter in short axis. There has been interval development/enlargement of mediastinal lymphadenopathy. For example, a hypoattenuating paratracheal lymph node measures 2.6 x 2.5 cm. A subcarinal lymph node measures 1.4 cm in short axis. The heart is normal in size without pericardial effusion. A right internal jugular port catheter is in place with tip terminating in the superior vena cava. Atherosclerotic calcifications of the thoracic aorta and coronary arteries. Unchanged dilatation of the proximal esophagus secondary to an obstructing mass, which is difficult to measure on today's examination, however, appears relatively unchanged. Interval development of small bilateral pleural effusions, right greater than left. Unchanged 5 mm left lower lobe pulmonary nodule. No pneumothorax. Abdomen/Pelvis: Cirrhotic morphology of the liver. Interval development and enlargement of multiple hypoattenuating, peripherally enhancing lesions throughout the liver. For example, a hypoattenuating lesion seen on series 2 image 163 measures 2.0 x 1.6 cm. A lesion in the left hemiliver seen on series 2 image 151 measures 9.7 x 7.3 mm. No biliary ductal dilatation. The portal vasculature is patent. Cholelithiasis without cholecystitis. There is mild gallbladder wall edema. The pancreas, spleen, and adrenal glands are normal. The kidneys enhance symmetrically without hydronephrosis. The urinary bladder is normal. Fibroid uterus. No suspicious adnexal lesion. The small and large bowel are normal in course and caliber without focal wall thickening or dilatation. Colonic diverticulosis without diverticulitis. The appendix is normal. Gastrostomy tube in place with the balloon inflated within the lumen of the stomach. Small hiatal hernia. 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 However, there has been interval development of multiple areas of abdominal and pelvic lymphadenopathy at multiple stations, including gastrohepatic, periportal, aortocaval, precaval, para-aortic, peripancreatic, retroperitoneal, common iliac, and external iliac. For reference, and aortocaval conglomerate best seen on series 2 image 172 measures 1.5 x 3.0 cm. An additional lymph node best seen on series 2 image 196 measures 1.5 x 1.8 cm. Interval development of small to moderate volume ascites. No pneumoperitoneum. Atherosclerosis of the abdominal aorta. Diffuse idiopathic skeletal hyperostosis. Destructive lesion in the right iliac bone appears slightly more prominent. Unchanged sclerosis in the T10 and T12 vertebral bodies. No new osseous metastatic lesion is identified. Procedure Note Raffi Castillo MD - 08/14/2025 EXAMINATION: Computed tomography of the chest, abdomen and pelvis with intravenous contrast HISTORY: Esophageal squamous cell carcinoma TECHNIQUE: Transaxial computed tomographic images of the chest, abdomen and pelvis were obtained with intravenous contrast according to the standard protocol after the uneventful administration of 100 mL Opti-Ray 350 intravenous contrast. COMPARISON: Multiple prior CTs, most recently 05/14/2025 FINDINGS: Chest: Imaged thyroid is unremarkable. Partially imaged cervical lymphadenopathy. Interval increase in size in left supraclavicular lymphadenopathy. For example, a left supraclavicular lymph node best seen on series 2 image 30 measures 1.4 cm in short axis. This node was previously subcentimeter in short axis. There has been interval development/enlargement of mediastinal lymphadenopathy. For example, a hypoattenuating paratracheal lymph node measures 2.6 x 2.5 cm. A subcarinal lymph node measures 1.4 cm in short axis. The heart is normal in size without pericardial effusion. A right internal jugular port catheter is in place with tip terminating in the superior vena cava. Atherosclerotic calcifications of the thoracic aorta and coronary arteries. Unchanged dilatation of the proximal esophagus secondary to an obstructing mass, which is difficult to measure on today's examination, however, appears relatively unchanged. Interval development of small bilateral pleural effusions, right greater than left. Unchanged 5 mm left lower lobe pulmonary nodule. No pneumothorax. Abdomen/Pelvis: Cirrhotic morphology of the liver. Interval development and enlargement of multiple hypoattenuating, peripherally enhancing lesions throughout the liver. For example, a hypoattenuating lesion seen on series 2 image 163 measures 2.0 x 1.6 cm. A lesion in the left hemiliver seen on series 2 image 151 measures 9.7 x 7.3 mm. No biliary ductal dilatation. The portal vasculature is patent. Cholelithiasis without cholecystitis. There is mild gallbladder wall edema. The pancreas, spleen, and adrenal glands are normal. The kidneys enhance symmetrically without hydronephrosis. The urinary bladder is normal. Fibroid uterus. No suspicious adnexal lesion. The small and large bowel are normal in course and caliber without focal wall thickening or dilatation. Colonic diverticulosis without diverticulitis. The appendix is normal. Gastrostomy tube in place with the balloon inflated within the lumen of the stomach. Small hiatal hernia. 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 However, there has been interval development of multiple areas of abdominal and pelvic lymphadenopathy at multiple stations, including gastrohepatic, periportal, aortocaval, precaval, para-aortic, peripancreatic, retroperitoneal, common iliac, and external iliac. For reference, and aortocaval conglomerate best seen on series 2 image 172 measures 1.5 x 3.0 cm. An additional lymph node best seen on series 2 image 196 measures 1.5 x 1.8 cm. Interval development of small to moderate volume ascites. No pneumoperitoneum. Atherosclerosis of the abdominal aorta. Diffuse idiopathic skeletal hyperostosis. Destructive lesion in the right iliac bone appears slightly more prominent. Unchanged sclerosis in the T10 and T12 vertebral bodies. No new osseous metastatic lesion is identified. IMPRESSION: 1. Progression of disease with development of extensive lymphadenopathy above and below the diaphragm. 2. Obstructing esophageal mass is somewhat difficult to measure on today's examination, however, it appears mostly unchanged. Slight decrease in size in a gastrohepatic patricio deposit. 3. Interval development of multiple hypoattenuating lesions throughout the liver, indeterminate. Recommend liver MRI for further evaluation. 4. Interval development of small to moderate volume ascites and small bilateral pleural effusions, right greater than left. 5. The NonCritical results were discussed with JEFF Mejias by Dr. Colleen Dyer M.D. on 08/14/2025 4:25 PM. Dictated by: Colleen Dyer M.D. The radiology attending physician has personally reviewed this study, and had reviewed and/or edited this written report and agrees with it. Electronically signed by: Raffi Castillo M.D. Katharine Almonte MD PhD IMG CT PROCEDURES Final Res ult * eGFR (08/04/2025 3:40 PM CDT) eGFR >90 >=60 mL/min/1. 73 m2 Comment: Interpretive Data Reference Interval Normal >/= 90 mL/min/1.73m2 Mildly decreased* 60 - 89 mL/min/1.73m2 Mildly to moderately decreased 45 - 59 mL/min/1.73m2 Moderately to severely decreased 30 - 44 mL/min/1.73m2 Severely decreased 15 - 29 mL/min/1.73m2 Kidney Failure < 15 mL/min/1.73m2 *Relative to young adult level Estimated glomerular filtration rate is determined by the 2020 CKD-EPI equation recommended by the National Kid[employer] (A Unifying Approach to GFR Estimation: Recommendations of the NKF-ASK Task Force on Reassessing the Inclusion of Race in Diagnosing Kidney Disease, JASN 2020). The CKD-EPI equation should not be used for patients with unstable renal function and has not been validated in children and those over 70. Current interpretive data was last reviewed 2021. Testing performed by: [facility], [address] [place] [address] Blood 08/04/2025 3:40 PM CDT 08/04/2025 4:06 PM CDT Katharine Almonte MD PhD LAB BLOOD ORDERABLES Final Result [facility] [address] Department [place] [address] * (ABNORMAL) Basic metabolic panel (08/04/2025 3:40 PM CDT) Sodium 143 135 - 145 mmol/L Comment:Testing performed by : [facility], [address], [place] [address] Potassium, pl 4.5 3.3 - 4.9 mmol/L DIAMANTE SILVESTRE Comment:Testing performed by : [facility], [address] [place] [address] Chloride 110 97 - 110 mmol/L DIAMANTE SILVESTRE Comment:Testing performed by : [facility], [address] [place] [address] CO2 26 22 - 32 mmol/L DIAMANTE SILVESTRE Comment:Testing performed by : [facility], [address] [place] [address] Anion gap 8 2 - 15 mmol/L DIAMANTE SILVESTRE Comment:Testing performed by : [facility], [address] [place] [address] BUN 21 6 - 25 mg/dL DIAMANTE KHOURYWJOSESITO Comment:Testing performed by : [facility], [address], [place] [address] Creatinine 0.53(L) 0.60 - 1.10 mg/dL DIAMANTE SILVESTRE Comment:Testing performed by : [facility], [address] [place] [address] Glucose 121 70 - 199 mg/dL DIAMANTE SILVESTRE Comment: Interpretive Data Fasting glucose >/= 126 mg/dl is diagnostic for diabetes. Fasting is defined as no caloric intake for at least 8 hours. Fasting glucose between 100 mg/dl to 125 mg/dl is diagnostic of prediabetes. In a patient with classic symptoms of hyperglycemia or hyperglycemic crisis, a random glucose >/= 200 mg/dl is diagnostic for diabetes. In the absence of unequivocal hyperglycemia, results should be confirmed by repeat testing. The classification and Diagnosis of Diabetes Diabetes Care 2021; 46: S19-S40. Current interpretive data was last revised 2022. Testing performed by: [facility], [address], [place] [address] Calcium 8.3(L) 8.5 - 10.3 mg/dL DIAMANTE SILVESTRE Comment:Testing performed by : [facility], [address] [place] [address] Blood 08/04/2025 3:40 PM CDT 08/04/2025 4:06 PM CDT Katharine Almonte MD PhD LAB BLOOD ORDERABLES Final Result [facility] [address] Department [place] [address] * eGFR (08/02/2025 3:46 PM CDT) eGFR >90 >=60 mL/min/1. 73 m2 Comment: Interpretive Data Reference Interval Normal >/= 90 mL/min/1.73m2 Mildly decreased* 60 - 89 mL/min/1.73m2 Mildly to moderately decreased 45 - 59 mL/min/1.73m2 Moderately to severely decreased 30 - 44 mL/min/1.73m2 Severely decreased 15 - 29 mL/min/1.73m2 Kidney Failure < 15 mL/min/1.73m2 *Relative to young adult level Estimated glomerular filtration rate is determined by the 2020 CKD-EPI equation recommended by the National Kidney Foundation (A Unifying Approach to GFR Estimation: Recommendations of the NKF-ASK Task Force on Reassessing the Inclusion of Race in Diagnosing Kidney Disease, JASN 202). The CKD-EPI equation should not be used for patients with unstable renal function and has not been validated in children and those over 70. Current interpretive data was last reviewed 2021. Testing performed by: [facility], [address] [place] [address] Blood 08/02/2025 3:46 PM CDT 08/02/2025 4:27 PM CDT us Danisha Mejias NP LAB BLOOD ORDERABLES Deana guallpa Result [facility] [address]. Department [place] [address] * (ABNORMAL) Basic metabolic panel (08/02/2025 3:46 PM CDT) Sodium 151(H) 135 - 145 mmol/L Comment:Testing performed by : [facility], [address] [place] [address] Potassium, pl 3.8 3.3 - 4.9 mmol/L DIAMANTE SILVESTRE Comment:Testing performed by : [facility], [address] [place] [address] Chloride 118(H) 97 - 110 mmol/L DIAMANTE SILVESTRE Comment:Testing performed by : [facility], [address] [place] [address] CO2 23 22 - 32 mmol/L DIAMANTE SILVESTRE Comment:Testing performed by : [facility], [address] [place] [address] Anion gap 10 2 - 15 mmol/L DIAMANTE SILVESTRE Comment:Testing performed by : [facility], [address] [place], [place] [address] BUN 23 6 - 25 mg/dL DIAMANTE SILVESTRE Comment:Testing performed by : [facility], [address] [place], [place] [address] Creatinine 0.52(L) 0.60 - 1.10 mg/dL DIAMANTE SILVESTRE Comment:Testing performed by : [facility], [address] [address] Glucose 91 70 - 199 mg/dL DIAMANTE SILVESTRE Comment: Interpretive Data Fasting glucose >/= 126 mg/dl is diagnostic for diabetes. Fasting is defined as no caloric intake for at least 8 hours. Fasting glucose between 100 mg/dl to 125 mg/dl is diagnostic of prediabetes. In a patient with classic symptoms of hyperglycemia or hyperglycemic crisis, a random glucose >/= 200 mg/dl is diagnostic for diabetes. In the absence of unequivocal hyperglycemia, results should be confirmed by repeat testing. The classification and Diagnosis of Diabetes Diabetes Care 2021; 46: S19-S40. Current interpretive data was last revised 2022. Testing performed by: [facility], [address] [place], [place] [address] Calcium 8.1(L) 8.5 - 10.3 mg/dL DIAMANTE SILVESTRE Comment:Testing performed by : [facility], [address] [place], [place] [address] Blood 08/02/2025 3:46 PM CDT 08/02/2025 4:27 PM CDT us Danisha Mejias NP LAB BLOOD ORDERABLES Deana l Result [facility] [address]. Department [place] [address] * eGFR (08/02/2025 10:21 AM CDT) eGFR >90 >=60 mL/min/1. 73 m2 Comment: Interpretive Data Reference Interval Normal >/= 90 mL/min/1.73m2 Mildly decreased* 60 - 89 mL/min/1.73m2 Mildly to moderately decreased 45 - 59 mL/min/1.73m2 Moderately to severely decreased 30 - 44 mL/min/1.73m2 Severely decreased 15 - 29 mL/min/1.73m2 Kidney Failure < 15 mL/min/1.73m2 *Relative to young adult level Estimated glomerular filtration rate is determined by the 2020 CKD-EPI equation recommended by the National Kidney Foundation (A Unifying Approach to GFR Estimation: Recommendations of the NKF-ASK Task Force on Reassessing the Inclusion of Race in Diagnosing Kidney Disease, JASN 2020). The CKD-EPI equation should not be used for patients with unstable renal function and has not been validated in children and those over 70. Current interpretive data was last reviewed 2021. Testing performed by: [facility], [address] [place] [address] Blood 08/02/2025 10:2 1 AM CDT 08/02/2025 10:47 AM CDT us Katharine Almonte MD PhD LAB BLOOD ORDERABLES Final Result DIAMANTE [facility] [address]. Department of Laboratories [place], [place] [id number] * (ABNORMAL) Differential, auto (08/02/2025 10:21 AM CDT) Neutrophil abs 4.20 1.50 - 6.50 K/cumm Comment:Testing performed by : [facility], [facility], [address] [place] [address] Imm gran abs 0.03 0.00 - 0.10 K/cumm DIAMANTE SILVESTRE Comment:Testing performed by : [facility], [facility], [address] [place] [address] Lymphocyte abs 1.07 0.80 - 3.30 K/cumm DIAMANTE SILVESTRE Comment:Testing performed by : [facility], [facility], [address], [place] [address] Monocyte abs 0.94(H) 0.20 - 0.80 K/cumm CERNER BJWCH Comment:Testing performed by : [facility], [facility], [address] [place] [address] Eosinophil abs 0.37 0.00 - 0.50 K/cumm CERNER BJWCH Comment:Testing performed by : [facility], [facility], [address] [place] [address] Basophil abs 0.02 0.00 - 0.10 K/cumm CERNER BJWCH Comment:Testing performed by : [facility], [facility], [address] [place] [address] Neutrophil pct 63.3 % CERNER BJWCH Comment: Interpretive Data Percent cell count reference ranges are not reported, since discordance with absolute values may lead to misinterpretation of CBC data. Current Interpretive Data was last revised on 2018. Testing performed by: [facility], [facility], [address] [place] [address] Imm gran pct 0.5 % CERNER BJWCH Comment: Interpretive Data Percent cell count reference ranges are not reported, since discordance with absolute values may lead to misinterpretation of CBC data. Current Interpretive Data was last revised on 2018. Testing performed by: [facility], [facility], [address] [place] [address] Lymphocyte pct 16.1 % CERNER BJWCH Comment: Interpretive Data Percent cell count reference ranges are not reported, since discordance with absolute values may lead to misinterpretation of CBC data. Current Interpretive Data was last revised on 2018. Testing performed by: [facility], [facility], [address] [place] [address] Monocyte pct 14.2 % CERNER BJWCH Comment: Interpretive Data Percent cell count reference ranges are not reported, since discordance with absolute values may lead to misinterpretation of CBC data. Current Interpretive Data was last revised on 2018. Testing performed by: [facility], [facility], [address] [place] [address] Eosinophil pct 5.6 % DIAMANTE SILVESTRE Comment: Interpretive Data Percent cell count reference ranges are not reported, since discordance with absolute values may lead to misinterpretation of CBC data. Current Interpretive Data was last revised on 2018. Testing performed by: [facility], [address] [place] [address] Basophil pct 0.3 % DIAMANTE SILVESTRE Comment: Interpretive Data Percent cell count reference ranges are not reported, since discordance with absolute values may lead to misinterpretation of CBC data. Current Interpretive Data was last revised on 2018. Testing performed by: [facility], [address] [place] [address] Blood 08/02/2025 10:2 1 AM CDT 08/02/2025 10:27 AM CDT Katharine Almonte MD PhD LAB BLOOD ORDERABLES Final Result [facility] [address] [facility] Department [place] [address] * (ABNORMAL) CBC with auto differential (08/02/2025 10:21 AM CDT) WBC 6.63 3.80 - 9.90 K/cumm Comment:Testing performed by : [facility], [facility], [address] [place] [address] Hgb 10.5(L) 11.9 - 15.5 g/dL DIAMANTE SILVESTRE Comment:Testing performed by : [facility], [address] [place] [address] Hct 34.5(L) 35.6 - 45.5 % DIAMANTE SILVESTRE Comment:Testing performed by : [facility], [address] [place] [address] Plt 194 150 - 400 K/cumm DIAMANTE SILVESTRE Comment:Testing performed by : [facility], [address] [place] [address] MPV 9.9 9.1 - 12.3 fL CERNER BJWCH Comment:Testing performed by : [facility] [address] [place] [address] RBC 3.37(L) 3.90 - 5.20 M/cumm CERNER BJWCH Comment:Testing performed by : [facility] [address] [place] [address] MCV 102.4(H) 81.3 - 96.4 fL CERNER BJWCH Comment:Testing performed by : [facility] [address] [place] [address] MCH 31.2 27.1 - 33.3 pg CERNER BJWCH Comment:Testing performed by : [facility] [address] [place] [address] MCHC 30.4(L) 32.3 - 35.7 g/dL CERNER BJWCH Comment:Testing performed by : [facility] [address] [place] [address] RDW CV 14.6 11.1 - 14.9 % CERNER BJWCH Comment:Testing performed by : [facility] [address] [place] [address] RDW SD 54.4(H) 35.7 - 48.1 fL CERNER BJWCH Comment:Testing performed by : [facility] [address] [place] [address] ANC Prelim 4.20 1.50 - 6.50 K/cumm CERNER BJWCH Comment: Interpretive Data The rapid ANC is a preliminary automated count and may vary from the final ANC (Neut Abs) reported in the WBC differential that follows. Current interpretive data was last revised 2025. Testing performed by: [facility] [address] [place] [address] Blood 08/02/2025 10:2 1 AM CDT 08/02/2025 10:27 AM CDT us Katharine Almonte MD PhD LAB BLOOD ORDERABLES Final Result [facility] [address] Department [place] [address] * (ABNORMAL) Comprehensive metabolic panel (08/02/2025 10:21 AM CDT) Sodium 151(H) 135 - 145 mmol/L Comment:Testing performed by : [facility], [address], [place] [address] Potassium, pl 4.8 3.3 - 4.9 mmol/L DIAMANTE SILVESTRE Comment:Testing performed by : [facility], [address], [place] [address] Chloride 116(H) 97 - 110 mmol/L DIAMANTE SILVESTRE Comment:Testing performed by : [facility], [address], [place] [address] CO2 27 22 - 32 mmol/L CEREDITH KHOURYWCH Comment:Testing performed by : [facility], [address], [place] [address] Anion gap 8 2 - 15 mmol/L DIAMANTE GLASS Comment:Testing performed by : [facility], [address], [place] [address] BUN 27(H) 6 - 25 mg/dL CEREDITH BJWCH Comment:Testing performed by : [facility], [address], [place] [address] Creatinine 0.68 0.60 - 1.10 mg/dL DIAMANTE BJWCH Comment:Testing performed by : [facility], [address], [place] [address] Glucose 102 70 - 199 mg/dL CEREDITH KHOURYWCH Comment: Interpretive Data Fasting glucose >/= 126 mg/dl is diagnostic for diabetes. Fasting is defined as no caloric intake for at least 8 hours. Fasting glucose between 100 mg/dl to 125 mg/dl is diagnostic of prediabetes. In a patient with classic symptoms of hyperglycemia or hyperglycemic crisis, a random glucose >/= 200 mg/dl is diagnostic for diabetes. In the absence of unequivocal hyperglycemia, results should be confirmed by repeat testing. The classification and Diagnosis of Diabetes Diabetes Care 202; 46: S19-S40. Current interpretive data was last revised 2022. Testing performed by: [facility], [address], [place] [address] Calcium 9.1 8.5 - 10.3 mg/dL CERNER BJWCH Comment:Testing performed by : [facility], [address], [place] [address] Bilirubin, total 0.3 0.1 - 1.2 mg/dL CERNER BJWCH Comment:Testing performed by : [facility], [address], [place] [address] Protein, pl 7.2 6.5 - 8.5 g/dL CERNER BJWCH Comment:Testing performed by : [facility], [address], [place] [address] Albumin 3.1(L) 3.5 - 5.0 g/dL CERNER BJWCH Comment:Testing performed by : [facility], [address], [place] [address] Alk phos 87 40 - 130 Units/L CERNER BJWCH Comment:Testing performed by : [facility], [address], [place] [address] ALT 24 7 - 45 Units/L CERNER BJWCH Comment:Testing performed by : [facility], [address], [place] [address] AST 29 10 - 45 Units/L CERNER BJWCH Comment:Testing performed by : [facility], [address], [place] [address] Blood 08/02/2025 10:2 1 AM CDT 08/02/2025 10:47 AM CDT us Katharine Almonte MD PhD LAB BLOOD ORDERABLES Final Result [facility] [address] Department [place] [address] * eGFR (07/19/2025 9:15 AM CDT) eGFR >90 >=60 mL/min/1. 73 m2 Comment: Interpretive Data Reference Interval Normal >/= 90 mL/min/1.73m2 Mildly decreased* 60 - 89 mL/min/1.73m2 Mildly to moderately decreased 45 - 59 mL/min/1.73m2 Moderately to severely decreased 30 - 44 mL/min/1.73m2 Severely decreased 15 - 29 mL/min/1.73m2 Kidney Failure < 15 mL/min/1.73m2 *Relative to young adult level Estimated glomerular filtration rate is determined by the 2020 CKD-EPI equation recommended by the National Kidney Foundation (A Unifying Approach to GFR Estimation: Recommendations of the NKF-ASK Task Force on Reassessing the Inclusion of Race in Diagnosing Kidney Disease, JASN 2020). The CKD-EPI equation should not be used for patients with unstable renal function and has not been validated in children and those over 70. Current interpretive data was last reviewed 2021. Testing performed by: [facility], [facility] [place] [address] Blood 07/19/2025 9:15 AM CDT 07/19/2025 9:41 AM CDT Katharine Almonte MD PhD LAB BLOOD ORDERABLES Final Result Performing Organization Address City/[facility] Co de Phone Number DIAMANTE KHOURYCH [id number] [employer]. Department [place] [address] * (ABNORMAL) Differential, auto (07/19/2025 9:15 AM CDT) Neutrophil abs 2.92 1.50 - 6.50 K/cumm Comment:Testing performed by : [facility], [facility], [address] [place] [address] Imm gran abs 0.02 0.00 - 0.10 K/cumm CERNER BJWCH Comment:Testing performed by : [facility], [facility], [address] [place] [address] Lymphocyte abs 0.92 0.80 - 3.30 K/cumm CERNER BJWCH Comment:Testing performed by : [facility], [facility], [address], [place] [address] Monocyte abs 0.84(H) 0.20 - 0.80 K/cumm CERNER BJWCH Comment:Testing performed by : [facility], [facility], [address] [place] [address] Eosinophil abs 0.34 0.00 - 0.50 K/cumm CERNER BJWCH Comment:Testing performed by : [facility], [facility], [address] [place] [address] Basophil abs 0.02 0.00 - 0.10 K/cumm CERNER BJWCH Comment:Testing performed by : [facility], [facility], [address] [place] [address] Neutrophil pct 57.7 % CERNER BJWCH Comment: Interpretive Data Percent cell count reference ranges are not reported, since discordance with absolute values may lead to misinterpretation of CBC data. Current Interpretive Data was last revised on 2018. Testing performed by: [facility], [facility], [address] [place] [address] Imm gran pct 0.4 % CERNER BJWCH Comment: Interpretive Data Percent cell count reference ranges are not reported, since discordance with absolute values may lead to misinterpretation of CBC data. Current Interpretive Data was last revised on 2018. Testing performed by: [facility], [facility], [address] [place] [address] Lymphocyte pct 18.2 % CERNER BJWCH Comment: Interpretive Data Percent cell count reference ranges are not reported, since discordance with absolute values may lead to misinterpretation of CBC data. Current Interpretive Data was last revised on 2018. Testing performed by: [facility], [facility], [address] [place] [address] Monocyte pct 16.6 % DIAMANTE SILVESTRE Comment: Interpretive Data Percent cell count reference ranges are not reported, since discordance with absolute values may lead to misinterpretation of CBC data. Current Interpretive Data was last revised on 2018. Testing performed by: [facility], [facility], [address] [place] [address] Eosinophil pct 6.7 % DIAMANTE SILVESTRE Comment: Interpretive Data Percent cell count reference ranges are not reported, since discordance with absolute values may lead to misinterpretation of CBC data. Current Interpretive Data was last revised on 2018. Testing performed by: [facility] [address], [address] [place] [address] Basophil pct 0.4 % DIAMANTE SILVESTRE Comment: Interpretive Data Percent cell count reference ranges are not reported, since discordance with absolute values may lead to misinterpretation of CBC data. Current Interpretive Data was last revised on 2018. Testing performed by: [facility] [address], [address] [place] [address] Blood 07/19/2025 9:15 AM CDT 07/19/2025 9:19 AM CDT us Katharine Almonte MD PhD LAB BLOOD ORDERABLES Final Result [facility] [address] [facility] Department [place] [address] * (ABNORMAL) CBC with auto differential (07/19/2025 9:15 AM CDT) WBC 5.06 3.80 - 9.90 K/cumm Comment:Testing performed by : [facility] 2, [address] [place] [address] Hgb 9.3(L) 11.9 - 15.5 g/dL DIAMANTE SILVESTRE Comment:Testing performed by : [facility] 2, [address] [place] [address] Hct 28.8(L) 35.6 - 45.5 % CERNER BJWCH Comment:Testing performed by : [facility], [facility], [address], [place] [address] Plt 276 150 - 400 K/cumm CERNER BJWCH Comment:Testing performed by : [facility] 2, [address] [place] [address] MPV 9.4 9.1 - 12.3 fL CERNER BJWCH Comment:Testing performed by : [place] [address], [address] [place] [address] RBC 2.93(L) 3.90 - 5.20 M/cumm CERNER BJWCH Comment:Testing performed by : [facility] 2, [address], [place] [address] MCV 98.3(H) 81.3 - 96.4 fL CERNER BJWCH Comment:Testing performed by : [place] [address], [address], [place] [address] MCH 31.7 27.1 - 33.3 pg CERNER BJWCH Comment:Testing performed by : [facility] 2, [address], [place] [address] MCHC 32.3 32.3 - 35.7 g/dL CERNER BJWCH Comment:Testing performed by : [facility] 2, [address] [place] [address] RDW CV 14.1 11.1 - 14.9 % CERNER BJWCH Comment:Testing performed by : [facility] 2, [address], [place] [address] RDW SD 50.6(H) 35.7 - 48.1 fL CERNER BJWCH Comment:Testing performed by : [facility] 2, [address], [place] [address] ANC Prelim 2.92 1.50 - 6.50 K/cumm CERNER BJWCH Comment: Interpretive Data The rapid ANC is a preliminary automated count and may vary from the final ANC (Neut Abs) reported in the WBC differential that follows. Current interpretive data was last revised 2025. Testing performed by: [facility], [facility], [address] [place] [address] Blood 07/19/2025 9:15 AM CDT 07/19/2025 9:19 AM CDT us Katharine Almonte MD PhD LAB BLOOD ORDERABLES Final Result [facility] [address]. Department of Laboratories [place], [place] [id number] * (ABNORMAL) Comprehensive metabolic panel (07/19/2025 9:15 AM CDT) Sodium 137 135 - 145 mmol/L Comment:Testing performed by : [facility], [address] [place] [address] Potassium, pl 4.9 3.3 - 4.9 mmol/L DIAMANTE SILVESTRE Comment:Testing performed by : [facility], [address] [place] [address] Chloride 106 97 - 110 mmol/L DIAMANTE SILVESTRE Comment:Testing performed by : [facility], [address] [place] [address] CO2 22 22 - 32 mmol/L DIAMANTE SILVESTRE Comment:Testing performed by : [facility], [address] [place] [address] Anion gap 9 2 - 15 mmol/L DIAMANTE SILVESTRE Comment:Testing performed by : [facility], [address] [place] [address] BUN 24 6 - 25 mg/dL DIAMANTE SILVESTRE Comment:Testing performed by : [facility], [address] [place] [address] Creatinine 0.56(L) 0.60 - 1.10 mg/dL DIAMANTE SILVESTRE Comment:Testing performed by : [facility], [address], [place] [address] Glucose 86 70 - 199 mg/dL CERNER BJWCH Comment: Interpretive Data Fasting glucose >/= 126 mg/dl is diagnostic for diabetes. Fasting is defined as no caloric intake for at least 8 hours. Fasting glucose between 100 mg/dl to 125 mg/dl is diagnostic of prediabetes. In a patient with classic symptoms of hyperglycemia or hyperglycemic crisis, a random glucose >/= 200 mg/dl is diagnostic for diabetes. In the absence of unequivocal hyperglycemia, results should be confirmed by repeat testing. The classification and Diagnosis of Diabetes Diabetes Care 2021; 46: S19-S40. Current interpretive data was last revised 2022. Testing performed by: [facility], [address], [place] [address] Calcium 8.6 8.5 - 10.3 mg/dL CERNER BJWCH Comment:Testing performed by : [facility], [address], [place] [address] Bilirubin, total 0.2 0.1 - 1.2 mg/dL CERNER BJWCH Comment:Testing performed by : [facility], [address], [place] [address] Protein, pl 6.4(L) 6.5 - 8.5 g/dL CERNER BJWCH Comment:Testing performed by : [facility], [address], [place] [address] Albumin 2.8(L) 3.5 - 5.0 g/dL CERNER BJWCH Comment:Testing performed by : [facility], [address], [place] [address] Alk phos 82 40 - 130 Units/L CERNER BJWCH Comment:Testing performed by : [facility], [address], [place] [address] ALT 19 7 - 45 Units/L CERNER BJWCH Comment:Testing performed by : [facility], [address], [place] [address] AST 21 10 - 45 Units/L CERNER BJWCH Comment:Testing performed by : [facility], [address], [place] [address] Blood 07/19/2025 9:15 AM CDT 07/19/2025 9:41 AM CDT us Katharine Almonte MD PhD LAB BLOOD ORDERABLES Final Result [facility]AMANTE [facility] [address] [facility]. Department [place] [address] * eGFR (07/10/2025 12:22 AM CDT) eGFR >90 >=60 mL/min/1. 73 m2 Comment: Interpretive Data Reference Interval Normal >/= 90 mL/min/1.73m2 Mildly decreased* 60 - 89 mL/min/1.73m2 Mildly to moderately decreased 45 - 59 mL/min/1.73m2 Moderately to severely decreased 30 - 44 mL/min/1.73m2 Severely decreased 15 - 29 mL/min/1.73m2 Kidney Failure < 15 mL/min/1.73m2 *Relative to young adult level Estimated glomerular filtration rate is determined by the 2020 CKD-EPI equation recommended by the National Kidney Foundation (A Unifying Approach to GFR Estimation: Recommendations of the NKF-ASK Task Force on Reassessing the Inclusion of Race in Diagnosing Kidney Disease, JASN 2020). The CKD-EPI equation should not be used for patients with unstable renal function and has not been validated in children and those over 70. Current interpretive data was last reviewed 2021. Blood 07/10/2025 12:2 2 AM CDT 07/10/2025 12:42 AM CDT us Allen Soto MD LAB BLOOD ORDERABLES Fi nal Result DIAMANTE [facility]HOURY [facility] Department [place] [address] * Differential, auto (07/10/2025 12:22 AM CDT) Neutrophil abs 2.22 1.50 - 6.50 K/cumm Imm gran abs 0.01 0.00 - 0.10 K/cumm [facility] Lymphocyte abs 1.17 0.80 - 3.30 K/cumm [facility] Monocyte abs 0.36 0.20 - 0.80 K/cumm [facility] Eosinophil abs 0.17 0.00 - 0.50 K/cumm [facility] Basophil abs 0.03 0.00 - 0.10 K/cumm [facility] Neutrophil pct 56.0 % [facility] Comment: Interpretive Data Percent cell count reference ranges are not reported, since discordance with absolute values may lead to misinterpretation of CBC data. Current Interpretive Data was last revised on 2018. Imm gran pct 0.3 % [facility] Comment: Interpretive Data Percent cell count reference ranges are not reported, since discordance with absolute values may lead to misinterpretation of CBC data. Current Interpretive Data was last revised on 2018. Lymphocyte pct 29.5 % [facility] Comment: Interpretive Data Percent cell count reference ranges are not reported, since discordance with absolute values may lead to misinterpretation of CBC data. Current Interpretive Data was last revised on 2018. Monocyte pct 9.1 % [facility] Comment: Interpretive Data Percent cell count reference ranges are not reported, since discordance with absolute values may lead to misinterpretation of CBC data. Current Interpretive Data was last revised on 2018. Eosinophil pct 4.3 % [facility] Comment: Interpretive Data Percent cell count reference ranges are not reported, since discordance with absolute values may lead to misinterpretation of CBC data. Current Interpretive Data was last revised on 2018. Basophil pct 0.8 % [facility] Comment: Interpretive Data Percent cell count reference ranges are not reported, since discordance with absolute values may lead to misinterpretation of CBC data. Current Interpretive Data was last revised on 2018. Blood 07/10/2025 12:2 2 AM CDT 07/10/2025 12:42 AM CDT Allen Kirill Soto MD LAB BLOOD ORDERABLES Fi nal Result [facility] Department [place] [address] * (ABNORMAL) CBC with auto differential (07/10/2025 12:22 AM CDT) Pathologist [facility] [place] WBC 3.96 3.80 - 9.90 K/cumm Hgb 8.9(L) 11.9 - 15.5 g/dL [facility] Hct 28.3(L) 35.6 - 45.5 % [facility] Plt 256 150 - 400 K/cumm [facility] MPV 10.3 9.1 - 12.3 fL [facility] RBC 2.80(L) 3.90 - 5.20 M/cumm [facility] MCV 101.1(H) 81.3 - 96.4 fL [facility] MCH 31.8 27.1 - 33.3 pg [facility] MCHC 31.4(L) 32.3 - 35.7 g/dL [facility] RDW CV 14.3 11.1 - 14.9 % [facility] RDW SD 52.6(H) 35.7 - 48.1 fL [facility] NRBC abs 0.00 0.00 - 0.01 K/cumm [facility] Blood 07/10/2025 12:2 2 AM CDT 07/10/2025 12:42 AM CDT Allen Soto MD LAB BLOOD ORDERABLES Fi nal Result Performing Organization Address [facility]/ZIP Co de Phone Number [facility] Department [place] [address] * (ABNORMAL) Comprehensive metabolic panel (07/10/2025 12:22 AM CDT) [facility] Sodium 144 135 - 145 mmol/L Potassium, pl 3.6 3.3 - 4.9 mmol/L [facility] Chloride 112(H) 97 - 110 mmol/L [facility] CO2 28 22 - 32 mmol/L [facility] Anion gap 4 2 - 15 mmol/L [facility] BUN 18 6 - 25 mg/dL [facility] Creatinine 0.48(L) 0.60 - 1.10 mg/dL [facility] Glucose 80 70 - 199 mg/dL [facility] Comment: Interpretive Data Fasting glucose >/= 126 mg/dl is diagnostic for diabetes. Fasting is defined as no caloric intake for at least 8 hours. Fasting glucose between 100 mg/dl to 125 mg/dl is diagnostic of prediabetes. In a patient with classic symptoms of hyperglycemia or hyperglycemic crisis, a random glucose >/= 200 mg/dl is diagnostic for diabetes. In the absence of unequivocal hyperglycemia, results should be confirmed by repeat testing. The classification and Diagnosis of Diabetes Diabetes Care 202; 46: S19-S40. Current interpretive data was last revised 2022. Calcium 7.9(L) 8.5 - 10.3 mg/dL [facility] Bilirubin, total 0.2 0.1 - 1.2 mg/dL [facility] Protein, pl 6.3(L) 6.5 - 8.5 g/dL [facility] Albumin 2.4(L) 3.5 - 5.0 g/dL [facility] Alk phos 59 40 - 130 Units/L [facility] ALT 18 7 - 45 Units/L [facility] AST 21 10 - 45 Units/L [facility] Blood 07/10/2025 12:2 2 AM CDT 07/10/2025 12:42 AM CDT Allen Soto MD LAB BLOOD ORDERABLES nal Result [facility] One [facility] Department [place] [address] * (ABNORMAL) Aerobic and anaerobic culture and gram stain Wound Abdominal (07/09/2025 10:37 AM CDT) Direct Specimen Exam Stain: Abundant polymorphonuclear leukocytes seen. Moderate Gram Positive Bacilli Few Yeast Rare Gram Negative Bacilli Slide reviewed and direct smear was updated. Report Final Report: Moderate Mixed microorganisms. Includes the following: Moderate Escherichia coli Moderate Dionne lusitaniae Moderate Dionne parapsilosis (.) [facility] Organism ESCHERICHIA COLI [facility] Organism DIONNE LUSITANIAE [facility] Organism DIONNE PARAPSILOSIS [facility] Organism MIXED MICROORGANISMS. [facility] Wound (Abdominal) 07/09/2025 10:37 AM CDT 07/09/2025 11:13 AM CDT Narrative DIAMANTE [facility] - 07/18/2025 11:31 AM CDT G tube Testing performed by [facility] ([phone]) Specimens submitted from normally sterile body sites will have all bacterial morphotypes identified. Specimens that contain grossly mixed renetta and/or are from body sites that are not normally sterile will be examined for Staphylococcus aureus, Pseudomonas aeruginosa, beta-hemolytic strep, vancomycin-resistant Enterococcus, Bacteroides, Parabacteroides, Clostridium perfringens and fungus. If any of these are isolated, the organism will be reported. Current interpretive data was last revised on 2019. Organism Antibiotic Method Susceptibility Escherichia coli Ampicillin INTERPRETATION Resistant Escherichia coli Cefazolin INTERPRETATION Susceptible Escherichia coli Gentamicin INTERPRETATION Susceptible Escherichia coli Ampicillin with Sulbactam INTERPRETAT ION Resistant Escherichia coli Trimethoprim with Sulfamethoxazole IN TERPRETATION Susceptible Escherichia coli Meropenem INTERPRETATION Susceptible Escherichia coli Cefepime INTERPRETATION Susceptible Escherichia coli Ciprofloxacin INTERPRETATION Resistant Escherichia coli Ceftazidime INTERPRETATION Susceptible Escherichia coli Ceftriaxone INTERPRETATION Susceptible Escherichia coli Piperacillin/Tazobactam INTERPRETATIO N Susceptible Allen Soto MD LAB MICROBIOLOGY - [facility] ORDERABLES Final Result [facility] One [facility] Department [place] [address] * (ABNORMAL) Differential, auto (07/08/2025 4:58 PM CDT) Neutrophil abs 4.05 1.50 - 6.50 K/cumm Imm gran abs 0.05 0.00 - 0.10 K/cumm [facility] Lymphocyte abs 0.78(L) 0.80 - 3.30 K/cumm [facility] Monocyte abs 0.27 0.20 - 0.80 K/cumm [facility] Eosinophil abs 0.07 0.00 - 0.50 K/cumm [facility] Basophil abs 0.02 0.00 - 0.10 K/cumm [facility] Neutrophil pct 77.2 % [facility] Comment: Interpretive Data Percent cell count reference ranges are not reported, since discordance with absolute values may lead to misinterpretation of CBC data. Current Interpretive Data was last revised on 2018. Imm gran pct 1.0 % [facility] Comment: Interpretive Data Percent cell count reference ranges are not reported, since discordance with absolute values may lead to misinterpretation of CBC data. Current Interpretive Data was last revised on 2018. Lymphocyte pct 14.9 % [facility] Comment: Interpretive Data Percent cell count reference ranges are not reported, since discordance with absolute values may lead to misinterpretation of CBC data. Current Interpretive Data was last revised on 2018. Monocyte pct 5.2 % [facility] Comment: Interpretive Data Percent cell count reference ranges are not reported, since discordance with absolute values may lead to misinterpretation of CBC data. Current Interpretive Data was last revised on 2018. Eosinophil pct 1.3 % [facility] [facility] Comment: Interpretive Data Percent cell count reference ranges are not reported, since discordance with absolute values may lead to misinterpretation of CBC data. Current Interpretive Data was last revised on 2018. Basophil pct 0.4 % [facility] Comment: Interpretive Data Percent cell count reference ranges are not reported, since discordance with absolute values may lead to misinterpretation of CBC data. Current Interpretive Data was last revised on 2018. Blood 07/08/2025 4:58 PM CDT 07/08/2025 5:13 PM CDT us John Jorge MD LAB BLOOD ORDERABLES Fi nal Result DIAMANTE [facility] One [facility] Department [place] [address] * (ABNORMAL) CBC with auto differential (07/08/2025 4:58 PM CDT) WBC 5.24 3.80 - 9.90 K/cumm Hgb 9.9(L) 11.9 - 15.5 g/dL [facility] Hct 31.5(L) 35.6 - 45.5 % [facility] Plt 241 150 - 400 K/cumm [facility] MPV 9.7 9.1 - 12.3 fL [facility] RBC 3.17(L) 3.90 - 5.20 M/cumm [facility] MCV 99.4(H) 81.3 - 96.4 fL [facility] MCH 31.2 27.1 - 33.3 pg [facility] MCHC 31.4(L) 32.3 - 35.7 g/dL [facility] RDW CV 14.6 11.1 - 14.9 % [facility] RDW SD 53.3(H) 35.7 - 48.1 fL [facility] NRBC abs 0.00 0.00 - 0.01 K/cumm [facility] Blood 07/08/2025 4:58 PM CDT 07/08/2025 5:13 PM CDT us John Jorge MD LAB BLOOD ORDERABLES nal Result [facility] One [facility] Department [place] [address] * XR Chest Pa Lateral 2 Vw (07/08/2025 4:49 PM CDT) Anatomical Region Laterality Modality Body, Chest N/A Computed Radiogr aphy 07/08/2025 4:53 PM CDT Impressions 07/08/2025 4:56 PM CDT The current study is compared with the prior radiograph dated 11/21/[address] dated 05/22/2025. Right internal jugular central venous catheter port catheter tip projects over the superior vena cava. No pulmonary consolidation, pleural effusion, or pneumothorax. Cardiomediastinal silhouette is unchanged. Dictated by: Rikki Hlal M.D. The radiology attending physician has personally reviewed this study, and had reviewed and/or edited this written report and agrees with it. Electronically signed by: Anastasia Alejandro MD Narrative 07/08/2025 4:56 PM CDT EXAMINATION: 2 view chest radiograph Procedure Note Anastasia Alejandro MD - 07/08/2025 EXAMINATION: 2 view chest radiograph IMPRESSION: The current study is compared with the prior radiograph dated 11/21/[address] dated 05/22/2025. Right internal jugular central venous catheter port catheter tip projects over the superior vena cava. No pulmonary consolidation, pleural effusion, or pneumothorax. Cardiomediastinal silhouette is unchanged. Dictated by: Rikki Hall M.D. The radiology attending physician has personally reviewed this study, and had reviewed and/or edited this written report and agrees with it. Electronically signed by: Anastasia Alejandro MD Lidia Garcia MD IMG XR PROCEDURES Final Re sult * Respiratory pathogen panel Nasopharyngeal (07/08/2025 4:36 PM CDT) Pathologist [facility] [place] Influenza A RNA Not Detected Not Detected Influenza B RNA Not Detected Not Detected [facility] RSV RNA Not Detected Not Detected [facility] COVID-19 RNA Not Detected Not Detected [facility] Coronavirus 229E RNA Not Detected Not Detected [facility] Coronavirus HKU1 RNA Not Detected Not Detected [facility] Coronavirus NL63 RNA Not Detected Not Detected [facility] Coronavirus OC43 RNA Not Detected Not Detected [facility] Adenovirus DNA Not Detected Not Detected [facility] Metapneumovirus RNA Not Detected Not Detected [facility] Rhinovirus/Enterov irus RNA Not Detected Not Detected [facility] Parainfluenza 1 RNA Not Detected Not Detected [facility] Parainfluenza 2 RNA Not Detected Not Detected [facility] Parainfluenza 3 RNA Not Detected Not Detected [facility] Parainfluenza 4 RNA Not Detected Not Detected [facility] B. pertussis DNA Not Detected Not Detected [facility] B. parapertussis DNA Not Detected Not Detected [facility] C. pneumoniae DNA Not Detected Not Detected [facility] M. pneumoniae DNA Not Detected Not Detected [facility] Nasopharyngeal 07/08/2025 4: 36 PM CDT 07/08/2025 4:43 PM CDT [facility]ative [facility] - 07/08/2025 5:40 PM CDT Is the Patient experiencing symptoms consistent with COVID?->Unknown Surveillance testing for transplant patient?->No Interpretive Data The [employer] FilmArray Respiratory Panel (RP2.1) assay is a multiplexed real-time PCR based nucleic acid test capable of simultaneous qualitative detection and identification of multiple respiratory viral and bacterial nucleic acids, including SARS Coronavirus 2 (the causative agent of COVID-19). The following bacteria, viruses and virus subtypes can be identified using the FilmArray RP2.1 assay: Bordetella pertussis, Bordetella parapertussis, Chlamydia pneumoniae, Mycoplasma pneumoniae, Adenovirus, SARS Coronavirus 2, seasonal coronaviruses (Coronavirus HKU1, Coronavirus NL63, Coronavirus 229E, and Coronavirus OC43), Influenza A, Influenza A subtype H1, Influenza A subtype H3, Influenza A subtype 2009 H1, Influenza B, Metapneumovirus, Parainfluenza 1, Parainfluenza 2, Parainfluenza 3, Parainfluenza 4, RSV, Rhinovirus/Enterovirus. Due to the genetic similarity between human Rhinovirus and Enterovirus, the FilmArray RP2.1 assay cannot reliably differentiate them. Coronavirus OC43 may cross-react with some isolates of Coronavirus HKU1. A dual positive result may be due to cross-reactivity or may indicate a co- infection. The detection and identification of specific viral and bacterial nucleic acids from individuals exhibiting signs and symptoms of a respiratory infection aids in the diagnosis of respiratory infection if used in conjunction with other clinical and epidemiological information. The results of this test should not be used as the sole basis for diagnosis, treatment, or other management decisions. Negative results in the setting of a respiratory illness may be due to infection with pathogens that are not detected by this test. Positive results do not rule out infection/co-infection with other organisms. The agent(s) detected by the FilmArray RP2.1 may not be the definite cause of disease. Additional testing (lab, imaging, etc.) may be necessary when evaluating a patient with possible respiratory tract infection. The FilmArray RP2.1 assay has FDA clearance for testing of [employer] swabs. The performance of additional specimen types has been assessed by the performing laboratory. The performance characteristics of this assay have been determined by [facility]. Current interpretive data was last revised on 22. John Jorge MD LAB MICROBIOLOGY - GENE RAL ORDERABLES Final Result Performing Organization Address [facility] Co de Phone Number DIAMANTE [facility] [place] [address] * Troponin I high-sensitivity series (baseline, 2hr, 4hr, 6hr) (07/08/2025 4:01 PM CDT) Pathologist [facility] [place] Trop I hs 8 <=17 ng/L Comment: Interpretive Data For further hscTnI resources including the diagnostic algorithm and an aid in interpretation, copy and paste this link: [email or web address]/[email or web address] Current Interpretive Data last revised 2020. Blood 07/08/2025 4:01 PM CDT 07/08/2025 4:17 PM CDT Lidia Garcia MD LAB BLOOD ORDERABLES Final Result Performing Organization Address [facility] Co de Phone Number [facility] [place] [address] * Sepsis Lactate w/ Reflex (07/08/2025 4:01 PM CDT) [facility] Sepsis Lactate 1.6 0.7 - 2.0 mmol/L Blood 07/08/2025 4:01 PM CDT 07/08/2025 4:06 PM CDT Lidia Garcia MD LAB BLOOD ORDERABLES Final Result Performing Organization Address [facility] Co de Phone Number [facility] [place] [address] * eGFR (07/08/2025 4:01 PM CDT) eGFR >90 >=60 mL/min/1. 73 m2 Comment: Interpretive Data Reference Interval Normal >/= 90 mL/min/1.73m2 Mildly decreased* 60 - 89 mL/min/1.73m2 Mildly to moderately decreased 45 - 59 mL/min/1.73m2 Moderately to severely decreased 30 - 44 mL/min/1.73m2 Severely decreased 15 - 29 mL/min/1.73m2 Kidney Failure < 15 mL/min/1.73m2 *Relative to young adult level Estimated glomerular filtration rate is determined by the 2020 CKD-EPI equation recommended by the National Kidney Foundation (A Unifying Approach to GFR Estimation: Recommendations of the NKF-ASK Task Force on Reassessing the Inclusion of Race in Diagnosing Kidney Disease, JASN 2020). The CKD-EPI equation should not be used for patients with unstable renal function and has not been validated in children and those over 70. Current interpretive data was last reviewed 2021. Blood 07/08/2025 4:01 PM CDT 07/08/2025 4:17 PM CDT iLdia Garcia MD LAB BLOOD ORDERABLES Final Result DIAMANTE [facility] One [facility] Department [place] [address] * Blood culture Blood Peripheral (07/08/2025 4:01 PM CDT) Report Final Report: No growth Blood (Peripheral) 07/08/2025 4:01 PM CDT 07/08/2025 4:14 PM CDT Narrative DIAMANTE [facility] - 07/13/2025 7:00 AM CDT From a different site than #1. Draw Blood cultures before administration of Antibiotics Collection->Peripheral 1. Blood cultures are incubated for 4 days on a continuously monitored blood culture system. The first report of a negative culture is issued within 24 hours of receipt of the specimen in the laboratory. 2. Positive culture results are reported as soon as they are detected. 3. The most important factor for detection of microbes in the setting of bloodstream infection is the volume of blood submitted for culture. Failure to collect an optimal blood volume can result in false negative blood cultures. 4. For pediatric patients, the recommended blood volume to collect follows a weight based strategy. See the electronic test catalog for collection instructions. 5. For positive blood cultures, a rapid molecular test may be performed for organism identification using the bello ePlex blood culture identification panel for gram positive (BCID-GP) and gram negative (BCID-GN) organisms. This nucleic acid amplification test detects microbial DNA in positive blood culture broth. This assay has been cleared by the [place] Food and Drug Administration and its performance characteristics have been verified by the [facility]biology Laboratory. For questions about this culture, contact the Microbiology Laboratory at [phone]. Interpretive data was last revised on 24. Lidia Garcia MD LAB MICROBIOLOGY - GENERAL ORDERABLES Final Result [facility] One [facility] Department [place] [address] * Blood culture Blood Peripheral (07/08/2025 4:01 PM CDT) Report Final Report: No growth Blood (Peripheral) 07/08/2025 4:01 PM CDT 07/08/2025 4:14 PM CDT [facility] DIAMANTE [facility] - 07/13/2025 7:00 AM CDT Draw Blood cultures before administration of Antibiotics Collection->Peripheral 1. Blood cultures are incubated for 4 days on a continuously monitored blood culture system. The first report of a negative culture is issued within 24 hours of receipt of the specimen in the laboratory. 2. Positive culture results are reported as soon as they are detected. 3. The most important factor for detection of microbes in the setting of bloodstream infection is the volume of blood submitted for culture. Failure to collect an optimal blood volume can result in false negative blood cultures. 4. For pediatric patients, the recommended blood volume to collect follows a weight based strategy. See the electronic test catalog for collection instructions. 5. For positive blood cultures, a rapid molecular test may be performed for organism identification using the bello ePlex blood culture identification panel for gram positive (BCID-GP) and gram negative (BCID-GN) organisms. This nucleic acid amplification test detects microbial DNA in positive blood culture broth. This assay has been cleared by the [place] Food and Drug Administration and its performance characteristics have been verified by the [facility]biology [facility]. For questions about this culture, contact the Microbiology Laboratory at [phone]. Interpretive data was last revised on 24. us Lidia Garcia MD LAB MICROBIOLOGY - GENERAL ORDERABLES Final Result [facility] One [facility] Department [place] [address] * (ABNORMAL) Comprehensive metabolic panel (07/08/2025 4:01 PM CDT) Sodium 142 135 - 145 mmol/L Potassium, pl 4.6 3.3 - 4.9 mmol/L [facility] Comment:Hemolyzed; Potassium value may be falsely elevated by as much as 0.3-0.5 mmol/L. Suggest redraw and reanalysis. Chloride 111(H) 97 - 110 mmol/L [facility] CO2 25 22 - 32 mmol/L [facility] Anion gap 6 2 - 15 mmol/L [facility] BUN 23 6 - 25 mg/dL [facility] Creatinine 0.56(L) 0.60 - 1.10 mg/dL [facility] Glucose 131 70 - 199 mg/dL [facility] Comment: Interpretive Data Fasting glucose >/= 126 mg/dl is diagnostic for diabetes. Fasting is defined as no caloric intake for at least 8 hours. Fasting glucose between 100 mg/dl to 125 mg/dl is diagnostic of prediabetes. In a patient with classic symptoms of hyperglycemia or hyperglycemic crisis, a random glucose >/= 200 mg/dl is diagnostic for diabetes. In the absence of unequivocal hyperglycemia, results should be confirmed by repeat testing. The classification and Diagnosis of Diabetes Diabetes Care 202; 46: S19-S40. Current interpretive data was last revised 2022. Calcium 9.0 8.5 - 10.3 mg/dL [facility] Bilirubin, total 0.2 0.1 - 1.2 mg/dL [facility] Protein, pl 7.8 6.5 - 8.5 g/dL [facility] Albumin 2.9(L) 3.5 - 5.0 g/dL [facility] Alk phos 87 40 - 130 Units/L [facility] ALT 23 7 - 45 Units/L [facility] AST 39 10 - 45 Units/L [facility] Comment:Hemolyzed; result ma y be falsely elevated Blood 07/08/2025 4:01 PM CDT 07/08/2025 4:17 PM CDT us Lidia Garcia MD LAB BLOOD ORDERABLES Final Result [facility] One [facility] Department [place] [address] * Critical Care (07/08/2025 3:00 PM CDT) Narrative John Jorge MD - 07/08/2025 3:00 PM CDT John Jorge MD 07/11/2025 12:24 PM Critical Care Performed by: John Jorge MD Authorized by: John Jorge MD Critical care provider statement: As reflected in the history, physical exam, orders, notes, and/or MDM, I was personally present while the patient was critically ill and provided critical care services for 18 minutes, excluding time involved in separately billable procedures. 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 I ordered and reviewed test results and/or imaging studies. I spent time discussing the management of this critically ill patient with consultants and the medical staff. I spent time discussing the management and therapeutic options for this critically ill patient with the patient themselves or with the appropriate designated surrogate decision-maker. I spent time documenting in the medical record. us John Jorge MD IN CLINIC/BEDSIDE ORDER ENOCH Final Result * (ABNORMAL) ECG 12-LEAD (07/08/2025 2:41 PM CDT) Narrative [facility] - 07/08/2025 2:41 PM CDT John Jorge MD 07/08/2025 3:16 PM ECG 12 lead Date/Time: 07/08/2025 2:41 PM Performed by: Dylan Nielsen MD Authorized by: Jesus Manuel Rizvi MD Rate: ECG rate: 124 Rhythm: Rhythm: sinus tachycardia ST segments: ST segments: Non-specific Elevation: V4, V5, V6, I and aVL T waves: T waves: non-specific Other findings: Other findings: LAE and LVH Previous ECG: Previous ECG: Compared to current Date of previous EC11/21/2024 Similarity: Changes noted Interpretation: Interpretation: abnormal Recommended Follow-up: Recommended follow up: further workup in the ED Comments: High risk us Jesus Manuel Rizvi MD ECG ORDERABLES Edited Res ult - Final [facility] * eGFR (07/05/2025 10:00 AM CDT) eGFR >90 >=60 mL/min/1. 73 m2 Comment: Interpretive Data Reference Interval Normal >/= 90 mL/min/1.73m2 Mildly decreased* 60 - 89 mL/min/1.73m2 Mildly to moderately decreased 45 - 59 mL/min/1.73m2 Moderately to severely decreased 30 - 44 mL/min/1.73m2 Severely decreased 15 - 29 mL/min/1.73m2 Kidney Failure < 15 mL/min/1.73m2 *Relative to young adult level Estimated glomerular filtration rate is determined by the 2020 CKD-EPI equation recommended by the National Kidney Foundation (A Unifying Approach to GFR Estimation: Recommendations of the NKF-ASK Task Force on Reassessing the Inclusion of Race in Diagnosing Kidney Disease, JASN 2021). The CKD-EPI equation should not be used for patients with unstable renal function and has not been validated in children and those over 70. Current interpretive data was last reviewed 2021. Testing performed by: [facility], [address] [place] [address] Blood 07/05/2025 10:0 0 AM CDT 07/05/2025 10:34 AM CDT us Katharine Almonte MD PhD LAB BLOOD ORDERABLES Final Result DIAMANTE [facility] [address] Department [place] [address] * (ABNORMAL) Differential, auto (07/05/2025 10:00 AM CDT) Neutrophil abs 2.92 1.50 - 6.50 K/cumm Comment:Testing performed by : [facility], [facility], [address] [place] [address] Imm gran abs 0.01 0.00 - 0.10 K/cumm [facility] Comment:Testing performed by : [facility], [facility], [address] [place] [address] Lymphocyte abs 0.74(L) 0.80 - 3.30 K/cumm [facility] Comment:Testing performed by : [facility], [facility], [address] [place] [address] Monocyte abs 0.55 0.20 - 0.80 K/cumm [facility] Comment:Testing performed by : [facility], [address] [place] [address] Eosinophil abs 0.21 0.00 - 0.50 K/cumm [facility] Comment:Testing performed by : [facility], [facility], [address] [place] [address] Basophil abs 0.02 0.00 - 0.10 K/cumm [facility] Comment:Testing performed by : [facility], [facility], [address] [place] [address] Neutrophil pct 65.7 % [facility] Comment: Interpretive Data Percent cell count reference ranges are not reported, since discordance with absolute values may lead to misinterpretation of CBC data. Current Interpretive Data was last revised on 2018. Testing performed by: [facility], [facility], [address] [place] [address] Imm gran pct 0.2 % [facility] Comment: Interpretive Data Percent cell count reference ranges are not reported, since discordance with absolute values may lead to misinterpretation of CBC data. Current Interpretive Data was last revised on 2018. Testing performed by: [facility], [facility], [address] [place] [address] Lymphocyte pct 16.6 % [facility] Comment: Interpretive Data Percent cell count reference ranges are not reported, since discordance with absolute values may lead to misinterpretation of CBC data. Current Interpretive Data was last revised on 2018. Testing performed by: [facility], [facility], [address] [place] [address] Monocyte pct 12.4 % [facility] Comment: Interpretive Data Percent cell count reference ranges are not reported, since discordance with absolute values may lead to misinterpretation of CBC data. Current Interpretive Data was last revised on 2018. Testing performed by: [facility], [facility], [address] [place] [address] Eosinophil pct 4.7 % [facility] Comment: Interpretive Data Percent cell count reference ranges are not reported, since discordance with absolute values may lead to misinterpretation of CBC data. Current Interpretive Data was last revised on 2018. Testing performed by: [facility], [facility], [address] [place] [address] Basophil pct 0.4 % [facility] Comment: Interpretive Data Percent cell count reference ranges are not reported, since discordance with absolute values may lead to misinterpretation of CBC data. Current Interpretive Data was last revised on 2018. Testing performed by: [facility], [address] [place] [address] Blood 07/05/2025 10:0 0 AM CDT 07/05/2025 10:05 AM CDT us Katharine Almonte MD PhD LAB BLOOD ORDERABLES Final Result [facility] [address] [facility]. Department [place] [address] * (ABNORMAL) CBC with auto differential (07/05/2025 10:00 AM CDT) WBC 4.45 3.80 - 9.90 K/cumm Comment:Testing performed by : [place] [address], [address] [place] [address] Hgb 9.3(L) 11.9 - 15.5 g/dL DIAMANTE K[facility]OURYW Comment:Testing performed by : [place] [address], [address] [place] [address] Hct 29.8(L) 35.6 - 45.5 % DIAMANTE KHOURYW Comment:Testing performed by : [facility], [address] [place] [address] Plt 231 150 - 400 K/cumm DIAMANTE SILVESTRE Comment:Testing performed by : [place] [address], [address] [place] [address] MPV 9.2 9.1 - 12.3 fL DIAMANTE GLASS Comment:Testing performed by : [place] [address], [address] [place] [address] RBC 3.00(L) 3.90 - 5.20 M/cumm DIAMANTE K[facility]YWCH Comment:Testing performed by : [facility], [address] [place] [address] MCV 99.3(H) 81.3 - 96.4 fL DIAMANTE SILVESTRE Comment:Testing performed by : [facility], [facility], [address] [place] [address] MCH 31.0 27.1 - 33.3 pg DIAMANTE SILVESTRE Comment:Testing performed by : [facility], [address] [place] [address] MCHC 31.2(L) 32.3 - 35.7 g/dL DIAMANTE SILVESTRE Comment:Testing performed by : [facility], [facility], [address] [place] [address] RDW CV 14.3 11.1 - 14.9 % DIAMANTE SILVESTRE Comment:Testing performed by : [facility], [address] [place] [address] RDW SD 52.2(H) 35.7 - 48.1 fL DIAMANTE SILVESTRE Comment:Testing performed by : [facility], [facility], [address] [place] [address] ANC Prelim 2.92 1.50 - 6.50 K/cumm DIAMANTE SILVESTRE Comment: Interpretive Data The rapid ANC is a preliminary automated count and may vary from the final ANC (Neut Abs) reported in the WBC differential that follows. Current interpretive data was last revised 2025. Testing performed by: [facility] 2, [address] [place] [address] Blood 07/05/2025 10:0 0 AM CDT 07/05/2025 10:05 AM CDT us Katharine Almonte MD PhD LAB BLOOD ORDERABLES Final Result DIANNEEDITH IRAIDAWCH [address] [address] [facility]. Department [place] [address] * (ABNORMAL) Comprehensive metabolic panel (07/05/2025 10:00 AM CDT) Sodium 137 135 - 145 mmol/L Comment:Testing performed by : [facility], [address], [place] [address] Potassium, pl 4.8 3.3 - 4.9 mmol/L CERNER BJWCH Comment:Testing performed by : [facility], [address], [place] [address] Chloride 106 97 - 110 mmol/L CERNER BJWCH Comment:Testing performed by : [facility], [address], [place] [address] CO2 25 22 - 32 mmol/L CERNER BJWCH Comment:Testing performed by : [facility], [address], [place] [address] Anion gap 6 2 - 15 mmol/L CERNER BJWCH Comment:Testing performed by : [facility], [address], [place] [address] BUN 22 6 - 25 mg/dL CERNER BJWCH Comment:Testing performed by : [facility], [address], [place] [address] Creatinine 0.53(L) 0.60 - 1.10 mg/dL CERNER BJWCH Comment:Testing performed by : [facility], [address], [place] [address] Glucose 102 70 - 199 mg/dL CERNER BJWCH Comment: Interpretive Data Fasting glucose >/= 126 mg/dl is diagnostic for diabetes. Fasting is defined as no caloric intake for at least 8 hours. Fasting glucose between 100 mg/dl to 125 mg/dl is diagnostic of prediabetes. In a patient with classic symptoms of hyperglycemia or hyperglycemic crisis, a random glucose >/= 200 mg/dl is diagnostic for diabetes. In the absence of unequivocal hyperglycemia, results should be confirmed by repeat testing. The classification and Diagnosis of Diabetes Diabetes Care 2021; 46: S19-S40. Current interpretive data was last revised 2022. Testing performed by: [facility], [address], [place] [address] Calcium 8.2(L) 8.5 - 10.3 mg/dL CERNER BJWCH Comment:Testing performed by : [facility], [address], [place] [address] Bilirubin, total 0.2 0.1 - 1.2 mg/dL CERNER BJWCH Comment:Testing performed by : [facility], [address], [place] [address] Protein, pl 6.4(L) 6.5 - 8.5 g/dL CERNER BJWCH Comment:Testing performed by : [facility], [address], [place] [address] Albumin 2.8(L) 3.5 - 5.0 g/dL CERNER BJWCH Comment:Testing performed by : [facility], [address], [place] [address] Alk phos 65 40 - 130 Units/L CERNER BJWCH Comment:Testing performed by : [facility], [address], [place] [address] ALT 18 7 - 45 Units/L CERNER BJWCH Comment:Testing performed by : [facility], [address], [place] [address] AST 21 10 - 45 Units/L CERNER BJWCH Comment:Testing performed by : [facility], [address], [place] [address] Blood 07/05/2025 10:0 0 AM CDT 07/05/2025 10:34 AM CDT Katharine Almonte MD PhD LAB BLOOD ORDERABLES Final Result [facility] [address]. Department [place] [address] * eGFR (06/21/2025 9:41 AM CDT) eGFR >90 >=60 mL/min/1. 73 m2 Comment: Interpretive Data Reference Interval Normal >/= 90 mL/min/1.73m2 Mildly decreased* 60 - 89 mL/min/1.73m2 Mildly to moderately decreased 45 - 59 mL/min/1.73m2 Moderately to severely decreased 30 - 44 mL/min/1.73m2 Severely decreased 15 - 29 mL/min/1.73m2 Kidney Failure < 15 mL/min/1.73m2 *Relative to young adult level Estimated glomerular filtration rate is determined by the 2020 CKD-EPI equation recommended by the National Kidney Foundation (A Unifying Approach to GFR Estimation: Recommendations of the NKF-ASK Task Force on Reassessing the Inclusion of Race in Diagnosing Kidney Disease, JASN 202). The CKD-EPI equation should not be used for patients with unstable renal function and has not been validated in children and those over 70. Current interpretive data was last reviewed 2021. Testing performed by: [facility], [address] [place] [address] Blood 06/21/2025 9:41 AM CDT 06/21/2025 10:08 AM CDT us Katharine Almonte MD PhD LAB BLOOD ORDERABLES Final Result [facility] [address]. Department [place] [address] * (ABNORMAL) Differential, auto (06/21/2025 9:41 AM CDT) Neutrophil abs 3.86 1.50 - 6.50 K/cumm Comment:Testing performed by : [facility], [facility], [address] [place] [address] Imm gran abs 0.01 0.00 - 0.10 K/cumm DIAMANTE SILVESTRE Comment:Testing performed by : [facility] 2, [address] [place] [address] Lymphocyte abs 0.94 0.80 - 3.30 K/cumm DIAMANTE SILVESTRE Comment:Testing performed by : [facility] 2, [address] [place] [address] Monocyte abs 0.84(H) 0.20 - 0.80 K/cumm DIAMANTE SILVESTRE Comment:Testing performed by : [facility] 2, [address] [place] [address] Eosinophil abs 0.15 0.00 - 0.50 K/cumm CERNER BJWCH Comment:Testing performed by : [facility], [facility], [address] [place] [address] Basophil abs 0.03 0.00 - 0.10 K/cumm CERNER BJWCH Comment:Testing performed by : [facility], [facility], [address] [place] [address] Neutrophil pct 66.2 % CERNER BJWCH Comment: Interpretive Data Percent cell count reference ranges are not reported, since discordance with absolute values may lead to misinterpretation of CBC data. Current Interpretive Data was last revised on 2018. Testing performed by: [facility], [facility], [address] [place] [address] Imm gran pct 0.2 % CERNER BJWCH Comment: Interpretive Data Percent cell count reference ranges are not reported, since discordance with absolute values may lead to misinterpretation of CBC data. Current Interpretive Data was last revised on 2018. Testing performed by: [facility], [facility], [address] [place] [address] Lymphocyte pct 16.1 % CERNER BJWCH Comment: Interpretive Data Percent cell count reference ranges are not reported, since discordance with absolute values may lead to misinterpretation of CBC data. Current Interpretive Data was last revised on 2018. Testing performed by: [facility], [facility], [address] [place] [address] Monocyte pct 14.4 % CERNER BJWCH Comment: Interpretive Data Percent cell count reference ranges are not reported, since discordance with absolute values may lead to misinterpretation of CBC data. Current Interpretive Data was last revised on 2018. Testing performed by: [facility], [facility], [address] [place] [address] Eosinophil pct 2.6 % CERNER BJWCH Comment: Interpretive Data Percent cell count reference ranges are not reported, since discordance with absolute values may lead to misinterpretation of CBC data. Current Interpretive Data was last revised on 2018. Testing performed by: [facility], [address] [place] [address] Basophil pct 0.5 % DIAMANTE SILVESTRE Comment: Interpretive Data Percent cell count reference ranges are not reported, since discordance with absolute values may lead to misinterpretation of CBC data. Current Interpretive Data was last revised on 2018. Testing performed by: [facility], [address] [place] [address] Blood 06/21/2025 9:41 AM CDT 06/21/2025 9:45 AM CDT us Katharine Almonte MD PhD LAB BLOOD ORDERABLES Final Result [facility] [address] [facility]. Department [place] [address] * (ABNORMAL) CBC with auto differential (06/21/2025 9:41 AM CDT) WBC 5.83 3.80 - 9.90 K/cumm Comment:Testing performed by : [facility], [facility], [address] [place] [address] Hgb 10.5(L) 11.9 - 15.5 g/dL DIAMANTE SILVESTRE Comment:Testing performed by : [facility] 2, [address] [place] [address] Hct 32.9(L) 35.6 - 45.5 % DIAMANTE SILVESTRE Comment:Testing performed by : [facility] 2, [address] [place] [address] Plt 276 150 - 400 K/cumm DIAMANTE SILVESTRE Comment:Testing performed by : [facility] 2, [address] [place] [address] MPV 9.1 9.1 - 12.3 fL DIAMANTE SILVESTRE Comment:Testing performed by : [facility], [facility], [address] [place] [address] RBC 3.31(L) 3.90 - 5.20 M/cumm CERNER BJWCH Comment:Testing performed by : [facility], [address] [place] [address] MCV 99.4(H) 81.3 - 96.4 fL CEREDITH BJWCH Comment:Testing performed by : [place] [facility] [address], [address] [place] [address] MCH 31.7 27.1 - 33.3 pg CEREDITH BJWCH Comment:Testing performed by : [facility] [address], [place] [address] MCHC 31.9(L) 32.3 - 35.7 g/dL CEREDITH BJWCH Comment:Testing performed by : [facility] [address] [place] [address] RDW CV 14.6 11.1 - 14.9 % CEREDITH BJWCH Comment:Testing performed by : [facility] [address] [place] [address] RDW SD 53.3(H) 35.7 - 48.1 fL CEREDITH BJWCH Comment:Testing performed by : [place] [place] [address] [place] [address] ANC Prelim 3.86 1.50 - 6.50 K/cumm DIAMANTE BJWCH Comment: Interpretive Data The rapid ANC is a preliminary automated count and may vary from the final ANC (Neut Abs) reported in the WBC differential that follows. Current interpretive data was last revised 2025. Testing performed by: [address] [place] [address] Blood 06/21/2025 9:41 AM CDT 06/21/2025 9:45 AM CDT us Katharine Almonte MD PhD LAB BLOOD ORDERABLES Final Result [facility] [address]. Department [place] [address] * (ABNORMAL) Comprehensive metabolic panel (06/21/2025 9:41 AM CDT) Sodium 140 135 - 145 mmol/L Comment:Testing performed by : [facility], [address], [place] [address] Potassium, pl 4.0 3.3 - 4.9 mmol/L CERNER BJW Comment:Testing performed by : [facility], [address], [place] [address] Chloride 105 97 - 110 mmol/L CERNER BJCH Comment:Testing performed by : [facility], [address], [place] [address] CO2 24 22 - 32 mmol/L CERNER BJWCH Comment:Testing performed by : [facility], [address], [place] [address] Anion gap 11 2 - 15 mmol/L CERNER BJW Comment:Testing performed by : [facility], [address], [place] [address] BUN 11 6 - 25 mg/dL CERNER BJWCH Comment:Testing performed by : [facility], [address], [place] [address] Creatinine 0.53(L) 0.60 - 1.10 mg/dL CERNER BJWCH Comment:Testing performed by : [facility], [address], [place] [address] Glucose 89 70 - 199 mg/dL CERNER BJWCH Comment: Interpretive Data Fasting glucose >/= 126 mg/dl is diagnostic for diabetes. Fasting is defined as no caloric intake for at least 8 hours. Fasting glucose between 100 mg/dl to 125 mg/dl is diagnostic of prediabetes. In a patient with classic symptoms of hyperglycemia or hyperglycemic crisis, a random glucose >/= 200 mg/dl is diagnostic for diabetes. In the absence of unequivocal hyperglycemia, results should be confirmed by repeat testing. The classification and Diagnosis of Diabetes Diabetes Care 2021; 46: S19-S40. Current interpretive data was last revised 2022. Testing performed by: [facility], [address], [place] [address] Calcium 8.9 8.5 - 10.3 mg/dL CERNER BJWCH Comment:Testing performed by : [facility], [address], [place] [address] Bilirubin, total 0.3 0.1 - 1.2 mg/dL CERNER BJWCH Comment:Testing performed by : [facility], [address], [place] [address] Protein, pl 7.2 6.5 - 8.5 g/dL CERNER BJWCH Comment:Testing performed by : [facility], [address], [place] [address] Albumin 3.2(L) 3.5 - 5.0 g/dL CERNER BJWCH Comment:Testing performed by : [facility], [address], [place] [address] Alk phos 66 40 - 130 Units/L CERNER BJWCH Comment:Testing performed by : [facility], [address], [place] [address] ALT 14 7 - 45 Units/L CERNER BJWCH Comment:Testing performed by : [facility], [address], [place] [address] AST 21 10 - 45 Units/L CERNER BJWCH Comment:Testing performed by : [facility], [address], [place] [address] Blood 06/21/2025 9:41 AM CDT 06/21/2025 10:08 AM CDT us Katharine Almonte MD PhD LAB BLOOD ORDERABLES Final Result DI[facility]TE [facility] [address] Department [place] [address] * eGFR (06/07/2025 11:12 AM CDT) eGFR >90 >=60 mL/min/1. 73 m2 Comment: Interpretive Data Reference Interval Normal >/= 90 mL/min/1.73m2 Mildly decreased* 60 - 89 mL/min/1.73m2 Mildly to moderately decreased 45 - 59 mL/min/1.73m2 Moderately to severely decreased 30 - 44 mL/min/1.73m2 Severely decreased 15 - 29 mL/min/1.73m2 Kidney Failure < 15 mL/min/1.73m2 *Relative to young adult level Estimated glomerular filtration rate is determined by the 2020 CKD-EPI equation recommended by the National Kidney Foundation (A Unifying Approach to GFR Estimation: Recommendations of the NKF-ASK Task Force on Reassessing the Inclusion of Race in Diagnosing Kidney Disease, JASN 2020). The CKD-EPI equation should not be used for patients with unstable renal function and has not been validated in children and those over 70. Current interpretive data was last reviewed 2021. Testing performed by: [facility], [address] [place] [address] Blood 06/07/2025 11:1 2 AM CDT 06/07/2025 11:36 AM CDT us Katharine Almonte MD PhD LAB BLOOD ORDERABLES Final Result [facility] [address]. Department of Laboratories [place], [place] [id number] * Differential, auto (06/07/2025 11:12 AM CDT) Pathologist [facility] [place] Neutrophil abs 3.99 1.50 - 6.50 K/cumm Comment:Testing performed by : [facility], [facility], [address] [place] [address] Imm gran abs 0.03 0.00 - 0.10 K/cumm DIAMANTE SILVESTRE Comment:Testing performed by : [facility], [facility], [address] [place] [address] Lymphocyte abs 1.01 0.80 - 3.30 K/cumm CERNER BJWCH Comment:Testing performed by : [facility], [facility], [address] [place] [address] Monocyte abs 0.67 0.20 - 0.80 K/cumm CERNER BJWCH Comment:Testing performed by : [facility], [facility], [address] [place] [address] Eosinophil abs 0.25 0.00 - 0.50 K/cumm CERNER BJWCH Comment:Testing performed by : [facility], [facility], [address] [place] [address] Basophil abs 0.03 0.00 - 0.10 K/cumm CERNER BJWCH Comment:Testing performed by : [facility], [facility], [address] [place] [address] Neutrophil pct 66.7 % CERNER BJWCH Comment: Interpretive Data Percent cell count reference ranges are not reported, since discordance with absolute values may lead to misinterpretation of CBC data. Current Interpretive Data was last revised on 2018. Testing performed by: [facility], [facility], [address] [place] [address] Imm gran pct 0.5 % CERNER BJWCH Comment: Interpretive Data Percent cell count reference ranges are not reported, since discordance with absolute values may lead to misinterpretation of CBC data. Current Interpretive Data was last revised on 2018. Testing performed by: [facility], [facility], [address] [place] [address] Lymphocyte pct 16.9 % CERNER BJWCH Comment: Interpretive Data Percent cell count reference ranges are not reported, since discordance with absolute values may lead to misinterpretation of CBC data. Current Interpretive Data was last revised on 2018. Testing performed by: [facility], [facility], [address] [place] [address] Monocyte pct 11.2 % CERNER BJWCH Comment: Interpretive Data Percent cell count reference ranges are not reported, since discordance with absolute values may lead to misinterpretation of CBC data. Current Interpretive Data was last revised on 2018. Testing performed by: [facility], [facility], [address] [place] [address] Eosinophil pct 4.2 % DIAMANTE SILVESTRE Comment: Interpretive Data Percent cell count reference ranges are not reported, since discordance with absolute values may lead to misinterpretation of CBC data. Current Interpretive Data was last revised on 2018. Testing performed by: [facility], [address] [place] [address] Basophil pct 0.5 % DIAMANTE SILVESTRE Comment: Interpretive Data Percent cell count reference ranges are not reported, since discordance with absolute values may lead to misinterpretation of CBC data. Current Interpretive Data was last revised on 2018. Testing performed by: [facility], [address] [place] [address] Blood 06/07/2025 11:1 2 AM CDT 06/07/2025 11:25 AM CDT us Katharine Almonte MD PhD LAB BLOOD ORDERABLES Final Result [facility] [address] [facility]. Department [place] [address] * (ABNORMAL) CBC with auto differential (06/07/2025 11:12 AM CDT) WBC 5.98 3.80 - 9.90 K/cumm Comment:Testing performed by : [facility], [facility], [address] [place] [address] Hgb 9.6(L) 11.9 - 15.5 g/dL DIAMANTE SILVESTRE Comment:Testing performed by : [facility], [address] [place] [address] Hct 30.4(L) 35.6 - 45.5 % DIAMANTE SILVESTRE Comment:Testing performed by : [facility], [address] [place] [address] Plt 305 150 - 400 K/cumm CERNER BJWCH Comment:Testing performed by : [facility], [facility], [address] [place] [address] MPV 9.1 9.1 - 12.3 fL CERNER BJWCH Comment:Testing performed by : [place] [address], [address] [place] [address] RBC 3.05(L) 3.90 - 5.20 M/cumm CERNER BJWCH Comment:Testing performed by : [facility], [facility], [place] [address] MCV 99.7(H) 81.3 - 96.4 fL CERNER BJWCH Comment:Testing performed by : [place] [address], [place] [address] MCH 31.5 27.1 - 33.3 pg CERNER BJWCH Comment:Testing performed by : [place] [address], [address] [place] [address] MCHC 31.6(L) 32.3 - 35.7 g/dL CERNER BJWCH Comment:Testing performed by : [place] [address], [address] [place] [address] RDW CV 16.2(H) 11.1 - 14.9 % CERNER BJWCH Comment:Testing performed by : [place] [address], [address] [place] [address] RDW SD 59.7(H) 35.7 - 48.1 fL CERNER BJWCH Comment:Testing performed by : [place] [address], [address] [place] [address] ANC Prelim 3.99 1.50 - 6.50 K/cumm CERNER BJWCH Comment: Interpretive Data The rapid ANC is a preliminary automated count and may vary from the final ANC (Neut Abs) reported in the WBC differential that follows. Current interpretive data was last revised 2025. Testing performed by: [facility], [facility], [address], [place] [address] Blood 06/07/2025 11:1 2 AM CDT 06/07/2025 11:25 AM CDT Katharine Almonte MD PhD LAB BLOOD ORDERABLES Final Result [facility] [address] Department [place] [address] * (ABNORMAL) Comprehensive metabolic panel (06/07/2025 11:12 AM CDT) Sodium 138 135 - 145 mmol/L Comment:Testing performed by : [facility], [address] [place] [address] Potassium, pl 4.1 3.3 - 4.9 mmol/L DIAMANTE SILVESTRE Comment:Testing performed by : [facility], [address] [place] [address] Chloride 104 97 - 110 mmol/L DIAMANTE SILVESTRE Comment:Testing performed by : [facility], [address] [place] [address] CO2 25 22 - 32 mmol/L DIAMANTE SILVESTRE Comment:Testing performed by : [facility], [address] [place] [address] Anion gap 9 2 - 15 mmol/L DIAMANTE SILVESTRE Comment:Testing performed by : [facility], [address] [place] [address] BUN 14 6 - 25 mg/dL DIAMANTE SILVESTRE Comment:Testing performed by : [facility], [address] [place] [address] Creatinine 0.50(L) 0.60 - 1.10 mg/dL DIAMANTE SILVESTRE Comment:Testing performed by : [facility], [address] [place] [address] Glucose 81 70 - 199 mg/dL DIAMANTE SILVESTRE Comment: Interpretive Data Fasting glucose >/= 126 mg/dl is diagnostic for diabetes. Fasting is defined as no caloric intake for at least 8 hours. Fasting glucose between 100 mg/dl to 125 mg/dl is diagnostic of prediabetes. In a patient with classic symptoms of hyperglycemia or hyperglycemic crisis, a random glucose >/= 200 mg/dl is diagnostic for diabetes. In the absence of unequivocal hyperglycemia, results should be confirmed by repeat testing. The classification and Diagnosis of Diabetes Diabetes Care 2021; 46: S19-S40. Current interpretive data was last revised 2022. Testing performed by: [facility], [address], [place] [address] Calcium 8.1(L) 8.5 - 10.3 mg/dL CERNER BJWCH Comment:Testing performed by : [facility], [address], [place] [address] Bilirubin, total 0.2 0.1 - 1.2 mg/dL CERNER BJWCH Comment:Testing performed by : [facility], [address], [place] [address] Protein, pl 7.2 6.5 - 8.5 g/dL CERNER BJWCH Comment:Testing performed by : [facility], [address], [place] [address] Albumin 2.9(L) 3.5 - 5.0 g/dL CERNER BJWCH Comment:Testing performed by : [facility], [address], [place] [address] Alk phos 77 40 - 130 Units/L CERNER BJWCH Comment:Testing performed by : [facility], [address], [place] [address] ALT 18 7 - 45 Units/L CERNER BJWCH Comment:Testing performed by : [facility], [address], [place] [address] AST 19 10 - 45 Units/L CERNER BJWCH Comment:Testing performed by : [facility], [address], [place] [address] Blood 06/07/2025 11:1 2 AM CDT 06/07/2025 11:36 AM CDT us Katharine Almonte MD PhD LAB BLOOD ORDERABLES Final Result [facility] [address] Department [place] [address] from Last 3 Months Insurance Advance Directives For more information, please contact: [phone] * Full Code (Latest Code Status on File) Date Activated Date Inactivated Comments 07/08/2025 9:06 PM 07/10/2025 7:31 PM * Full Code Date Activated Date Inactivated Comments 05/21/2025 6:17 PM 05/25/2025 6:59 PM * Full Code Date Activated Date Inactivated Comments 05/04/2025 12:08 PM 05/04/2025 6:33 PM * Full Code Date Activated Date Inactivated Comments 12/27/2024 9:41 AM 12/28/2024 5:29 AM * Full Code Date Activated Date Inactivated Comments 11/21/2024 4:54 PM 11/26/2024 9:58 PM Care Teams Smart Grid Engineer Relationship Specialty Start Date End Date Leisa Hicks MD [address] [facility] [address] [place] [address] PCP - General Internal Medicine 08/22/24 Tino Mendoza MD [address] [facility] [place] [address] Internal Medicine 08/24/24 Irving Barnes MD [address] [place] [address] Referring Physician Gastroenterology 08/24/24 Katharine Almonte MD PhD [id number] [place] [address] Medical Oncologist Medical Oncology 12/07/24
[2025-09-01 20:46] LABS: Hematocrit 32.2 % (37.0-47.0); Hemoglobin 10.2 g/dL (12.0-15.0); Immature Granulocyte Percent A 0.5 % (0-0.5); Lymphocytes Absolute Auto 0.99 K/mm3 (0.9-3.2); Mean Corpuscular HGB Conc 31.7 g/dl (32-36); Mean Corpuscular Hemoglobin 30.4 pg (26-34); Mean Corpuscular Volume 96.1 fl (80-100); Nucleated Red Blood Cells Absolute Auto 0.000 K/mm3 (0.0-0.012); Nucleated Red Blood Cells Perc 0.0 % (0.0-0.2); Platelet Count Result 346 k/mm3 (150-375); Red Blood Count 3.35 M/mm3 (4.2-5.4); White Blood Count 17.4 K/mm3 (4.5-10.0)
--- OUTSIDE RECORDS SUMMARY | 2025-09-01 20:57 | XMS_ITS | Clinical Summary ---
Author Organization [facility] Address [address] [place] [address] Care Team Providers Care Front End Drupal Developer Name Role Phone Leisa Hicks MD Primary Care Provider Tino Mendoza MD Unavailable [phone] Irving Barnes MD Unavailable + Katharine Almonte MD PhD Unavailable Allergies No known active allergies Medications lancets (OneTouch Delica Plus Lancet) 33 gauge [facility] [place] Active blood sugar diagnostic (ONETOUCH ULTRA BLUE TEST STRIP [facility]) Active OneTouch Ultra Test strip USE TO TEST ONCE QD Active blood-glucose meter (OneTouch Ultra2 Meter) [facility] [place] Active docusate sodium (COLACE) 100 mg capsuleIndicati [...] around site). - home tube feeding (ordered [employer] Peptide 1.5 kcal 365ml qid with water 250ml qid flushes) Confusion 05/24/2025 Assessment & Plan (05/25/2025 10:14 AM CDT): Woke up confused this morning. Alert and oriented to self only. Hemodynamically stable. Denied any signs symptoms of infection. Labs from overnight stable. Exam unremarkable. Per patient's granddaughter [facility] patient often wakes up in [...] overnight stable. Exam unremarkable. Per patient's granddaughter [facility] patient often wakes up in [...] 11/24/2024 Assessment & Plan (11/26/2024 2:09 PM PROPELLANT ASSEMBLER): Secondary to dehydration and in setting of [...] 11/21/2024 Assessment & Plan (11/22/2024 5:47 PM PROPELLANT ASSEMBLER): Cr 4.65 on admission, baseline 0.6 - likely pre-renal - s/p 2L bolus - continue maintenance IVF - avoid nephrotoxic medications - strict I+Os - bladder scan/straight cath PRN - monitor UO - Improving Elevated troponin 11/21/2024 Assessment & Plan (11/23/2024 2:45 PM PROPELLANT ASSEMBLER): Resolved. Trop 24 >17. Denies chest pain. EKG without ischemic changes. - monitor Hypotension 11/21/2024 Assessment & Plan (11/24/2024 10:52 AM PROPELLANT ASSEMBLER): RESOLVED Noted to be hypotensive during the g-tube exchange in IR today (60/40s). ACT called in recovery room and she rec'd 1L bolus with improvement to 80-90s/30-40s. She was sent to ER for further management. Received 2 more liter boluses. Unclear if pt took her blood pressure medications this morning. - monitor b/p Chronic anemia 11/16/2024 Assessment & Plan (11/21/2024 3:55 PM PROPELLANT ASSEMBLER): Hgb 10.1 on admission, baseline ~11 - [...] 08/18/2024 Assessment & Plan (11/24/2024 10:46 AM PROPELLANT ASSEMBLER): Swallow function study (MBS) on 10/18/24 with [...] RD Assessment & Plan (11/21/2024 4:47 PM PROPELLANT ASSEMBLER): - Crop Duster Helper consult, appreciate recommendations Assessment & Plan (08/23/2024 9:59 AM CDT): Due to esophageal mass and dysphagia, significant weight loss, patient estimates ~40 pounds -manager wellness consult for tube feeding recommendations, started on TF and now at goal without worsening sx. -at risk for re-feeding syndrome, monitor BMP, Mg, Phos daily. Lab work currently stable. -pt and daughter to receive TF education by [facility] then to discharge home Suspected condition 04/03/2021 [...] PCP Assessment & Plan (11/26/2024 2:10 PM PROPELLANT ASSEMBLER): RESOLVED. Antihypertensives held on admission in setting [...] if needed seek the expertise of a electricians top helper. Educated her on normal BMI range of [...] 11/22/2024 Assessment & Plan (11/22/2024 5:50 PM PROPELLANT ASSEMBLER): K 3.7 at admission, now 2.6. Receiving potassium 40mEq IV. - replete to maintain K>4 - monitor BMP Assessment & Plan (08/21/2024 9:12 AM CDT): Hypokalemia noted at OSH s/p replacement. Required additional aggressive IV repletion here, now normalized Encounters Date Type Department Care Team Description 09/01/2025 Orders Only [facility] Medicine Oncology [address] [place] [address] [address] [place] [address] Katharine Almonte MD PhD Metastasis to bone (Primary Dx); On tube feeding diet; Malaise and fatigue; Gastroesophageal cancer 09/01/2025 Telephone [facility] Medicine Oncology [address] [place] [address] 5 [place] [address] Radha Baca RN 08/30/2025 9:30 AM PROPELLANT ASSEMBLER Office Visit [facility] Medicine Oncology [address] [facility] [address] [place] [phone] Katharine Almonte MD PhD 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); Metastasis to bone 08/30/2025 8:30 AM PROPELLANT ASSEMBLER Clinical Support [facility] [address] [facility] [place] [phone] 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); Metastasis to bone 08/30/2025 Orders Only [facility] Oncology [facility] Floor 5 [place] [phone] Katharine Almonte MD PhD Metastasis to bone (Primary Dx); 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); Metastasis to bone Discharge Disposition: Discharge to home or self care 08/21/2025 [facility]phone [facility] [address] [facility] Floor 5 [place] [phone] Jerri Rao RMA Scheduling Appointments 08/18/2025 Telephone [facility] Medicine Oncology [address] [place] [address] [address] [place] [phone] Sergio Jimenez 08/18/2025 Social Work [facility] Medicine Oncology [facility] Floor 1, [address] [place] [phone] Lala Ramires, FOUNDRY MELT SUPERVISOR 08/17/2025 Documentation [facility] Medicine Oncology [address] [place] [address] [address] [place] [phone] Slime Rendon, FOUNDRY MELT SUPERVISOR 08/17/2025 Telephone [facility] Medicine Oncology [facility] Floor 5 [place] [phone] Josee Olmedo RN 08/16/2025 3:30 PM CDT Infusion [facility] at [address] [place] [phone] Metastasis to bone; 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) 08/16/2025 2:00 PM CDT Infusion [facility] at [address] [place] [phone] Hypernatremia (Primary Dx); 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); Metastasis to bone 08/16/2025 1:30 PM CDT Office Visit [facility] Medicine Oncology [address] [place] [address] [address] [place] [phone] Danisha Mejias, JEFF 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); Metastasis to bone 08/16/2025 12:30 PM CDT Clinical Support [facility] Cancer Cammal at [address] [place] [phone] 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); Metastasis to bone 08/16/2025 Orders [facility] [address] [place] [address] 5 [place] [address] Katharine Almonte MD PhD 08/14/2025 2:48 PM CDT - 08/14/2025 11:59 PM CDT Hospital [facility] Imaging [address] [facility] [address] Katharine Almonte MD PhD Gastroesophageal cancer; Metastasis to bone Discharge Disposition: Discharge to home or self care 08/04/2025 3:00 PM CDT Infusion [address] [address] 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); Hypernatremia 08/04/2025 1:45 PM CDT Clinical Support [address] [address] 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); Hypernatremia 08/04/2025 Documentation [facility] [address] [place] [phone] Radha Baca, RN 08/04/2025 Orders Only [facility] [address] [place] [address] 5 [place] [address] Katharine Almonte MD PhD 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); Hypernatremia; Dehydration 08/03/2025 Telephone [facility] Medicine Oncology [address] [place] [address] 5 [place] [address] Radha Baca, RN 08/03/2025 Orders Only [facility] [address] [place] [address] 5 [place] [address] Katharine Almonte MD PhD 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); Hypernatremia 08/02/2025 11:00 AM CDT Infusion [facility] [address] [place] [address] Metastasis to bone (Primary Dx); 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) 08/02/2025 10:30 AM CDT Office Visit [facility] Medicine Oncology [address] [place] [address] [address] [place] [address] Danisha Mejias NP Gastroesophageal cancer (Primary Dx); 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); Metastasis to bone 08/02/2025 9:30 AM CDT Clinical Support [facility] Cancer Cammal at [address] [place] [phone] Metastasis to bone (Primary Dx); 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) 08/02/2025 Orders Only [facility] Medicine Oncology [address] [place] [address] 5 [place] [address] Danisha Mejias NP 08/02/2025 Orders Only [facility] Medicine Oncology [address] [place] [address] 5 [place] [address] Katharine Almonte MD PhD 08/02/2025 Documentation [facility] Cancer Cammal at [address] [place] [address] Molly Garcias, MICHELLE 07/26/2025 1:30 PM CDT Home Care Visit [address] [place] [address] Vika Hernandez, RN SN OASIS DISCHARGE 07/21/2025 2:00 PM CDT Home Care Visit [address] [place] [address] Vika Hernandez, RN SN HOME VISIT 07/21/2025 1:00 PM CDT Clinical Support [facility] Cancer Cammal at [address] [place] [address] 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) 07/19/2025 12:30 PM CDT Infusion [facility] Cancer Cammal at [address] [place] [address] Metastasis to bone; 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) 07/19/2025 11:00 AM CDT Infusion [facility] at [address] [place] [address] Metastasis to bone (Primary Dx); 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) 07/19/2025 10:30 AM CDT Office Visit [facility] Medicine Oncology [address] [place] [address] [address] [place] [address] Katharine Almonte MD PhD Metastasis to bone (Primary Dx); 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); Cough, unspecified type 07/19/2025 9:30 AM CDT Clinical Support [address] [place] [address] Metastasis to bone; 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) 07/12/2025 2:00 PM CDT Home Care Visit [address] [place] [address] [address] [place] [address] Vika Hernandez, RN SN OASIS RESUMPTION OF CARE 07/12/2025 Plan of Care Documentation [address] [place] [address] 07/09/2025 Home Care Visit [address] [place] [address] Vika Hernandez, RN SN OASIS TRANSFER W/OUT DC 07/08/2025 3:09 PM CDT - 07/10/2025 3:00 PM CDT Hospital Encounter [address] [address] John Jorge MD Aranha, Olivia, MD PhD Allen Soto MD At risk for inadequate pain control (Primary Dx); Hypertensive urgency; Chest pain, unspecified type; Fever of unknown origin; Squamous cell esophageal cancer; Abnormal vital signs; Noncompliance with treatment Discharge Disposition: Discharge to home, home health skilled care 07/08/2025 12:00 PM CDT Home Care Visit [address] [place] [address] Vika Hernandez, MORALES SN HOME VISIT 07/07/2025 12:00 PM CDT Clinical Support [address] [place] [address] 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) 07/05/2025 11:00 AM CDT Infusion [address] [place] [address] Metastasis to bone (Primary Dx); 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) 07/05/2025 10:30 AM CDT Office Visit [facility] Medicine Oncology [address] [place] [address] [address] [place] [phone] Katharine Almonte MD PhD Gastroesophageal cancer (Primary Dx); Metastasis to bone; 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) 07/05/2025 9:30 AM CDT Clinical Support [address] [place] [address] 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); Metastasis to bone 07/05/2025 Orders Only [facility] Medicine Oncology [address] [facility] Floor 5 [place] [address] Katharine Almonte MD PhD 06/29/2025 12:30 PM CDT Home Care Visit [address] [place] [address] Vika Hernandez, MORALES SN HOME VISIT 06/23/2025 1:30 PM CDT Clinical Support [facility] at [address] [place], [place] [address] 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); Metastasis to bone 06/23/2025 Telephone [facility] Oncology [address] [place] [address] [address] [place], [place] [address] Katharine Almonte MD PhD 06/23/2025 Orders Only [facility] Oncology [address] [place] [address] [address] [place], [place] [address] Katharine Almonte MD PhD 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); Metastasis to bone 06/21/2025 12:30 PM CDT Infusion [facility] at [address] [place], [place] [address] Metastasis to bone; 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) 06/21/2025 11:00 AM CDT Infusion [facility] Cancer Cammal at [address] [place], [place] [address] Metastasis to bone (Primary Dx); 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) 06/21/2025 10:30 AM CDT Office Visit [facility] Oncology [address] [place] [address] [address] [place], [place] [address] Katharine Almonte MD PhD Gastroesophageal cancer (Primary Dx); Metastasis to bone; 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) 06/21/2025 9:30 AM CDT Clinical Support [facility] at [address] [place], [place] [address] 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); Metastasis to bone 06/21/2025 Documentation [facility] Cancer Cammal at [address] [place], [place] [address] Molly Garcias, MICHELLE 06/16/2025 11:00 AM CDT Home Care Visit [address] [place] [address] Vika Hernandez, MORALES SN HOME VISIT 06/16/2025 Telephone [facility] Oncology [address] [place] [address] Floor [address] [place] [phone] Radha Baca, MORALES 06/13/2025 Telephone [facility] Oncology [address] [place] [address] 5 [place] [phone] Radha Baca, MORALES 06/13/2025 Orders Only [facility] Oncology [address] [place] [address] Floor 5 [place] [address] Katharine Almonte MD PhD Metastasis to bone (Primary Dx); 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) 06/09/2025 1:00 PM CDT Clinical Support [facility] at [address] [place] [address] 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); Metastasis to bone 06/08/2025 12:30 PM CDT Home Care Visit [address] [place] [address] Vika Hernandez, MORALES SN HOME VISIT 06/08/2025 Documentation [facility] On[facility] [address] [place] [address] [place] [address] Slime Rendon, FOUNDRY MELT SUPERVISOR 06/08/2025 Documentation [facility] [address] [place] [address] [place] [address] Slime Rendon, FOUNDRY MELT SUPERVISOR 06/08/2025 Telephone [facility] On[facility] [address] [place] [address] 5 [place] [address] Radha Baca, MORALES 06/07/2025 11:00 AM CDT Infusion [address] [place] [phone] Metastasis to bone (Primary Dx); 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) 06/07/2025 10:30 AM CDT Office Visit [facility] Medicine Oncology [address] [place] [address] [address] [place] [phone] Katharine Almonte MD PhD Metastasis to bone (Primary Dx); 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) 06/07/2025 9:30 AM CDT Clinical Support [facility] at [address] [place] [phone] 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 No 05/22/2025 Social Connection and Isolation Panel Answer Date Recorded In a typical week, how many times do you talk on the phone with family, friends, or neighbors? More than three times a week 07/10/2025 How often do you get togethe r with friends or relatives? More than three times a week 07/10/2025 How often do you attend chur ch or uatsdin services? Never 07/10/2025 Do you belong to any clubs o r organizations such as protestant groups, unions, fraternal or athletic groups, or [...] were you homeless or living in a fci (including now)? No 07/10/2025 [facility] Utilities Answer Date Recorded In the past 12 months has th e [employer], gas, oil, or water company threatened to [...] Comments Blood Pressure 133/102 08/30/2025 11:04 AM PROPELLANT ASSEMBLER Pulse 62 08/30/2025 11:04 AM PROPELLANT ASSEMBLER Temperature 36.1 C (97 F) 08/30/2025 11:04 AM PROPELLANT ASSEMBLER Respiratory Rate 16 08/30/2025 11:04 AM PROPELLANT ASSEMBLER Oxygen Saturation 100% 08/30/2025 11:04 AM PROPELLANT ASSEMBLER Inhaled Oxygen Concentration - - Weight 62.4 kg (137 lb 9.1 oz) 08/30/2025 11:04 AM PROPELLANT ASSEMBLER Height 165.1 cm (5' 5) 07/08/2025 10:45 [...] 07/10/2025, 04/05/20 Medical Devices Implanted Type Area Supervisor Home Energy Consultant Device Identifier Shelf Expiration Date Model / Serial / Lot [employer] Excela Low Porfile Power Port 8fr 1.6mm 1 Lumen [id number] - [id number] Implanted:Qty: 1 on 12/27/2024 at [facility] [employer] 08/07/2029 [id number] / / [id number] Procedures Procedure Name Priority Date/Time Associated Diagnosis Comments EGFR Routine 08/30/2025 9:01 AM PROPELLANT ASSEMBLER 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 73 m2 Comment: [...] was last reviewed 2021. Testing performed by: [facility], [address], [place] [address] Blood 08/30/2025 9:01 AM PROPELLANT ASSEMBLER 08/30/2025 9:17 AM PROPELLANT ASSEMBLER us Danisha Mejias NP LAB BLOOD ORDERABLES Deana guallpa Result DIAMANTE [facility] [address] Department [place] [address] * (ABNORMAL) Differential, auto (08/30/2025 9:01 AM PROPELLANT ASSEMBLER) Neutrophil abs 9.74(H) 1.50 - 6.50 K/cumm Comment:Testing performed by : [facility], [facility], [address] [place] [address] Imm gran abs 0.08 0.00 - 0.10 K/cumm CERNER BJWCH Comment:Testing performed by : [facility], [facility], [address] [place] [address] Lymphocyte abs 1.17 0.80 - 3.30 K/cumm CERNER BJWCH Comment:Testing performed by : [facility] 2, [address] [place] [address] Monocyte abs 1.46(H) 0.20 - 0.80 K/cumm CERNER BJWCH Comment:Testing performed by : [facility], [address] [place] [address] Eosinophil abs 0.05 0.00 - 0.50 K/cumm CERNER BJWCH Comment:Testing performed by : [facility], [facility], [address] [place] [address] Basophil abs 0.03 0.00 - 0.10 K/cumm CERNER B[facility]CH Comment:Testing performed by : [facility], [address] [place] [address] Neutrophil pct 77.8 % CERNER [facility] Comment: Interpretive Data Percent cell count reference ranges are not reported, since discordance with absolute values may lead to misinterpretation of CBC data. Current Interpretive Data was last revised on 2018. Testing performed by: [facility], [address] [place] [address] Imm gran pct 0.6 % CERNER BJ[facility] Comment: Interpretive Data Percent cell count reference ranges are not reported, since discordance with absolute values may lead to misinterpretation of CBC data. Current Interpretive Data was last revised on 2018. Testing performed by: [facility], [address] [place] [address] Lymphocyte pct 9.3 % DIAMANTE SILVESTRE Comment: Interpretive Data Percent cell count reference ranges are not reported, since discordance with absolute values may lead to misinterpretation of CBC data. Current Interpretive Data was last revised on 2018. Testing performed by: [facility], [facility], [address] [place] [address] Monocyte pct 11.7 % CEREDITH SILVESTRE Comment: Interpretive Data Percent cell count reference ranges are not reported, since discordance with absolute values may lead to misinterpretation of CBC data. Current Interpretive Data was last revised on 2018. Testing performed by: [facility], [facility], [address] [place] [address] Eosinophil pct 0.4 % DIAMANTE SILVESTRE Comment: Interpretive Data Percent cell count reference ranges are not reported, since discordance with absolute values may lead to misinterpretation of CBC data. Current Interpretive Data was last revised on 2018. Testing performed by: [facility], [facility], [address] [place] [address] Basophil pct 0.2 % DIAMANTE KHOURYJOSESITO Comment: Interpretive Data Percent cell count reference ranges are not reported, since discordance with absolute values may lead to misinterpretation of CBC data. Current Interpretive Data was last revised on 2018. Testing performed by: [facility], [facility], [address] [place] [address] Blood 08/30/2025 9:01 AM [employer]OPELLANT ASSEMBLER 08/30/2025 9:02 AM PROPELLANT ASSEMBLER us Danisha Mejias JAPANESE TUTOR LAB BLOOD ORDERABLES Deana l Result DIAMANTE [facility] [address] [facility]. [place] [address] * (ABNORMAL) CBC with auto differential (08/30/2025 9:01 AM PROPELLANT ASSEMBLER) WBC 12.53(H) 3.80 - 9.90 K/cumm Comment:Testing performed by : [facility], [facility], [address] [place] [address] Hgb 10.4(L) 11.9 - 15.5 g/dL CERNER BJWCH Comment:Testing performed by : [facility] 2, [address] [place] [address] Hct 32.6(L) 35.6 - 45.5 % CERNER BJWCH Comment:Testing performed by : [place] [address], [address], [place] [address] Plt 357 150 - 400 K/cumm CERNER BJWCH Comment:Testing performed by : [place] [address], [address], [place] [address] MPV 9.8 9.1 - 12.3 fL CERNER BJWCH Comment:Testing performed by : [place] [address], [address], [place] [address] RBC 3.45(L) 3.90 - 5.20 M/cumm CERNER BJWCH Comment:Testing performed by : [place] [address], [address], [place] [address] MCV 94.5 81.3 - 96.4 fL CERNER BJWCH Comment:Testing performed by : [place] [address], [address], [place] [address] MCH 30.1 27.1 - 33.3 pg CERNER BJWCH Comment:Testing performed by : [place] [address], [address] [place] [address] MCHC 31.9(L) 32.3 - 35.7 g/dL CERNER BJWCH Comment:Testing performed by : [facility] 2, [address], [place] [address] RDW CV 13.9 11.1 - 14.9 % CERNER BJWCH Comment:Testing performed by : [place] [address], [address] [place] [address] RDW SD 47.8 35.7 - 48.1 fL DIAMANTE SILVESTRE Comment:Testing performed by : [facility], [facility], [address] [place] [address] ANC Prelim 9.74(H) 1.50 - 6.50 K/cumm DIAMANTE SILVESTRE Comment: Interpretive Data The rapid ANC is a preliminary automated count and may vary from the final ANC (Neut Abs) reported in the WBC differential that follows. Current interpretive data was last revised 2025. Testing performed by: [facility], [facility], [address] [place] [address] Blood 08/30/2025 9:01 AM PROPELLANT ASSEMBLER 08/30/2025 9:02 AM PROPELLANT ASSEMBLER us Danisha Mejias JAPANESE TUTOR LAB BLOOD ORDERABLES Deana guallpa Result DIAMANTE GLASS [address] [address]. Department [place] [address] * (ABNORMAL) Comprehensive metabolic panel (08/30/2025 9:01 AM PROPELLANT ASSEMBLER) Sodium 139 135 - 145 mmol/L Comment:Testing performed by : [facility], [address], [place] [address] Potassium, pl 4.6 3.3 - 4.9 mmol/L DIAMANTE SILVESTRE Comment:Testing performed by : [facility], [address], [place] [address] Chloride 107 97 - 110 mmol/L DIAMANTE SILVESTRE Comment:Testing performed by : [facility], [address], [place] [address] CO2 22 22 - 32 mmol/L DIAMANTE SILVESTRE Comment:Testing performed by : [facility], [address], [place] [address] Anion gap 10 2 - 15 mmol/L DIAMANTE SILVESTRE Comment:Testing performed by : [facility], [address], [place] [address] BUN 41(H) 6 - 25 mg/dL CERNER BJWCH Comment:Testing performed by : [facility], [address], [place] [address] Creatinine 0.93 0.60 - 1.10 mg/dL CERNER BJWCH Comment:Testing performed by : [facility], [address], [place] [address] Glucose 128 70 - 199 mg/dL CERNER [...] Care 202; 46: S19-S40. Testing performed by: [facility], [address], [place] [address] Calcium 8.2(L) 8.5 - 10.3 mg/dL CERNER BJWCH Comment:Testing performed by : [facility], [address], [place] [address] Bilirubin, total 0.3 0.1 - 1.2 mg/dL CERNER BJWCH Comment:Testing performed by : [facility], [address], [place] [address] Protein, pl 6.7 6.5 - 8.5 g/dL CERNER BJWCH Comment:Testing performed by : [facility], [address], [place] [address] Albumin 2.7(L) 3.5 - 5.0 g/dL CERNER BJWCH Comment:Testing performed by : [facility], [address], [place] [address] Alk phos 129 40 - 130 Units/L CERNER BJWCH Comment:Testing performed by : [facility], [address], [place] [address] ALT 40 7 - 45 Units/L DIAMANTE SILVESTRE Comment:Testing performed by : [facility], [address] [place] [address] AST 77(H) 10 - 45 Units/L DIAMANTE SILVESTRE Comment:Testing performed by : [facility], [address] [place] [address] Blood 08/30/2025 9:01 AM PROPELLANT ASSEMBLER 08/30/2025 9:17 AM PROPELLANT ASSEMBLER us Danisha Mejias JAPANESE TUTOR LAB BLOOD ORDERABLES Deana l Result DIAMANTE GLASS [id number] [address]. Department [place] [address] * MRI Abdomen Liver W WO Contrast [...] by: Lily Donnelly M.D. Danisha Mejias NP [facility] MRI PROCEDURES Final Result * eGFR (08/16/2025 [...] was last reviewed 2021. Testing performed by: [facility], [address] [place] [address] Blood 08/16/2025 1:0 1 PM CDT 08/16/2025 1:30 PM CDT us Katharine Almonte MD PhD LAB BLOOD ORDERABLES Final Result [facility] [address] [address]. Department [place] [address] * (ABNORMAL) Differential, auto (08/16/2025 1:01 PM CDT) Neutrophil abs 4.70 1.50 - 6.50 K/cumm Comment:Testing performed by : [facility], [facility], [address] [place] [address] Imm gran abs 0.02 0.00 - 0.10 K/cumm DIAMANTE SILVESTRE Comment:Testing performed by : [facility] 2, [address] [place] [address] Lymphocyte abs 0.98 0.80 - 3.30 K/cumm DIAMANTE SILVESTRE Comment:Testing performed by : [facility] 2, [address] [place] [address] Monocyte abs 0.88(H) 0.20 - 0.80 K/cumm DIAMANTE SILVESTRE Comment:Testing performed by : [facility] 2, [address] [place] [address] Eosinophil abs 0.21 0.00 - 0.50 K/cumm DIAMANTE SILVESTRE Comment:Testing performed by : [facility] 2, [address] [place] [address] Basophil abs 0.03 0.00 - 0.10 K/cumm CERNER BJWCH Comment:Testing performed by : [facility], [facility] 2, [address], [place] [address] Neutrophil pct 68.9 % CERNER BJWCH Comment: Interpretive Data Percent cell count reference ranges are not reported, since discordance with absolute values may lead to misinterpretation of CBC data. Current Interpretive Data was last revised on 2018. Testing performed by: [facility], [facility] 2, [address] [place] [address] Imm gran pct 0.3 % CERNER BJWCH Comment: Interpretive Data Percent cell count reference ranges are not reported, since discordance with absolute values may lead to misinterpretation of CBC data. Current Interpretive Data was last revised on 2018. Testing performed by: [facility], [facility] 2, [address] [place] [address] Lymphocyte pct 14.4 % CERNER BJWCH Comment: Interpretive Data Percent cell count reference ranges are not reported, since discordance with absolute values may lead to misinterpretation of CBC data. Current Interpretive Data was last revised on 2018. Testing performed by: [facility], [facility] 2, [address] [place] [address] Monocyte pct 12.9 % CERNER BJWCH Comment: Interpretive Data Percent cell count reference ranges are not reported, since discordance with absolute values may lead to misinterpretation of CBC data. Current Interpretive Data was last revised on 2018. Testing performed by: [facility], [facility], [address] [place] [address] Eosinophil pct 3.1 % CERNER BJWCH Comment: Interpretive Data Percent cell count reference ranges are not reported, since discordance with absolute values may lead to misinterpretation of CBC data. Current Interpretive Data was last revised on 2018. Testing performed by: [facility], [facility] 2, [address] [place] [address] Basophil pct 0.4 % DIAMANTE SILVETSRE Comment: Interpretive Data Percent cell count reference ranges are not reported, since discordance with absolute values may lead to misinterpretation of CBC data. Current Interpretive Data was last revised on 2018. Testing performed by: [facility] 2, [address] [place] [address] Blood 08/16/2025 1:01 PM CDT 08/16/2025 1:07 PM CDT us Katharine Almonte MD PhD LAB BLOOD ORDERABLES Final Result [facility] [address] [facility]. Department [place] [address] * (ABNORMAL) CBC with auto differential (08/16/2025 1:01 PM CDT) WBC 6.82 3.80 - 9.90 K/cumm Comment:Testing performed by : [facility] 2, [address] [place] [address] Hgb 9.6(L) 11.9 - 15.5 g/dL DIAMANTE SILVESTRE Comment:Testing performed by : [facility] 2, [address] [place] [address] Hct 30.6(L) 35.6 - 45.5 % DIAMANTE SILVESTRE Comment:Testing performed by : [facility] 2, [address] [place] [address] Plt 258 150 - 400 K/cumm DIAMANTE SILVESTRE Comment:Testing performed by : [place] [address], [address] [place] [address] MPV 9.7 9.1 - 12.3 fL DIAMANTE SILVESTRE Comment:Testing performed by : [facility] 2, [address] [place] [address] RBC 3.11(L) 3.90 - 5.20 M/cumm DIAMANTE SILVESTRE Comment:Testing performed by : [facility], [facility], [address] [place] [address] MCV 98.4(H) 81.3 - 96.4 fL DIAMANTE SILVESTRE Comment:Testing performed by : [facility] 2, [address] [place] [address] MCH 30.9 27.1 - 33.3 pg DIAMANTE SILVESTRE Comment:Testing performed by : [place] [address], [address] [place] [address] MCHC 31.4(L) 32.3 - 35.7 g/dL DIAMANTE SILVESTRE Comment:Testing performed by : [facility] 2, [address] [place] [address] RDW CV 14.3 11.1 - 14.9 % DIAMANTE SILVESTRE Comment:Testing performed by : [place] [address], [address] [place] [address] RDW SD 51.5(H) 35.7 - 48.1 fL DIAMANTE SILVESTRE Comment:Testing performed by : [place] [address], [address] [place] [address] ANC Prelim 4.70 1.50 - 6.50 K/cumm DIAMANTE SILVESTRE Comment: Interpretive Data The rapid ANC is a preliminary automated count and may vary from the final ANC (Neut Abs) reported in the WBC differential that follows. Current interpretive data was last revised 2025. Testing performed by: [facility] 2, [address] [place] [address] Blood 08/16/2025 1:01 PM CDT 08/16/2025 1:07 PM CDT us Katharine Almonte MD PhD LAB BLOOD ORDERABLES Final Result DIAMANTE KHOURYCH [address] [facility]. Department of [employer] [place] [address] * (ABNORMAL) Comprehensive metabolic panel (08/16/2025 1:01 PM CDT) Sodium 144 135 - 145 mmol/L Comment:Testing performed by : [facility], [address], [place] [address] Potassium, pl 4.1 3.3 - 4.9 mmol/L CERNER BJWCH Comment:Testing performed by : [facility], [address], [place] [address] Chloride 111(H) 97 - 110 mmol/L CERNER BJWCH Comment:Testing performed by : [facility], [address], [place] [address] CO2 24 22 - 32 mmol/L CERNER BJWCH Comment:Testing performed by : [facility], [address], [place] [address] Anion gap 9 2 - 15 mmol/L CERNER BJWCH Comment:Testing performed by : [facility], [address], [place] [address] BUN 14 6 - 25 mg/dL CERNER BJWCH Comment:Testing performed by : [facility], [address], [place] [address] Creatinine 0.54(L) 0.60 - 1.10 mg/dL CERNER BJWCH Comment:Testing performed by : [facility], [address], [place] [address] Glucose 83 70 - 199 mg/dL CERNER [...] was last revised 2022. Testing performed by: [facility], [address], [place] [address] Calcium 8.5 8.5 - 10.3 mg/dL CERNER BJWCH Comment:Testing performed by : [facility], [address], [place] [address] Bilirubin, total 0.3 0.1 - 1.2 mg/dL CERNER BJWCH Comment:Testing performed by : [facility], [address], [place] [address] Protein, pl 6.9 6.5 - 8.5 g/dL CERNER BJWCH Comment:Testing performed by : [facility], [address], [place] [address] Albumin 2.9(L) 3.5 - 5.0 g/dL CERNER BJWCH Comment:Testing performed by : [facility], [address], [place] [address] Alk phos 91 40 - 130 Units/L CERNER BJWCH Comment:Testing performed by : [facility], [address], [place] [address] ALT 18 7 - 45 Units/L CERNER BJWCH Comment:Testing performed by : [facility], [address], [place] [address] AST 32 10 - 45 Units/L CERNER BJWCH Comment:Testing performed by : [facility], [address], [place] [address] Blood 08/16/2025 1:01 PM CDT 08/16/2025 1:30 PM CDT us Katharine Almonte MD PhD LAB BLOOD ORDERABLES Final Result DIAMANTE [facility] [address] Department [place] [address] * CT Chest Abdomen Pelvis W Contrast [...] was last reviewed 2021. Testing performed by: [facility], [address] [place] [address] Blood 08/04/2025 3:40 PM CDT 08/04/2025 4:06 PM CDT Katharine Almonte MD PhD LAB BLOOD ORDERABLES Final Result [facility] [address] [address]. Department [place] [address] * (ABNORMAL) Basic metabolic panel (08/04/2025 3:40 PM CDT) Sodium 143 135 - 145 mmol/L Comment:Testing performed by : [facility], [address], [place] [address] Potassium, pl 4.5 3.3 - 4.9 mmol/L DIAMANTE SILVESTRE Comment:Testing performed by : [facility], [address] [place] [address] Chloride 110 97 - 110 mmol/L DIAMANTE SILVESTRE Comment:Testing performed by : [facility], [address] [place] [address] CO2 26 22 - 32 mmol/L DIAMANTE SILVESTRE Comment:Testing performed by : [facility], [address] [place] [address] Anion gap 8 2 - 15 mmol/L DIAMANTE SILVESTRE Comment:Testing performed by : [facility], [address] [place] [address] BUN 21 6 - 25 mg/dL DIAMANTE KHOURYWJOSESITO Comment:Testing performed by : [facility], [address], [place] [address] Creatinine 0.53(L) 0.60 - 1.10 mg/dL DIAMANTE SILVESTRE Comment:Testing performed by : [facility], [address] [place] [address] Glucose 121 70 - 199 mg/dL DIAMANTE [...] was last revised 2022. Testing performed by: [facility], [address], [place] [address] Calcium 8.3(L) 8.5 - 10.3 mg/dL DIAMANTE SILVESTRE Comment:Testing performed by : [facility], [address] [place] [address] Blood 08/04/2025 3:40 PM CDT 08/04/2025 4:06 PM CDT Katharine Almonte MD PhD LAB BLOOD ORDERABLES Final Result [facility] [address]. Department [place] [address] * eGFR (08/02/2025 3:46 PM CDT) eGFR [...] was last reviewed 2021. Testing performed by: [facility], [address] [place] [address] Blood 08/02/2025 3:46 PM CDT 08/02/2025 4:27 PM CDT us Danisha Mejias NP LAB BLOOD ORDERABLES Deana guallpa Result [facility] [address] [address]. Department [place] [address] * (ABNORMAL) Basic metabolic panel (08/02/2025 3:46 PM CDT) Sodium 151(H) 135 - 145 mmol/L Comment:Testing performed by : [facility], [address] [place] [address] Potassium, pl 3.8 3.3 - 4.9 mmol/L DIAMANTE SILVESTRE Comment:Testing performed by : [facility], [address] [place] [address] Chloride 118(H) 97 - 110 mmol/L DIAMANTE SILVESTRE Comment:Testing performed by : [facility], [address] [place] [address] CO2 23 22 - 32 mmol/L DIAMANTE SILVESTRE Comment:Testing performed by : [facility], [address] [place] [address] Anion gap 10 2 - 15 mmol/L DIAMANTE SILVESTRE Comment:Testing performed by : [facility], [address] [place], [place] [address] BUN 23 6 - 25 mg/dL DIAMANTE SILVESTRE Comment:Testing performed by : [facility], [address] [place], [place] [address] Creatinine 0.52(L) 0.60 - 1.10 mg/dL DIAMANTE SILVESTRE Comment:Testing performed by : [facility], [address] [place] [address] Glucose 91 70 - 199 mg/dL DIAMANTE [...] was last revised 2022. Testing performed by: [facility], [address] [place] [place], [place] [address] Calcium 8.1(L) 8.5 - 10.3 mg/dL DIAMANTE SILVESTRE Comment:Testing performed by : [facility], [address] [place], [place] [address] Blood 08/02/2025 3:46 PM CDT 08/02/2025 4:27 PM CDT us Danisha Mejias NP LAB BLOOD ORDERABLES Deana l Result [facility] [address]. Department of [employer] [place] [address] * eGFR (08/02/2025 10:21 AM CDT) eGFR [...] was last reviewed 2021. Testing performed by: [facility], [address] [place] [address] Blood 08/02/2025 10:2 1 AM CDT 08/02/2025 10:47 AM CDT us Katharine Almonte MD PhD LAB BLOOD ORDERABLES Final Result DIAMANTE [facility] [address] [address]. Department of Laboratories [place], [place] [address] * (ABNORMAL) Differential, auto (08/02/2025 10:21 AM CDT) Neutrophil abs 4.20 1.50 - 6.50 K/cumm Comment:Testing performed by : [facility], [facility], [address] [place] [address] Imm gran abs 0.03 0.00 - 0.10 K/cumm DIAMANTE SILVESTRE Comment:Testing performed by : [facility], [facility], [address] [place] [address] Lymphocyte abs 1.07 0.80 - 3.30 K/cumm DIAMANTE SILVESTRE Comment:Testing performed by : [facility], [facility], [address], [place] [address] Monocyte abs 0.94(H) 0.20 - 0.80 K/cumm CERNER BJWCH Comment:Testing performed by : [facility], [facility] 2, [address] [place] [address] Eosinophil abs 0.37 0.00 - 0.50 K/cumm CERNER BJWCH Comment:Testing performed by : [facility], [facility] 2, [address] [place] [address] Basophil abs 0.02 0.00 - 0.10 K/cumm CERNER BJWCH Comment:Testing performed by : [facility], [facility], [address] [place] [address] Neutrophil pct 63.3 % CERNER BJWCH Comment: Interpretive Data Percent cell count reference ranges are not reported, since discordance with absolute values may lead to misinterpretation of CBC data. Current Interpretive Data was last revised on 2018. Testing performed by: [facility], [facility] 2, [address] [place] [address] Imm gran pct 0.5 % CERNER BJWCH Comment: Interpretive Data Percent cell count reference ranges are not reported, since discordance with absolute values may lead to misinterpretation of CBC data. Current Interpretive Data was last revised on 2018. Testing performed by: [facility], [facility], [address] [place] [address] Lymphocyte pct 16.1 % CERNER BJWCH Comment: Interpretive Data Percent cell count reference ranges are not reported, since discordance with absolute values may lead to misinterpretation of CBC data. Current Interpretive Data was last revised on 2018. Testing performed by: [facility], [facility], [address] [place] [address] Monocyte pct 14.2 % CERNER BJWCH Comment: Interpretive Data Percent cell count reference ranges are not reported, since discordance with absolute values may lead to misinterpretation of CBC data. Current Interpretive Data was last revised on 2018. Testing performed by: [facility], [facility], [address] [place] [address] Eosinophil pct 5.6 % DIAMANTE SILVESTRE Comment: Interpretive Data Percent cell count reference ranges are not reported, since discordance with absolute values may lead to misinterpretation of CBC data. Current Interpretive Data was last revised on 2018. Testing performed by: [facility] 2, [address] [place] [address] Basophil pct 0.3 % DIAMANTE SILVESTRE Comment: Interpretive Data Percent cell count reference ranges are not reported, since discordance with absolute values may lead to misinterpretation of CBC data. Current Interpretive Data was last revised on 2018. Testing performed by: [facility] 2, [address] [place] [address] Blood 08/02/2025 10:2 1 AM CDT 08/02/2025 10:27 AM CDT Katharine Almonte MD PhD LAB BLOOD ORDERABLES Final Result [facility] [address] [facility] Department [place] [address] * (ABNORMAL) CBC with auto differential (08/02/2025 10:21 AM CDT) WBC 6.63 3.80 - 9.90 K/cumm Comment:Testing performed by : [facility], [facility], [address] [place] [address] Hgb 10.5(L) 11.9 - 15.5 g/dL DIAMANTE SILVESTRE Comment:Testing performed by : [facility] 2, [address] [place] [address] Hct 34.5(L) 35.6 - 45.5 % DIAMANTE SILVESTRE Comment:Testing performed by : [facility] 2, [address] [place] [address] Plt 194 150 - 400 K/cumm DIAMANTE SILVESTRE Comment:Testing performed by : [facility] 2, [address] [place] [address] MPV 9.9 9.1 - 12.3 fL CERNER BJWCH Comment:Testing performed by : [place] [address] [place] [address] RBC 3.37(L) 3.90 - 5.20 M/cumm CERNER BJWCH Comment:Testing performed by : [place] [address] [place] [address] MCV 102.4(H) 81.3 - 96.4 fL CERNER BJWCH Comment:Testing performed by : [place] [address] [place] [address] MCH 31.2 27.1 - 33.3 pg CERNER BJWCH Comment:Testing performed by : [place] [address] [place] [address] MCHC 30.4(L) 32.3 - 35.7 g/dL CERNER BJWCH Comment:Testing performed by : [place] [address] [place] [address] RDW CV 14.6 11.1 - 14.9 % CERNER BJWCH Comment:Testing performed by : [place] [address] [place] [address] RDW SD 54.4(H) 35.7 - 48.1 fL CERNER BJWCH Comment:Testing performed by : [place] [address] [place] [address] ANC Prelim 4.20 1.50 - 6.50 K/cumm CERNER BJWCH Comment: Interpretive Data The rapid ANC is a preliminary automated count and may vary from the final ANC (Neut Abs) reported in the WBC differential that follows. Current interpretive data was last revised 2025. Testing performed by: [facility] [address] [place] [address] Blood 08/02/2025 10:2 1 AM CDT 08/02/2025 10:27 AM CDT us Katharine Almonte MD PhD LAB BLOOD ORDERABLES Final Result [facility] [address] Department [place] [address] * (ABNORMAL) Comprehensive metabolic panel (08/02/2025 10:21 AM CDT) Sodium 151(H) 135 - 145 mmol/L Comment:Testing performed by : [facility], [address], [place] [address] Potassium, pl 4.8 3.3 - 4.9 mmol/L DIAMANTE SILVESTRE Comment:Testing performed by : [facility], [address], [place] [address] Chloride 116(H) 97 - 110 mmol/L DIAMANTE SILVESTRE Comment:Testing performed by : [facility], [address], [place] [address] CO2 27 22 - 32 mmol/L CEREDITH KHOURYWCH Comment:Testing performed by : [facility], [address], [place] [address] Anion gap 8 2 - 15 mmol/L DIAMANTE GLASS Comment:Testing performed by : [facility], [address], [place] [address] BUN 27(H) 6 - 25 mg/dL CEREDITH BJWCH Comment:Testing performed by : [facility], [address], [place] [address] Creatinine 0.68 0.60 - 1.10 mg/dL DIAMANTE BJWCH Comment:Testing performed by : [facility], [address], [place] [address] Glucose 102 70 - 199 mg/dL CEREDITH [...] was last revised 2022. Testing performed by: [facility], [address], [place] [address] Calcium 9.1 8.5 - 10.3 mg/dL CERNER BJWCH Comment:Testing performed by : [facility], [address], [place] [address] Bilirubin, total 0.3 0.1 - 1.2 mg/dL CERNER BJWCH Comment:Testing performed by : [facility], [address], [place] [address] Protein, pl 7.2 6.5 - 8.5 g/dL CERNER BJWCH Comment:Testing performed by : [facility], [address], [place] [address] Albumin 3.1(L) 3.5 - 5.0 g/dL CERNER BJWCH Comment:Testing performed by : [facility], [address], [place] [address] Alk phos 87 40 - 130 Units/L CERNER BJWCH Comment:Testing performed by : [facility], [address], [place] [address] ALT 24 7 - 45 Units/L CERNER BJWCH Comment:Testing performed by : [facility], [address], [place] [address] AST 29 10 - 45 Units/L CERNER BJWCH Comment:Testing performed by : [facility], [address], [place] [address] Blood 08/02/2025 10:2 1 AM CDT 08/02/2025 10:47 AM CDT us Katharine Almonte MD PhD LAB BLOOD ORDERABLES Final Result [facility] [address]. Department [place] [address] * eGFR (07/19/2025 9:15 AM CDT) eGFR [...] was last reviewed 2021. Testing performed by: [facility], [facility], [facility] [place] [address] Blood 07/19/2025 9:15 AM CDT 07/19/2025 9:41 AM CDT Katharine Almonte MD PhD LAB BLOOD ORDERABLES Final Result Performing Organization Address City/[facility] Co de Phone Number DIAMANTE K[facility]OURY[facility] [address] [address]. Department [place] [address] * (ABNORMAL) Differential, auto (07/19/2025 9:15 AM CDT) Neutrophil abs 2.92 1.50 - 6.50 K/cumm Comment:Testing performed by : [facility], [facility] [address], [address] [place] [address] Imm gran abs 0.02 0.00 - 0.10 K/cumm CERNER BJWCH Comment:Testing performed by : [facility], [facility], [address] [place] [address] Lymphocyte abs 0.92 0.80 - 3.30 K/cumm CERNER BJWCH Comment:Testing performed by : [facility], [facility] 2, [address], [place] [address] Monocyte abs 0.84(H) 0.20 - 0.80 K/cumm CERNER BJWCH Comment:Testing performed by : [facility], [facility] 2, [address] [place] [address] Eosinophil abs 0.34 0.00 - 0.50 K/cumm CERNER BJWCH Comment:Testing performed by : [facility], [facility] 2, [address] [place] [address] Basophil abs 0.02 0.00 - 0.10 K/cumm CERNER BJWCH Comment:Testing performed by : [facility], [facility] 2, [address] [place] [address] Neutrophil pct 57.7 % CERNER BJWCH Comment: Interpretive Data Percent cell count reference ranges are not reported, since discordance with absolute values may lead to misinterpretation of CBC data. Current Interpretive Data was last revised on 2018. Testing performed by: [facility], [facility] 2, [address] [place] [address] Imm gran pct 0.4 % CERNER BJWCH Comment: Interpretive Data Percent cell count reference ranges are not reported, since discordance with absolute values may lead to misinterpretation of CBC data. Current Interpretive Data was last revised on 2018. Testing performed by: [facility], [facility] 2, [address] [place] [address] Lymphocyte pct 18.2 % CERNER BJWCH Comment: Interpretive Data Percent cell count reference ranges are not reported, since discordance with absolute values may lead to misinterpretation of CBC data. Current Interpretive Data was last revised on 2018. Testing performed by: [facility], [facility] 2, [address] [place] [address] Monocyte pct 16.6 % DIAMANTE SILVESTRE Comment: Interpretive Data Percent cell count reference ranges are not reported, since discordance with absolute values may lead to misinterpretation of CBC data. Current Interpretive Data was last revised on 2018. Testing performed by: [facility], [facility] 2, [address] [place] [address] Eosinophil pct 6.7 % DIAMANTE SILVESTRE Comment: Interpretive Data Percent cell count reference ranges are not reported, since discordance with absolute values may lead to misinterpretation of CBC data. Current Interpretive Data was last revised on 2018. Testing performed by: [facility] [address], [address] [place] [address] Basophil pct 0.4 % DIAMANTE SILVESTRE Comment: Interpretive Data Percent cell count reference ranges are not reported, since discordance with absolute values may lead to misinterpretation of CBC data. Current Interpretive Data was last revised on 2018. Testing performed by: [facility] [address], [address] [place] [address] Blood 07/19/2025 9:15 AM CDT 07/19/2025 9:19 AM CDT us Katharine Almonte MD PhD LAB BLOOD ORDERABLES Final Result [facility]NEEDITH [facility] [address] [facility] Department [place] [address] * (ABNORMAL) CBC with auto differential (07/19/2025 9:15 AM CDT) WBC 5.06 3.80 - 9.90 K/cumm Comment:Testing performed by : [facility] 2, [address] [place] [address] Hgb 9.3(L) 11.9 - 15.5 g/dL DIAMANTE SILVESTRE Comment:Testing performed by : [facility] 2, [address] [place] [address] Hct 28.8(L) 35.6 - 45.5 % CERNER BJWCH Comment:Testing performed by : [facility], [facility] 2, [address], [place] [address] Plt 276 150 - 400 K/cumm CERNER BJWCH Comment:Testing performed by : [facility] 2, [address] [place] [address] MPV 9.4 9.1 - 12.3 fL CERNER BJWCH Comment:Testing performed by : [place] [address], [address] [place] [address] RBC 2.93(L) 3.90 - 5.20 M/cumm CERNER BJWCH Comment:Testing performed by : [facility] 2, [address], [place] [address] MCV 98.3(H) 81.3 - 96.4 fL CERNER BJWCH Comment:Testing performed by : [place] [address], [address], [place] [address] MCH 31.7 27.1 - 33.3 pg CERNER BJWCH Comment:Testing performed by : [facility] 2, [address], [place] [address] MCHC 32.3 32.3 - 35.7 g/dL CERNER BJWCH Comment:Testing performed by : [facility] 2, [address] [place] [address] RDW CV 14.1 11.1 - 14.9 % CERNER BJWCH Comment:Testing performed by : [facility] 2, [address], [place] [address] RDW SD 50.6(H) 35.7 - 48.1 fL CERNER BJWCH Comment:Testing performed by : [facility] 2, [address], [place] [address] ANC Prelim 2.92 1.50 - 6.50 K/cumm CERNER BJWCH Comment: Interpretive Data The rapid ANC is a preliminary automated count and may vary from the final ANC (Neut Abs) reported in the WBC differential that follows. Current interpretive data was last revised 2025. Testing performed by: [facility], [facility] 2, [address] [place] [address] Blood 07/19/2025 9:15 AM CDT 07/19/2025 9:19 AM CDT us Katharine Almonte MD PhD LAB BLOOD ORDERABLES Final Result [facility] [address] Department of Laboratories [place], [place] [id number] * (ABNORMAL) Comprehensive metabolic panel (07/19/2025 9:15 AM CDT) Sodium 137 135 - 145 mmol/L Comment:Testing performed by : [facility], [address] [place] [address] Potassium, pl 4.9 3.3 - 4.9 mmol/L DIAMANTE SILVESTRE Comment:Testing performed by : [facility], [address] [place] [address] Chloride 106 97 - 110 mmol/L DIAMANTE SILVESTRE Comment:Testing performed by : [facility], [address] [place] [address] CO2 22 22 - 32 mmol/L DIAMANTE SILVESTRE Comment:Testing performed by : [facility], [address] [place] [address] Anion gap 9 2 - 15 mmol/L DIAMANTE SILVESTRE Comment:Testing performed by : [facility], [address] [place] [address] BUN 24 6 - 25 mg/dL DIAMANTE SILVESTRE Comment:Testing performed by : [facility], [address] [place] [address] Creatinine 0.56(L) 0.60 - 1.10 mg/dL DIAMANTE SILVESTRE Comment:Testing performed by : [facility], [address], [place] [address] Glucose 86 70 - 199 mg/dL CERNER [...] was last revised 2022. Testing performed by: [facility], [address], [place] [address] Calcium 8.6 8.5 - 10.3 mg/dL CERNER BJWCH Comment:Testing performed by : [facility], [address], [place] [address] Bilirubin, total 0.2 0.1 - 1.2 mg/dL CERNER BJWCH Comment:Testing performed by : [facility], [address], [place] [address] Protein, pl 6.4(L) 6.5 - 8.5 g/dL CERNER BJWCH Comment:Testing performed by : [facility], [address], [place] [address] Albumin 2.8(L) 3.5 - 5.0 g/dL CERNER BJWCH Comment:Testing performed by : [facility], [address], [place] [address] Alk phos 82 40 - 130 Units/L CERNER BJWCH Comment:Testing performed by : [facility], [address], [place] [address] ALT 19 7 - 45 Units/L CERNER BJWCH Comment:Testing performed by : [facility], [address], [place] [address] AST 21 10 - 45 Units/L CERNER BJWCH Comment:Testing performed by : [facility], [address], [place] [address] Blood 07/19/2025 9:15 AM CDT 07/19/2025 9:41 AM CDT us Katharine Almonte MD PhD LAB BLOOD ORDERABLES Final Result DIAMANTE [facility] [address] [facility]. Department [place] [address] * eGFR (07/10/2025 12:22 AM CDT) eGFR [...] ORDERABLES Fi nal Result DIAMANTE KHOURY [facility] Department [place] [address] * Differential, auto (07/10/2025 12:22 AM CDT) Neutrophil abs 2.22 1.50 - 6.50 K/cumm Imm gran abs 0.01 0.00 - 0.10 K/cumm [facility] Lymphocyte abs 1.17 0.80 - 3.30 K/cumm [facility] Monocyte abs 0.36 0.20 - 0.80 K/cumm [facility] Eosinophil abs 0.17 0.00 - 0.50 K/cumm [facility] Basophil abs 0.03 0.00 - 0.10 K/cumm [facility] Neutrophil pct 56.0 % [facility] Comment: Interpretive Data Percent cell count reference ranges are not reported, since discordance with absolute values may lead to misinterpretation of CBC data. Current Interpretive Data was last revised on 2018. Imm gran pct 0.3 % [facility] Comment: Interpretive Data Percent cell count reference ranges are not reported, since discordance with absolute values may lead to misinterpretation of CBC data. Current Interpretive Data was last revised on 2018. Lymphocyte pct 29.5 % [facility] Comment: Interpretive Data Percent cell count reference ranges are not reported, since discordance with absolute values may lead to misinterpretation of CBC data. Current Interpretive Data was last revised on 2018. Monocyte pct 9.1 % [facility] Comment: Interpretive Data Percent cell count reference ranges are not reported, since discordance with absolute values may lead to misinterpretation of CBC data. Current Interpretive Data was last revised on 2018. Eosinophil pct 4.3 % [facility] Comment: Interpretive Data Percent cell count reference ranges are not reported, since discordance with absolute values may lead to misinterpretation of CBC data. Current Interpretive Data was last revised on 2018. Basophil pct 0.8 % [facility] Comment: Interpretive Data Percent cell count reference ranges are not reported, since discordance with absolute values may lead to misinterpretation of CBC data. Current Interpretive Data was last revised on 2018. Blood 07/10/2025 12:2 2 AM CDT 07/10/2025 12:42 AM CDT Allen Kirill Soto MD LAB BLOOD ORDERABLES Fi nal Result [facility] Department [place] [address] * (ABNORMAL) CBC with auto differential (07/10/2025 12:22 AM CDT) Pathologist [facility] WBC 3.96 3.80 - 9.90 K/cumm Hgb 8.9(L) 11.9 - 15.5 g/dL [facility] Hct 28.3(L) 35.6 - 45.5 % [facility] Plt 256 150 - 400 K/cumm [facility] MPV 10.3 9.1 - 12.3 fL [facility] RBC 2.80(L) 3.90 - 5.20 M/cumm [facility] MCV 101.1(H) 81.3 - 96.4 fL [facility] MCH 31.8 27.1 - 33.3 pg [facility] MCHC 31.4(L) 32.3 - 35.7 g/dL [facility] RDW CV 14.3 11.1 - 14.9 % [facility] RDW SD 52.6(H) 35.7 - 48.1 fL [facility] NRBC abs 0.00 0.00 - 0.01 K/cumm [facility] Blood 07/10/2025 12:2 2 AM CDT 07/10/2025 12:42 AM CDT Allen Soto MD LAB BLOOD ORDERABLES Fi nal Result Performing Organization Address [facility]/ZIP Co de Phone Number [facility] Department [place] [address] * (ABNORMAL) Comprehensive metabolic panel (07/10/2025 12:22 AM CDT) [facility] Sodium 144 135 - 145 mmol/L Potassium, pl 3.6 3.3 - 4.9 mmol/L [facility] Chloride 112(H) 97 - 110 mmol/L [facility] CO2 28 22 - 32 mmol/L [facility] Anion gap 4 2 - 15 mmol/L [facility] BUN 18 6 - 25 mg/dL [facility] Creatinine 0.48(L) 0.60 - 1.10 mg/dL [facility] Glucose 80 70 - 199 mg/dL [facility] Comment: Interpretive Data Fasting glucose >/= 126 [...] 2022. Calcium 7.9(L) 8.5 - 10.3 mg/dL [facility] Bilirubin, total 0.2 0.1 - 1.2 mg/dL [facility] Protein, pl 6.3(L) 6.5 - 8.5 g/dL [facility] Albumin 2.4(L) 3.5 - 5.0 g/dL [facility] Alk phos 59 40 - 130 Units/L [facility] ALT 18 7 - 45 Units/L [facility] AST 21 10 - 45 Units/L [facility] Blood 07/10/2025 12:2 2 AM CDT 07/10/2025 12:42 AM CDT Allen Soto MD LAB BLOOD ORDERABLES nal Result [facility] Department [place] [address] * (ABNORMAL) Aerobic and anaerobic culture and gram stain Wound Abdominal (07/09/2025 10:37 AM CDT) Direct Specimen Exam Stain: Abundant polymorphonuclear leukocytes seen. Moderate Gram Positive Bacilli Few Yeast Rare Gram Negative Bacilli Slide reviewed and direct smear was updated. Report Final Report: Moderate Mixed microorganisms. Includes the following: Moderate Escherichia coli Moderate Dionne lusitaniae Moderate Dionne parapsilosis (.) [facility] Organism ESCHERICHIA COLI [facility] Organism DIONNE LUSITANIAE [facility] Organism DIONNE PARAPSILOSIS [facility] Organism MIXED MICROORGANISMS. [facility] Wound (Abdominal) 07/09/2025 10:37 AM CDT 07/09/2025 11:13 AM CDT Narrative DIAMANTE [facility] - 07/18/2025 11:31 AM CDT G tube Testing performed by [facility] Microbiology Laboratory ([phone]) Specimens submitted from normally sterile body sites [...] Susceptible Allen Soto MD LAB MICROBIOLOGY - [facility] ORDERABLES Final Result [facility] Department [place] [address] * (ABNORMAL) Differential, auto (07/08/2025 4:58 PM CDT) Neutrophil abs 4.05 1.50 - 6.50 K/cumm Imm gran abs 0.05 0.00 - 0.10 K/cumm [facility] Lymphocyte abs 0.78(L) 0.80 - 3.30 K/cumm [facility] Monocyte abs 0.27 0.20 - 0.80 K/cumm [facility] Eosinophil abs 0.07 0.00 - 0.50 K/cumm [facility] Basophil abs 0.02 0.00 - 0.10 K/cumm [facility] Neutrophil pct 77.2 % [facility] Comment: Interpretive Data Percent cell count reference ranges are not reported, since discordance with absolute values may lead to misinterpretation of CBC data. Current Interpretive Data was last revised on 2018. Imm gran pct 1.0 % [facility] Comment: Interpretive Data Percent cell count reference ranges are not reported, since discordance with absolute values may lead to misinterpretation of CBC data. Current Interpretive Data was last revised on 2018. Lymphocyte pct 14.9 % [facility] Comment: Interpretive Data Percent cell count reference ranges are not reported, since discordance with absolute values may lead to misinterpretation of CBC data. Current Interpretive Data was last revised on 2018. Monocyte pct 5.2 % [facility] Comment: Interpretive Data Percent cell count reference ranges are not reported, since discordance with absolute values may lead to misinterpretation of CBC data. Current Interpretive Data was last revised on 2018. Eosinophil pct 1.3 % [facility] Comment: Interpretive Data Percent cell count reference ranges are not reported, since discordance with absolute values may lead to misinterpretation of CBC data. Current Interpretive Data was last revised on 2018. Basophil pct 0.4 % [facility] Comment: Interpretive Data Percent cell count reference ranges are not reported, since discordance with absolute values may lead to misinterpretation of CBC data. Current Interpretive Data was last revised on 2018. Blood 07/08/2025 4:58 PM CDT 07/08/2025 5:13 PM CDT us John Jorge MD LAB BLOOD ORDERABLES Fi nal Result DIAMANTE [facility] Department [place] [address] * (ABNORMAL) CBC with auto differential (07/08/2025 4:58 PM CDT) WBC 5.24 3.80 - 9.90 K/cumm Hgb 9.9(L) 11.9 - 15.5 g/dL [facility] Hct 31.5(L) 35.6 - 45.5 % [facility] Plt 241 150 - 400 K/cumm [facility] MPV 9.7 9.1 - 12.3 fL [facility] RBC 3.17(L) 3.90 - 5.20 M/cumm [facility] MCV 99.4(H) 81.3 - 96.4 fL [facility] MCH 31.2 27.1 - 33.3 pg [facility] MCHC 31.4(L) 32.3 - 35.7 g/dL [facility] RDW CV 14.6 11.1 - 14.9 % [facility] RDW SD 53.3(H) 35.7 - 48.1 fL [facility] NRBC abs 0.00 0.00 - 0.01 K/cumm [facility] Blood 07/08/2025 4:58 PM CDT 07/08/2025 5:13 PM CDT us John Jorge MD LAB BLOOD ORDERABLES nal Result [facility] Department [place] [address] * XR Chest Pa Lateral 2 Vw [...] panel Nasopharyngeal (07/08/2025 4:36 PM CDT) Pathologist [facility] Influenza A RNA Not Detected Not Detected Influenza B RNA Not Detected Not Detected [facility] RSV RNA Not Detected Not Detected [facility] COVID-19 RNA Not Detected Not Detected [facility] Coronavirus 229E RNA Not Detected Not Detected [facility] Coronavirus HKU1 RNA Not Detected Not Detected [facility] Coronavirus NL63 RNA Not Detected Not Detected [facility] Coronavirus OC43 RNA Not Detected Not Detected [facility] Adenovirus DNA Not Detected Not Detected [facility] Metapneumovirus RNA Not Detected Not Detected [facility] Rhinovirus/Enterov irus RNA Not Detected Not Detected [facility] Parainfluenza 1 RNA Not Detected Not Detected [facility] Parainfluenza 2 RNA Not Detected Not Detected [facility] Parainfluenza 3 RNA Not Detected Not Detected [facility] Parainfluenza 4 RNA Not Detected Not Detected [facility] B. pertussis DNA Not Detected Not Detected [facility] B. parapertussis DNA Not Detected Not Detected [facility] C. pneumoniae DNA Not Detected Not Detected [facility] M. pneumoniae DNA Not Detected Not Detected [facility] Nasopharyngeal 07/08/2025 4: 36 PM CDT 07/08/2025 4:43 PM CDT Narrative [facility] - 07/08/2025 5:40 PM CDT Is the Patient experiencing symptoms consistent with COVID?->Unknown Surveillance testing for transplant patient?->No Interpretive Data The [employer] FilmArray Respiratory Panel (RP2.1) assay is a [...] assay has FDA clearance for testing of [employer] swabs. The performance of additional specimen types has been assessed by the performing laboratory. The performance characteristics of this assay have been determined by [facility] Molecular Infectious Disease Laboratory. Current interpretive data was last revised on 22. John Jorge MD LAB MICROBIOLOGY - GENE RAL ORDERABLES Final Result Performing Organization Address [facility] Co de Phone Number DIAMANTE [facility] [employer] [place] [address] * Troponin I high-sensitivity series (baseline, 2hr, 4hr, 6hr) (07/08/2025 4:01 PM CDT) Pathologist [facility] Trop I hs 8 <=17 ng/L Comment: Interpretive Data For further hscTnI resources including the diagnostic algorithm and an aid in interpretation, copy and paste this link: [email or web address] Current Interpretive Data last revised 2020. Blood 07/08/2025 4:01 PM CDT 07/08/2025 4:17 PM CDT Lidia Garcia MD LAB BLOOD ORDERABLES Final Result Performing Organization Address [facility] Co de Phone Number [facility] [employer] [place] [address] * Sepsis Lactate w/ Reflex (07/08/2025 4:01 PM CDT) [facility] Sepsis Lactate 1.6 0.7 - 2.0 mmol/L Blood 07/08/2025 4:01 PM CDT 07/08/2025 4:06 PM CDT Lidia Garcia MD LAB BLOOD ORDERABLES Final Result Performing Organization Address [facility] Co de Phone Number [facility] [employer] [place] [address] * eGFR (07/08/2025 4:01 PM CDT) eGFR [...] Garcia MD LAB BLOOD ORDERABLES Final Result DIAMANET KHOURY [facility] [place] [address] * Blood culture Blood Peripheral (07/08/2025 4:01 PM CDT) Report Final Report: No growth Blood (Peripheral) 07/08/2025 4:01 PM CDT 07/08/2025 4:14 PM CDT Narrative [facility] - 07/13/2025 7:00 AM CDT From a [...] performance characteristics have been verified by the [facility] Microbiology Laboratory. For questions about this culture, contact the Microbiology Laboratory at [phone]. Interpretive data was last revised on 24. Lidia Garcia MD LAB MICROBIOLOGY - GENERAL ORDERABLES Final Result [facility] Department [place] [address] * Blood culture Blood Peripheral (07/08/2025 4:01 PM CDT) Report Final Report: No growth Blood (Peripheral) 07/08/2025 4:01 PM CDT 07/08/2025 4:14 PM CDT [facility] - 07/13/2025 7:00 AM CDT Draw Blood [...] performance characteristics have been verified by the [facility] Microbiology Laboratory. For questions about this culture, contact the Microbiology Laboratory at [phone]. Interpretive data was last revised on 24. us Lidia Garcia MD LAB MICROBIOLOGY - GENERAL ORDERABLES Final Result [facility] Department [place] [address] * (ABNORMAL) Comprehensive metabolic panel (07/08/2025 4:01 PM CDT) Sodium 142 135 - 145 mmol/L Potassium, pl 4.6 3.3 - 4.9 mmol/L [facility] Comment:Hemolyzed; Potassium value may be falsely elevated by as much as 0.3-0.5 mmol/L. Suggest redraw and reanalysis. Chloride 111(H) 97 - 110 mmol/L [facility] CO2 25 22 - 32 mmol/L [facility] Anion gap 6 2 - 15 mmol/L [facility] BUN 23 6 - 25 mg/dL [facility] Creatinine 0.56(L) 0.60 - 1.10 mg/dL [facility] Glucose 131 70 - 199 mg/dL [facility] Comment: Interpretive Data Fasting glucose >/= 126 [...] Garcia MD LAB BLOOD ORDERABLES Final Result [facility] Department [place] [address] * Critical Care (07/08/2025 3:00 PM CDT) [...] 12-LEAD (07/08/2025 2:41 PM CDT) Narrative [facility] - 07/08/2025 2:41 PM CDT John [...] ECG ORDERABLES Edited Res ult - Final [facility] * eGFR (07/05/2025 10:00 AM CDT) [...] was last reviewed 2021. Testing performed by: [facility], [address] [place] [address] Blood 07/05/2025 10:0 0 AM CDT 07/05/2025 10:34 AM CDT us Katharine Almonte MD PhD LAB BLOOD ORDERABLES Final Result [facility] [address] Department [place] [address] * (ABNORMAL) Differential, auto (07/05/2025 10:00 AM CDT) Neutrophil abs 2.92 1.50 - 6.50 K/cumm Comment:Testing performed by : [facility], [facility], [address] [place] [address] Imm gran abs 0.01 0.00 - 0.10 K/cumm [facility] Comment:Testing performed by : [facility], [facility], [address] [place] [address] Lymphocyte abs 0.74(L) 0.80 - 3.30 K/cumm [facility] Comment:Testing performed by : [facility], [facility], [address] [place] [address] Monocyte abs 0.55 0.20 - 0.80 K/cumm [facility] Comment:Testing performed by : [facility], [address] [place] [address] Eosinophil abs 0.21 0.00 - 0.50 K/cumm [facility] Comment:Testing performed by : [facility], [facility], [address] [place] [address] Basophil abs 0.02 0.00 - 0.10 K/cumm [facility] Comment:Testing performed by : [facility], [facility], [address] [place] [address] Neutrophil pct 65.7 % [facility] Comment: Interpretive Data Percent cell count reference ranges are not reported, since discordance with absolute values may lead to misinterpretation of CBC data. Current Interpretive Data was last revised on 2018. Testing performed by: [facility], [facility], [address] [place] [address] Imm gran pct 0.2 % [facility] Comment: Interpretive Data Percent cell count reference ranges are not reported, since discordance with absolute values may lead to misinterpretation of CBC data. Current Interpretive Data was last revised on 2018. Testing performed by: [facility], [facility], [address] [place] [address] Lymphocyte pct 16.6 % [facility] Comment: Interpretive Data Percent cell count reference ranges are not reported, since discordance with absolute values may lead to misinterpretation of CBC data. Current Interpretive Data was last revised on 2018. Testing performed by: [facility], [facility], [address] [place] [address] Monocyte pct 12.4 % [facility] Comment: Interpretive Data Percent cell count reference ranges are not reported, since discordance with absolute values may lead to misinterpretation of CBC data. Current Interpretive Data was last revised on 2018. Testing performed by: [facility], [facility], [address] [place] [address] Eosinophil pct 4.7 % [facility] Comment: Interpretive Data Percent cell count reference ranges are not reported, since discordance with absolute values may lead to misinterpretation of CBC data. Current Interpretive Data was last revised on 2018. Testing performed by: [facility], [facility], [address] [place] [address] Basophil pct 0.4 % [facility] Comment: Interpretive Data Percent cell count reference ranges are not reported, since discordance with absolute values may lead to misinterpretation of CBC data. Current Interpretive Data was last revised on 2018. Testing performed by: [facility] 2, [address] [place] [address] Blood 07/05/2025 10:0 0 AM CDT 07/05/2025 10:05 AM CDT us Katharine Almonte MD PhD LAB BLOOD ORDERABLES Final Result [facility] [address] [facility] Department [place] [address] * (ABNORMAL) CBC with auto differential (07/05/2025 10:00 AM CDT) WBC 4.45 3.80 - 9.90 K/cumm Comment:Testing performed by : [place] [address], [address] [place] [address] Hgb 9.3(L) 11.9 - 15.5 g/dL [facility]TE KHOURYW Comment:Testing performed by : [place] [address], [address] [place] [address] Hct 29.8(L) 35.6 - 45.5 % [facility]TE KHOURYW Comment:Testing performed by : [facility] 2, [address] [place] [address] Plt 231 150 - 400 K/cumm [facility]TE SILVESTRE Comment:Testing performed by : [place] [address], [address] [place] [address] MPV 9.2 9.1 - 12.3 fL [facility] Comment:Testing performed by : [place] [address], [address] [place] [address] RBC 3.00(L) 3.90 - 5.20 M/cumm [facility]TE KHOURYWCH Comment:Testing performed by : [facility] 2, [address] [place] [address] MCV 99.3(H) 81.3 - 96.4 fL [facility]TE SILVESTRE Comment:Testing performed by : [facility], [facility], [address] [place] [address] MCH 31.0 27.1 - 33.3 pg [facility]TE SILVESTRE Comment:Testing performed by : [facility] 2, [address] [place] [address] MCHC 31.2(L) 32.3 - 35.7 g/dL [facility] SILVESTRE Comment:Testing performed by : [facility], [facility], [address] [place] [address] RDW CV 14.3 11.1 - 14.9 % [facility]TE SILVESTRE Comment:Testing performed by : [facility] 2, [address] [place] [address] RDW SD 52.2(H) 35.7 - 48.1 fL [facility]TE SILVESTRE Comment:Testing performed by : [facility], [facility], [address] [place] [address] ANC Prelim 2.92 1.50 - 6.50 K/cumm [facility] S[facility] Comment: Interpretive Data The rapid ANC is a preliminary automated count and may vary from the final ANC (Neut Abs) reported in the WBC differential that follows. Current interpretive data was last revised 2025. Testing performed by: [facility] 2, [address] [place] [address] Blood 07/05/2025 10:0 0 AM CDT 07/05/2025 10:05 AM CDT us Katharine Almonte MD PhD LAB BLOOD ORDERABLES Final Result [facility] [address] [address] [facility]. Department [place] [address] * (ABNORMAL) Comprehensive metabolic panel (07/05/2025 10:00 AM CDT) Sodium 137 135 - 145 mmol/L Comment:Testing performed by : [facility], [address], [place] [address] Potassium, pl 4.8 3.3 - 4.9 mmol/L [facility] Comment:Testing performed by : [facility], [address], [place] [address] Chloride 106 97 - 110 mmol/L [facility] Comment:Testing performed by : [facility], [address], [place] [address] CO2 25 22 - 32 mmol/L [facility] Comment:Testing performed by : [facility], [address], [place] [address] Anion gap 6 2 - 15 mmol/L [facility] Comment:Testing performed by : [facility], [address], [place] [address] BUN 22 6 - 25 mg/dL [facility] Comment:Testing performed by : [facility], [address], [place] [address] Creatinine 0.53(L) 0.60 - 1.10 mg/dL [facility] Comment:Testing performed by : [facility], [address], [place] [address] Glucose 102 70 - 199 mg/dL CERNER [...] was last revised 2022. Testing performed by: [facility], [address], [place] [address] Calcium 8.2(L) 8.5 - 10.3 mg/dL [facility] Comment:Testing performed by : [facility], [address], [place] [address] Bilirubin, total 0.2 0.1 - 1.2 mg/dL [facility] Comment:Testing performed by : [facility], [address], [place] [address] Protein, pl 6.4(L) 6.5 - 8.5 g/dL [facility] Comment:Testing performed by : [facility], [address], [place] [address] Albumin 2.8(L) 3.5 - 5.0 g/dL [facility] Comment:Testing performed by : [facility], [address], [place] [address] Alk phos 65 40 - 130 Units/L [facility] Comment:Testing performed by : [facility], [address], [place] [address] ALT 18 7 - 45 Units/L [facility] Comment:Testing performed by : [facility], [address], [place] [address] AST 21 10 - 45 Units/L [facility] Comment:Testing performed by : [facility], [address], [place] [address] Blood 07/05/2025 10:0 0 AM CDT 07/05/2025 10:34 AM CDT Katharine Almonte MD PhD LAB BLOOD ORDERABLES Final Result [facility] [address] Department [place] [address] * eGFR (06/21/2025 9:41 AM CDT) eGFR [...] was last reviewed 2021. Testing performed by: [facility], [address] [place] [address] Blood 06/21/2025 9:41 AM CDT 06/21/2025 10:08 AM CDT us Katharine Almonte MD PhD LAB BLOOD ORDERABLES Final Result [facility] [address]. Department [place] [address] * (ABNORMAL) Differential, auto (06/21/2025 9:41 AM CDT) Neutrophil abs 3.86 1.50 - 6.50 K/cumm Comment:Testing performed by : [facility], [facility], [address] [place] [address] Imm gran abs 0.01 0.00 - 0.10 K/cumm [facility]TE SILVESTRE Comment:Testing performed by : [facility] 2, [address] [place] [address] Lymphocyte abs 0.94 0.80 - 3.30 K/cumm ID[facility]ANTE SILVESTRE Comment:Testing performed by : [facility] 2, [address] [place] [address] Monocyte abs 0.84(H) 0.20 - 0.80 K/cumm [facility]TE SILVESTRE Comment:Testing performed by : [facility] 2, [address] [place] [address] Eosinophil abs 0.15 0.00 - 0.50 K/cumm [facility] Comment:Testing performed by : [facility], [facility], [address] [place] [address] Basophil abs 0.03 0.00 - 0.10 K/cumm [facility] Comment:Testing performed by : [facility], [facility], [address] [place] [address] Neutrophil pct 66.2 % [facility] Comment: Interpretive Data Percent cell count reference ranges are not reported, since discordance with absolute values may lead to misinterpretation of CBC data. Current Interpretive Data was last revised on 2018. Testing performed by: [facility], [facility], [address] [place] [address] Imm gran pct 0.2 % [facility] Comment: Interpretive Data Percent cell count reference ranges are not reported, since discordance with absolute values may lead to misinterpretation of CBC data. Current Interpretive Data was last revised on 2018. Testing performed by: [facility], [facility], [address] [place] [address] Lymphocyte pct 16.1 % [facility] Comment: Interpretive Data Percent cell count reference ranges are not reported, since discordance with absolute values may lead to misinterpretation of CBC data. Current Interpretive Data was last revised on 2018. Testing performed by: [facility], [facility], [address] [place] [address] Monocyte pct 14.4 % [facility] Comment: Interpretive Data Percent cell count reference ranges are not reported, since discordance with absolute values may lead to misinterpretation of CBC data. Current Interpretive Data was last revised on 2018. Testing performed by: [facility], [facility], [address] [place] [address] Eosinophil pct 2.6 % [facility] Comment: Interpretive Data Percent cell count reference ranges are not reported, since discordance with absolute values may lead to misinterpretation of CBC data. Current Interpretive Data was last revised on 2018. Testing performed by: [facility] 2, [address] [place] [address] Basophil pct 0.5 % [facility] Comment: Interpretive Data Percent cell count reference ranges are not reported, since discordance with absolute values may lead to misinterpretation of CBC data. Current Interpretive Data was last revised on 2018. Testing performed by: [facility] 2, [address] [place] [address] Blood 06/21/2025 9:41 AM CDT 06/21/2025 9:45 AM CDT us Katharine Almonte MD PhD LAB BLOOD ORDERABLES Final Result [facility] [address] [facility]. Department [place] [address] * (ABNORMAL) CBC with auto differential (06/21/2025 9:41 AM CDT) WBC 5.83 3.80 - 9.90 K/cumm Comment:Testing performed by : [facility], [facility], [address] [place] [address] Hgb 10.5(L) 11.9 - 15.5 g/dL [facility]TE SILVESTRE Comment:Testing performed by : [facility] 2, [address] [place] [address] Hct 32.9(L) 35.6 - 45.5 % DI[facility]TE SILVESTRE Comment:Testing performed by : [facility] 2, [address] [place] [address] Plt 276 150 - 400 K/cumm DI[facility]ANTE SILVESTRE Comment:Testing performed by : [facility] 2, [address] [place] [address] MPV 9.1 9.1 - 12.3 fL [facility]TE SILVESTRE Comment:Testing performed by : [facility], [facility], [address] [place] [address] RBC 3.31(L) 3.90 - 5.20 M/cumm C[facility]ER [facility] Comment:Testing performed by : [facility] 2, [address] [place] [address] MCV 99.4(H) 81.3 - 96.4 fL [facility]EREDITH [facility] Comment:Testing performed by : [place] [address], [address] [place] [address] MCH 31.7 27.1 - 33.3 pg CEREDITH BJWCH Comment:Testing performed by : [place] [address], [place] [address] MCHC 31.9(L) 32.3 - 35.7 g/dL [facility]EREDITH [facility] Comment:Testing performed by : [place] [address] [place] [address] RDW CV 14.6 11.1 - 14.9 % [facility]EREDITH [facility] Comment:Testing performed by : [place] [address] [place] [address] RDW SD 53.3(H) 35.7 - 48.1 fL [facility]EREDITH [facility] Comment:Testing performed by : [place] [address] [place] [address] ANC Prelim 3.86 1.50 - 6.50 K/cumm [facility] Comment: Interpretive Data The rapid ANC is a preliminary automated count and may vary from the final ANC (Neut Abs) reported in the WBC differential that follows. Current interpretive data was last revised 2025. Testing performed by: [address] [place] [address] Blood 06/21/2025 9:41 AM CDT 06/21/2025 9:45 AM CDT us Katharine Almonte MD PhD LAB BLOOD ORDERABLES Final Result [facility] [address]. Department [place] [address] * (ABNORMAL) Comprehensive metabolic panel (06/21/2025 9:41 AM CDT) Sodium 140 135 - 145 mmol/L Comment:Testing performed by : [facility], [address], [place] [address] Potassium, pl 4.0 3.3 - 4.9 mmol/L CERNER BJW Comment:Testing performed by : [facility], [address], [place] [address] Chloride 105 97 - 110 mmol/L [facility] Comment:Testing performed by : [facility], [address], [place] [address] CO2 24 22 - 32 mmol/L [facility] Comment:Testing performed by : [facility], [address], [place] [address] Anion gap 11 2 - 15 mmol/L C[facility]ER [facility]JW Comment:Testing performed by : [facility], [address], [place] [address] BUN 11 6 - 25 mg/dL [facility] Comment:Testing performed by : [facility], [address], [place] [address] Creatinine 0.53(L) 0.60 - 1.10 mg/dL [facility] Comment:Testing performed by : [facility], [address], [place] [address] Glucose 89 70 - 199 mg/dL CERNER [...] was last revised 2022. Testing performed by: [facility], [address], [place] [address] Calcium 8.9 8.5 - 10.3 mg/dL [facility] Comment:Testing performed by : [facility], [address], [place] [address] Bilirubin, total 0.3 0.1 - 1.2 mg/dL [facility] Comment:Testing performed by : [facility], [address], [place] [address] Protein, pl 7.2 6.5 - 8.5 g/dL [facility] Comment:Testing performed by : [facility], [address], [place] [address] Albumin 3.2(L) 3.5 - 5.0 g/dL [facility] Comment:Testing performed by : [facility], [address], [place] [address] Alk phos 66 40 - 130 Units/L [facility] Comment:Testing performed by : [facility], [address], [place] [address] ALT 14 7 - 45 Units/L [facility] Comment:Testing performed by : [facility], [address], [place] [address] AST 21 10 - 45 Units/L [facility] Comment:Testing performed by : [facility], [address], [place] [address] Blood 06/21/2025 9:41 AM CDT 06/21/2025 10:08 AM CDT us Katharine Almonte MD PhD LAB BLOOD ORDERABLES Final Result [facility] [address] Department [place] [address] * eGFR (06/07/2025 11:12 AM CDT) eGFR [...] was last reviewed 2021. Testing performed by: [facility], [address] [place] [address] Blood 06/07/2025 11:1 2 AM CDT 06/07/2025 11:36 AM CDT us Katharine Almonte MD PhD LAB BLOOD ORDERABLES Final Result [facility] [address]. Department of Laboratories [place], [place] [id number] * Differential, auto (06/07/2025 11:12 AM CDT) Pathologist [facility] Neutrophil abs 3.99 1.50 - 6.50 K/cumm Comment:Testing performed by : [facility], [facility], [address] [place] [address] Imm gran abs 0.03 0.00 - 0.10 K/cumm DIAMANTE SILVESTRE Comment:Testing performed by : [facility], [facility], [address] [place] [address] Lymphocyte abs 1.01 0.80 - 3.30 K/cumm CERNER [facility]JWCH Comment:Testing performed by : [facility], [facility], [address] [place] [address] Monocyte abs 0.67 0.20 - 0.80 K/cumm CERNER [facility] Comment:Testing performed by : [facility], [facility], [address] [place] [address] Eosinophil abs 0.25 0.00 - 0.50 K/cumm [facility]ER [facility] Comment:Testing performed by : [facility], [facility], [address] [place] [address] Basophil abs 0.03 0.00 - 0.10 K/cumm CERNER [facility] Comment:Testing performed by : [facility], [facility], [address] [place] [address] Neutrophil pct 66.7 % [facility]ER [facility] Comment: Interpretive Data Percent cell count reference ranges are not reported, since discordance with absolute values may lead to misinterpretation of CBC data. Current Interpretive Data was last revised on 2018. Testing performed by: [facility], [facility], [address] [place] [address] Imm gran pct 0.5 % [facility] Comment: Interpretive Data Percent cell count reference ranges are not reported, since discordance with absolute values may lead to misinterpretation of CBC data. Current Interpretive Data was last revised on 2018. Testing performed by: [facility], [facility], [address] [place] [address] Lymphocyte pct 16.9 % [facility] Comment: Interpretive Data Percent cell count reference ranges are not reported, since discordance with absolute values may lead to misinterpretation of CBC data. Current Interpretive Data was last revised on 2018. Testing performed by: [facility], [facility], [address] [place] [address] Monocyte pct 11.2 % [facility] Comment: Interpretive Data Percent cell count reference ranges are not reported, since discordance with absolute values may lead to misinterpretation of CBC data. Current Interpretive Data was last revised on 2018. Testing performed by: [facility], [facility], [address] [place] [address] Eosinophil pct 4.2 % DIAMANTE SIL[facility]STRE Comment: Interpretive Data Percent cell count reference ranges are not reported, since discordance with absolute values may lead to misinterpretation of CBC data. Current Interpretive Data was last revised on 2018. Testing performed by: [facility] 2, [address] [place] [address] Basophil pct 0.5 % DIAMANTE SILVESTRE Comment: Interpretive Data Percent cell count reference ranges are not reported, since discordance with absolute values may lead to misinterpretation of CBC data. Current Interpretive Data was last revised on 2018. Testing performed by: [facility] 2, [address] [place] [address] Blood 06/07/2025 11:1 2 AM CDT 06/07/2025 11:25 AM CDT us Katharine Almonte MD PhD LAB BLOOD ORDERABLES Final Result [facility] [address] [facility]. [place] [address] * (ABNORMAL) CBC with auto differential (06/07/2025 11:12 AM CDT) WBC 5.98 3.80 - 9.90 K/cumm Comment:Testing performed by : [facility], [facility], [address] [place] [address] Hgb 9.6(L) 11.9 - 15.5 g/dL DIAMANTE SILVESTRE Comment:Testing performed by : [facility], [address] [place] [address] Hct 30.4(L) 35.6 - 45.5 % DIAMANTE SILVESTRE Comment:Testing performed by : [facility], [address] [place] [address] Plt 305 150 - 400 K/cumm CERNER BJWCH Comment:Testing performed by : [facility], [facility], [address] [place] [address] MPV 9.1 9.1 - 12.3 fL CERNER BJWCH Comment:Testing performed by : [place] [address], [address] [place] [address] RBC 3.05(L) 3.90 - 5.20 M/cumm CERNER BJWCH Comment:Testing performed by : [facility], [facility], [place] [address] MCV 99.7(H) 81.3 - 96.4 fL CERNER BJWCH Comment:Testing performed by : [place] [address], [place] [address] MCH 31.5 27.1 - 33.3 pg CERNER BJWCH Comment:Testing performed by : [place] [address], [address] [place] [address] MCHC 31.6(L) 32.3 - 35.7 g/dL CERNER BJWCH Comment:Testing performed by : [place] [address], [address] [place] [address] RDW CV 16.2(H) 11.1 - 14.9 % CERNER BJWCH Comment:Testing performed by : [place] [address], [address] [place] [address] RDW SD 59.7(H) 35.7 - 48.1 fL CERNER BJWCH Comment:Testing performed by : [place] [address], [address] [place] [address] ANC Prelim 3.99 1.50 - 6.50 K/cumm CERNER BJWCH Comment: Interpretive Data The rapid ANC is a preliminary automated count and may vary from the final ANC (Neut Abs) reported in the WBC differential that follows. Current interpretive data was last revised 2025. Testing performed by: [facility], [facility], [address], [place] [address] Blood 06/07/2025 11:1 2 AM CDT 06/07/2025 11:25 AM CDT Katharine Almonte MD PhD LAB BLOOD ORDERABLES Final Result [facility] [address] Department [place] [address] * (ABNORMAL) Comprehensive metabolic panel (06/07/2025 11:12 AM CDT) Sodium 138 135 - 145 mmol/L Comment:Testing performed by : [facility], [address] [place] [address] Potassium, pl 4.1 3.3 - 4.9 mmol/L DIAMANTE SILVESTRE Comment:Testing performed by : [facility], [address] [place] [address] Chloride 104 97 - 110 mmol/L DIAMANTE SILVESTRE Comment:Testing performed by : [facility], [address] [place] [address] CO2 25 22 - 32 mmol/L DIAMANTE SILVESTRE Comment:Testing performed by : [facility], [address] [place] [address] Anion gap 9 2 - 15 mmol/L DIAMANTE SILVESTRE Comment:Testing performed by : [facility], [address] [place] [address] BUN 14 6 - 25 mg/dL DIAMANTE SILVESTRE Comment:Testing performed by : [facility], [address] [place] [address] Creatinine 0.50(L) 0.60 - 1.10 mg/dL DIAMANTE SILVESTRE Comment:Testing performed by : [facility], [address] [place] [address] Glucose 81 70 - 199 mg/dL DIAMANTE [...] was last revised 2022. Testing performed by: [facility], [address], [place] [address] Calcium 8.1(L) 8.5 - 10.3 mg/dL CERNER BJWCH Comment:Testing performed by : [facility], [address], [place] [address] Bilirubin, total 0.2 0.1 - 1.2 mg/dL CERNER BJWCH Comment:Testing performed by : [facility], [address], [place] [address] Protein, pl 7.2 6.5 - 8.5 g/dL CERNER BJWCH Comment:Testing performed by : [facility], [address], [place] [address] Albumin 2.9(L) 3.5 - 5.0 g/dL CERNER BJWCH Comment:Testing performed by : [facility], [address], [place] [address] Alk phos 77 40 - 130 Units/L CERNER BJWCH Comment:Testing performed by : [facility], [address], [place] [address] ALT 18 7 - 45 Units/L CERNER BJWCH Comment:Testing performed by : [facility], [address], [place] [address] AST 19 10 - 45 Units/L CERNER BJWCH Comment:Testing performed by : [facility], [address], [place] [address] Blood 06/07/2025 11:1 2 AM CDT 06/07/2025 11:36 AM CDT us Katharine Almonte MD PhD LAB BLOOD ORDERABLES Final Result [facility] [address] Department [place] [address] from Last 3 Months Insurance Advance Directives For more information, please contact: [phone] * Full Code (Latest Code Status on [...] 4:54 PM 11/26/2024 9:58 PM Care Teams Front End Drupal Developer Relationship Specialty Start Date End Date Leisa Hicks MD [address] [facility] [address] [place] [address] PCP - General Internal Medicine 08/22/24 Tino Mendoza MD [address] [facility] [place] [address] Internal Medicine 08/24/24 Irving Barnes MD [address] [place] [address] Referring Physician Gastroenterology 08/24/24 Katharine Almonte MD PhD [address] [place] [address] Medical Oncologist Medical Oncology 12/07/24
--- OUTSIDE RECORDS SUMMARY | 2025-09-01 20:57 | XMS_ITS | Encounter Summary ---
Author Organization [facility] Address [address] [place] [address] Phone Care Team Providers Care Audit Intern Name Role Phone Leisa Hicks MD Primary Care Provider Leisa Hicks MD Primary Care Provider Tino Mendoza MD Unavailable [phone] Irving Barnes MD Unavailable + Katharine Almonte MD PhD Unavailable [phone] Encounter Details Date Type Department Care Team (Latest Contact Info) Description 08/16/2024 Orders Only [facility] Scanning, Provider Social History Tobacco Use Types Packs/Day Years Used Date Smoking Tobacco: Never Assessed [facility] Utilities Answer Date Recorded In the past 12 months has [employer] electric, gas, oil, or water company threatened [...] often do you attend chur ch or samaritan services? Never 08/19/2024 Do you belong to any clubs o r organizations such as religion groups, unions, fraternal or athletic groups, or [...] in the past 12 m [facility], were you homeless or living in a penitentiary (including now)? No 08/19/2024 Personal Safety Answer [...] wake up? No 08/18/2024 4:53 PM Eli Aggarawl RN 2. In the past month, have [...] of Assessment Author 0 08/18/2024 6:30 PM Jsoe Cole MD * Alcohol Use Question Answer Date of Assessment Author Q1: How often do you have a drink containing alcohol? Never 08/18/2024 6:30 PM Jose Cole MD Q2: How many drinks containing alcohol do you have on a typical day when you are drinking? Patient does not drink 08/18/2024 6:30 PM Jose Cloe MD Q3: How often do you have [...] requested or obtained 08/19/2024 8:10 PM KENYAT Annablele Hodge RN All High Fall Risk Interventions [...] to Express Needs/Desires Yes 08/18/2024 4:53 PM lEi Aggarwal RN Dressing Independent 08/18/2024 4:53 PM [...] 1 08/18/2024 4:53 PM Eli Metzger RN PLANT ASSIGNER Evaluation Needed 2 08/18/2024 4:53 PM Eli [...] Aggarwal RN Patient is in need of PLANT ASSIGNER Order: No PLANT ASSIGNER order needed from this assessment 08/18/2024 4:53 [...] documented as of this encounter Care Teams Audit Intern Relationship Specialty [place] [address] [place] [address] PCP - General Internal Medicine 08/19/24 08/21/24 [place] [address] [place] [address] PCP - General Internal Medicine 08/22/24 Tino Mendoza MD [address] [place] [address] Internal Medicine 08/24/24 Irving Barnes MD [address] [place] [address] Referring Physician Gastroenterology 08/24/24 Katharine Almonte MD PhD [address] [place] [address] Medical Oncologist Medical Oncology 12/07/24 documented as of this encounter
--- OUTSIDE RECORDS SUMMARY | 2025-09-01 20:58 | XMS_ITS | Encounter Summary ---
Author Organization [facility] Address [address] [place] [address] Phone Care Team Providers Care Cfo Name Role Phone Leisa Hicks MD Primary Care Provider Tino Mendoza MD Unavailable [phone] Irving Barnes MD Unavailable + Katharine Almonte MD PhD Unavailable [phone] Encounter Details Date Type Department Care Team (Late st Contact Info) Description 09/01/[address] [facility] Medicine Oncology [address] [facility] Floor 5 [place] [address] Radha Baca, RN Social History [...] any time in the past 12 m [facility], were you homeless or living in a intermediate (including now)? No 05/22/2025 Social Connection and Isolation Panel Answer Date Recorded In a typical week, how many times do you talk on the phone with family, friends, or neighbors? More than three times a week 07/10/2025 How often do you get togethe r with friends or relatives? More than three times a week 07/10/2025 How often do you attend chur ch or anglican services? Never 07/10/2025 Do you belong to any clubs o r organizations such as mormonism groups, unions, fraternal or athletic groups, or [...] any time in the past 12 m [facility], were you homeless or living in a intermediate (including now)? No 07/10/2025 [facility] Utilities Answer Date Recorded In the [...] - 09/01/2025 2:25 PM CST I contacted [facility] in follow up to notification that they are unable to staff Home Care services with inquiry into alternate facilities. I expect a return call. Update: [facility] returned the call and stated that the staffing fluctuates rapidly, and it is recommended to resend the [facility] referral. I have completed that. We also discussed alternative facilities to include: [facility] (FAX: [phone]); [facility] (FAX: [phone]); and [facility] (FAX: [phone]). Our office will continue to follow. ERY SACKER ERY SACKER documented in this encounter Plan of Treatment Not on file documented as of this encounter Visit Diagnoses Not on filedocumented in this encounter Care Teams Cfo Relationship Specialty Start Date End Date Leisa Hicks MD [address] [facility] [address] [place] [address] PCP - General Internal Medicine 08/22/24 Tino Mendoza MD [address] [place] [address] Internal Medicine 08/24/24 Irving Barnes MD [address] [facility] [address] [place] [address] Referring Physician Gastroenterology 08/24/24 Katharine Almonte MD PhD [address] [place] [address] Medical Oncologist Medical Oncology 12/07/24 documented as of this encounter
--- OUTSIDE RECORDS SUMMARY | 2025-09-01 20:58 | XMS_ITS | Encounter Summary ---
Author Organization [facility] Address [address] [place] [address] Phone Care Team Providers Care Forestry Aid Name Role Phone Leisa Hicks MD Primary Care Provider Tino Mendoza MD Unavailable Irving Barnes MD Unavailable + Katharine Almonte MD PhD Unavailable [phone] Reason for Referral * Home Health (Routine) - Pending Review Specialty Diagnoses / Procedures [facility] To [facility] Services / Home Health and Hospice Diagnoses Metastasis to bone On tube feeding diet Malaise and fatigue Gastroesophageal cancer Katharine Almonte MD PhD [address] [facility] [address] [place] [address] Phone: tel: fax: [facility] Home Care Services [address] [place] [address] [address] [place] [address] Phone: tel: fax: Referral ID Status Reason Start Date Expiration Date Visits Requested Visits Authorized [id number] Pending Review Specialty Services Required 09/01/2025 10/01/2026 1 1 Question Answer [facility] Home Health Primary disciplines requested: Care Home, Physical Therapy Home Health Services Disease and [...] taxing effort to leave the home safely HOUSE SHIPPER Encounter Details Date Type Department Care Team (Late st Contact Info) Description 09/01/2025 Orders Only [facility] Medicine Oncology [address] [facility] Floor 5 [place] [address] Katharine Almonte MD PhD [address] [place] [address] Metastasis to bone (Primary Dx); On tube [...] any time in the past 12 m [facility], were you homeless or living in [...] often do you attend chur ch or yarsanism services? Never 07/10/2025 Do you belong to any clubs o r organizations such as holiness groups, unions, fraternal or athletic groups, or [...] any time in the past 12 m [facility], were you homeless or living in a [facility] (including now)? No 07/10/2025 [facility] Utilities Answer Date Recorded In the [...] cardia documented in this encounter Care Teams Forestry Aid Relationship Specialty Start Date End Date Leisa Hicks MD [address] [facility] [address] [place] [address] PCP - General Internal Medicine 08/22/24 Tino Mendoza MD [address] [place] [address] Internal Medicine 08/24/24 Irving Barnes MD [address] [facility] [address] [place] [address] Referring Physician Gastroenterology 08/24/24 Katharine Almonte MD PhD [address] [place] [address] Medical Oncologist Medical Oncology 12/07/24 documented as of this encounter
[2025-09-01] MEDS: LACTATED RINGERS 1,000 ML 999 ML IV CONT ×2 (21:05→22:17)
[2025-09-01 21:12] LABS: Alanine Aminotransferase 36 U/L (6-35); Albumin Level 3.0 g/dL (3.5-5.1); Alkaline Phosphatase 154 U/L (38-126); Anion Gap 6 mmol/L (4-12); Aspartate Amino Transferase 58 U/L (14-36); Bilirubin,Total 0.3 mg/dL (0.2-1.3); Blood Urea Nitrogen 43 mg/dL (7-17); Calcium 7.8 mg/dL (8.4-10.2); Carbon Dioxide 25 mmol/L (22-30); Chloride 107 mmol/L (98-107); Estimated CRCL calculation 43 ml/min; Estimated Glomerular Filt Rate > 60; Glucose 190 mg/dL (65-110); Lipase 172 U/L (23-300); Potassium 5.0 mmol/L (3.4-5.0); Sodium 138 mmol/L (137-145); Total Protein 7.1 g/dL (6.3-8.2)
--- NOTE | 2025-09-01 22:20 | ED.GENADULT ---
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 Patient states that she has not felt well for the last 2 days. She has developed abdominal distension. Her tube feedings are still flowing without vomiting. She states that she does have some chest pain and difficulty breathing. Denies fevers, nausea vomiting diarrhea or urinary symptoms. Related Data Home Medications ?Medication ?Instructions ?Recorded ?Confirmed ?Last Taken ?Type amlodipine 10 mg tablet 10 mg PO DAILY 08/15/24 08/15/24 Unknown History clonidine HCl 0.3 mg tablet 0.3 mg PO DAILY 08/15/24 08/15/24 Unknown History lisinopril 40 mg tablet 40 mg PO DAILY 08/15/24 08/15/24 Unknown History Allergies Allergy/AdvReac Type Severity Reaction Status Date / Time No Known Allergies Allergy Verified 09/01/25 19:28 [facility] Past Medical History Medical History Esophageal obstruction Squamous cell esophageal cancer HTN (hypertension) Weight loss Abnormal CT scan, stomach Dysphagia Social History Social History Alcohol intake: never Substance use: never Substance use type: does not use Do You Feel Safe in your Home?: Yes Lack of Transportation: No Lack of Food: Never True Current Housing: I Have Housing Concerned About Future Housing: No Difficulty Paying Gas/Electric Bills: No Difficulty Paying for Meds: No Currently Unemployed: No Education: Don't Know Difficulty w/ Childcare or Family Care: No Spiritual care concerns: No Exam Narrative: APPEARANCE: Patient appears uncomfortable Head: atraumatic. EYES: EOMI, NOSE: Atraumatic NECK: Trachea midline RESPIRATORY: Decreased lung sounds in the right lower lobe, scattered crackles CARDIOVASCULAR: Tachycardic, no peripheral edema ABDOMINAL: Distended, G-tube in place, no guarding or rebound, nontender MUSCULOSKELETAl: No obvious deformities NEURO: Alert. Moving 4/4 extremities SKIN:: Warm, dry. Normal color PSYCHIATRIC: Normal affect Course Vital Signs Vital signs: Vital Signs Temperature 97.7 F 09/01/25 19:16 Pulse Rate 127 H 09/01/25 19:16 Respiratory Rate 20 09/01/25 19:16 Blood Pressure 114/64 09/01/25 19:16 Pulse Oximetry 98 09/01/25 19:16 Oxygen Delivery Room Air 09/01/25 19:16 Temperature 98.5 F 09/02/25 01:32 Pulse Rate 120 H 09/02/25 05:30 Respiratory Rate 22 H 09/02/25 05:30 Blood Pressure 133/78 09/02/25 05:30 Pulse Oximetry 100 09/02/25 04:01 Oxygen Delivery Room Air 09/01/25 19:16 Medical Decision Making MDM Narrative Medical decision making narrative: -Course: 70 Female with 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 Patient is tachycardic upon arrival. No respiratory distress or oxygen requirements. Abdomen is distended without guarding rebound. CTA chest, abdomen and pelvis have been obtained. Imaging significant for a moderate-sized right-sided pleural effusion and possible adjacent pneumonia. CT abdomen/pelvis shows ascites. Patient has elevated white count of 17.6. She has been started on ceftriaxone and doxycycline to cover pneumonia. She has been given a 30 cc/kilogram bolus. patient is a cancer patient at [facility]. Case was discussed with Dr. Carlson from the Oncology team. She has been accepted under Dr. Almonte on the Med/Onc floor. Patient will likely be pending a bed for quite some time. Case was discussed with Dr. Clemente and she will be admitted. Patient was consistently tachycardic in the 120s. Unclear if there is underlying flutter. Patient given IV Lopressor which slowed her rate down to 105 with no evidence of flutter. Patient will be admitted to telemetry. -DDX includes but is not limited to: Pneumonia, sepsis, dehydration, bowel obstruction, PE viral syndrome -Co-morbidities complicating care: Metastatic esophageal cancer, G-tube feedings Vital Signs Vital Signs: Vital Signs Temperature 97.7 F 09/01/25 19:16 Pulse Rate 127 H 09/01/25 19:16 Respiratory Rate 20 09/01/25 19:16 Blood Pressure 114/64 09/01/25 19:16 Pulse Oximetry 98 09/01/25 19:16 Oxygen Delivery Room Air 09/01/25 19:16 Temperature 98.5 F 09/02/25 01:32 Pulse Rate 120 H 09/02/25 05:30 Respiratory Rate 22 H 09/02/25 05:30 Blood Pressure 133/78 09/02/25 05:30 Pulse Oximetry 100 09/02/25 04:01 Oxygen Delivery Room Air 09/01/25 19:16 Lab Data 09/01/25 20:41 09/01/25 20:41 Labs: Lab Results 09/01/25 09/01/25 Range/Units 20:41 22:49 WBC 17.4 H (4.5-10.0) K/mm3 RBC 3.35 L (4.2-5.4) M/mm3 Hgb 10.2 L (12.0-15.0) g/dL Hct 32.2 L (37.0-47.0) % MCV 96.1 (80-100) fl MCH 30.4 (26-34) pg MCHC 31.7 L (32-36) g/dl RDW 14.4 (11.5-14.5) % Plt Count 346 D (150-375) k/mm3 MPV 9.6 (7.4-10.4) fl Immature Gran % (Auto) 0.5 (0-0.5) % Neut % (Auto) 84.5 H (45.5-73.1) % Lymph % (Auto) 5.7 L (18.3-44.2) % [facility] % (Auto) 8.6 H (2.6-8.5) % Eos % (Auto) 0.5 (0-4.4) % Baso % (Auto) 0.2 (0.2-1.2) % Lymph # (Auto) 0.99 (0.9-3.2) K/mm3 [facility] # (Auto) 1.5 H (0.1-0.6) K/mm3 Eos # (Auto) 0.1 (0-0.3) K/mm3 Baso # (Auto) 0.0 (0.0-0.1) K/mm3 Abs Immat Gran (auto) 0.08 H (0.00-0.031) K/mm3 Absolute Neuts (auto) 14.7 H (1.3-6.7) K/mm3 Absolute Nucleated RBC 0.000 (0.0-0.012) K/mm3 Nucleated RBC % 0.0 (0.0-0.2) % Sodium 138 (137-145) mmol/L Potassium 5.0 (3.4-5.0) mmol/L Chloride 107 (98-107) mmol/L Carbon Dioxide 25 (22-30) mmol/L Anion Gap 6 (4-12) mmol/L BUN 43 H D (7-17) mg/dL Creatinine 0.91 (0.7-1.0) mg/dL Estim Creat Clear Calc 43 ml/min Estimated GFR > 60 (59 - ) Glucose 190 H (65-110) mg/dL Calcium 7.8 L (8.4-10.2) mg/dL Total Bilirubin 0.3 (0.2-1.3) mg/dL AST 58 H (14-36) U/L ALT 36 H (6-35) U/L Alkaline Phosphatase 154 H (38-126) U/L Total Protein 7.1 (6.3-8.2) g/dL Albumin 3.0 L (3.5-5.1) g/dL Lipase 172 (23-300) U/L Urine Color Yellow (Yellow) Urine Appearance Clear (Clear) Urine pH 6.0 (5.0-9.0) Ur Specific Ashley 1.033 (1.001-1.035) Urine Protein 1+ H (Negative) mg/dL Urine Glucose (UA) Negative (Negative) mg/dL Urine Ketones Negative (Negative) mg/dL Ur Blood (Man) Negative (Negative) Urine Nitrate Negative (Negative) Urine Bilirubin Negative (Negative) Urine Urobilinogen 1.0 (<2.0) mg/dL Leukocyte Esterase Rfl Negative (Negative) ELLA/UL Urine RBC 0-2 (0-2) /hpf Urine WBC 0-5 (0-3) /hpf Ur Squamous Epith Cells Few (Few) /hpf Urine Bacteria Rare /hpf Urine Casts 0-2 Discharge Plan Discharge Clinical Impression: Pneumonia, Pleural effusion, Ascites Patient Disposition: Still a Patient Condition: Stable Instructions: Antibiotic Form Patient Language: Macanese Prescriptions: No Action clonidine HCl 0.3 mg tablet 0.3 mg PO DAILY amlodipine 10 mg tablet 10 mg PO DAILY lisinopril 40 mg tablet 40 mg PO DAILY Follow-up/Referrals: Fabiola,Oladele, M.D. [Primary Care Provider]
--- NOTE | 2025-09-01 22:52 | PC.NURSE ---
Patient is tough stick. Patient stuck multiple times for blood cultures, unsuccessful. electrician research notified and phlebotomy called.
[2025-09-01 23:01] LABS: Add Urine Microscopic? YES; Appearance Urine Clear (Clear); Glucose Urine UA Negative (Negative); Leukocyte Esterase Ur Negative LEU/UL (Negative); Nitrate Urine Negative (Negative); Non Pathogenic Casts 0-2; Specific Grav Ur 1.033 (1.001-1.035)
--- NOTE | 2025-09-01 23:43 | PC.NURSE ---
Phlebotomy here to draw patients blood cultures.
[2025-09-02] VITALS (42 sets, daily range): BP systolic 112–143; BP diastolic 65–81; PULSE 100–127; RESP 15–32; TEMP 36.4–36.9; O2SAT 97–100; BMI 25.7
--- NOTE | 2025-09-02 00:10 | PC.NURSE ---
Phlebotomy states unable to obtain blood cultures. Another tech to try.
--- NOTE | 2025-09-02 00:25 | ECG_ITS ---
Test Date: 2025-09-02 01:40:18 Measurements Intervals [place] Rate: 117 P: 76 [place]: 205 QRS: 63 QRSD: 117 T: 122 QT: 371 QTc: 520 Interpretive Statements SINUS TACHYCARDIA LEFT ATRIAL ENLARGEMENT [-0.15mV P-WAVE IN V1/V2] MODERATE INTRAVENTRICULAR CONDUCTION DELAY [105+ ms QRS DURATION, 80+ ms Q/S IN V1/V2, NO Q AND 60+ ms R IN I/aVL/V5/V6] MODERATE T-WAVE ABNORMALITY, CONSIDER LATERAL ISCHEMIA [-0.1+ mV T-WAVE IN I/aVL/V5/V6] ABNORMAL ECG No previous ECG available for comparison Electronically Signed On 09-02-2025 08:32:36 SHIPPING AND RECEIVING SPECIALIST by Edwar Vogt M.D.
--- NOTE | 2025-09-02 00:47 | PC.NURSE ---
0040 Khushbu with [facility] transfer center calls and informs that the patient has been accepted to oncology by Dr. Almonte but she is on a waitlist at this time. Khushbu states she will call back when a bed is available.
[2025-09-02] MEDS: cefTRIAXone 1 GM in SODIUM CHLORIDE 0.9% IV 50 ML 100 ML IVPB ×2 (01:38→21:33)
[2025-09-02] MEDS: DOXYCYCLINE IV 100 MG in SODIUM CHLORIDE 0.9% IV 100 ML IVPB ×3 (02:05→23:25)
--- NOTE | 2025-09-02 02:56 | PC.NURSE ---
Patient used BSC and assisted back into bed. Call light within reach.
[2025-09-02] MEDS: LACTATED RINGERS 1,000 ML 150 ML IV CONT (06:13)
[2025-09-02] MEDS: METOPROLOL TARTRATE INJ 5 MG/5 ML VIAL IV PUSH (06:13)
--- NOTE | 2025-09-02 06:26 | ECG_ITS ---
Test Date: 2025-09-02 06:32:17 Measurements Intervals [place] Rate: 106 P: 60 [place]: 250 QRS: 59 QRSD: 126 T: 104 QT: 411 QTc: 547 Interpretive Statements SINUS TACHYCARDIA WITH FIRST DEGREE AV BLOCK LEFT ATRIAL ENLARGEMENT [-0.15mV P-WAVE IN V1/V2] MODERATE INTRAVENTRICULAR CONDUCTION DELAY [105+ ms QRS DURATION, 80+ ms Q/S IN V1/V2, NO Q AND 60+ ms R IN I/aVL/V5/V6] NONSPECIFIC T-WAVE ABNORMALITY ABNORMAL ECG Compared to ECG 09/02/2025 01:40:18 First degree AV block now present Possible ischemia no longer present T-wave abnormality still present Electronically Signed On 09-02-2025 08:32:53 SILK EXAMINER by Edwar Vogt M.D.
--- NOTE | 2025-09-02 08:11 | PC.NURSE ---
Attempted to call patient's family for information on what kind of tube feeding with no answer. Will attempt to call again
--- NOTE | 2025-09-02 08:16 | P.HP_ITS ---
H&P: HPI History of Present Illness Date/Time: 09/02/25 08:16 Chief Complaint: Abdominal Pain Narrative: Nancy Best is a 70-year-old female with a PMH of Squamous cell esophageal cancer, hypertension who presents to the hospital with reported abdominal pain for the past 2 days. On my exam, she denies any chest pain, shortness a breath, nausea/vomiting, abdominal pain, cough, indigestion or urinary/bowel changes. Patient is on tube feedings. Upon arrival to emergency department, patient was tachycardic with leukocytosis. ED workup: 97.7? F, pulse rate 127, respiratory rate 20, 114/64, 90% on room air WBC 17.4, H&H 3.35/10.2, Plt 346, Na 138, K 5.0, BUN 41, Cr 0.91, AST 58, ALT 36, Alk Phos 154, Total bilirubin 0.3, UA not indicative of infection Chest/abdomen/pelvis: 1. Abnormal soft tissue proximal esophagus, suspicious for esophageal carcinoma. 2: Mediastinal, right hilar, subcarinal and upper abdominal lymphadenopathy, compatible with metastatic disease. 3: Sclerosis of T2 with superior endplate compression fracture, consistent with metastatic disease. 4: Cirrhosis of the liver. 5: Moderate ascites. Review of Systems Review of Systems: All systems reviewed & are unremarkable except as noted in HPI and below PMFSH Past Medical History Medical History (Updated 09/02/25 @ 14:42 by Geovanny Herrmann PA-C) Esophageal obstruction Squamous cell esophageal cancer HTN (hypertension) Weight loss Abnormal CT scan, stomach Dysphagia Family History Family History (Updated 09/02/25 @ 12:05 by Antoinette Zelaya RN) Mother Diabetes mellitus Social History Social History Smoking status: Never smoker Alcohol intake: never Substance use: never Substance use type: does not use Do You Feel Safe in your Home?: Yes Lack of Transportation: No Lack of Food: Never True Current Housing: I Have Housing Concerned About Future Housing: No Difficulty Paying Gas/Electric Bills: No Difficulty Paying for Meds: No Currently Unemployed: No Education: Grade School Difficulty w/ Childcare or Family Care: No Spiritual care concerns: No Meds Home Medications and Allergies Home Medications ?Medication ?Instructions ?Recorded ?Confirmed ?Type amlodipine 10 mg tablet 10 mg PO DAILY 08/15/2406/19 History clonidine HCl 0.3 mg tablet 0.3 mg PO DAILY 08/15/24 1 11/02/24 History lisinopril 40 mg tablet 40 mg PO DAILY 08/15/2406/19 History hydralazine 25 mg tablet 25 mg PO DAILY 09/02/2506/19 History lidocaine-prilocaine 2.5 %-2.5 % 1 applic topical NICOLE Y 09/02/25 09/02/25 History topical cream nadolol 20 mg tablet 20 mg PO DAILY 09/02/2506/19 History prochlorperazine maleate 10 mg 10 mg PO DAILY 09/02/25 09/02/25 History tablet Allergies Allergy/AdvReac Type Severity Reaction Status Date / Time No Known Allergies Allergy Verified 09/02/25 11:53 Vital Signs Vital Signs - 24 hr 09/01/25 19:16 09/01/25 20:34 09/01/25 20:52 Temperature 97.7 F Pulse Rate 127 H 122 H 121 H Respiratory Rate 20 18 23 H Blood Pressure 114/64 144/76 H Pulse Oximetry 98 97 Oxygen Delivery Room Air 09/01/25 21:00 09/01/25 21:01 09/01/25 21:15 Temperature Pulse Rate 120 H 126 H 120 H Respiratory Rate 23 H 25 H 26 H Blood Pressure 125/79 Pulse Oximetry Oxygen Delivery 09/01/25 21:36 09/01/25 21:37 09/01/25 21:45 Temperature Pulse Rate 124 H 124 H 126 H Respiratory Rate 21 H 21 H 21 H Blood Pressure 144/74 H Pulse Oximetry Oxygen Delivery 09/01/25 22:00 09/01/25 22:01 09/01/25 22:15 Temperature Pulse Rate 132 H 129 H 128 H Respiratory Rate 23 H 21 H 22 H Blood Pressure 148/78 H Pulse Oximetry Oxygen Delivery 09/01/25 22:30 09/01/25 22:45 09/01/25 23:17 Temperature Pulse Rate 123 H 121 H 121 H Respiratory Rate 24 H 20 20 Blood Pressure Pulse Oximetry 100 Oxygen Delivery 09/01/25 23:30 09/01/25 23:31 09/01/25 23:45 Temperature Pulse Rate 122 H 122 H 120 H Respiratory Rate 29 H 21 H 21 H Blood Pressure 137/78 Pulse Oximetry Oxygen Delivery 09/02/25 00:00 09/02/25 00:15 09/02/25 00:30 Temperature Pulse Rate 120 H 118 H 117 H Respiratory Rate 22 H 22 H 21 H Blood Pressure Pulse Oximetry Oxygen Delivery 09/02/25 00:43 09/02/25 00:45 09/02/25 01:00 Temperature Pulse Rate 119 H 121 H 119 H Respiratory Rate 24 H 16 21 H Blood Pressure 116/66 Pulse Oximetry Oxygen Delivery 09/02/25 01:15 09/02/25 01:30 09/02/25 01:32 Temperature 98.5 F Pulse Rate 116 H 118 H 118 H Respiratory Rate 21 H 21 H 21 H Blood Pressure 129/77 Pulse Oximetry 100 99 Oxygen Delivery 09/02/25 01:33 09/02/25 01:45 09/02/25 01:46 Temperature Pulse Rate 118 H 119 H 120 H Respiratory Rate 22 H 22 H 22 H Blood Pressure 124/71 Pulse Oximetry 100 100 100 Oxygen Delivery 09/02/25 02:00 09/02/25 02:20 09/02/25 02:30 Temperature Pulse Rate 120 H 122 H 121 H Respiratory Rate 21 H 23 H 20 Blood Pressure 140/76 Pulse Oximetry 100 100 Oxygen Delivery 09/02/25 02:31 09/02/25 02:48 09/02/25 03:00 Temperature Pulse Rate 122 H 127 H 121 H Respiratory Rate 32 H 21 H 24 H Blood Pressure Pulse Oximetry 100 Oxygen Delivery 09/02/25 03:15 09/02/25 03:16 09/02/25 03:30 Temperature Pulse Rate 123 H 123 H 122 H Respiratory Rate 17 22 H 21 H Blood Pressure 122/80 Pulse Oximetry Oxygen Delivery 09/02/25 03:45 09/02/25 04:00 09/02/25 04:01 Temperature Pulse Rate 121 H 119 H 120 H Respiratory Rate 22 H 22 H 20 Blood Pressure 117/65 Pulse Oximetry 100 100 Oxygen Delivery 09/02/25 04:15 09/02/25 04:30 09/02/25 04:45 Temperature Pulse Rate 120 H 120 H 120 H Respiratory Rate 15 23 H 21 H Blood Pressure 118/67 Pulse Oximetry Oxygen Delivery 09/02/25 04:46 09/02/25 05:00 09/02/25 05:15 Temperature Pulse Rate 119 H 121 H 121 H Respiratory Rate 19 20 19 Blood Pressure Pulse Oximetry Oxygen Delivery 09/02/25 05:30 09/02/25 06:13 09/02/25 06:39 Temperature Pulse Rate 120 H 120 H 100 Respiratory Rate 22 H 16 Blood Pressure 133/78 119/67 Pulse Oximetry 97 Oxygen Delivery 09/02/25 07:01 Temperature Pulse Rate 100 Respiratory Rate 20 Blood Pressure 124/81 Pulse Oximetry Oxygen Delivery Exam Narrative: Gen - well appearing elderly female in no acute respiratory distress who is nontoxic-appearing lying semi recumbent in bed HEENT - normocephalic. Atraumatic. Pupils equal round and reactive. Extraocular motions intact. Sclera clear and anicteric. Oropharynx was clear. Dry mucous membranes. No facial asymmetry. Neck - neck was supple. No dominant adenopathy, thyromegaly or masses. 2+ carotid upstrokes without bruits. Chest - lungs are clear to auscultation bilaterally. No wheezes or crackles. CV - heart was regular rate and rhythm. S1-S2. No murmurs gallops or rubs. Abd - abdomen was soft. Nontender. Nondistended. Positive bowel sounds. No organomegaly or masses. Ext - no clubbing, cyanosis or edema. 2+ DP pulses bilaterally. Neuro - patient is alert and oriented x2. Strength is 5/5 in both upper and lower extremities. Cranial nerves 2-12 are intact. Speech is clear. Psych - normal mood and affect. Patient is pleasant and cooperative. Skin - warm and dry. No rashes noted. H&P: Results Labs Labs: Short CBC 09/01/25 Range/Units 20:41 WBC 17.4 H (4.5-10.0) K/mm3 Hgb 10.2 L (12.0-15.0) g/dL Hct 32.2 L (37.0-47.0) % Plt Count 346 D (150-375) k/mm3 BMP 09/01/25 20:41 Sodium 138 Potassium 5.0 Chloride 107 Carbon Dioxide 25 BUN 43 H D Creatinine 0.91 Glucose 190 H Calcium 7.8 L Liver Function 09/01/25 Range/Units 20:41 Total Bilirubin 0.3 (0.2-1.3) mg/dL AST 58 H (14-36) U/L ALT 36 H (6-35) U/L Alkaline Phosphatase 154 H (38-126) U/L Albumin 3.0 L (3.5-5.1) g/dL Urine 09/01/25 Range/Units 22:49 Urine Color Yellow (Yellow) Urine Appearance Clear (Clear) Urine pH 6.0 (5.0-9.0) Ur Specific [place] 1.033 (1.001-1.035) Urine Protein 1+ H (Negative) mg/dL Urine Glucose (UA) Negative (Negative) mg/dL Assessment and Plan Assessment and plan (1) SIRS (systemic inflammatory response syndrome): Code(s): R65.10 - Systemic inflammatory response syndrome (SIRS) of non-infectious origin without acute organ dysfunction Status: Acute Assessment and Plan: * Meets SIRS criteria: Tachycardia, RR > 20, WBC 17.4 * lactic acid: pending * IVFs: NS @ 100mls/hr * blood cultures drawn on 09/02 * UA: not indicative of infection * CTA: Shows established metastatic esophageal carcinoma with lymphadenopathy and bone metastasis, cirrhosis of the liver and moderate ascites * Rocephin & Doxy started per ED provider (2) Abdominal pain: Code(s): R10.9 - Unspecified abdominal pain Status: Acute Assessment and Plan: Presented to the hospital and reported abdominal pain for the past 2 days prior to admission. Upon however on exam, patient denied any pain or complaints whatsoever, denied any abdominal pain, nausea/vomiting or diarrhea. On exam she is nontender to palpation. * Chest CTA: * 1. Abnormal soft tissue proximal esophagus, suspicious for esophageal carcinoma. * 2: Mediastinal, right hilar, subcarinal and upper abdominal lymphadenopathy, compatible with metastatic disease. * 3: Sclerosis of T2 with superior endplate compression fracture, consistent with metastatic disease. * 4: Cirrhosis of the liver. * 5: Moderate ascites. * No reported abdominal discomfort on ROS, no TTP (3) Leukocytosis: Code(s): D72.829 - Elevated white blood cell count, unspecified Status: Acute Assessment and Plan: * Upon admission: WBC 17.4, afebrile * Chest CTA: * 1. Abnormal soft tissue proximal esophagus, suspicious for esophageal carcinoma. * 2: Mediastinal, right hilar, subcarinal and upper abdominal lymphadenopathy, compatible with metastatic disease. * 3: Sclerosis of T2 with superior endplate compression fracture, consistent with metastatic disease. * 4: Cirrhosis of the liver. * 5: Moderate ascites. * Could be reactive in nature, no indication of infection on imaging/UA * Monitor vital signs, I&Os, neuro status and patient is a fall risk * Follow WBC, serum electrolytes, temperature curves and cultures * Viral panel pending (4) Squamous cell esophageal cancer: Code(s): C15.9 - Malignant neoplasm of esophagus, unspecified Status: Acute Assessment and Plan: * Stage [id number] esophageal SCC w/ near obstructing esophageal tumor in mid- thoracic esophagus, prominent paraesophageal LN and enlarged gastrohepatic LN. * Follows with [facility] center @ [facility] * Tube feeds at home: Speedshape Peptide 1.5 @ 325L QID w/ 250 mL free water flush w/ each feed * Continue tube feedings (5) HTN (hypertension): Code(s): I10 - Essential (primary) hypertension Status: Acute Assessment and Plan: * Patient's blood pressure was reviewed on 09/02 * Blood pressure remains well controlled. * Will continue current medications. * 112/68 Quality VTE Prophylaxis VTE prophylaxis: pharmacologic ordered (Lovenox 40meq daily)
--- NOTE | 2025-09-02 08:27 | PC.NURSE ---
Tube feed found and order placed per verbal order from Dr Linn.
--- NOTE | 2025-09-02 08:37 | PC.NURSE ---
Cecilio Herrmann, hospitalist, called re: tube feed. Dietary came up and said they were out of the Vital 1.5. They brought up Vital 1.0 and Osmolite 1.5. Cecilio called with the options. He said ok to admin Vital 1.0 and that he would consult dietary to assist with patient nutrition.
--- NOTE | 2025-09-02 09:11 | PC.NURSE ---
This RN updated Maureen at the [facility] transfer center. No time estimate on bed yet. Primary RN Tabby notified.
--- NOTE | 2025-09-02 09:27 | PC.NURSE ---
[facility] ([phone]), called and was provided updates. She said that her feeds have not changed since 06/2025 visit to OSH. Those records were used to order her tube feed this AM.
--- OUTSIDE RECORDS SUMMARY | 2025-09-02 10:51 | XMS_ITS | Encounter Summary ---
Author Organization [facility] Address [address] [place] [address] Phone Care Team Providers Care Family Service Caseworker Name Role Phone Leisa Hicks MD Primary Care Provider Tino Mendoza MD Unavailable [phone] Irving Barnes MD Unavailable + Katharine Almonte MD PhD Unavailable [phone] Reason for Referral * Home Health (Routine) - Pending Review Specialty Diagnoses / Procedures [facility]erred By [facility]erred To Contact Home Health Services / Home Health and Hospice Diagnoses Metastasis to bone On tube feeding diet Malaise and fatigue Gastroesophageal cancer Katharine Almonte MD PhD [address] [facility] [address] [place] [address] Phone: tel: fax: [facility] Home Care Services 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 [address] [place] [id number] Katharine Almonte MD PhD [id number] [facility] [address] [place] [address] Metastasis to bone (Primary Dx); On tube [...] any time in the past 12 m [facility], were you homeless or living in a skilled nursing (including now)? No 05/22/2025 Social Connection and Isolation Panel Answer Date Recorded In a typical week, how many times do you talk on the phone with family, friends, or neighbors? More than three times a week 07/10/2025 How often do you get togethe r with friends or relatives? More than three times a week 07/10/2025 How often do you attend chur ch or scientologist services? Never 07/10/2025 Do you belong to any clubs o r organizations such as religious groups, unions, fraternal or athletic groups, or [...] any time in the past 12 m [facility], were you homeless or living in a skilled nursing (including now)? No 07/10/2025 [facility] Utilities Answer Date Recorded In the past [...] cardia documented in this encounter Care Teams Family Service Caseworker Relationship Specialty Start Date End Date Leisa Hicks MD [address] [facility] [address] [place] [address] PCP - General Internal Medicine 08/22/24 Tino Mendoza MD [address] [place] [address] Internal Medicine 08/24/24 Irving Barnes MD [address] [facility] [address] [place] [address] Referring Physician Gastroenterology 08/24/24 Katharine Almonte MD PhD [address] [facility] [address] [place] [address] Medical Oncologist Medical Oncology 12/07/24 documented as of this encounter
--- OUTSIDE RECORDS SUMMARY | 2025-09-02 10:51 | XMS_ITS | Clinical Summary ---
Author Organization [facility] Address [address] [place] [address] Care Team Providers Care Tentering Machine Off Bearer Name Role Phone Leisa Hicks MD Primary Care Provider Tino Mendoza MD Unavailable [phone] Irving Barnes MD Unavailable + Katharine Almonte MD PhD Unavailable [phone] Allergies No known active allergies Medications lancets (OneTouch Delica Plus Lancet) 33 gauge [facility] Active blood sugar diagnostic (ONETOUCH ULTRA BLUE TEST STRIP [facility]) Active OneTouch Ultra Test strip USE TO TEST ONCE QD Active blood-glucose meter (OneTouch Ultra2 Meter) [facility] Active docusate sodium (COLACE) 100 mg capsuleIndicati [...] around site). - home tube feeding (ordered Tiinkk Peptide 1.5 kcal 365ml qid with water 250ml qid flushes) Confusion 05/24/2025 Assessment & Plan (05/25/2025 10:14 AM CDT): Woke up confused this morning. Alert and oriented to self only. Hemodynamically stable. Denied any signs symptoms of infection. Labs from overnight stable. Exam unremarkable. Per patient's granddaughter [facility] patient often wakes up in the AM [...] overnight stable. Exam unremarkable. Per patient's granddaughter [facility] patient often wakes up in the AM [...] 11/24/2024 Assessment & Plan (11/26/2024 2:09 PM PROGRAM REVIEW DIRECTOR): Secondary to dehydration and in setting of [...] 11/21/2024 Assessment & Plan (11/22/2024 5:47 PM PROGRAM REVIEW DIRECTOR): Cr 4.65 on admission, baseline 0.6 - likely pre-renal - s/p 2L bolus - continue maintenance IVF - avoid nephrotoxic medications - strict I+Os - bladder scan/straight cath PRN - monitor UO - Improving Elevated troponin 11/21/2024 Assessment & Plan (11/23/2024 2:45 PM PROGRAM REVIEW DIRECTOR): Resolved. Trop 24 >17. Denies chest pain. EKG without ischemic changes. - monitor Hypotension 11/21/2024 Assessment & Plan (11/24/2024 10:52 AM PROGRAM REVIEW DIRECTOR): RESOLVED Noted to be hypotensive during the g-tube exchange in IR today (60/40s). ACT called in recovery room and she rec'd 1L bolus with improvement to 80-90s/30-40s. She was sent to ER for further management. Received 2 more liter boluses. Unclear if pt took her blood pressure medications this morning. - monitor b/p Chronic anemia 11/16/2024 Assessment & Plan (11/21/2024 3:55 PM PROGRAM REVIEW DIRECTOR): Hgb 10.1 on admission, baseline ~11 - [...] 08/18/2024 Assessment & Plan (11/24/2024 10:46 AM PROGRAM REVIEW DIRECTOR): Swallow function study (MBS) on 10/18/24 with [...] RD Assessment & Plan (11/21/2024 4:47 PM PROGRAM REVIEW DIRECTOR): - Adjusto Writer Operator consult, appreciate recommendations Assessment & Plan (08/23/2024 9:59 AM CDT): Due to esophageal mass and dysphagia, significant weight loss, patient estimates ~40 pounds -nuclear equipment test engineer consult for tube feeding recommendations, started on TF and now at goal without worsening sx. -at risk for re-feeding syndrome, monitor BMP, Mg, Phos daily. Lab work currently stable. -pt and daughter to receive TF education by [facility] then to discharge home Suspected condition 04/03/2021 [...] PCP Assessment & Plan (11/26/2024 2:10 PM PROGRAM REVIEW DIRECTOR): RESOLVED. Antihypertensives held on admission in setting [...] if needed seek the expertise of a technical training instructor. Educated her on normal BMI range of [...] 11/22/2024 Assessment & Plan (11/22/2024 5:50 PM PROGRAM REVIEW DIRECTOR): K 3.7 at admission, now 2.6. Receiving potassium 40mEq IV. - replete to maintain K>4 - monitor BMP Assessment & Plan (08/21/2024 9:12 AM CDT): Hypokalemia noted at OSH s/p replacement. Required additional aggressive IV repletion here, now normalized Encounters Date Type Department Care Team Description 09/01/2025 Hospital Encounter [facility] ADMIT [address] [place] [address] Katharine Almonte MD PhD 09/01/2025 Orders Only [facility] Medicine Oncology [address] [facility] Floor 5 [place] [address] Katharnie Almonte MD PhD Metastasis to bone (Primary Dx); On tube feeding diet; Malaise and fatigue; Gastroesophageal cancer 09/01/2025 Telephone [facility] Floor 5 [place] [phone] Radha Baca, RN 08/30/2025 9:30 AM PROGRAM REVIEW DIRECTOR Office Visit [facility] [address] [place] [address] [address] [place] [phone] Katharine Almonte MD PhD 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) 08/30/2025 Documentation [facility] [address] [place] [address] [address] [place] [address] Slime Rendon, SPECIAL EFFECTS PERSON 08/30/2025 Telephone [facility] [address] [place] [address] [address] [place] [phone] Jenniffer Walker CMA Spoke With Home Health Provider 08/30/2025 Telephone [facility] [address] [facility] [address] [place] [address] Alexa Maurer 08/25/2025 Telephone [facility] [address] [place] [address] 5 [place] [phone] Radha Baca, RN 08/22/2025 Telephone [facility] [address] [place] [address] 5 [place] [phone] Radha Baca, RN 08/21/2025 4:53 PM CDT - 08/21/2025 11:59 PM CDT Hospital Encounter [facility] Imaging [address] [place] [address] 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); Metastasis to bone Discharge Disposition: Discharge to home or self care 08/21/2025 Telephone [facility] Floor 5 [place] [phone] Jerri Rao RMA Scheduling Appointments 08/18/2025 Telephone [facility] [address] [place] [address] [address] [place] [phone] Sergio Jimenez 08/18/2025 Social Work [facility] [address] [place] [address] Floor 1, [address] [place] [phone] Lala Ramires, SPECIAL EFFECTS PERSON 08/17/2025 Documentation [facility] [address] [place] [address] 100 [place] [phone] Slime Rendon, [facility] 08/17/2025 Telephone [facility] Floor 5 [place] [phone] Josee Olmedo, MORALES 08/16/2025 3:30 PM CDT Infusion 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 [address] [place] [address] Katharine Almonte MD PhD Gastroesophageal cancer; Metastasis to bone Discharge Disposition: Discharge to home or self care 08/04/2025 3:00 PM CDT Infusion 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); Hypernatremia; Dehydration 08/03/2025 [facility]phone [facility] [address] [place] [address] Floor 5 [place] [address] Radha Baca, RN 08/03/2025 Orders Only [facility] [address] [place] [address] Floor 5 [place] [address] Katharine Almonte MD PhD 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); Hypernatremia 08/02/2025 11:00 AM CDT Infusion [facility] at [address] [place] [address] Metastasis to bone (Primary Dx); 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) 08/02/2025 10:30 AM CDT Office Visit [facility] [address] [place] [address] [address] [place] [phone] Danisha Mejias NP Gastroesophageal cancer (Primary Dx); 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); Metastasis to bone 08/02/2025 9:30 AM CDT Clinical Support [facility] at [address] [place] [address] Metastasis to bone (Primary Dx); 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) 08/02/2025 Orders Only [facility] [address] [place] [phone] Danisha Mejias NP 08/02/2025 Orders Only [facility] [address] [place] [address] 5 [place] [address] Katharine Almonte MD PhD 08/02/2025 Documentation [facility] at [address] [place] [address] Molly Garcias, MICHELLE 07/26/2025 1:30 PM CDT Home Care Visit [address] [place] [address] Vika Hernandez, RN SN OASIS DISCHARGE 07/21/2025 2:00 PM CDT Home Care Visit [address] [place] [address] Vika Hernandez, RN SN HOME VISIT 07/21/2025 1:00 PM CDT Clinical Support [facility] at [address] [place] [address] 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); Cough, unspecified type 07/19/2025 9:30 AM CDT Clinical Support [facility] at [address] [place], [place] [phone] Metastasis to bone; 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) 07/12/2025 2:00 PM CDT Home Care Visit [place] [address] [address] [place] [address] Vika Hernandez, RN SN OASIS RESUMPTION OF CARE 07/12/2025 Plan of Care Documentation [address] [place] [address] 07/09/2025 Home Care Visit [address] [place] [address] Vika Hernandez, RN SN OASIS TRANSFER W/OUT DC 07/08/2025 3:09 PM CDT - 07/10/2025 3:00 PM CDT Hospital Encounter [facility] 1 [place] [address] John Jorge MD Aranha, Olivia, MD PhD Allen Soto MD At risk for inadequate pain control (Primary Dx); Hypertensive urgency; Chest pain, unspecified type; Fever of unknown origin; Squamous cell esophageal cancer; Abnormal vital signs; Noncompliance with treatment Discharge Disposition: Discharge to home, home health skilled care 07/08/2025 12:00 PM CDT Home Care Visit [address] [place] [address] Vika Hernandez RN SN HOME VISIT 07/07/2025 12:00 PM CDT Clinical Support [facility] at [address] [phone] 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) 07/05/2025 11:00 AM CDT Infusion [facility] at [address] [address] Metastasis to bone (Primary Dx); 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) 07/05/2025 10:30 AM CDT Office Visit [facility] On[facility] [address] [place] [address] [address] [place] [phone] Katharine Almonte MD PhD Gastroesophageal cancer (Primary Dx); Metastasis to bone; 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); Metastasis to bone 06/21/2025 12:30 PM CDT Infusion [facility] at [address] [place] [phone] Metastasis to bone; 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) 06/21/2025 11:00 AM CDT Infusion [facility] at [address] [place] [phone] Metastasis to bone (Primary Dx); 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 at [address] [place] [address] 06/16/2025 11:00 AM CDT Home Care Visit [address] [place] [address] Vika Hernandez, RN SN HOME VISIT 06/16/2025 Telephone [facility] [address] [place] [address] 5 [place] [phone] Radha Baca, MORALES 06/13/2025 [facility]phone [facility] [address] [place] [address] 5 [place] [address] Radha Baca, MORALES 06/13/2025 Orders Only [facility] [address] [place] [address] 5 [place] [phone] Katharine Almonte MD PhD Metastasis to bone (Primary Dx); 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); Metastasis to bone 06/08/2025 12:30 PM CDT Home Care Visit [address] [place] [address] Vika Hernandez, RN SN HOME VISIT 06/08/2025 Documentation [facility] [address] [place] [address] [address] [place] [phone] Slime Rendon, SPECIAL EFFECTS PERSON 06/08/2025 Documentation [facility] [address] [place] [address] [address] [place] [address] Slime Rendon, SPECIAL EFFECTS PERSON 06/08/2025 Telephone [facility] [address] [place] [address] 5 [place] [phone] Radha Baca, RN 06/07/2025 11:00 AM CDT Infusion 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); Metastasis to bone 06/06/2025 Orders Only [facility] [address] [place] [address] 5 [place] [address] Katharine Almonte MD PhD Metastasis to bone (Primary Dx); 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 Never 07/10/2025 Do you belong to any clubs o r organizations such as restorationist groups, unions, fraternal or athletic groups, or [...] time in the past 12 m [facility], were you homeless or living in a fci (including now)? No 07/10/2025 [facility] Utilities Answer Date Recorded In the past 12 months has th e Ch[employer], gas, oil, or water company threatened to [...] Comments Blood Pressure 133/102 08/30/2025 11:04 AM PROGRAM REVIEW DIRECTOR Pulse 62 08/30/2025 11:04 AM PROGRAM REVIEW DIRECTOR Temperature 36.1 C (97 F) 08/30/2025 11:04 AM PROGRAM REVIEW DIRECTOR Respiratory Rate 16 08/30/2025 11:04 AM PROGRAM REVIEW DIRECTOR Oxygen Saturation 100% 08/30/2025 11:04 AM PROGRAM REVIEW DIRECTOR Inhaled Oxygen Concentration - - Weight 62.4 kg (137 lb 9.1 oz) 08/30/2025 11:04 AM PROGRAM REVIEW DIRECTOR Height 165.1 cm (5' 5) 07/08/2025 10:45 [...] 07/10/2025, 04/05/20 Medical Devices Implanted Type Area Plate Embosser Device Identifier Shelf Expiration Date Model / Serial / Lot [employer] Excela Low Porfile Power Port 8fr 1.6mm 1 Lumen [id number] - [id number] Implanted:Qty: 1 on 12/27/2024 at [facility] [employer] 08/07/2029 [id number] / / [id number] Procedures Procedure Name Priority Date/Time Associated Diagnosis Comments EGFR Routine 08/30/2025 9:01 AM PROGRAM REVIEW DIRECTOR 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 73 m2 Comment: [...] was last reviewed 2021. Testing performed by: [facility], [address] [place] [address] Blood 08/30/2025 9:01 AM PROGRAM REVIEW DIRECTOR 08/30/2025 9:17 AM PROGRAM REVIEW DIRECTOR us Danisha Mejias [employer] LAB BLOOD ORDERABLES Deana l Result [facility] [address] Department [place] [address] * (ABNORMAL) Differential, auto (08/30/2025 9:01 AM PROGRAM REVIEW DIRECTOR) Neutrophil abs 9.74(H) 1.50 - 6.50 K/cumm Comment:Testing performed by : [place] [address], [address] [place] [address] Imm gran abs 0.08 0.00 - 0.10 K/cumm [facility] Comment:Testing performed by : [place] [address], [address] [place] [address] Lymphocyte abs 1.17 0.80 - 3.30 K/cumm [facility] Comment:Testing performed by : [place] [address], [address], [place] [address] Monocyte abs 1.46(H) 0.20 - 0.80 K/cumm [facility] Comment:Testing performed by : [place] [address], [address], [place] [address] Eosinophil abs 0.05 0.00 - 0.50 K/cumm [facility] Comment:Testing performed by : [facility], [address], [place] [address] Basophil abs 0.03 0.00 - 0.10 K/cumm [facility] Comment:Testing performed by : [place] [address], [address] [place] [address] Neutrophil pct 77.8 % [facility] Comment: Interpretive Data Percent cell count reference ranges are not reported, since discordance with absolute values may lead to misinterpretation of CBC data. Current Interpretive Data was last revised on 2018. Testing performed by: [facility], [address] [place] [address] Imm gran pct 0.6 % [facility] Comment: Interpretive Data Percent cell count reference ranges are not reported, since discordance with absolute values may lead to misinterpretation of CBC data. Current Interpretive Data was last revised on 2018. Testing performed by: [facility], [facility], [address] [place] [address] Lymphocyte pct 9.3 % [facility] Comment: Interpretive Data Percent cell count reference ranges are not reported, since discordance with absolute values may lead to misinterpretation of CBC data. Current Interpretive Data was last revised on 2018. Testing performed by: [facility], [facility], [address] [place] [address] Monocyte pct 11.7 % [facility] Comment: Interpretive Data Percent cell count reference ranges are not reported, since discordance with absolute values may lead to misinterpretation of CBC data. Current Interpretive Data was last revised on 2018. Testing performed by: [facility], [facility], [address] [place] [address] Eosinophil pct 0.4 % [facility] Comment: Interpretive Data Percent cell count reference ranges are not reported, since discordance with absolute values may lead to misinterpretation of CBC data. Current Interpretive Data was last revised on 2018. Testing performed by: [facility], [facility], [address] [place] [address] Basophil pct 0.2 % CEREDITH KHOURYW Comment: Interpretive Data Percent cell count reference ranges are not reported, since discordance with absolute values may lead to misinterpretation of CBC data. Current Interpretive Data was last revised on 2018. Testing performed by: [facility], [facility], [address] [place] [address] Blood 08/30/2025 9:01 AM PROGRAM REVIEW DIRECTOR 08/30/2025 9:02 AM PROGRAM REVIEW DIRECTOR Danisha Mejias [employer] LAB BLOOD ORDERABLES Deana l Result [facility] [address] [facility]. Department [place] [address] * (ABNORMAL) CBC with auto differential (08/30/2025 9:01 AM PROGRAM REVIEW DIRECTOR) WBC 12.53(H) 3.80 - 9.90 K/cumm Comment:Testing performed by : [place] [address], [address] [place] [address] Hgb 10.4(L) 11.9 - 15.5 g/dL CERNER BJWCH Comment:Testing performed by : [place] [address], [place] [address] Hct 32.6(L) 35.6 - 45.5 % CERNER BJWCH Comment:Testing performed by : [place] [address], [place] [address] Plt 357 150 - 400 K/cumm CERNER BJWCH Comment:Testing performed by : [place] [address] [place] [address] MPV 9.8 9.1 - 12.3 fL CERNER BJWCH Comment:Testing performed by : [place] [address] [place] [address] RBC 3.45(L) 3.90 - 5.20 M/cumm CERNER BJWCH Comment:Testing performed by : [place] [address] [place] [address] MCV 94.5 81.3 - 96.4 fL CERNER BJWCH Comment:Testing performed by : [place] [address], [address] [place] [address] MCH 30.1 27.1 - 33.3 pg CERNER BJWCH Comment:Testing performed by : [place] [address], [address] [place] [address] MCHC 31.9(L) 32.3 - 35.7 g/dL CERNER BJWCH Comment:Testing performed by : [address] [place] [address] RDW CV 13.9 11.1 - 14.9 % DIAMANTE SILVESTRE Comment:Testing performed by : [facility], [facility], [address] [place] [address] RDW SD 47.8 35.7 - 48.1 fL DIAMANTE SILVESTRE Comment:Testing performed by : [facility], [facility], [address] [place] [address] ANC Prelim 9.74(H) 1.50 - 6.50 K/cumm DIAMANTE SILVESTRE Comment: Interpretive Data The rapid ANC is a preliminary automated count and may vary from the final ANC (Neut Abs) reported in the WBC differential that follows. Current interpretive data was last revised 2025. Testing performed by: [facility], [facility], [address] [place] [address] Blood 08/30/2025 9:01 AM PROGRAM REVIEW DIRECTOR 08/30/2025 9:02 AM PROGRAM REVIEW DIRECTOR us Danisha Mejias [employer] LAB BLOOD ORDERABLES Deana l Result [facility] [address]. Department of Laboratories [place], [place] [id number] * (ABNORMAL) Comprehensive metabolic panel (08/30/2025 9:01 AM PROGRAM REVIEW DIRECTOR) Sodium 139 135 - 145 mmol/L Comment:Testing performed by : [facility], [address] [place] [address] Potassium, pl 4.6 3.3 - 4.9 mmol/L DIAMANTE SILVESTRE Comment:Testing performed by : [facility], [address] [place] [address] Chloride 107 97 - 110 mmol/L DIAMANTE SILVESTRE Comment:Testing performed by : [facility], [address] [place] [address] CO2 22 22 - 32 mmol/L DIAMANTE SILVESTRE Comment:Testing performed by : [facility], [address], [place] [address] Anion gap 10 2 - 15 mmol/L CERNER BJWCH Comment:Testing performed by : [facility], [address], [place] [address] BUN 41(H) 6 - 25 mg/dL CERNER BJWCH Comment:Testing performed by : [facility], [address], [place] [address] Creatinine 0.93 0.60 - 1.10 mg/dL CERNER BJWCH Comment:Testing performed by : [facility], [address], [place] [address] Glucose 128 70 - 199 mg/dL CERNER [...] Care 202; 46: S19-S40. Testing performed by: [facility], [address], [place] [address] Calcium 8.2(L) 8.5 - 10.3 mg/dL CERNER BJWCH Comment:Testing performed by : [facility], [address], [place] [address] Bilirubin, total 0.3 0.1 - 1.2 mg/dL CERNER BJWCH Comment:Testing performed by : [facility], [address], [place] [address] Protein, pl 6.7 6.5 - 8.5 g/dL CERNER BJWCH Comment:Testing performed by : [facility], [address], [place] [address] Albumin 2.7(L) 3.5 - 5.0 g/dL CERNER BJWCH Comment:Testing performed by : [facility], [address], [place] [address] Alk phos 129 40 - 130 Units/L DIAMANTE SILVESTRE Comment:Testing performed by : [facility], [address], [place] [address] ALT 40 7 - 45 Units/L DIAMANTE SILVESTRE Comment:Testing performed by : [facility], [address], [place] [address] AST 77(H) 10 - 45 Units/L DIAMANTE SILVESTRE Comment:Testing performed by : [facility], [address], [place], [place] [address] Blood 08/30/2025 9:01 AM PROGRAM REVIEW DIRECTOR 08/30/2025 9:17 AM PROGRAM REVIEW DIRECTOR us Danisha Mejias [employer] LAB BLOOD ORDERABLES Deana guallpa Result [facility] [address]. Department [place] [address] * MRI Abdomen Liver W WO Contrast [...] by: Lily Donnelly M.D. Danisha Mejias NP IM MRI PROCEDURES Final Result * eGFR (08/16/2025 [...] was last reviewed 2021. Testing performed by: [facility], [address] [place] [address] Blood 08/16/2025 1:01 PM CDT 08/16/2025 1:30 PM CDT us Katharine Almonte MD PhD LAB BLOOD ORDERABLES Final Result DIAMANTE SILVESTRE [address]. Department [place] [address] * (ABNORMAL) Differential, auto (08/16/2025 1:01 PM CDT) Neutrophil abs 4.70 1.50 - 6.50 K/cumm Comment:Testing performed by : [facility], [facility], [address] [place] [address] Imm gran abs 0.02 0.00 - 0.10 K/cumm DIAMANTE SILVESTRE Comment:Testing performed by : [facility], [facility], [address] [place] [address] Lymphocyte abs 0.98 0.80 - 3.30 K/cumm DIAMANTE SILVESTRE Comment:Testing performed by : [facility] 2, [address] [place] [address] Monocyte abs 0.88(H) 0.20 - 0.80 K/cumm DIAMANTE SILVESTRE Comment:Testing performed by : [facility] 2, [address] [place] [address] Eosinophil abs 0.21 0.00 - 0.50 K/cumm CERNER BJWCH Comment:Testing performed by : [facility], [facility], [address] [place] [address] Basophil abs 0.03 0.00 - 0.10 K/cumm CERNER BJWCH Comment:Testing performed by : [facility], [facility], [address] [place] [address] Neutrophil pct 68.9 % CERNER BJWCH Comment: Interpretive Data Percent cell count reference ranges are not reported, since discordance with absolute values may lead to misinterpretation of CBC data. Current Interpretive Data was last revised on 2018. Testing performed by: [facility], [facility], [address] [place] [address] Imm gran pct 0.3 % CERNER BJWCH Comment: Interpretive Data Percent cell count reference ranges are not reported, since discordance with absolute values may lead to misinterpretation of CBC data. Current Interpretive Data was last revised on 2018. Testing performed by: [facility], [facility], [address] [place] [address] Lymphocyte pct 14.4 % CERNER BJWCH Comment: Interpretive Data Percent cell count reference ranges are not reported, since discordance with absolute values may lead to misinterpretation of CBC data. Current Interpretive Data was last revised on 2018. Testing performed by: [facility], [facility], [address] [place] [address] Monocyte pct 12.9 % CERNER BJWCH Comment: Interpretive Data Percent cell count reference ranges are not reported, since discordance with absolute values may lead to misinterpretation of CBC data. Current Interpretive Data was last revised on 2018. Testing performed by: [facility], [facility], [address] [place] [address] Eosinophil pct 3.1 % CERNER BJWCH Comment: Interpretive Data Percent cell count reference ranges are not reported, since discordance with absolute values may lead to misinterpretation of CBC data. Current Interpretive Data was last revised on 2018. Testing performed by: [facility] 2, [address] [place] [address] Basophil pct 0.4 % DIAMANTE SILVESTRE Comment: Interpretive Data Percent cell count reference ranges are not reported, since discordance with absolute values may lead to misinterpretation of CBC data. Current Interpretive Data was last revised on 2018. Testing performed by: [facility] 2, [address] [place] [address] Blood 08/16/2025 1:01 PM CDT 08/16/2025 1:07 PM CDT us Katharine Almonte MD PhD LAB BLOOD ORDERABLES Final Result [facility] [address] [facility]. Department [place] [address] * (ABNORMAL) CBC with auto differential (08/16/2025 1:01 PM CDT) WBC 6.82 3.80 - 9.90 K/cumm Comment:Testing performed by : [facility] 2, [address] [place] [address] Hgb 9.6(L) 11.9 - 15.5 g/dL DIAMANTE SILVESTRE Comment:Testing performed by : [facility] 2, [address] [place] [address] Hct 30.6(L) 35.6 - 45.5 % DIAMANTE SILVESTRE Comment:Testing performed by : [facility] 2, [address] [place] [address] Plt 258 150 - 400 K/cumm DIAMANTE SILVESTRE Comment:Testing performed by : [facility] 2, [address] [place] [address] MPV 9.7 9.1 - 12.3 fL DIAMANTE SILVESTRE Comment:Testing performed by : [facility] 2, [address] [place] [address] RBC 3.11(L) 3.90 - 5.20 M/cumm CERNER BJWCH Comment:Testing performed by : [facility], [facility], [address] [place] [address] MCV 98.4(H) 81.3 - 96.4 fL CERNER BJWCH Comment:Testing performed by : [place] [address], [address] [place] [address] MCH 30.9 27.1 - 33.3 pg CERNER BJWCH Comment:Testing performed by : [place] [address], [address] [place] [address] MCHC 31.4(L) 32.3 - 35.7 g/dL CERNER BJWCH Comment:Testing performed by : [place] [address], [address] [place] [address] RDW CV 14.3 11.1 - 14.9 % CERNER BJWCH Comment:Testing performed by : [place] [address] [place] [address] RDW SD 51.5(H) 35.7 - 48.1 fL CERNER BJWCH Comment:Testing performed by : [address] [place] [address] ANC Prelim 4.70 1.50 - 6.50 K/cumm CERNER BJWCH Comment: Interpretive Data The rapid ANC is a preliminary automated count and may vary from the final ANC (Neut Abs) reported in the WBC differential that follows. Current interpretive data was last revised 2025. Testing performed by: [place] [address] [place] [address] Blood 08/16/2025 1:01 PM CDT 08/16/2025 1:07 PM CDT Katharine Almonte MD PhD LAB BLOOD ORDERABLES Final Result [facility] [address]. Department [place] [address] * (ABNORMAL) Comprehensive metabolic panel (08/16/2025 1:01 PM CDT) Sodium 144 135 - 145 mmol/L Comment:Testing performed by : [facility], [address], [place] [address] Potassium, pl 4.1 3.3 - 4.9 mmol/L CERNER BJWCH Comment:Testing performed by : [facility], [address], [place] [address] Chloride 111(H) 97 - 110 mmol/L CERNER BJWCH Comment:Testing performed by : [facility], [address], [place] [address] CO2 24 22 - 32 mmol/L CERNER BJWCH Comment:Testing performed by : [facility], [address], [place] [address] Anion gap 9 2 - 15 mmol/L CERNER BJWCH Comment:Testing performed by : [facility], [address], [place] [address] BUN 14 6 - 25 mg/dL CERNER BJWCH Comment:Testing performed by : [facility], [address], [place] [address] Creatinine 0.54(L) 0.60 - 1.10 mg/dL CERNER BJWCH Comment:Testing performed by : [facility], [address], [place] [address] Glucose 83 70 - 199 mg/dL CERNER [...] was last revised 2022. Testing performed by: [facility], [address], [place] [address] Calcium 8.5 8.5 - 10.3 mg/dL CERNER BJWCH Comment:Testing performed by : [facility], [address], [place] [address] Bilirubin, total 0.3 0.1 - 1.2 mg/dL CERNER BJWCH Comment:Testing performed by : [facility], [address], [place] [address] Protein, pl 6.9 6.5 - 8.5 g/dL CERNER BJWCH Comment:Testing performed by : [facility], [address], [place] [address] Albumin 2.9(L) 3.5 - 5.0 g/dL CERNER BJWCH Comment:Testing performed by : [facility], [address], [place] [address] Alk phos 91 40 - 130 Units/L CERNER BJWCH Comment:Testing performed by : [facility], [address], [place] [address] ALT 18 7 - 45 Units/L CERNER BJWCH Comment:Testing performed by : [facility], [address], [place] [address] AST 32 10 - 45 Units/L CERNER BJWCH Comment:Testing performed by : [facility], [address], [place] [address] Blood 08/16/2025 1:01 PM CDT 08/16/2025 1:30 PM CDT us Katharine Almonte MD PhD LAB BLOOD ORDERABLES Final Result DIAMANTE KHOURYCH [address] Department [place] [address] * CT Chest Abdomen Pelvis W Contrast [...] Slight decrease in size in a gastrohepatic patriico deposit. 3. Interval development of multiple hypoattenuating [...] it. Electronically signed by: Raffi Castillo M.D. us Katharine Almonte MD PhD IMG CT PROCEDURES [...] was last reviewed 2021. Testing performed by: [facility], [address] [place] [address] Blood 08/04/2025 3:40 PM CDT 08/04/2025 4:06 PM CDT Katharine Almonte MD PhD LAB BLOOD ORDERABLES Final Result [facility] [address]. Department [place] [address] * (ABNORMAL) Basic metabolic panel (08/04/2025 3:40 PM CDT) Sodium 143 135 - 145 mmol/L Comment:Testing performed by : [facility], [address] [place] [address] Potassium, pl 4.5 3.3 - 4.9 mmol/L CEREDITH BJWCH Comment:Testing performed by : [facility], [address] [place] [address] Chloride 110 97 - 110 mmol/L DIAMANTE KHOURYWCH Comment:Testing performed by : [facility], [address] [place] [address] CO2 26 22 - 32 mmol/L CEREDITH GLASSCH Comment:Testing performed by : [facility], [address] [place] [address] Anion gap 8 2 - 15 mmol/L DIAMANTE KHOURYWCH Comment:Testing performed by : [facility], [address], [place] [address] BUN 21 6 - 25 mg/dL DIAMANTE SILVESTRE Comment:Testing performed by : [facility], [address], [place], [place] [address] Creatinine 0.53(L) 0.60 - 1.10 mg/dL DIAMANTE SILVESTRE Comment:Testing performed by : [facility], [address], [place], [place] [address] Glucose 121 70 - 199 mg/dL DIAMANTE [...] was last revised 2022. Testing performed by: [facility], [address] [place], [place] [address] Calcium 8.3(L) 8.5 - 10.3 mg/dL DIAMANTE SILVESTRE Comment:Testing performed by : [facility], [address] [place], [place] [address] Blood 08/04/2025 3:40 PM CDT 08/04/2025 4:06 PM CDT us Katharine Almonte MD PhD LAB BLOOD ORDERABLES Final Result [facility] [address]. Department [place] [address] * eGFR (08/02/2025 3:46 PM CDT) eGFR [...] was last reviewed 2021. Testing performed by: [facility], [address] [place] [address] Blood 08/02/2025 3:46 PM CDT 08/02/2025 4:27 PM CDT us Danisha Mejias NP LAB BLOOD ORDERABLES Deana guallpa Result [facility] [address] [address]. Department of Laboratories [place], [place] [id number] * (ABNORMAL) Basic metabolic panel (08/02/2025 3:46 PM CDT) Sodium 151(H) 135 - 145 mmol/L Comment:Testing performed by : [facility], [address] [place] [address] Potassium, pl 3.8 3.3 - 4.9 mmol/L DIAMANTE SILVESTRE Comment:Testing performed by : [facility], [address] [place] [address] Chloride 118(H) 97 - 110 mmol/L DIAMANTE SILVESTRE Comment:Testing performed by : [facility], [address] [place] [address] CO2 23 22 - 32 mmol/L DIAMANTE SILVESTRE Comment:Testing performed by : [facility], [address] [place] [address] Anion gap 10 2 - 15 mmol/L DIAMANTE SLIVESTRE Comment:Testing performed by : [facility], [address] [facility], [place], [place] [address] BUN 23 6 - 25 mg/dL DIAMANTE SILVESTRE Comment:Testing performed by : [facility], [address] [facility], [place], [place] [address] Creatinine 0.52(L) 0.60 - 1.10 mg/dL DIAMANTE SILVESTRE Comment:Testing performed by : [facility], [address] [facility], [place] [address] Glucose 91 70 - 199 mg/dL DIAMANTE [...] was last revised 2022. Testing performed by: [facility], [address] [facility] [place] [address] Calcium 8.1(L) 8.5 - 10.3 mg/dL DIAMANTE SILVESTRE Comment:Testing performed by : [facility], [address] [place] [address] Blood 08/02/2025 3:46 PM CDT 08/02/2025 4:27 PM CDT us Danisha Mejias NP LAB BLOOD ORDERABLES Deana guallpa Result DIAMANTE SILVESTRE [address]. Department [place] [address] * eGFR (08/02/2025 10:21 AM CDT) eGFR [...] was last reviewed 2021. Testing performed by: [facility], [address] [place] [address] Blood 08/02/2025 10:2 1 AM CDT 08/02/2025 10:47 AM CDT us Katharine Almonte MD PhD LAB BLOOD ORDERABLES Final Result [facility] [address]. Department of Laboratories [place], [place] [id number] * (ABNORMAL) Differential, auto (08/02/2025 10:21 AM CDT) Pathologist [facility] Neutrophil abs 4.20 1.50 - 6.50 K/cumm Comment:Testing performed by : [facility], [facility], [address] [place] [address] Imm gran abs 0.03 0.00 - 0.10 K/cumm DIAMANTE SILVESTRE Comment:Testing performed by : [facility], [facility], [address] [place] [address] Lymphocyte abs 1.07 0.80 - 3.30 K/cumm CERNER BJWCH Comment:Testing performed by : [facility], [facility], [address] [place] [address] Monocyte abs 0.94(H) 0.20 - 0.80 K/cumm CERNER BJWCH Comment:Testing performed by : [facility], [facility], [address] [place] [address] Eosinophil abs 0.37 0.00 - 0.50 K/cumm CERNER BJWCH Comment:Testing performed by : [facility], [facility], [address] [place] [address] Basophil abs 0.02 0.00 - 0.10 K/cumm CERNER BJWCH Comment:Testing performed by : [facility], [facility], [address] [place] [address] Neutrophil pct 63.3 % CERNER BJWCH Comment: Interpretive Data Percent cell count reference ranges are not reported, since discordance with absolute values may lead to misinterpretation of CBC data. Current Interpretive Data was last revised on 2018. Testing performed by: [facility], [facility], [address] [place] [address] Imm gran pct 0.5 % CERNER BJWCH Comment: Interpretive Data Percent cell count reference ranges are not reported, since discordance with absolute values may lead to misinterpretation of CBC data. Current Interpretive Data was last revised on 2018. Testing performed by: [facility], [facility], [address] [place] [address] Lymphocyte pct 16.1 % CERNER BJWCH Comment: Interpretive Data Percent cell count reference ranges are not reported, since discordance with absolute values may lead to misinterpretation of CBC data. Current Interpretive Data was last revised on 2018. Testing performed by: [facility], [facility], [address], [place] [address] Monocyte pct 14.2 % CERNER BJWCH Comment: Interpretive Data Percent cell count reference ranges are not reported, since discordance with absolute values may lead to misinterpretation of CBC data. Current Interpretive Data was last revised on 2018. Testing performed by: [facility], [facility], [address] [place] [address] Eosinophil pct 5.6 % DIAMANTE SILVESTRE Comment: Interpretive Data Percent cell count reference ranges are not reported, since discordance with absolute values may lead to misinterpretation of CBC data. Current Interpretive Data was last revised on 2018. Testing performed by: [facility] 2, [address] [place] [address] Basophil pct 0.3 % DIAMANTE SILVESTRE Comment: Interpretive Data Percent cell count reference ranges are not reported, since discordance with absolute values may lead to misinterpretation of CBC data. Current Interpretive Data was last revised on 2018. Testing performed by: [facility] 2, [address] [place] [address] Blood 08/02/2025 10:2 1 AM CDT 08/02/2025 10:27 AM CDT us Katharine Almonte MD PhD LAB BLOOD ORDERABLES Final Result [facility] [address] [facility]. Department [place] [address] * (ABNORMAL) CBC with auto differential (08/02/2025 10:21 AM CDT) WBC 6.63 3.80 - 9.90 K/cumm Comment:Testing performed by : [facility], [facility], [address] [place] [address] Hgb 10.5(L) 11.9 - 15.5 g/dL DIAMANTE SILVESTRE Comment:Testing performed by : [facility] 2, [address] [place] [address] Hct 34.5(L) 35.6 - 45.5 % DIAMANTE SILVESTRE Comment:Testing performed by : [facility] 2, [address] [place] [address] Plt 194 150 - 400 K/cumm CERNER BJWCH Comment:Testing performed by : [facility], [facility], [address] [place] [address] MPV 9.9 9.1 - 12.3 fL CERNER BJWCH Comment:Testing performed by : [place] [address], [address] [place] [address] RBC 3.37(L) 3.90 - 5.20 M/cumm CERNER BJWCH Comment:Testing performed by : [place] [address], [address] [place] [address] MCV 102.4(H) 81.3 - 96.4 fL CERNER BJWCH Comment:Testing performed by : [place] [address], [place] [address] MCH 31.2 27.1 - 33.3 pg CERNER BJWCH Comment:Testing performed by : [place] [address], [address] [place] [address] MCHC 30.4(L) 32.3 - 35.7 g/dL CERNER BJWCH Comment:Testing performed by : [place] [address], [address] [place] [address] RDW CV 14.6 11.1 - 14.9 % CERNER BJWCH Comment:Testing performed by : [place] [address], [address] [place] [address] RDW SD 54.4(H) 35.7 - 48.1 fL CERNER BJWCH Comment:Testing performed by : [place] [address], [address] [place] [address] ANC Prelim 4.20 1.50 - 6.50 K/cumm CERNER BJWCH Comment: Interpretive Data The rapid ANC is a preliminary automated count and may vary from the final ANC (Neut Abs) reported in the WBC differential that follows. Current interpretive data was last revised 2025. Testing performed by: [facility], MOB 2, [address] [place] [address] Blood 08/02/2025 10:2 1 AM CDT 08/02/2025 10:27 AM CDT us Katharine Almonte MD PhD LAB BLOOD ORDERABLES Final Result [facility] [address] Department [place] [address] * (ABNORMAL) Comprehensive metabolic panel (08/02/2025 10:21 AM CDT) Sodium 151(H) 135 - 145 mmol/L Comment:Testing performed by : [facility], [address] [place] [address] Potassium, pl 4.8 3.3 - 4.9 mmol/L DIAMANTE SILVESTRE Comment:Testing performed by : [facility], [address] [place] [address] Chloride 116(H) 97 - 110 mmol/L DIAMANTE SILVESTRE Comment:Testing performed by : [facility], [address], [place] [address] CO2 27 22 - 32 mmol/L DIAMANTE SILVESTRE Comment:Testing performed by : [facility], [address] [place] [address] Anion gap 8 2 - 15 mmol/L DIAMANTE SILVESTRE Comment:Testing performed by : [facility], [address], [place] [address] BUN 27(H) 6 - 25 mg/dL DIAMANTE KHOURYWJOSESITO Comment:Testing performed by : [facility], [address], [place] [address] Creatinine 0.68 0.60 - 1.10 mg/dL DIAMANTE GLASSCH Comment:Testing performed by : [facility], [address], [place] [address] Glucose 102 70 - 199 mg/dL DIAMANTE KHOURYWCH Comment: Interpretive Data Fasting glucose >/= [...] was last revised 2022. Testing performed by: [facility], [address], [place] [address] Calcium 9.1 8.5 - 10.3 mg/dL CERNER BJWCH Comment:Testing performed by : [facility], [address], [place] [address] Bilirubin, total 0.3 0.1 - 1.2 mg/dL CERNER BJWCH Comment:Testing performed by : [facility], [address], [place] [address] Protein, pl 7.2 6.5 - 8.5 g/dL CERNER [facility]JWCH Comment:Testing performed by : [facility], [address], [place] [address] Albumin 3.1(L) 3.5 - 5.0 g/dL CERNER BJW[facility] Comment:Testing performed by : [facility], [address], [place] [address] Alk phos 87 40 - 130 Units/L CERNER [facility] Comment:Testing performed by : [facility], [address], [place] [address] ALT 24 7 - 45 Units/L CERNER [facility] Comment:Testing performed by : [facility], [address], [place] [address] AST 29 10 - 45 Units/L CERNER [facility] Comment:Testing performed by : [facility], [address], [place] [address] Blood 08/02/2025 10:2 1 AM CDT 08/02/2025 10:47 AM CDT Katharine Almonte MD PhD LAB BLOOD ORDERABLES Final Result Performing Organization Address [facility] Co de Phone Number DIAMANTE GLASS [address] [facility]. Department Branch2 [place] [address] * eGFR (07/19/2025 9:15 AM CDT) eGFR [...] was last reviewed 2021. Testing performed by: [facility], [address] [facility], [place] [address] Blood 07/19/2025 9:15 AM CDT 07/19/2025 9:41 AM CDT Katharine Almonte MD PhD LAB BLOOD ORDERABLES Final Result Performing Organization Address City/[facility]/ZIP Co de Phone Number DIAMANTE KHOURYCH [address] [facility]. Department Branch2 [place] [address] * (ABNORMAL) Differential, auto (07/19/2025 9:15 AM CDT) Neutrophil abs 2.92 1.50 - 6.50 K/cumm Comment:Testing performed by : [facility], [facility], [address] [place] [address] Imm gran abs 0.02 0.00 - 0.10 K/cumm CERNER BJWCH Comment:Testing performed by : [facility], [facility], [address] [place] [address] Lymphocyte abs 0.92 0.80 - 3.30 K/cumm CERNER BJWCH Comment:Testing performed by : [facility], [facility], [address], [place] [address] Monocyte abs 0.84(H) 0.20 - 0.80 K/cumm CERNER BJWCH Comment:Testing performed by : [facility] 2, [address], [place] [address] Eosinophil abs 0.34 0.00 - 0.50 K/cumm CERNER BJWCH Comment:Testing performed by : [facility] 2, [address], [place] [address] Basophil abs 0.02 0.00 - 0.10 K/cumm CERNER BJWCH Comment:Testing performed by : [facility], [facility], [address], [place] [address] Neutrophil pct 57.7 % CERNER BJW[facility] Comment: Interpretive Data Percent cell count reference ranges are not reported, since discordance with absolute values may lead to misinterpretation of CBC data. Current Interpretive Data was last revised on 2018. Testing performed by: [facility] 2, [address] [place] [address] Imm gran pct 0.4 % CERNER [facility] Comment: Interpretive Data Percent cell count reference ranges are not reported, since discordance with absolute values may lead to misinterpretation of CBC data. Current Interpretive Data was last revised on 2018. Testing performed by: [facility], [facility], [address] [place] [address] Lymphocyte pct 18.2 % [facility]ER [facility] Comment: Interpretive Data Percent cell count reference ranges are not reported, since discordance with absolute values may lead to misinterpretation of CBC data. Current Interpretive Data was last revised on 2018. Testing performed by: [facility], [facility], [address] [place] [address] Monocyte pct 16.6 % DIAMANTE SILVESTRE Comment: Interpretive Data Percent cell count reference ranges are not reported, since discordance with absolute values may lead to misinterpretation of CBC data. Current Interpretive Data was last revised on 2018. Testing performed by: [facility], [facility], [address] [place] [address] Eosinophil pct 6.7 % DIAMANTE SILVESTRE Comment: Interpretive Data Percent cell count reference ranges are not reported, since discordance with absolute values may lead to misinterpretation of CBC data. Current Interpretive Data was last revised on 2018. Testing performed by: [facility] 2, [address] [place] [address] Basophil pct 0.4 % DIAMANTE SILVESTRE Comment: Interpretive Data Percent cell count reference ranges are not reported, since discordance with absolute values may lead to misinterpretation of CBC data. Current Interpretive Data was last revised on 2018. Testing performed by: [facility] 2, [address] [place] [address] Blood 07/19/2025 9:15 AM CDT 07/19/2025 9:19 AM CDT Katharine Almonte MD PhD LAB BLOOD ORDERABLES Final Result DIAMANTE IRAIDAWCH [address] [facility]. Department [place] [address] * (ABNORMAL) CBC with auto differential (07/19/2025 9:15 AM CDT) WBC 5.06 3.80 - 9.90 K/cumm Comment:Testing performed by : [facility] 2, [address] [place] [address] Hgb 9.3(L) 11.9 - 15.5 g/dL CERNER BJWCH Comment:Testing performed by : [facility] 2, [address], [place] [address] Hct 28.8(L) 35.6 - 45.5 % CERNER BJWCH Comment:Testing performed by : [place] [address], [address], [place] [address] Plt 276 150 - 400 K/cumm CERNER BJWCH Comment:Testing performed by : [place] [address], [address], [place] [address] MPV 9.4 9.1 - 12.3 fL CERNER BJWCH Comment:Testing performed by : [place] [address], [address], [place] [address] RBC 2.93(L) 3.90 - 5.20 M/cumm CERNER BJWCH Comment:Testing performed by : [place] [address], [address], [place] [address] MCV 98.3(H) 81.3 - 96.4 fL CERNER BJWCH Comment:Testing performed by : [place] [address], [address], [place] [address] MCH 31.7 27.1 - 33.3 pg CERNER BJWCH Comment:Testing performed by : [place] [address], [address], [place] [address] MCHC 32.3 32.3 - 35.7 g/dL CERNER B[facility] Comment:Testing performed by : [place] [address], [address] [place] [address] RDW CV 14.1 11.1 - 14.9 % CERNER BJWCH Comment:Testing performed by : [facility] 2, [address] [place] [address] RDW SD 50.6(H) 35.7 - 48.1 fL CERNER BJWCH Comment:Testing performed by : [place] [address], [address] [place] [address] ANC Prelim 2.92 1.50 - 6.50 K/cumm DIAMANTE SILVESTRE Comment: Interpretive Data The rapid ANC is a preliminary automated count and may vary from the final ANC (Neut Abs) reported in the WBC differential that follows. Current interpretive data was last revised 2025. Testing performed by: [facility], [facility], [address] [place] [address] Blood 07/19/2025 9:15 AM CDT 07/19/2025 9:19 AM CDT us Katharine Almonte MD PhD LAB BLOOD ORDERABLES Final Result DIAMANTE SILVESTRE [address] Department [place] [address] * (ABNORMAL) Comprehensive metabolic panel (07/19/2025 9:15 AM CDT) Sodium 137 135 - 145 mmol/L Comment:Testing performed by : [facility], [address] [place], [place] [address] Potassium, pl 4.9 3.3 - 4.9 mmol/L DIAMANTE SILVESTRE Comment:Testing performed by : [facility], [address] [place] [address] Chloride 106 97 - 110 mmol/L DIAMANTE SILVESTRE Comment:Testing performed by : [facility], [address] [place] [address] CO2 22 22 - 32 mmol/L DIAMANTE SILVESTRE Comment:Testing performed by : [facility], [address] [place] [address] Anion gap 9 2 - 15 mmol/L DIAMANTE SILVESTRE Comment:Testing performed by : [facility], [address] [place] [address] BUN 24 6 - 25 mg/dL DIAMANTE SILVESTRE Comment:Testing performed by : [facility], [address], [place] [address] Creatinine 0.56(L) 0.60 - 1.10 mg/dL CERNER BJWCH Comment:Testing performed by : [facility], [address], [place] [address] Glucose 86 70 - 199 mg/dL CERNER [...] was last revised 2022. Testing performed by: [facility], [address], [place] [address] Calcium 8.6 8.5 - 10.3 mg/dL CERNER BJWCH Comment:Testing performed by : [facility], [address], [place] [address] Bilirubin, total 0.2 0.1 - 1.2 mg/dL CERNER BJWCH Comment:Testing performed by : [facility], [address], [place] [address] Protein, pl 6.4(L) 6.5 - 8.5 g/dL CERNER BJWCH Comment:Testing performed by : [facility], [address], [place] [address] Albumin 2.8(L) 3.5 - 5.0 g/dL CERNER BJWCH Comment:Testing performed by : [facility], [address], [place] [address] Alk phos 82 40 - 130 Units/L CERNER BJWCH Comment:Testing performed by : [facility], [address], [place] [address] ALT 19 7 - 45 Units/L CERNER BJWCH Comment:Testing performed by : [facility], [address] [place] [address] AST 21 10 - 45 Units/L DIAMANTE GLASSCH Comment:Testing performed by : [facility], [address] [place] [address] Blood 07/19/2025 9:15 AM CDT 07/19/2025 9:41 AM CDT us Katharine Almonte MD PhD LAB BLOOD ORDERABLES Final Result [facility] [address] [facility]. [place] [address] * eGFR (07/10/2025 12:22 AM CDT) eGFR [...] ORDERABLES Fi nal Result DIAMANTE KHOURY [facility] Department [place] [address] * Differential, auto (07/10/2025 12:22 AM CDT) Neutrophil abs 2.22 1.50 - 6.50 K/cumm Imm gran abs 0.01 0.00 - 0.10 K/cumm [facility] Lymphocyte abs 1.17 0.80 - 3.30 K/cumm [facility] Monocyte abs 0.36 0.20 - 0.80 K/cumm [facility] Eosinophil abs 0.17 0.00 - 0.50 K/cumm [facility] Basophil abs 0.03 0.00 - 0.10 K/cumm CERNER [facility] Neutrophil pct 56.0 % [facility]ER [facility] Comment: Interpretive Data Percent cell count reference ranges are not reported, since discordance with absolute values may lead to misinterpretation of CBC data. Current Interpretive Data was last revised on 2018. Imm gran pct 0.3 % [facility] Comment: Interpretive Data Percent cell count reference ranges are not reported, since discordance with absolute values may lead to misinterpretation of CBC data. Current Interpretive Data was last revised on 2018. Lymphocyte pct 29.5 % [facility] Comment: Interpretive Data Percent cell count reference ranges are not reported, since discordance with absolute values may lead to misinterpretation of CBC data. Current Interpretive Data was last revised on 2018. Monocyte pct 9.1 % [facility] Comment: Interpretive Data Percent cell count reference ranges are not reported, since discordance with absolute values may lead to misinterpretation of CBC data. Current Interpretive Data was last revised on 2018. Eosinophil pct 4.3 % [facility] Comment: Interpretive Data Percent cell count reference ranges are not reported, since discordance with absolute values may lead to misinterpretation of CBC data. Current Interpretive Data was last revised on 2018. Basophil pct 0.8 % [facility] Comment: Interpretive Data Percent cell count reference ranges are not reported, since discordance with absolute values may lead to misinterpretation of CBC data. Current Interpretive Data was last revised on 2018. Blood 07/10/2025 12:2 2 AM CDT 07/10/2025 12:42 AM CDT Allen Soto MD LAB BLOOD ORDERABLES Fi nal Result Performing Organization Address [facility] Co de Phone Number [facility] Department [place] [address] * (ABNORMAL) CBC with auto differential (07/10/2025 12:22 AM CDT) Pathologist [facility] WBC 3.96 3.80 - 9.90 K/cumm Hgb 8.9(L) 11.9 - 15.5 g/dL [facility] Hct 28.3(L) 35.6 - 45.5 % [facility] Plt 256 150 - 400 K/cumm [facility] MPV 10.3 9.1 - 12.3 fL [facility] RBC 2.80(L) 3.90 - 5.20 M/cumm [facility] MCV 101.1(H) 81.3 - 96.4 fL [facility] MCH 31.8 27.1 - 33.3 pg [facility] MCHC 31.4(L) 32.3 - 35.7 g/dL [facility] RDW CV 14.3 11.1 - 14.9 % [facility] RDW SD 52.6(H) 35.7 - 48.1 fL [facility] NRBC abs 0.00 0.00 - 0.01 K/cumm [facility] Blood 07/10/2025 12:2 2 AM CDT 07/10/2025 12:42 AM CDT Allen Soto MD LAB BLOOD ORDERABLES Fi nal Result Performing Organization Address City/[facility]/ZIP Co de Phone Number [facility] Department [place] [address] * (ABNORMAL) Comprehensive metabolic panel (07/10/2025 12:22 AM CDT) Pathologist [facility] Sodium 144 135 - 145 mmol/L Potassium, pl 3.6 3.3 - 4.9 mmol/L [facility] Chloride 112(H) 97 - 110 mmol/L [facility] CO2 28 22 - 32 mmol/L [facility] Anion gap 4 2 - 15 mmol/L [facility] BUN 18 6 - 25 mg/dL [facility] Creatinine 0.48(L) 0.60 - 1.10 mg/dL [facility] Glucose 80 70 - 199 mg/dL [facility] Comment: Interpretive Data Fasting glucose >/= 126 [...] 2022. Calcium 7.9(L) 8.5 - 10.3 mg/dL [facility] Bilirubin, total 0.2 0.1 - 1.2 mg/dL [facility] Protein, pl 6.3(L) 6.5 - 8.5 g/dL [facility] Albumin 2.4(L) 3.5 - 5.0 g/dL [facility] Alk phos 59 40 - 130 Units/L [facility] ALT 18 7 - 45 Units/L [facility] AST 21 10 - 45 Units/L [facility] Blood 07/10/2025 12:2 2 AM CDT 07/10/2025 12:42 AM CDT us Allen Soto MD LAB BLOOD ORDERABLES Fi nal Result [facility] Department [place] [address] * (ABNORMAL) Aerobic and anaerobic culture and gram stain Wound Abdominal (07/09/2025 10:37 AM CDT) Direct Specimen Exam Stain: Abundant polymorphonuclear leukocytes seen. Moderate Gram Positive Bacilli Few Yeast Rare Gram Negative Bacilli Slide reviewed and direct smear was updated. Report Final Report: Moderate Mixed microorganisms. Includes the following: Moderate Escherichia coli Moderate Dionne lusitaniae Moderate Dionne parapsilosis (.) [facility] Organism ESCHERICHIA COLI [facility] Organism DIONNE LUSITANIAE [facility] Organism DIONNE PARAPSILOSIS [facility] Organism MIXED MICROORGANISMS. [facility] Wound (Abdominal) 07/09/2025 10:37 AM CDT 07/09/2025 11:13 AM CDT Narrative [facility] - 07/18/2025 11:31 AM CDT G tube Testing performed by [facility] ([phone]) Specimens submitted from normally sterile body sites [...] Escherichia coli Piperacillin/Tazobactam INTERPRETATIO N Susceptible Allen Kirill Soto MD LAB MICROBIOLOGY - [facility] ORDERABLES Final Result [facility] Department [place] [address] * (ABNORMAL) Differential, auto (07/08/2025 4:58 PM CDT) Neutrophil abs 4.05 1.50 - 6.50 K/cumm Imm gran abs 0.05 0.00 - 0.10 K/cumm [facility] Lymphocyte abs 0.78(L) 0.80 - 3.30 K/cumm [facility] Monocyte abs 0.27 0.20 - 0.80 K/cumm [facility] Eosinophil abs 0.07 0.00 - 0.50 K/cumm [facility] Basophil abs 0.02 0.00 - 0.10 K/cumm [facility] Neutrophil pct 77.2 % [facility] Comment: Interpretive Data Percent cell count reference ranges are not reported, since discordance with absolute values may lead to misinterpretation of CBC data. Current Interpretive Data was last revised on 2018. Imm gran pct 1.0 % [facility] Comment: Interpretive Data Percent cell count reference ranges are not reported, since discordance with absolute values may lead to misinterpretation of CBC data. Current Interpretive Data was last revised on 2018. Lymphocyte pct 14.9 % [facility] Comment: Interpretive Data Percent cell count reference ranges are not reported, since discordance with absolute values may lead to misinterpretation of CBC data. Current Interpretive Data was last revised on 2018. Monocyte pct 5.2 % [facility] Comment: Interpretive Data Percent cell count reference ranges are not reported, since discordance with absolute values may lead to misinterpretation of CBC data. Current Interpretive Data was last revised on 2018. Eosinophil pct 1.3 % [facility] Comment: Interpretive Data Percent cell count reference ranges are not reported, since discordance with absolute values may lead to misinterpretation of CBC data. Current Interpretive Data was last revised on 2018. Basophil pct 0.4 % [facility] Comment: Interpretive Data Percent cell count reference ranges are not reported, since discordance with absolute values may lead to misinterpretation of CBC data. Current Interpretive Data was last revised on 2018. Blood 07/08/2025 4:58 PM CDT 07/08/2025 5:13 PM CDT us John Jorge MD LAB BLOOD ORDERABLES Fi nal Result [facility] Department [place] [address] * (ABNORMAL) CBC with auto differential (07/08/2025 4:58 PM CDT) [facility] WBC 5.24 3.80 - 9.90 K/cumm Hgb 9.9(L) 11.9 - 15.5 g/dL [facility] Hct 31.5(L) 35.6 - 45.5 % [facility] Plt 241 150 - 400 K/cumm [facility] MPV 9.7 9.1 - 12.3 fL [facility] RBC 3.17(L) 3.90 - 5.20 M/cumm [facility] MCV 99.4(H) 81.3 - 96.4 fL [facility] MCH 31.2 27.1 - 33.3 pg [facility] MCHC 31.4(L) 32.3 - 35.7 g/dL [facility] RDW CV 14.6 11.1 - 14.9 % [facility] RDW SD 53.3(H) 35.7 - 48.1 fL [facility] NRBC abs 0.00 0.00 - 0.01 K/cumm [facility] Blood 07/08/2025 4:58 PM CDT 07/08/2025 5:13 PM CDT us John Jorge MD LAB BLOOD ORDERABLES Fi nal Result [facility] Department [place] [address] * XR Chest Pa Lateral 2 Vw [...] panel Nasopharyngeal (07/08/2025 4:36 PM CDT) Pathologist [facility] Influenza A RNA Not Detected Not Detected Influenza B RNA Not Detected Not Detected [facility] RSV RNA Not Detected Not Detected [facility] COVID-19 RNA Not Detected Not Detected [facility] Coronavirus 229E RNA Not Detected Not Detected [facility] Coronavirus HKU1 RNA Not Detected Not Detected [facility] Coronavirus NL63 RNA Not Detected Not Detected [facility] Coronavirus OC43 RNA Not Detected Not Detected [facility] Adenovirus DNA Not Detected Not Detected [facility] Metapneumovirus RNA Not Detected Not Detected [facility] Rhinovirus/Enterov irus RNA Not Detected Not Detected [facility] Parainfluenza 1 RNA Not Detected Not Detected [facility] Parainfluenza 2 RNA Not Detected Not Detected [facility] Parainfluenza 3 RNA Not Detected Not Detected [facility] Parainfluenza 4 RNA Not Detected Not Detected [facility] B. pertussis DNA Not Detected Not Detected [facility] B. parapertussis DNA Not Detected Not Detected [facility] C. pneumoniae DNA Not Detected Not Detected [facility] M. pneumoniae DNA Not Detected Not Detected [facility] Nasopharyngeal 07/08/2025 4: 36 PM CDT 07/08/2025 4:43 PM CDT Narrative [facility] - 07/08/2025 5:40 PM CDT Is the Patient experiencing symptoms consistent with COVID?->Unknown Surveillance testing for transplant patient?->No Interpretive Data The [employer] FilmArray Respiratory Panel (RP2.1) assay is a [...] assay has FDA clearance for testing of [employer] swabs. The performance of additional specimen types has been assessed by the performing laboratory. The performance characteristics of this assay have been determined by [facility] Infectious Disease [facility]. Current interpretive data was last revised on 22. John Jorge MD LAB MICROBIOLOGY - GENE RAL ORDERABLES Final Result Performing Organization Address [facility] Co de Phone [place] [address] * Troponin I high-sensitivity series (baseline, 2hr, 4hr, 6hr) (07/08/2025 4:01 PM CDT) Pathologist [facility] Trop I hs 8 <=17 ng/L Comment: Interpretive Data For further hscTnI resources including the diagnostic algorithm and an aid in interpretation, copy and paste this link: [email or web address] Current Interpretive Data last revised 2020. Blood 07/08/2025 4:01 PM CDT 07/08/2025 4:17 PM CDT Lidia Garcia MD LAB BLOOD ORDERABLES Final Result Performing Organization Address [facility] Co de Phone Number DIAMANTE [facility] [place] [address] * Sepsis Lactate w/ Reflex (07/08/2025 4:01 PM CDT) Sepsis Lactate 1.6 0.7 - 2.0 mmol/L Blood 07/08/2025 4:01 PM CDT 07/08/2025 4:06 PM CDT Lidia Garcia MD LAB BLOOD ORDERABLES Final Result Performing Organization Address [facility] Co de Phone Number [facility] Department [place] [address] * eGFR (07/08/2025 4:01 PM CDT) eGFR [...] BLOOD ORDERABLES Final Result Performing Organization Address [facility] Co de Phone Number [facility] Department [place] [address] * Blood culture Blood Peripheral (07/08/2025 4:01 PM CDT) Report Final Report: No growth Blood (Peripheral) 07/08/2025 4:01 PM CDT 07/08/2025 4:14 PM CDT Narrative [facility] - 07/13/2025 7:00 AM CDT From a [...] performance characteristics have been verified by the [facility]. For questions about this culture, contact the Microbiology Laboratory at [phone]. Interpretive data was last revised on 24. us Lidia Garcia MD LAB MICROBIOLOGY - GENERAL ORDERABLES Final Result DIAMANTE KHOURY [facility] Department [place] [address] * Blood culture Blood Peripheral (07/08/2025 4:01 PM CDT) Report Final Report: No growth Blood (Peripheral) 07/08/2025 4:01 PM CDT 07/08/2025 4:14 PM CDT [facility] - 07/13/2025 7:00 AM CDT Draw Blood [...] performance characteristics have been verified by the [facility]. For questions about this culture, contact the Microbiology Laboratory at [phone]. Interpretive data was last revised on 24. us Lidia Garcia MD LAB MICROBIOLOGY - GENERAL ORDERABLES Final Result [facility] Department [place] [address] * (ABNORMAL) Comprehensive metabolic panel (07/08/2025 4:01 PM CDT) Sodium 142 135 - 145 mmol/L Potassium, pl 4.6 3.3 - 4.9 mmol/L [facility] Comment:Hemolyzed; Potassium value may be falsely elevated by as much as 0.3-0.5 mmol/L. Suggest redraw and reanalysis. Chloride 111(H) 97 - 110 mmol/L [facility] CO2 25 22 - 32 mmol/L [facility] Anion gap 6 2 - 15 mmol/L [facility] BUN 23 6 - 25 mg/dL [facility] Creatinine 0.56(L) 0.60 - 1.10 mg/dL [facility] Glucose 131 70 - 199 mg/dL [facility] Comment: Interpretive Data Fasting glucose >/= 126 [...] phos 87 40 - 130 Units/L CERNER BJ ALT 23 7 - 45 Units/L CERNER BJ AST 39 10 - 45 Units/L CERNER BJ Comment:Hemolyzed; result ma y be falsely elevated Blood 07/08/2025 4:01 PM CDT 07/08/2025 4:17 PM CDT us Lidia Garcia MD LAB BLOOD ORDERABLES Final Result [facility] Department [place] [address] * Critical Care (07/08/2025 3:00 PM CDT) [...] ECG 12-LEAD (07/08/2025 2:41 PM CDT) Narrative [facility] - 07/08/2025 2:41 PM CDT John [...] ECG ORDERABLES Edited Res ult - Final [facility] * eGFR (07/05/2025 10:00 AM CDT) eGFR [...] was last reviewed 2021. Testing performed by: [facility], [address] [place] [address] Blood 07/05/2025 10:0 0 AM CDT 07/05/2025 10:34 AM CDT us Katharine Almonte MD PhD LAB BLOOD ORDERABLES Final Result [facility] [address] Department [place] [address] * (ABNORMAL) Differential, auto (07/05/2025 10:00 AM CDT) Neutrophil abs 2.92 1.50 - 6.50 K/cumm Comment:Testing performed by : [facility], [facility], [address] [place] [address] Imm gran abs 0.01 0.00 - 0.10 K/cumm DIAMANTE SILVESTRE Comment:Testing performed by : [facility] 2, [address] [place] [address] Lymphocyte abs 0.74(L) 0.80 - 3.30 K/cumm DIAMANTE SILVESTRE Comment:Testing performed by : [facility] 2, [address] [place] [address] Monocyte abs 0.55 0.20 - 0.80 K/cumm DIAMANTE SILVESTRE Comment:Testing performed by : [facility] 2, [address] [place] [address] Eosinophil abs 0.21 0.00 - 0.50 K/cumm DIAMANTE SILVESTRE Comment:Testing performed by : [facility] 2, [address] [place] [address] Basophil abs 0.02 0.00 - 0.10 K/cumm CERNER BJWCH Comment:Testing performed by : [facility], [facility], [address] [place] [address] Neutrophil pct 65.7 % CERNER BJWCH Comment: Interpretive Data Percent cell count reference ranges are not reported, since discordance with absolute values may lead to misinterpretation of CBC data. Current Interpretive Data was last revised on 2018. Testing performed by: [facility], [facility], [address], [place] [address] Imm gran pct 0.2 % CERNER BJW[facility] Comment: Interpretive Data Percent cell count reference ranges are not reported, since discordance with absolute values may lead to misinterpretation of CBC data. Current Interpretive Data was last revised on 2018. Testing performed by: [facility], [facility], [address] [place] [address] Lymphocyte pct 16.6 % CERNER BJW[facility] Comment: Interpretive Data Percent cell count reference ranges are not reported, since discordance with absolute values may lead to misinterpretation of CBC data. Current Interpretive Data was last revised on 2018. Testing performed by: [facility], [facility], [address] [place] [address] Monocyte pct 12.4 % CERNER BJWCH Comment: Interpretive Data Percent cell count reference ranges are not reported, since discordance with absolute values may lead to misinterpretation of CBC data. Current Interpretive Data was last revised on 2018. Testing performed by: [facility], [facility], [address] [place] [address] Eosinophil pct 4.7 % CERNER BJWCH Comment: Interpretive Data Percent cell count reference ranges are not reported, since discordance with absolute values may lead to misinterpretation of CBC data. Current Interpretive Data was last revised on 2018. Testing performed by: [facility], [facility], [address] [place] [address] Basophil pct 0.4 % CERNER BJW[facility] Comment: Interpretive Data Percent cell count reference ranges are not reported, since discordance with absolute values may lead to misinterpretation of CBC data. Current Interpretive Data was last revised on 2018. Testing performed by: [facility], [facility], [address] [place] [address] Blood 07/05/2025 10:0 0 AM CDT 07/05/2025 10:05 AM CDT us Katharine Almonte MD PhD LAB BLOOD ORDERABLES Final Result [facility] [address] [facility]. Department [place] [address] * (ABNORMAL) CBC with auto differential (07/05/2025 10:00 AM CDT) WBC 4.45 3.80 - 9.90 K/cumm Comment:Testing performed by : [facility], [facility], [address] [place] [address] Hgb 9.3(L) 11.9 - 15.5 g/dL DIAMANTE SILVESTRE Comment:Testing performed by : [facility] 2, [address] [place] [address] Hct 29.8(L) 35.6 - 45.5 % DIAMANTE SILVESTRE Comment:Testing performed by : [facility] 2, [address] [place] [address] Plt 231 150 - 400 K/cumm DIAMANTE SILVESTRE Comment:Testing performed by : [facility] 2, [address] [place] [address] MPV 9.2 9.1 - 12.3 fL DIAMANTE SILVESTRE Comment:Testing performed by : [facility] 2, [address] [place] [address] RBC 3.00(L) 3.90 - 5.20 M/cumm DIAMANTE SILVESTRE Comment:Testing performed by : [facility], [facility], [address] [place] [address] MCV 99.3(H) 81.3 - 96.4 fL DIAMANTE KHOURYCH Comment:Testing performed by : [facility], [facility], [address] [place] [address] MCH 31.0 27.1 - 33.3 pg DIAMANTE KHOURYWCH Comment:Testing performed by : [place] [address], [address] [place] [address] MCHC 31.2(L) 32.3 - 35.7 g/dL DIAMANTE KHOURYWCH Comment:Testing performed by : [place] [address], [address] [place] [address] RDW CV 14.3 11.1 - 14.9 % DIAMANTE KHOURYCH Comment:Testing performed by : [place] [address], [address] [place] [address] RDW SD 52.2(H) 35.7 - 48.1 fL DIAMANTE KHOURYW Comment:Testing performed by : [address] [place] [address] ANC Prelim 2.92 1.50 - 6.50 K/cumm [facility] Comment: Interpretive Data The rapid ANC is a preliminary automated count and may vary from the final ANC (Neut Abs) reported in the WBC differential that follows. Current interpretive data was last revised 2025. Testing performed by: [place] [address], [address] [place] [address] Blood 07/05/2025 10:0 0 AM CDT 07/05/2025 10:05 AM CDT us Katharine Almonte MD PhD LAB BLOOD ORDERABLES Final Result [facility] [address] [facility]. [place] [address] * (ABNORMAL) Comprehensive metabolic panel (07/05/2025 10:00 AM CDT) Sodium 137 135 - 145 mmol/L Comment:Testing performed by : [facility], [address], [place] [address] Potassium, pl 4.8 3.3 - 4.9 mmol/L CERNER BJW Comment:Testing performed by : [facility], [address], [place] [address] Chloride 106 97 - 110 mmol/L CERNER BJWCH Comment:Testing performed by : [facility], [address], [place] [address] CO2 25 22 - 32 mmol/L CERNER BJWCH Comment:Testing performed by : [facility], [address], [place] [address] Anion gap 6 2 - 15 mmol/L CERNER BJW Comment:Testing performed by : [facility], [address], [place] [address] BUN 22 6 - 25 mg/dL CERNER BJWCH Comment:Testing performed by : [facility], [address], [place] [address] Creatinine 0.53(L) 0.60 - 1.10 mg/dL CERNER BJWCH Comment:Testing performed by : [facility], [address], [place] [address] Glucose 102 70 - 199 mg/dL CERNER BJW Comment: Interpretive Data Fasting glucose >/= 126 [...] was last revised 2022. Testing performed by: [facility], [address], [place] [address] Calcium 8.2(L) 8.5 - 10.3 mg/dL CERNER BJWCH Comment:Testing performed by : [facility], [address], [place] [address] Bilirubin, total 0.2 0.1 - 1.2 mg/dL CERNER BJWCH Comment:Testing performed by : [facility], [address], [place] [address] Protein, pl 6.4(L) 6.5 - 8.5 g/dL CERNER BJWCH Comment:Testing performed by : [facility], [address], [place] [address] Albumin 2.8(L) 3.5 - 5.0 g/dL CERNER BJWCH Comment:Testing performed by : [facility], [address], [place] [address] Alk phos 65 40 - 130 Units/L CERNER BJWCH Comment:Testing performed by : [facility], [address], [place] [address] ALT 18 7 - 45 Units/L CERNER BJWCH Comment:Testing performed by : [facility], [address], [place] [address] AST 21 10 - 45 Units/L CERNER BJWCH Comment:Testing performed by : [facility], [address], [place] [address] Blood 07/05/2025 10:0 0 AM CDT 07/05/2025 10:34 AM CDT us Katharine Almonte MD PhD LAB BLOOD ORDERABLES Final Result [facility] [address] Department [place] [address] * eGFR (06/21/2025 9:41 AM CDT) eGFR [...] was last reviewed 2021. Testing performed by: [facility], [address] [place] [address] Blood 06/21/2025 9:41 AM CDT 06/21/2025 10:08 AM CDT us Katharine Almonte MD PhD LAB BLOOD ORDERABLES Final Result [facility] [address]. Department of Laboratories [place], [place] [id number] * (ABNORMAL) Differential, auto (06/21/2025 9:41 AM CDT) Neutrophil abs 3.86 1.50 - 6.50 K/cumm Comment:Testing performed by : [facility], [facility], [address] [place] [address] Imm gran abs 0.01 0.00 - 0.10 K/cumm DIAMANTE SILVESTRE Comment:Testing performed by : [facility], [facility], [address] [place] [address] Lymphocyte abs 0.94 0.80 - 3.30 K/cumm DIAMANTE SILVESTRE Comment:Testing performed by : [facility], [facility], [address], [place] [address] Monocyte abs 0.84(H) 0.20 - 0.80 K/cumm CERNER BJWCH Comment:Testing performed by : [facility], [facility], [address] [place] [address] Eosinophil abs 0.15 0.00 - 0.50 K/cumm CERNER BJWCH Comment:Testing performed by : [facility], [facility], [address] [place] [address] Basophil abs 0.03 0.00 - 0.10 K/cumm CERNER BJWCH Comment:Testing performed by : [facility], [facility], [address] [place] [address] Neutrophil pct 66.2 % CERNER BJWCH Comment: Interpretive Data Percent cell count reference ranges are not reported, since discordance with absolute values may lead to misinterpretation of CBC data. Current Interpretive Data was last revised on 2018. Testing performed by: [facility], [facility], [address] [place] [address] Imm gran pct 0.2 % CERNER BJWCH Comment: Interpretive Data Percent cell count reference ranges are not reported, since discordance with absolute values may lead to misinterpretation of CBC data. Current Interpretive Data was last revised on 2018. Testing performed by: [facility], [facility], [address] [place] [address] Lymphocyte pct 16.1 % CERNER BJWCH Comment: Interpretive Data Percent cell count reference ranges are not reported, since discordance with absolute values may lead to misinterpretation of CBC data. Current Interpretive Data was last revised on 2018. Testing performed by: [facility], [facility], [address] [place] [address] Monocyte pct 14.4 % CERNER BJWCH Comment: Interpretive Data Percent cell count reference ranges are not reported, since discordance with absolute values may lead to misinterpretation of CBC data. Current Interpretive Data was last revised on 2018. Testing performed by: [facility], [facility], [address] [place] [address] Eosinophil pct 2.6 % DIAMANTE SILVESTRE Comment: Interpretive Data Percent cell count reference ranges are not reported, since discordance with absolute values may lead to misinterpretation of CBC data. Current Interpretive Data was last revised on 2018. Testing performed by: [facility] 2, [address] [place] [address] Basophil pct 0.5 % DIAMANTE SILVESTRE Comment: Interpretive Data Percent cell count reference ranges are not reported, since discordance with absolute values may lead to misinterpretation of CBC data. Current Interpretive Data was last revised on 2018. Testing performed by: [facility] 2, [address] [place] [address] Blood 06/21/2025 9:41 AM CDT 06/21/2025 9:45 AM CDT Katharine Almonte MD PhD LAB BLOOD ORDERABLES Final Result [facility] [address] [facility] Department [place] [address] * (ABNORMAL) CBC with auto differential (06/21/2025 9:41 AM CDT) WBC 5.83 3.80 - 9.90 K/cumm Comment:Testing performed by : [facility] 2, [address] [place] [address] Hgb 10.5(L) 11.9 - 15.5 g/dL DIAMANTE SILVESTRE Comment:Testing performed by : [facility] 2, [address] [place] [address] Hct 32.9(L) 35.6 - 45.5 % DIAMANTE SILVESTRE Comment:Testing performed by : [facility] 2, [address] [place] [address] Plt 276 150 - 400 K/cumm DIAMANTE SILVESTRE Comment:Testing performed by : [facility] 2, [address] [place] [address] MPV 9.1 9.1 - 12.3 fL CERNER BJWCH Comment:Testing performed by : [place] [address] [place] [address] RBC 3.31(L) 3.90 - 5.20 M/cumm CERNER BJWCH Comment:Testing performed by : [place] [address] [place] [address] MCV 99.4(H) 81.3 - 96.4 fL CERNER BJWCH Comment:Testing performed by : [place] [address] [place] [address] MCH 31.7 27.1 - 33.3 pg CERNER BJWCH Comment:Testing performed by : [place] [address] [place] [address] MCHC 31.9(L) 32.3 - 35.7 g/dL CERNER BJWCH Comment:Testing performed by : [place] [address] [place] [address] RDW CV 14.6 11.1 - 14.9 % CERNER BJWCH Comment:Testing performed by : [place] [address] [place] [address] RDW SD 53.3(H) 35.7 - 48.1 fL CERNER BJWCH Comment:Testing performed by : [place] [address] [place] [address] ANC Prelim 3.86 1.50 - 6.50 K/cumm CERNER BJWCH Comment: Interpretive Data The rapid ANC is a preliminary automated count and may vary from the final ANC (Neut Abs) reported in the WBC differential that follows. Current interpretive data was last revised 2025. Testing performed by: [place] [address] [place] [address] Blood 06/21/2025 9:41 AM CDT 06/21/2025 9:45 AM CDT us Katharine Almonte MD PhD LAB BLOOD ORDERABLES Final Result [facility] [address] Department [place] [address] * (ABNORMAL) Comprehensive metabolic panel (06/21/2025 9:41 AM CDT) Sodium 140 135 - 145 mmol/L Comment:Testing performed by : [facility], [address], [place] [address] Potassium, pl 4.0 3.3 - 4.9 mmol/L CEREDITH KHOURYWCH Comment:Testing performed by : [facility], [address], [place] [address] Chloride 105 97 - 110 mmol/L CEREDITH KHOURYWCH Comment:Testing performed by : [facility], [address], [place] [address] CO2 24 22 - 32 mmol/L CEREDITH BJWCH Comment:Testing performed by : [facility], [address], [place] [address] Anion gap 11 2 - 15 mmol/L CEREDITH BJWCH Comment:Testing performed by : [facility], [address], [place] [address] BUN 11 6 - 25 mg/dL CEREDITH BJWCH Comment:Testing performed by : [facility], [address], [place] [address] Creatinine 0.53(L) 0.60 - 1.10 mg/dL CEREDITH BJWCH Comment:Testing performed by : [facility], [address], [place] [address] Glucose 89 70 - 199 mg/dL CEREDITH BJWCH Comment: Interpretive Data Fasting glucose >/= [...] was last revised 2022. Testing performed by: [facility], [address], [place] [address] Calcium 8.9 8.5 - 10.3 mg/dL CERNER BJWCH Comment:Testing performed by : [facility], [address], [place] [address] Bilirubin, total 0.3 0.1 - 1.2 mg/dL CERNER BJWCH Comment:Testing performed by : [facility], [address], [place] [address] Protein, pl 7.2 6.5 - 8.5 g/dL CERNER BJWCH Comment:Testing performed by : [facility], [address], [place] [address] Albumin 3.2(L) 3.5 - 5.0 g/dL CERNER BJWCH Comment:Testing performed by : [facility], [address], [place] [address] Alk phos 66 40 - 130 Units/L CERNER BJWCH Comment:Testing performed by : [facility], [address], [place] [address] ALT 14 7 - 45 Units/L CERNER BJWCH Comment:Testing performed by : [facility], [address], [place] [address] AST 21 10 - 45 Units/L CERNER BJWCH Comment:Testing performed by : [facility], [address], [place] [address] Blood 06/21/2025 9:41 AM CDT 06/21/2025 10:08 AM CDT us Katharine Almonte MD PhD LAB BLOOD ORDERABLES Final Result [facility] [address] [place] [address] * eGFR (06/07/2025 11:12 AM CDT) eGFR [...] was last reviewed 2021. Testing performed by: [facility], [address] [place] [address] Blood 06/07/2025 11:1 2 AM CDT 06/07/2025 11:36 AM CDT us Katharine Almonte MD PhD LAB BLOOD ORDERABLES Final Result [facility] [address]. [place] [address] * Differential, auto (06/07/2025 11:12 AM CDT) Neutrophil abs 3.99 1.50 - 6.50 K/cumm Comment:Testing performed by : [facility], [facility], [address] [place] [address] Imm gran abs 0.03 0.00 - 0.10 K/cumm DIAMANTE SILVESTRE Comment:Testing performed by : [facility], [facility], [address] [place] [address] Lymphocyte abs 1.01 0.80 - 3.30 K/cumm CERNER BJWCH Comment:Testing performed by : [facility], [facility], [address] [place] [address] Monocyte abs 0.67 0.20 - 0.80 K/cumm CERNER BJWCH Comment:Testing performed by : [facility], [facility], [address] [place] [address] Eosinophil abs 0.25 0.00 - 0.50 K/cumm CERNER BJWCH Comment:Testing performed by : [facility], [facility], [address], [place] [address] Basophil abs 0.03 0.00 - 0.10 K/cumm CERNER BJWCH Comment:Testing performed by : [facility], [facility], [address] [place] [address] Neutrophil pct 66.7 % CERNER BJWCH Comment: Interpretive Data Percent cell count reference ranges are not reported, since discordance with absolute values may lead to misinterpretation of CBC data. Current Interpretive Data was last revised on 2018. Testing performed by: [facility], [facility], [address] [place] [address] Imm gran pct 0.5 % CERNER BJWCH Comment: Interpretive Data Percent cell count reference ranges are not reported, since discordance with absolute values may lead to misinterpretation of CBC data. Current Interpretive Data was last revised on 2018. Testing performed by: [facility], [facility], [address] [place] [address] Lymphocyte pct 16.9 % CERNER BJWCH Comment: Interpretive Data Percent cell count reference ranges are not reported, since discordance with absolute values may lead to misinterpretation of CBC data. Current Interpretive Data was last revised on 2018. Testing performed by: [facility], [facility], [address] [place] [address] Monocyte pct 11.2 % DIAMANTE SILVESTRE Comment: Interpretive Data Percent cell count reference ranges are not reported, since discordance with absolute values may lead to misinterpretation of CBC data. Current Interpretive Data was last revised on 2018. Testing performed by: [facility], [facility], [address] [place] [address] Eosinophil pct 4.2 % DIAMANTE SILVESTRE Comment: Interpretive Data Percent cell count reference ranges are not reported, since discordance with absolute values may lead to misinterpretation of CBC data. Current Interpretive Data was last revised on 2018. Testing performed by: [facility], [facility], [address] [place] [address] Basophil pct 0.5 % DIAMANTE SILVESTRE Comment: Interpretive Data Percent cell count reference ranges are not reported, since discordance with absolute values may lead to misinterpretation of CBC data. Current Interpretive Data was last revised on 2018. Testing performed by: [facility], [facility], [address] [place] [address] Blood 06/07/2025 11:1 2 AM CDT 06/07/2025 11:25 AM CDT us Katharine Almonte MD PhD LAB BLOOD ORDERABLES Final Result Performing Organization Address City/State[place] [facility] de Phone Number [facility] [address] [facility]. Department [place] [address] * (ABNORMAL) CBC with auto differential (06/07/2025 11:12 AM CDT) WBC 5.98 3.80 - 9.90 K/cumm Comment:Testing performed by : [facility], [facility], [address] [place] [address] Hgb 9.6(L) 11.9 - 15.5 g/dL DIAMANTE SILVESTRE Comment:Testing performed by : [facility] 2, [address] [place] [address] Hct 30.4(L) 35.6 - 45.5 % CERNER BJWCH Comment:Testing performed by : [place] [address], [address] [place] [address] Plt 305 150 - 400 K/cumm CERNER BJWCH Comment:Testing performed by : [address] [place] [address] MPV 9.1 9.1 - 12.3 fL CERNER BJWCH Comment:Testing performed by : [place] [address] [place] [address] RBC 3.05(L) 3.90 - 5.20 M/cumm CERNER BJWCH Comment:Testing performed by : [place] [address] [place] [address] MCV 99.7(H) 81.3 - 96.4 fL CERNER BJWCH Comment:Testing performed by : [place] [address], [place] [address] MCH 31.5 27.1 - 33.3 pg CERNER BJWCH Comment:Testing performed by : [place] [address], [place] [address] MCHC 31.6(L) 32.3 - 35.7 g/dL CERNER BJWCH Comment:Testing performed by : [place] [address] [place] [address] RDW CV 16.2(H) 11.1 - 14.9 % CERNER BJWCH Comment:Testing performed by : [address] [place] [address] RDW SD 59.7(H) 35.7 - 48.1 fL CERNER BJWCH Comment:Testing performed by : [address], [place] [address] ANC Prelim 3.99 1.50 - 6.50 K/cumm CERNER BJWCH Comment: Interpretive Data The rapid ANC is a preliminary automated count and may vary from the final ANC (Neut Abs) reported in the WBC differential that follows. Current interpretive data was last revised 2025. Testing performed by: [facility], [facility], [address] [place] [address] Blood 06/07/2025 11:1 2 AM CDT 06/07/2025 11:25 AM CDT us Katharine Almonte MD PhD LAB BLOOD ORDERABLES Final Result [facility] [address]. Department [place] [address] * (ABNORMAL) Comprehensive metabolic panel (06/07/2025 11:12 AM CDT) Sodium 138 135 - 145 mmol/L Comment:Testing performed by : [facility], [address], [place] [address] Potassium, pl 4.1 3.3 - 4.9 mmol/L CEREDITH BJWJOSESITO Comment:Testing performed by : [facility], [address] [place] [address] Chloride 104 97 - 110 mmol/L CEREDITH KHOURYWCH Comment:Testing performed by : [facility], [address] [place] [address] CO2 25 22 - 32 mmol/L CEREDITH BJWCH Comment:Testing performed by : [facility], [address] [place] [address] Anion gap 9 2 - 15 mmol/L DIAMANTE BJWCH Comment:Testing performed by : [facility], [address] [place] [address] BUN 14 6 - 25 mg/dL CEREDITH BJWCH Comment:Testing performed by : [facility], [address] [place] [address] Creatinine 0.50(L) 0.60 - 1.10 mg/dL CEREDITH BJWCH Comment:Testing performed by : [facility], [address], [place] [address] Glucose 81 70 - 199 mg/dL CERNER BJWCH Comment: [...] was last revised 2022. Testing performed by: [facility], [address], [place] [address] Calcium 8.1(L) 8.5 - 10.3 mg/dL CERNER BJWCH Comment:Testing performed by : [facility], [address], [place] [address] Bilirubin, total 0.2 0.1 - 1.2 mg/dL CERNER BJWCH Comment:Testing performed by : [facility], [address], [place] [address] Protein, pl 7.2 6.5 - 8.5 g/dL CERNER BJWCH Comment:Testing performed by : [facility], [address], [place] [address] Albumin 2.9(L) 3.5 - 5.0 g/dL CERNER BJWCH Comment:Testing performed by : [facility], [address], [place] [address] Alk phos 77 40 - 130 Units/L CERNER BJWCH Comment:Testing performed by : [facility], [address], [place] [address] ALT 18 7 - 45 Units/L CERNER BJWCH Comment:Testing performed by : [facility], [address], [place] [address] AST 19 10 - 45 Units/L CERNER BJWCH Comment:Testing performed by : [facility], [address] [place] [address] Blood 06/07/2025 11:1 2 AM CDT 06/07/2025 11:36 AM CDT us Katharine Almonte MD PhD LAB BLOOD ORDERABLES Final Result DIAMANTE BJWCH [address] [facility]. Department [place] [address] from Last 3 Months Insurance [facility] Advance Directives For more information, please contact: [phone] * Full Code (Latest Code Status on [...] 4:54 PM 11/26/2024 9:58 PM Care Teams Tentering Machine Off Bearer Relationship Specialty Start Date End Date Leisa Hicks MD [address] [place] [address] PCP - General Internal Medicine 08/22/24 Tino Mendoza MD [address] [place] [address] Internal Medicine 08/24/24 Irving Barnes MD [address] [place] [address] Referring Physician Gastroenterology 08/24/24 Katharine Almonte MD PhD [address] [place] [address] Medical Oncologist Medical Oncology 12/07/24
--- OUTSIDE RECORDS SUMMARY | 2025-09-02 10:51 | XMS_ITS | Encounter Summary ---
Author Organization [facility] Address [address] [place] [address] Phone Care Team Providers Care Stem Threshing Machine Operator Name Role Phone Leisa Hicks MD Primary Care Provider Tino Mendoza MD Unavailable [phone] Irving Barnes MD Unavailable + Katharine Almonte MD PhD Unavailable [phone] Encounter Details Date Type Department Care Team (Late st Contact Info) Description 09/01/2025 Telephone [facility] Medicine Oncology [address] [facility] [address] [place] [address] Radha aBca, RN Social History Tobacco Use Types Packs/Day [...] any time in the past 12 m [facility], were you homeless or living in a senior living (including now)? No 05/22/2025 Social Connection and Isolation Panel Answer Date Recorded In a typical week, how many times do you talk on the phone with family, friends, or neighbors? More than three times a week 07/10/2025 How often do you get togethe r with friends or relatives? More than three times a week 07/10/2025 How often do you attend chur ch or episcopal services? Never 07/10/2025 Do you belong to any clubs o r organizations such as congregation groups, unions, fraternal or athletic groups, or [...] any time in the past 12 m [facility], were you homeless or living in a senior living (including now)? No 07/10/2025 [facility] Utilities Answer Date Recorded In [...] - 09/01/2025 2:25 PM CST I contacted [facility] in follow up to notification that they are unable to staff Home Care services with inquiry into alternate facilities. I expect a return call. Update: [facility] returned the call and stated that the staffing fluctuates rapidly, and it is recommended to resend the [facility] referral. I have completed that. We also discussed alternative facilities to include: [facility] (FAX: [phone]); [facility] (FAX: [phone]); and [facility] (FAX: [phone]). Our office will continue to follow. OW WARE MAKER OW WARE MAKER documented in this encounter Plan of Treatment Not on file documented as of this encounter Visit Diagnoses Not on filedocumented in this encounter Care Teams Stem Threshing Machine Operator Relationship Specialty Start Date End Date Leisa Hicks MD [address] [facility] [address] [place] [address] PCP - General Internal Medicine 08/22/24 Tino Mendoza MD [address] [place] [address] Internal Medicine 08/24/24 Irving Barnes MD [address] [facility] [address] [place] [address] Referring Physician Gastroenterology 08/24/24 Katharine Almonte MD PhD [address] [place] [address] Medical Oncologist Medical Oncology 12/07/24 documented as of this encounter
--- OUTSIDE RECORDS SUMMARY | 2025-09-02 10:51 | XMS_ITS ---
Author Organization [facility] Address [address] [place] [address] Care Team Providers Care Freezer Assistant Name Role Phone Leisa Hicks MD Primary Care Provider Tino Mendoza MD Unavailable [phone] Irving Barnes MD Unavailable + Katharine Almonte MD PhD Unavailable [phone] Active Problems Problem Noted Date Diagnosed Date [...] around site). - home tube feeding (ordered FamilyID Peptide 1.5 kcal 365ml qid with water 250ml qid flushes) Confusion 05/24/2025 Assessment & Plan (05/25/2025 10:14 AM CDT): Woke up confused this morning. Alert and oriented to self only. Hemodynamically stable. Denied any signs symptoms of infection. Labs from overnight stable. Exam unremarkable. Per patient's granddaughter [facility] patient often wakes up in [...] overnight stable. Exam unremarkable. Per patient's granddaughter [facility] patient often wakes up in [...] 11/24/2024 Assessment & Plan (11/26/2024 2:09 PM SOLDERING MACHINE SETTER): Secondary to dehydration and in setting of [...] 11/21/2024 Assessment & Plan (11/22/2024 5:47 PM SOLDERING MACHINE SETTER): Cr 4.65 on admission, baseline 0.6 - likely pre-renal - s/p 2L bolus - continue maintenance IVF - avoid nephrotoxic medications - strict I+Os - bladder scan/straight cath PRN - monitor UO - Improving Elevated troponin 11/21/2024 Assessment & Plan (11/23/2024 2:45 PM SOLDERING MACHINE SETTER): Resolved. Trop 24 >17. Denies chest pain. EKG without ischemic changes. - monitor Hypotension 11/21/2024 Assessment & Plan (11/24/2024 10:52 AM SOLDERING MACHINE SETTER): RESOLVED Noted to be hypotensive during the g-tube exchange in IR today (60/40s). ACT called in recovery room and she rec'd 1L bolus with improvement to 80-90s/30-40s. She was sent to ER for further management. Received 2 more liter boluses. Unclear if pt took her blood pressure medications this morning. - monitor b/p Chronic anemia 11/16/2024 Assessment & Plan (11/21/2024 3:55 PM SOLDERING MACHINE SETTER): Hgb 10.1 on admission, baseline ~11 - [...] 08/18/2024 Assessment & Plan (11/24/2024 10:46 AM SOLDERING MACHINE SETTER): Swallow function study (MBS) on 10/18/24 with [...] RD Assessment & Plan (11/21/2024 4:47 PM SOLDERING MACHINE SETTER): - Director Of Primary Care consult, appreciate recommendations Assessment & Plan (08/23/2024 9:59 AM CDT): Due to esophageal mass and dysphagia, significant weight loss, patient estimates ~40 pounds -oil refinery operator consult for tube feeding recommendations, started on TF and now at goal without worsening sx. -at risk for re-feeding syndrome, monitor BMP, Mg, Phos daily. Lab work currently stable. -pt and daughter to receive TF education by [facility] then to discharge home Suspected condition 04/03/2021 [...] PCP Assessment & Plan (11/26/2024 2:10 PM SOLDERING MACHINE SETTER): RESOLVED. Antihypertensives held on admission in setting [...] if needed seek the expertise of a neuro ophthalmologist. 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 IV Maintenance Therapy Plan* Plan Start Date:06/21/2025 Plan Provider:Katharine Almonte MD PhD Linked Problems Metastasis to bonePrimary sq uamous cell carcinoma of middle third of esophagus (HCC) Treatment Medications No medications scheduled. 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 PACLitaxeL (TAXOL) 135 mg in sodium chloride 0.9% (PVC-FREE) 250 mL IVPBramucirumab (CYRAMZA) 500 mg in sodium chloride 0.9% 250 mL IVPB Zoledronic Acid Every 4 Weeks* Plan Start Date:01/11/2025 Plan Provider:Katharine Almonte MD PhD Linked Problems Metastasis to bonePrimary sq uamous cell carcinoma of middle third of esophagus (HCC) Treatment Medications Current Day (Day 1 , Cycle 8 - Planned for 08/16/2025) Next Day (Day 1, Cycle 9 - Planned for 09/13/2025) No medications scheduled. No medications schedul ed. No medications scheduled. Past Treatment and Therapy Plans Line Care Plan Name Start Date Discontinue Date Treatment Medications Discontinue Reason Plan Provider IV Maintenance Therapy Plan 05/13/2025 06/21/2025 No medications scheduled. Orders Katharine Almonte MD PhD Oncology Chemotherapy Treatment Plan Name Start Date Discontinue Date Treatment Medications Discontinue Reason Plan Provider Cycles [id number] + Nivolumab: (Fluororuacil / NO Leucovorin /NO OXALI / Nivolumab) 14 Day Cycles - Gastric/Esoph ageal 12/28/2024 08/30/2025 fluorouracil (ADRUCIL)fluoro uracil (ADRUCIL) infusion - for home infusion (ADRUCIL)nivolu mab (OPDIVO)nivolum ab (OPDIVO) in 50 mL IVPB Progressive Disease Katharine Almonte MD PhD 14 of 18 cycles started Past Radiation Episodes * Radiation Oncology - Radiation Therapy - February 2025Overview* First Treatment Date Last Treatment Date Treatment Site Technique Goal Episod e Provider 04/13/2025 04/19/2025 Treatment Courses* Course [id number]/13/2025 - 04/19/2025 Treatment Period Fraction Dose Fractions Total Dose Plans Planned RT ILIAC 04/13/2025 - 04/19/2025 400 5 / 2 ,000 Reference Points Delivered DPV_RT ILIAC 04/13/2025 - 04/19/2025 2,000 Lifetime Dose Tracking * Chemical Lifetime Dose Automatic Entry Manual Entr y Fluoro Time 11.6 minutes 11.6 minutes 0 minutes Air kerma at the reference point (Ka,r) 77.6 mGy 7 7.6 mGy 0 mGy DLP 1,545 mGycm 1,545 mGycm 0 mGycm Resolved Problems Problem Noted Date Diagnosed Date [...] 11/22/2024 Assessment & Plan (11/22/2024 5:50 PM SOLDERING MACHINE SETTER): K 3.7 at admission, now 2.6. Receiving potassium 40mEq IV. - replete to maintain K>4 - monitor BMP Assessment & Plan (08/21/2024 9:12 AM CDT): Hypokalemia noted at OSH s/p replacement. Required additional aggressive IV repletion here, now normalized
--- OUTSIDE RECORDS SUMMARY | 2025-09-02 10:51 | XMS_ITS | Encounter Summary ---
Author Organization [facility] Address [address] [place] [address] Phone Care Team Providers Care Bench Worker Helper Name Role Phone Leisa Hicks MD Primary Care Provider Leisa Hicks MD Primary Care Provider Tino Mendoza MD Unavailable [phone] Irving Barnes MD Unavailable + Katharine Almonte MD PhD Unavailable [phone] Encounter Details Date Type Department Care Team (Latest Contact Info) Description 08/16/2024 Orders Only [facility] Scanning, Provider Social History Tobacco Use Types Packs/Day Years Used Date Smoking Tobacco: Never Assessed [facility] Utilities Answer Date Recorded In the past 12 months has [employer], gas, oil, or water company threatened [...] often do you attend chur ch or jainism services? Never 08/19/2024 Do you belong to any clubs o r organizations such as yarsani groups, unions, fraternal or athletic groups, or [...] any time in the past 12 m [facility], were you homeless or living in a longterm (including now)? No 08/19/2024 Personal Safety Answer [...] 1 08/18/2024 4:53 PM Eli Metzger RN BASIC ACOUSTIC ANALYST Evaluation Needed 2 08/18/2024 4:53 PM Eli [...] Aggarwal RN Patient is in need of BASIC ACOUSTIC ANALYST Order: No BASIC ACOUSTIC ANALYST order needed from this assessment 08/18/2024 4:53 [...] documented as of this encounter Care Teams Bench Worker Helper Relationship Specialty [place] [address] [place] [address] PCP - General Internal Medicine 08/19/24 08/21/24 [place] [address] [place] [address] PCP - General Internal Medicine 08/22/24 Tino Mendoza MD [address] [place] [address] Internal Medicine 08/24/24 Irving Barnes MD [address] [place] [address] Referring Physician Gastroenterology 08/24/24 Katharine Almonte MD PhD [address] [place] [address] Medical Oncologist Medical Oncology 12/07/24 documented as of this encounter
--- NOTE | 2025-09-02 12:30 | ADMGEN ---
This patient, Nancy Best, was admitted to [address] [place] [address] Room [facility] at 1132. Patient/family oriented to hospital policies and general routines including ID bracelet, bed and alarms, visiting hours, pain management, procedures, bathroom and other care routines, personal items, smoking policy, room service/diet, and visiting hours. Information on how to activate the Rapid Response Team has been discussed. Patient/Family are encouraged to report perceived risks to care and to ask questions if they do not understand what they are told or what they should do.
[2025-09-02] MEDS: SODIUM CHLORIDE 0.9% IV 1,000 ML 100 ML IV CONT (15:54)
[2025-09-02 16:02] LABS: Hematocrit 33.3 % (37.0-47.0); Hemoglobin 9.8 g/dL (12.0-15.0); Immature Granulocyte Percent A 0.7 % (0-0.5); Lymphocytes Absolute Auto 1.08 K/mm3 (0.9-3.2); Mean Corpuscular HGB Conc 29.4 g/dl (32-36); Mean Corpuscular Hemoglobin 30.2 pg (26-34); Mean Corpuscular Volume 102.5 fl (80-100); Nucleated Red Blood Cells Absolute Auto 0.000 K/mm3 (0.0-0.012); Nucleated Red Blood Cells Perc 0.0 % (0.0-0.2); Platelet Count Result 307 k/mm3 (150-375); Red Blood Count 3.25 M/mm3 (4.2-5.4); White Blood Count 11.1 K/mm3 (4.5-10.0)
[2025-09-02 16:22] LABS: Band Neutrophils Percent 0 % (0-6); Schistocytes None Seen
[2025-09-02 16:23] LABS: Anisocytosis 1+; Hypochromasia 1+
[2025-09-02 16:39] LABS: Influenza A QL RT-PCR Negative (Negative); Influenza B QL RT-PCR Negative (Negative); RSV RNA, RT-PCR Negative (Negative); SARS-CoV-2 RNA PCR Negative (Negative)
[2025-09-02 18:40] LABS: Alanine Aminotransferase 29 U/L (6-35); Albumin Level 2.4 g/dL (3.5-5.1); Alkaline Phosphatase 117 U/L (38-126); Anion Gap 6 mmol/L (4-12); Aspartate Amino Transferase 45 U/L (14-36); Bilirubin,Total 0.2 mg/dL (0.2-1.3); Blood Urea Nitrogen 34 mg/dL (7-17); Calcium 7.7 mg/dL (8.4-10.2); Carbon Dioxide 24 mmol/L (22-30); Chloride 108 mmol/L (98-107); Estimated CRCL calculation 52 ml/min; Estimated Glomerular Filt Rate > 60; Glucose 199 mg/dL (65-110); Potassium 4.5 mmol/L (3.4-5.0); Sodium 138 mmol/L (137-145); Total Protein 6.0 g/dL (6.3-8.2)
--- NOTE | 2025-09-02 22:35 | PC.NURSE ---
UPDATE GIVEN TO [facility]. AWAITING BED PLACEMENT ON ONCOLOGY FLOOR.
[2025-09-03] VITALS (8 sets, daily range): BP systolic 92–122; BP diastolic 52–77; PULSE 62–121; RESP 16–22; TEMP 36.6–36.7; O2SAT 100
[2025-09-03] MEDS: SODIUM CHLORIDE 0.9% IV 1,000 ML 100 ML IV CONT ×2 (02:00→12:10)
[2025-09-03 06:31] LABS: Hematocrit 29.2 % (37.0-47.0); Hemoglobin 9.0 g/dL (12.0-15.0); Immature Granulocyte Percent A 1.0 % (0-0.5); Lymphocytes Absolute Auto 1.25 K/mm3 (0.9-3.2); Mean Corpuscular HGB Conc 30.8 g/dl (32-36); Mean Corpuscular Hemoglobin 30.3 pg (26-34); Mean Corpuscular Volume 98.3 fl (80-100); Nucleated Red Blood Cells Absolute Auto 0.000 K/mm3 (0.0-0.012); Nucleated Red Blood Cells Perc 0.0 % (0.0-0.2); Platelet Count Result 314 k/mm3 (150-375); Red Blood Count 2.97 M/mm3 (4.2-5.4); White Blood Count 10.5 K/mm3 (4.5-10.0)
[2025-09-03 06:32] LABS: Alanine Aminotransferase 28 U/L (6-35); Albumin Level 2.6 g/dL (3.5-5.1); Alkaline Phosphatase 114 U/L (38-126); Anion Gap 4 mmol/L (4-12); Aspartate Amino Transferase 41 U/L (14-36); Bilirubin,Total 0.3 mg/dL (0.2-1.3); Blood Urea Nitrogen 32 mg/dL (7-17); Calcium 7.2 mg/dL (8.4-10.2); Carbon Dioxide 24 mmol/L (22-30); Chloride 112 mmol/L (98-107); Estimated CRCL calculation 57 ml/min; Estimated Glomerular Filt Rate > 60; Glucose 131 mg/dL (65-110); Potassium 4.1 mmol/L (3.4-5.0); Sodium 140 mmol/L (137-145); Total Protein 6.3 g/dL (6.3-8.2)
--- NOTE | 2025-09-03 08:14 | PM.IMPN ---
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 Upon however on exam, patient denied any pain or complaints whatsoever, denied any abdominal pain, nausea/vomiting or diarrhea. On exam she is nontender to palpation. Chest CTA: 1. Abnormal soft tissue proximal esophagus, suspicious for esophageal carcinoma. 2: Mediastinal, right hilar, subcarinal and upper abdominal lymphadenopathy, compatible with metastatic disease. 3: Sclerosis of T2 with superior endplate compression fracture, consistent with metastatic disease. 4: Cirrhosis of the liver. 5: Moderate ascites. No reported abdominal discomfort on ROS, no TTP 09/03: Continues to deny abd pain (3) Leukocytosis: Code(s): D72.829 - Elevated white blood cell count, unspecified Status: Acute Assessment and Plan: Upon admission: WBC 17.4, afebrile Chest CTA: 1. Abnormal soft tissue proximal esophagus, suspicious for esophageal carcinoma. 2: Mediastinal, right hilar, subcarinal and upper abdominal lymphadenopathy, compatible with metastatic disease. 3: Sclerosis of T2 with superior endplate compression fracture, consistent with metastatic disease. 4: Cirrhosis of the liver. 5: Moderate ascites. Could be reactive in nature, no indication of infection on imaging/UA Monitor vital signs, I&Os, neuro status and patient is a fall risk Follow WBC, serum electrolytes, temperature curves and cultures Viral panel negative WBC 17.4 -> 10.5 (4) Squamous cell esophageal cancer: Code(s): C15.9 - Malignant neoplasm of esophagus, unspecified Status: Acute Assessment and Plan: Stage [id number] esophageal SCC w/ near obstructing esophageal tumor in mid-thoracic esophagus, prominent paraesophageal LN and enlarged gastrohepatic LN. Follows with [facility] cancer center @ [facility] Tube feeds at home: Sherri Abreu Peptide 1.5 @ 325L QID w/ 250 mL free water flush w/ each feed Continue tube feedings - Vital 1.0 HP feedings (5) HTN (hypertension): Code(s): I10 - Essential (primary) hypertension Status: Acute Assessment and Plan: Patient's blood pressure was reviewed on 09/02 Blood pressure remains well controlled. Will continue current medications. 112/68 Subjective Date/time seen: 09/03/25 08:14 Interval history: 70-year-old female with a PMH of Squamous cell esophageal cancer, hypertension who presents to the hospital with reported abdominal pain for the past 2 days. 09/03/2025 Patient sitting at bedside during exam. Continues to deny Chest pain, shortness of breath, n/v or abd pain. Leukocytosis nearly resolved, WBC down 17.4 -> 10.5. Blood cultures still pending. Chlroide 112, calcium 7.4 but otherwise no major electrolyte abnormalities. Transfer to [facility] still pending bed availability. Continue tube feedings Vital HP. Review of Systems Review of Systems: All systems reviewed & are unremarkable except as noted in HPI and below Exam Narrative: Gen - well appearing elderly female in no acute respiratory distress who is nontoxic-appearing lying semi recumbent in bed HEENT - normocephalic. Atraumatic. Pupils equal round and reactive. Extraocular motions intact. Sclera clear and anicteric. Oropharynx was clear. Dry mucous membranes. No facial asymmetry. Neck - neck was supple. No dominant adenopathy, thyromegaly or masses. 2+ carotid upstrokes without bruits. Chest - lungs are clear to auscultation bilaterally. No wheezes or crackles. CV - heart was regular rate and rhythm. S1-S2. No murmurs gallops or rubs. Abd - abdomen was soft. Nontender. Nondistended. Positive bowel sounds. No organomegaly or masses. Ext - no clubbing, cyanosis or edema. 2+ DP pulses bilaterally. Neuro - patient is alert and oriented x2. Strength is 5/5 in both upper and lower extremities. Cranial nerves 2-12 are intact. Speech is clear. Psych - normal mood and affect. Patient is pleasant and cooperative. Skin - warm and dry. No rashes noted. Objective Data Vital Signs Vital Signs: Vital Signs - 24 hr 09/02/25 08:31 09/02/25 12:05 09/02/25 13:56 Temperature Pulse Rate 101 H 102 H Respiratory Rate 18 Blood Pressure 112/68 Pulse Oximetry Oxygen Delivery Room Air 09/02/25 14:00 09/02/25 16:00 09/02/25 20:00 Temperature 97.5 F L Pulse Rate 117 H 113 H 119 H Respiratory Rate 20 Blood Pressure 113/72 Pulse Oximetry 98 Oxygen Delivery 09/02/25 21:33 09/02/25 21:54 09/02/25 23:25 Temperature 98.2 F Pulse Rate 123 H 123 H Respiratory Rate 22 H Blood Pressure 143/75 H Pulse Oximetry 98 Oxygen Delivery Room Air 09/03/25 00:00 09/03/25 04:00 09/03/25 06:00 Temperature 97.8 F Pulse Rate 120 H 111 H 114 H Respiratory Rate 20 Blood Pressure 122/77 Pulse Oximetry 100 Oxygen Delivery Intake/Output Intake/Output: Intake & Output 08/31/25 09/01/25 09/02/25 09/03/25 23:59 23:59 23:59 23:59 Intake Total 1000 1300 2200 Balance 1000 1300 2200 Meds/Results Medications: Active Medications Generic Name Dose Route Start Last Admin Trade Name Freq PRN Reason Stop Dose Admin Amlodipine Besylate 10 mg 09/03/25 09:00 Amlodipine Besylate 10 Mg Tablet PO DAILY RICHARD Clonidine HCl 0.3 mg 09/03/25 09:00 Clonidine Hcl 0.1 Mg Tablet PO DAILY RICHARD Enoxaparin Sodium 40 mg 09/03/25 09:00 Enoxaparin 40 Mg/0.4 Ml Syringe SUB-Q DAILY RICHARD Hydralazine HCl 25 mg 09/03/25 09:00 Hydralazine Hcl 25 Mg Tablet PO DAILY RICHADR Ceftriaxone Sodium 1 gm/ 50 mls @ 100 mls/hr 09/02/25 22:00 09/02/25 22:10 Sodium Chloride IVPB Infused Q24H RICHARD Infusion Doxycycline Hyclate 100 mg/ 100 mls @ 100 mls/hr 09/02/25 12:00 09/02/25 23:25 Sodium Chloride IVPB 09/06/25 12:59 100 mls/hr Q12H RICHARD Administration Sodium Chloride 1,000 mls @ 100 mls/hr 09/02/25 14:30 09/03/25 02:00 Normal Saline Iv IV CONT 100 mls/hr .Q10H RICHARD Administration Lidocaine/Prilocaine 1 each 09/03/25 09:00 Lidocaine/Prilocaine Cream 2.5-2.5% Tube TOPICAL DAILY RICHARD Lisinopril 40 mg 09/03/25 09:00 Lisinopril 20 Mg Tablet PO DAILY COUNT INCLUDES THE [facility] Miscellaneous Information 1 each 09/02/25 00:01 Lidocaine/Prilocaine Cream 2.5-2.5% Tube Needs Place Of Application XX 10/02/25 00:00 CLARIFY RICHARD Nadolol 20 mg 09/03/25 09:00 Nadolol 20 Mg Tablet PO Q12HR RICHARD Prochlorperazine Maleate 10 mg 09/03/25 09:00 Prochlorperazine Maleate 5 Mg Tablet PO DAILY COUNT INCLUDES THE [facility] Radiology Results: ITS Impressions Chest/Abdomen/Pelvis CTA 09/01/25 21:47 IMPRESSION: 1. Abnormal soft tissue proximal esophagus, suspicious for esophageal carcinoma. 2: Mediastinal, right hilar, subcarinal and upper abdominal lymphadenopathy, compatible with metastatic disease. 3: Sclerosis of T2 with superior endplate compression fracture, consistent with metastatic disease. 4: Cirrhosis of the liver. 5: Moderate ascites. Labs Labs: Laboratory Results - last 24 hr 09/02/25 09/02/25 09/02/25 15:52 15:59 16:56 WBC 11.1 H RBC 3.25 L Hgb 9.8 L Hct 33.3 L MCV 102.5 H D MCH 30.2 MCHC 29.4 L RDW 14.8 H Plt Count 307 MPV 9.5 Immature Gran % (Auto) 0.7 H Neut % (Auto) 76.3 H Lymph % (Auto) 9.8 L [place] % (Auto) 11.1 H Eos % (Auto) 1.6 Baso % (Auto) 0.5 Lymph # (Auto) 1.08 [place] # (Auto) 1.2 H Eos # (Auto) 0.2 Baso # (Auto) 0.1 Abs Immat Gran (auto) 0.08 H Absolute Neuts (auto) 8.4 H Absolute Nucleated RBC 0.000 Band Neutrophils % 0 Nucleated RBC % 0.0 Platelet Estimate Adequate Hypochromasia 1+ Anisocytosis 1+ Schistocytes None seen Sodium Potassium Chloride Carbon Dioxide Anion Gap BUN Creatinine Estim Creat Clear Calc Estimated GFR Glucose POC Capillary Glucose 189 H Lactic Acid 1.8 Calcium Total Bilirubin AST ALT Alkaline Phosphatase Total Protein Albumin Influenza A (RT-PCR) Negative Influenza B (RT-PCR) Negative RSV (RT-PCR) Negative SARS-CoV-2 RNA (RT-PCR) Negative 09/02/25 09/02/25 09/03/25 17:54 23:31 05:51 WBC 10.5 H RBC 2.97 L Hgb 9.0 L Hct 29.2 L MCV 98.3 MCH 30.3 MCHC 30.8 L RDW 14.5 Plt Count 314 MPV 10.0 Immature Gran % (Auto) 1.0 H Neut % (Auto) 73.5 H Lymph % (Auto) 11.9 L [place] % (Auto) 11.1 H Eos % (Auto) 2.1 Baso % (Auto) 0.4 Lymph # (Auto) 1.25 [place] # (Auto) 1.2 H Eos # (Auto) 0.2 Baso # (Auto) 0.0 Abs Immat Gran (auto) 0.11 H Absolute Neuts (auto) 7.7 H Absolute Nucleated RBC 0.000 Band Neutrophils % Nucleated RBC % 0.0 Platelet Estimate Hypochromasia Anisocytosis Schistocytes Sodium 138 140 Potassium 4.5 4.1 Chloride 108 H 112 H Carbon Dioxide 24 24 Anion Gap 6 4 BUN 34 H 32 H Creatinine 0.74 0.67 L Estim Creat Clear Calc 52 57 Estimated GFR > 60 > 60 Glucose 199 H 131 H POC Capillary Glucose 152 H Lactic Acid Calcium 7.7 L 7.2 L Total Bilirubin 0.2 0.3 AST 45 H 41 H ALT 29 28 Alkaline Phosphatase 117 114 Total Protein 6.0 L 6.3 Albumin 2.4 L 2.6 L Influenza A (RT-PCR) Influenza B (RT-PCR) RSV (RT-PCR) SARS-CoV-2 RNA (RT-PCR) 09/03/25 05:53 WBC RBC Hgb Hct MCV MCH MCHC RDW Plt Count MPV Immature Gran % (Auto) Neut % (Auto) Lymph % (Auto) [place] % (Auto) Eos % (Auto) Baso % (Auto) Lymph # (Auto) [place] # (Auto) Eos # (Auto) Baso # (Auto) Abs Immat Gran (auto) Absolute Neuts (auto) Absolute Nucleated RBC Band Neutrophils % Nucleated RBC % Platelet Estimate Hypochromasia Anisocytosis Schistocytes Sodium Potassium Chloride Carbon Dioxide Anion Gap BUN Creatinine Estim Creat Clear Calc Estimated GFR Glucose POC Capillary Glucose 122 H Lactic Acid Calcium Total Bilirubin AST ALT Alkaline Phosphatase Total Protein Albumin Influenza A (RT-PCR) Influenza B (RT-PCR) RSV (RT-PCR) SARS-CoV-2 RNA (RT-PCR) Quality VTE Prophylaxis VTE prophylaxis: pharmacologic ordered (Lovenox 40meq daily)
[2025-09-03] MEDS: ENOXAPARIN 40 MG/0.4 ML SYRINGE SUB-Q (09:03)
[2025-09-03] MEDS: PROCHLORPERAZINE MALEATE 5 MG TABLET 10 MG PO (09:09)
[2025-09-03] MEDS: DOXYCYCLINE IV 100 MG in SODIUM CHLORIDE 0.9% IV 100 ML IVPB (11:58)
[2025-09-03] MEDS: PHARMACIST COMMUNICATION ORDER 1 EACH XX (12:11)
--- NOTE | 2025-09-03 15:23 | P.CONGI_ITS ---
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 for further care denies any more abdominal pain also ascites with cirrhosis, ? carcinomatosis ok to start tube feeding if tolerates [place] (2) Dysphagia: Code(s): R13.10 - Dysphagia, unspecified Status: Acute Assessment and Plan: from advanced cancer (3) SIRS (systemic inflammatory response syndrome): Code(s): R65.10 - Systemic inflammatory response syndrome (SIRS) of non-infectious origin without acute organ dysfunction Status: Acute Assessment and Plan: on abx wbc trending down (4) Abdominal pain: Code(s): R10.9 - Unspecified abdominal pain Status: Acute Assessment and Plan: better (5) Cirrhosis: Code(s): K74.60 - Unspecified cirrhosis of liver Status: Acute (6) Leukocytosis: Code(s): D72.829 - Elevated white blood cell count, unspecified Status: Acute GI Consult Note Consult date/time: 09/03/25 15:23 Reason for consult: metastatic esophageal cancer, abdominal pain HPI: Nancy Best is a 70 year old female with a PMH of metastatic Squamous cell esophageal cancer diagnosed 07/2024, noted near obstructing lesion in esophagus and transfer to [facility] where she has been receiving care by oncologist. Here with new onset abdominal pain for 2 days. she is not best historian and currently has g-tube in place. On admission was tachycardic with leukocytosis. Diagnosed with sirs, started on abx. Labs- WBC 17.4, H&H 3.35/10.2, Plt 346, Na 138, K 5.0, BUN 41, Cr 0.91, AST 58, ALT 36, Alk Phos 154, Total bilirubin 0.3. Chest/abdomen/pelvis reviewed- 1. Abnormal soft tissue proximal esophagus, suspicious for esophageal carcinoma. 2: Mediastinal, right hilar, subcarinal and upper abdominal lymphadenopathy, compatible with metastatic disease. 3: Sclerosis of T2 with superior endplate compression fracture, consistent with metastatic disease. 4: Cirrhosis of the liver. 5: Moderate ascites. Reviewed recent records from her oncologist noted progressive metastatic disease after CT scan. Review of Systems 2 Constitutional: Constitutional: Reports fatigue and Reports weight loss Eyes: Eyes: Denies blurry vision ENT: Reports Normal hearing present Cardiovascular: Cardiovascular: Denies chest pain Respiratory: Respiratory: Denies chest congestion Gastrointestinal: Gastrointestinal: Reports abdominal pain Genitourinary: Genitourinary: Denies dysuria Musculoskeletal: Musculoskeletal: Denies neck pain Integumentary/Breasts: Skin/Breast: Denies rash Neurologic: Denies Abnormal speech present Psychiatric: Psychiatric: Denies homicidal ideation [facility] Past Medical History Medical History (Updated 09/03/25 @ 15:29 by Irving Chery MD) Dysphagia Cirrhosis 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 Esophageal obstruction Squamous cell esophageal cancer HTN (hypertension) Weight loss Abnormal CT scan, stomach Family History Family History (Updated 09/02/25 @ 12:05 by Antoinette Zelaya RN) Mother Diabetes mellitus Social History Social History Smoking status: Never smoker Alcohol intake: never Substance use: never Substance use type: does not use Do You Feel Safe in your Home?: Yes Lack of Transportation: No Lack of Food: Never True Current Housing: I Have Housing Concerned About Future Housing: No Difficulty Paying Gas/Electric Bills: No Difficulty Paying for Meds: No Currently Unemployed: No Education: Grade School Difficulty w/ Childcare or Family Care: No Spiritual care concerns: No Meds Home Medications and Allergies Home Medications ?Medication ?Instructions ?Recorded ?Confirmed ?Type amlodipine 10 mg tablet 10 mg PO DAILY 08/15/2406/19 History clonidine HCl 0.3 mg tablet 0.3 mg PO DAILY 08/15/24 1 11/02/24 History lisinopril 40 mg tablet 40 mg PO DAILY 08/15/2406/19 History hydralazine 25 mg tablet 25 mg PO DAILY 09/02/2506/19 History lidocaine-prilocaine 2.5 %-2.5 % 1 applic topical NICOLE Y 09/02/25 09/02/25 History topical cream nadolol 20 mg tablet 20 mg PO DAILY 09/02/2506/19 History prochlorperazine maleate 10 mg 10 mg PO DAILY 09/02/25 09/02/25 History tablet Allergies Allergy/AdvReac Type Severity Reaction Status Date / Time No Known Allergies Allergy Verified 09/02/25 11:53 Vital Signs Vital Signs - 24 hr 09/02/25 16:00 09/02/25 20:00 09/02/25 21:33 Temperature 98.2 F Pulse Rate 113 H 119 H 123 H Respiratory Rate 22 H Blood Pressure 143/75 H Pulse Oximetry 98 Oxygen Delivery 09/02/25 21:54 09/02/25 23:25 09/03/25 00:00 Temperature Pulse Rate 123 H 120 H Respiratory Rate Blood Pressure Pulse Oximetry Oxygen Delivery Room Air 09/03/25 04:00 09/03/25 06:00 09/03/25 09:00 Temperature 97.8 F Pulse Rate 111 H 114 H 120 H Respiratory Rate 20 16 Blood Pressure 122/77 112/73 Pulse Oximetry 100 100 Oxygen Delivery 09/03/25 09:00 09/03/25 09:00 09/03/25 09:10 Temperature Pulse Rate 121 H 120 H Respiratory Rate Blood Pressure Pulse Oximetry Oxygen Delivery Room Air 09/03/25 12:00 Temperature Pulse Rate 98 Respiratory Rate Blood Pressure Pulse Oximetry Oxygen Delivery Exam 2 Const: General: no acute distress Other: chronically ill appearing HENMT: Face/Nose/Sinus: Normal nares present Eyes: Sclera: sclerae normal Neck: Neck: supple Resp: Auscultation: clear to auscultation bilaterally Cardio: Rate: regular rate Rhythm: regular rhythm GI: Inspection: distended GI Palp: Yes Soft to palpation Other: no rebound G-tube in place Skin: General skin exam: normal color Neuro: General: gait normal Speech: normal speech Extrem: General: normal to inspection Psych: Mental Status: mental status grossly normal Results Labs 09/03/25 05:51 09/03/25 05:51 Labs: Short CBC 09/02/25 09/03/25 Range/Units 15:52 05:51 WBC 11.1 H 10.5 H (4.5-10.0) K/mm3 Hgb 9.8 L 9.0 L (12.0-15.0) g/dL Hct 33.3 L 29.2 L (37.0-47.0) % Plt Count 307 314 (150-375) k/mm3 [facility] 09/02/25 09/03/25 17:54 05:51 Sodium 138 140 Potassium 4.5 4.1 Chloride 108 H 112 H Carbon Dioxide 24 24 BUN 34 H 32 H Creatinine 0.74 0.67 L Glucose 199 H 131 H Calcium 7.7 L 7.2 L Liver Function 09/02/25 09/03/25 Range/Units 17:54 05:51 Total Bilirubin 0.2 0.3 (0.2-1.3) mg/dL AST 45 H 41 H (14-36) U/L ALT 29 28 (6-35) U/L Alkaline Phosphatase 117 114 (38-126) U/L Albumin 2.4 L 2.6 L (3.5-5.1) g/dL
--- NOTE | 2025-09-04 12:14 | P.TS_ITS ---
Transfer Discharge Sum: Prov Provider Date of admission: 09/03/25 12:29 Primary care physician: Leisa Hicks, MBridger. Admitting clinician: Bernie Clemente DO Consults: 09/02/25 Consult to Dietitian Routine Reason for Consult:: Tube feeding recommendations DS: Admitting Diagnosis Discharge Date 09/03/25 Admitting Diagnosis Abdominal pain DS: Discharge Diagnosis Discharge Diagnosis (1) SIRS (systemic inflammatory response syndrome): Code(s): R65.10 - Systemic inflammatory response syndrome (SIRS) of non-infectious origin without acute organ dysfunction Status: Acute Assessment and Plan: * Meets SIRS criteria: Tachycardia, RR > 20, WBC 17.4 * lactic acid: pending * IVFs: NS @ 100mls/hr * blood cultures drawn on 09/02 * UA: not indicative of infection * CTA: Shows 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 Upon however on exam, patient denied any pain or complaints whatsoever, denied any abdominal pain, nausea/vomiting or diarrhea. On exam she is nontender to palpation. * Chest CTA: * 1. Abnormal soft tissue proximal esophagus, suspicious for esophageal carcinoma. * 2: Mediastinal, right hilar, subcarinal and upper abdominal lymphadenopathy, compatible with metastatic disease. * 3: Sclerosis of T2 with superior endplate compression fracture, consistent with metastatic disease. * 4: Cirrhosis of the liver. * 5: Moderate ascites. * No reported abdominal discomfort on ROS, no TTP * 09/03: Continues to deny abd pain (3) Leukocytosis: Code(s): D72.829 - Elevated white blood cell count, unspecified Status: Acute Assessment and Plan: * Upon admission: WBC 17.4, afebrile * Chest CTA: * 1. Abnormal soft tissue proximal esophagus, suspicious for esophageal carcinoma. * 2: Mediastinal, right hilar, subcarinal and upper abdominal lymphadenopathy, compatible with metastatic disease. * 3: Sclerosis of T2 with superior endplate compression fracture, consistent with metastatic disease. * 4: Cirrhosis of the liver. * 5: Moderate ascites. 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 * Follows with [facility] @ [facility] * Tube feeds at home: SherriCalleoo Peptide 1.5 @ 325L QID w/ 250 mL free water flush w/ each feed * Continue tube feedings - Vital 1.0 HP feedings (5) HTN (hypertension): Code(s): I10 - Essential (primary) hypertension Status: Acute Assessment and Plan: * Patient's blood pressure was reviewed on 09/02 * Blood pressure remains well controlled. * Will continue current medications. * Transfer Discharge Sum: Med Medications Active and Home Medications: Home Medications amlodipine 10 mg tablet 10 mg PO DAILY 08/15/24 [History Confirmed 09/02/25] clonidine HCl 0.3 mg tablet 0.3 mg PO DAILY 08/15/24 [History Confirmed 09/02/25] lisinopril 40 mg tablet 40 mg PO DAILY 08/15/24 [History Confirmed 09/02/25] hydralazine 25 mg tablet 25 mg PO DAILY 09/02/25 [History Confirmed 09/02/25] lidocaine-prilocaine 2.5 %-2.5 % topical cream 1 applic topical DAILY 09/02/25 [History Confirmed 09/02/25] nadolol 20 mg tablet 20 mg PO DAILY 09/02/25 [History Confirmed 09/02/25] prochlorperazine maleate 10 mg tablet 10 mg PO DAILY 09/02/25 [History Confirmed 09/02/25] Transfer Discharge Sum: Hosp Hospital Course Hospital course: Nancy Best is a 70 year old female with a PMH of Squamous cell esophageal cancer, hypertension who presents to the hospital with reported abdominal pain for the past 2 days. On my exam, she denies any chest pain, shortness a breath, nausea/vomiting, abdominal pain, cough, indigestion or urinary/bowel changes. Patient is on tube feedings. Upon arrival to emergency department, patient was tachycardic with leukocytosis. ED workup: 97.7? F, pulse rate 127, respiratory rate 20, 114/64, 90% on room air WBC 17.4, H&H 3.35/10.2, Plt 346, Na 138, K 5.0, BUN 41, Cr 0.91, AST 58, ALT 36, Alk Phos 154, Total bilirubin 0.3, UA not indicative of infection Chest/abdomen/pelvis: 1. Abnormal soft tissue proximal esophagus, suspicious for esophageal carcinoma. 2: Mediastinal, right hilar, subcarinal and upper abdominal lymphadenopathy, compatible with metastatic disease. 3: Sclerosis of T2 with superior endplate compression fracture, consistent with metastatic disease. 4: Cirrhosis of the liver. 5: Moderate ascites. Upon reexamination , patient continued to deny chest pain, shortness of breath, nausea/vomiting, abdominal pain or urinary/bowel changes. Leukocytosis had nearly resolved since admission. WBC down from 17 0.4-10.5 now. Blood cultures were drawn but are still pending upon transfer. Chloride 112 and calcium 7.4 but otherwise no major electrolyte abnormalities. Transfer to [facility] still pending at this time, planned to continue tube feedings Vital HP. Patient did meet SIRS criteria upon admission with tachycardia, a respiratory rate of over 20, and leukocytosis. Lactic acid was ordered and normal saline was continued at 100 mL/hour. 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 Rocephin and doxycycline were started and continued throughout hospitalization. Transfer to [facility] was initiated upon admission to hospital from the ER for further care from oncologist. Patient was accepted and a bed was found and patient was subsequently transferred in a stable condition at that time. Patient Condition: Stable Time Spent with Patient Time attestation: Total time spent providing and/or coordinating transfer services: 30 Exam Narrative: Gen - well appearing elderly female in no acute respiratory distress who is nontoxic-appearing lying semi recumbent in bed HEENT - normocephalic. Atraumatic. Pupils equal round and reactive. Extraocular motions intact. Sclera clear and anicteric. Oropharynx was clear. Dry mucous membranes. No facial asymmetry. Neck - neck was supple. No dominant adenopathy, thyromegaly or masses. 2+ carotid upstrokes without bruits. Chest - lungs are clear to auscultation bilaterally. No wheezes or crackles. CV - heart was regular rate and rhythm. S1-S2. No murmurs gallops or rubs. Abd - abdomen was soft. Nontender. Nondistended. Positive bowel sounds. No organomegaly or masses. Ext - no clubbing, cyanosis or edema. 2+ DP pulses bilaterally. Neuro - patient is alert and oriented x2. Strength is 5/5 in both upper and lower extremities. Cranial nerves 2-12 are intact. Speech is clear. Psych - normal mood and affect. Patient is pleasant and cooperative. Skin - warm and dry. No rashes noted. DS: Data Data Completed and Pending Labs on day of discharge: Labs from last 24 hours 09/03/25 12:40 POC Capillary Glucose 177 H
== END 2025-09-03 17:30 | disposition short-term general hospital (02) | DRG 694 ==
LOC: ANHED 09-02 06:36 → ANH3MEDSUR 09-02 08:14 → ANH3MED 09-02 11:56
PROVIDERS: Admitting Provider Internal Medicine; Emergency Provider Emergency Medicine; PCP Internal Medicine Infectious Disease; Visit Provider Physician Assistant
DX: C77.2 Secondary and unspecified malignant neoplasm of intra-abdominal lymph nodes (principal); R65.10 Systemic inflammatory response syndrome (SIRS) of non-infectious origin without acute organ dysfunction; C15.9 Malignant neoplasm of esophagus, unspecified; C79.51 Secondary malignant neoplasm of bone; D72.829 Elevated white blood cell count, unspecified; K74.60 Unspecified cirrhosis of liver; R18.8 Other ascites; R13.10 Dysphagia, unspecified; I10 Essential (primary) hypertension
CPT/HCPCS: 36415; 71275; 74177; 80053; 81001; 82948; 83605; 83690; 85025; 87040; 87637; 93005; 96361; 96365; 96366; 96367; 96372; 96375; 99285; A9270; G0378; J0616; J0696; J1650; J7030; J7120; Q9967